=== PATIENT | female | born 1990 | race Caucasian/White ===

== ENCOUNTER 2020-08-14 11:55 | Emergency (ER) | payer MEDICAID, SELFPAY ==
[2020-08-14 12:13] VITALS: BP 131/83; PULSE 80; RESP 16; TEMP 36.6; O2SAT 99; BMI 20.7
--- NOTE | 2020-08-14 12:33 | ED.DENTAL ---
HPI - Dental/Oral General Chief complaint: Dental/Oral Stated complaint: DENTAL PAIN Time Seen by Provider: 08/14/20 12:33 Source: patient Mode of arrival: ambulatory Limitations: no limitations History of Present Illness HPI Narrative: dental pain known wisdom tooth impaction, worsening MD Complaint: tooth pain Teeth map: 1. 2. Onset (ago): day(s) (few) Duration: constant Severity: moderate Relieving factors: nothing Exacerbating factors: chewing Context: history of dental caries and poor dental care Treatment prior to arrival: none Related Data Previous Rx's Medication Instructions Recorded amoxicillin 500 mg PO BID 7 Days #14 cap 08/14/20 Allergies Allergy/AdvReac Type Severity Reaction Status Date / Time Sulfa (Sulfonamide Allergy Unknown swelling, Verified 08/14/20 12:09 Antibiotics) ITCHY [SULFA (SULFONAMIDE ANTIBIOTICS)] Review of Systems Review of Systems: Constitutional : No Fever, No Chills ENT/Mouth : No swallowing difficulty, no change in voice, positive dental pain Eyes: No Eye Pain, No Swelling Cardiovascular : No Chest Pain, No SOB Respiratory : No Cough, No Sputum Gastrointestinal : No Nausea, No Vomiting, No Diarrhea Genitourinary : No Dysuria Musculoskeletal : No Myalgias Skin : No rash Neuro : No Weakness, No Numbness, No Headache PMFSH Past Medical History Attestation statement: The following information was validated with the patient. Medical History (Updated 08/14/20 @ 12:45 by Laxmi Carrillo DO) No active medical problems Social History Social History (Updated 08/14/20 @ 12:45 by Laxmi Carrillo DO) Use of substances other than those prescribed or required for medical reasons: No Advance Directives: No Advance Directives Information Provided: No Physical Exam Vital Signs: Vital Signs: Last Vital Signs Temp 97.8 F 08/14/20 12:13 Pulse 80 08/14/20 12:13 Resp 16 08/14/20 12:13 BP 131/83 08/14/20 12:13 Pulse Ox 99 08/14/20 12:13 Body Mass Index 20.7 Appearance: Alert. Oriented X3. No acute distress. Eyes: Pupils equal, round and reactive to light. ENT: impacted R lower wisdom tooth and caries no abscess or fluctuance, L upper 2nd molar - area is a socket but ?small root noted, no fluctuance or abscess, no evidence of deeper space infection Neck: Normal inspection. Neck supple. CVS: Normal heart rate and rhythm. Pulses normal. Respiratory: No respiratory distress. Breath sounds normal. Abdomen: Soft and nontender. Skin: Skin warm and dry. Normal skin color. Normal skin turgor. Extremities: No lower extremity edema. No calf ttp Neuro: Oriented X 3. No motor deficit. No sensory deficit. MDM - Dental/Oral MDM Narrative Medical decision making narrative: impacted wisdom teeth no abscess, needs to follow up with dentist for extraction, will start on antibiotics to prevent infection, given dental list Discharge Plan Discharge Clinical Impression: Tooth impaction, Pain, dental Patient Disposition: Home, Self-Care Instructions: Toothache (ED) Additional Instructions: return to ED for any worsening symptoms or concerns you need to see an oral surgeon or dentist to have your tooth extracted (removed) you were given a sheet with dental clinics Prescriptions: New amoxicillin 500 mg capsule 500 mg PO BID 7 Days Qty: 14 RF: 0
[2020-08-14] MEDS: Amoxicillin 500 MG CAPSULE PO (12:42)
== END 2020-08-14 12:55 | disposition home or self-care (01) ==
LOC: HO.ED 12:50
PROVIDERS: Emergency Provider Emergency Medicine
DX: K01.1 Impacted teeth (principal); K08.89 Other specified disorders of teeth and supporting structures
CPT/HCPCS: 99283

== ENCOUNTER 2020-10-14 23:08 | Emergency (ER) | payer MEDICARE, MEDICAID, SELFPAY ==
--- NOTE | ~2020-10-14 | US_ITS ---
EXAMINATION: ULTRASOUND, RIGHT ANTERIOR FOREARM CLINICAL INFORMATION: Intravenous drug abuser. Evaluate for abscess COMPARISON: None TECHNIQUE: Dynamic, real-time grayscale and color Doppler sonographic evaluation of the right antecubital region was performed. US/US extremity nonvascular FINDINGS/IMPRESSION: There is thrombophlebitis of an antecubital vein is best shown on the cine images. Extensive surrounding subcutaneous edema is present. The vein above the level of the antecubital fossa is patent. No evidence of abscess formation or phlegmon at this time.
--- NOTE | 2020-10-15 00:27 | ED.GENADULT ---
HPI - General Adult General Chief complaint: Wound/Laceration <EDUARDO Rizo Last Filed: 10/15/20 02:13> Stated complaint: ABSCESS <EDUARDO Rizo Last Filed: 10/15/20 02:13> Time Seen by Provider: 10/15/20 00:09 <EDUARDO Rizo Last Filed: 10/15/20 02:13> Source: patient <EDUARDO Rizo Last Filed: 10/15/20 02:13> Mode of arrival: ambulatory <EDUARDO Rizo Last Filed: 10/15/20 02:13> Limitations: no limitations <EDUARDO Rizo Last Filed: 10/15/20 02:13> History of Present Illness HPI narrative: 30-year-old female with a past medical history of IV drug abuse here with swelling and erythema and pain to the right forearm status post injection 3 days ago. Patient tells me that she injected cocaine into the site but missed and immediately felt pain at the site. Over the last 3 days increasing and swelling and erythema. She has had chills but no fever at home. Patient uses IV heroin and IV cocaine daily. Unable to quantify. Not interested in detox. <EDUARDO Rizo Last Filed: 10/15/20 02:13> Related Data Home medications: Previous Rx's Medication Instructions Recorded amoxicillin 500 mg PO BID 7 Days #14 cap 08/14/20 doxycycline monohydrate 100 mg PO BID #14 tab 10/15/20 <EDUARDO Rizo Last Filed: 10/15/20 02:13> Allergies/adverse reactions: Allergies Allergy/AdvReac Type Severity Reaction Status Date / Time Sulfa (Sulfonamide Allergy Unknown swelling, Verified 10/15/20 00:57 Antibiotics) ITCHY [SULFA (SULFONAMIDE ANTIBIOTICS)] <EDUARDO Rizo Last Filed: 10/15/20 02:13> Review of Systems Review of Systems: Yes all other systems are reviewed and are negative <EDUARDO Rizo Last Filed: 10/15/20 02:13> Constitutional: Constitutional: Reports no additional constitutional complaints, Denies body ache(s), Reports chills, Denies fever(s), Denies headache(s) and Denies weakness <Suellen Jarrett NP - Last Filed: 10/15/20 02:13> Eyes: Eyes: Reports no additional eye complaints and Denies change in vision <Suellen Jarrett [employer] - Last Filed: 10/15/20 02:13> ENT: Reports system reviewed and no additional complaints, except as documented, Denies dizziness, Denies headache(s), Denies nasal congestion, Denies nasal discharge and Denies neck pain <Suellen Jarrett [employer] - Last Filed: 10/15/20 02:13> Cardiovascular: Cardiovascular: Reports no additional cardiovascular complaints, Denies chest pain, Denies leg edema and Denies dyspnea <Suellen Jarrett [employer] - Last Filed: 10/15/20 02:13> Respiratory: Respiratory: Reports no additional respiratory complaints, Denies cough and Denies dyspnea <Suellen Jarrett NP - Last Filed: 10/15/20 02:13> Gastrointestinal: Gastrointestinal: Reports no additional gastrointestinal complaints, Denies abdominal pain, Denies diarrhea, Denies nausea and Denies vomiting <Suellen Jarrett NP - Last Filed: 10/15/20 02:13> Genitourinary: Genitourinary: Reports no additional female genitourinary complaints and Denies urinary incontinence <Suellen Jarrett [employer] - Last Filed: 10/15/20 02:13> Musculoskeletal: Musculoskeletal: Reports no additional musculoskeletal complaints, Denies back pain, Denies arthralgias, Denies joint swelling, Denies neck pain, Denies numbness and Denies tingling <Suellen Jarrett [employer] - Last Filed: 10/15/20 02:13> Integumentary/Breasts: Skin/Breast: Reports system reviewed and no additional complaints, except as docu, Reports swelling, Reports erythema and Denies rash <Suellen Jarrett NP - Last Filed: 10/15/20 02:13> Neurologic: Reports system reviewed and no additional complaints, except as documented, Denies Abnormal speech present, Denies dizziness, Denies headache(s), Denies numbness, Denies tingling and Denies weakness <Suellen Jarrett NP - Last Filed: 10/15/20 02:13> PMFSH Past Medical History Attestation statement: The following information was validated with the patient. <Suellen Jarrett NP - Last Filed: 10/15/20 02:13> Source: old records reviewed and nursing notes reviewed <Suellen Jarrett NP - Last Filed: 10/15/20 02:13> Medical History: Medical History No active medical problems <Suellen Jarrett NP - Last Filed: 10/15/20 02:13> Social History Social History: Social History Advance Directives: No <Suellen Jarrett NP - Last Filed: 10/15/20 02:13> Physical Exam Vital Signs: Vital Signs: Last Vital Signs Temp 98.6 F 10/15/20 02:00 Pulse 83 10/15/20 02:00 Resp 16 10/15/20 02:00 BP 118/72 10/15/20 02:00 Pulse Ox 99 10/15/20 02:00 Body Mass Index 20.2 <Suellen Jarrett NP - Last Filed: 10/15/20 02:13> Vital Signs: Last Vital Signs Temp 98.6 F 10/15/20 02:00 Pulse 83 10/15/20 02:00 Resp 16 10/15/20 02:00 BP 118/72 10/15/20 02:00 Pulse Ox 99 10/15/20 02:00 Body Mass Index 20.2 <Ria Pappas MD - Last Filed: 10/15/20 02:29> Const: General: cooperative, healthy appearing, comfortable and no acute distress <Suellen Jarrett NP - Last Filed: 10/15/20 02:13> Orientation/consciousness: patient oriented x3 <Suellen Jarrett NP - Last Filed: 10/15/20 02:13> Limitations: no limitations <Suellen Jarrett NP - Last Filed: 10/15/20 02:13> HENMT: Head: Yes normal to inspection <Suellen Jarrett NP - Last Filed: 10/15/20 02:13> Ears: hearing grossly normal bilaterally <Suellen Jarrett NP - Last Filed: 10/15/20 02:13> General nose exam: Normal external nose present <Suellen Jarrett NP - Last Filed: 10/15/20 02:13> Face and sinus: Yes normal facial exam <Suellen Jarrett NP - Last Filed: 10/15/20 02:13> Mouth: Normal oral and palatal mucosa present <Suellen Jarrett NP - Last Filed: 10/15/20 02:13> Throat: Yes posterior oropharynx normal <Suellen Jarrett NP - Last Filed: 10/15/20 02:13> Eyes: General: appearance normal, both eyes and all related structures <Suellen Jarrett NP - Last Filed: 10/15/20 02:13> Pupils: Equal, round and reactive pupils present <Suellen Jarrett NP - Last Filed: 10/15/20 02:13> Neck: Neck: Yes normal visual inspection <Suellen Jarrett NP - Last Filed: 10/15/20 02:13> Chest: Chest palpation & inspection: normal inspection of the chest <Suellen Jarrett NP - Last Filed: 10/15/20 02:13> Resp: Effort & Inspection: normal respiratory effort <Suellen Jarrett NP - Last Filed: 10/15/20 02:13> Auscultation: clear to auscultation bilaterally <Suellen Jarrett NP - Last Filed: 10/15/20 02:13> Cardio: Rate: regular rate <Suellen Jarrett NP - Last Filed: 10/15/20 02:13> Rhythm: regular rhythm <Suellen Jarrett NP - Last Filed: 10/15/20 02:13> Peripheral pulses: Peripheral pulses 2+ throughout <Suellen Jarrett NP - Last Filed: 10/15/20 02:13> GI: Inspection: Yes normal to inspection <Suellen Jarrett NP - Last Filed: 10/15/20 02:13> Palpation (GI): Soft to palpation and nontender <Suellen Jarrett NP - Last Filed: 10/15/20 02:13> Auscultation: normal bowel sounds <Suellen Jarrett NP - Last Filed: 10/15/20 02:13> Back/Spine/Pelvis: Thoracic/Lumbar Spine: thoracic and lumbar spine normal to inspection <Suellen Jarrett NP - Last Filed: 10/15/20 02:13> Skin: General skin exam: no rashes or lesions noted <Suellen Jarrett NP - Last Filed: 10/15/20 02:13> Neuro: General: patient oriented x3, no focal motor deficits and normal sensation to monofilament <Suellen Jarrett NP - Last Filed: 10/15/20 02:13> Cranial nerves: Yes Equal, round and reactive pupils present <Suellen Jarrett NP - Last Filed: 10/15/20 02:13> Cognition (Neuro): normal cognition <Suellen Jarrett NP - Last Filed: 10/15/20 02:13> Speech: No Abnormal speech present <Suellen Jarrett NP - Last Filed: 10/15/20 02:13> Gait exam (Neuro): Normal gait present <Suellen Jarrett NP - Last Filed: 10/15/20 02:13> Motor exam (neuro): 5/5 motor strength present throughout <Suellen Jarrett NP - Last Filed: 10/15/20 02:13> Extrem: Other: Just distal to the flexor surface of the elbow there is a firm indurated area approximately 2 in x 2 in. There is no fluctuance. There is warmth of the arm the erythema is not quite circumferential. Patient is able to extend the arm fully although it is painful. No difficulty with flexion of the arm. Normal cap refill. Palpable pulses distally. No paresthesias reported <Suellen Jarrett NP - Last Filed: 10/15/20 02:13> General: Yes normal to inspection <EDUARDO Rizo Last Filed: 10/15/20 02:13> Course Course Course Narrative: 30-year-old female here with erythema, warmth, swelling to the right forearm status post injection. Will check ultrasound to eval for abscess, labs. P.o. antibiotics given. 0200-Sign out to Dr Pappas pending US. <Suellen Jarrett NP - Last Filed: 10/15/20 02:13> Patient re-evaluated and ultrasound findings were reviewed. Patient was informed of the thrombophlebitis and that there was no evidence of an abscess. She was strongly recommended to continue with the antibiotics at this time and to also supplement with NSAIDs for additional symptom relief. Patient was discharged in stable condition. <Ria Pappas MD - Last Filed: 10/15/20 02:29> Medical Decision Making MDM Narrative Medical decision making narrative: cellulitis, abscess <Suellen Jarrett NP - Last Filed: 10/15/20 02:13> Medical Records Medical records reviewed: Yes I reviewed the patient's medical records. <Suellen Jarrett NP - Last Filed: 10/15/20 02:13> Lab Data Lab results reviewed: Yes I reviewed the patient's lab results. <Suellen Jarrett NP - Last Filed: 10/15/20 02:13> Result diagrams: : 10/15/20 01:10 10/15/20 01:10 <Suellen Jarrett NP - Last Filed: 10/15/20 02:13> Labs: Lab Results 10/15/20 10/15/20 10/15/20 Range/Units 01:10 01:10 01:10 WBC 8.7 (4.8-10.8) X10*3/uL RBC 4.67 (4.20-5.50) X10*6/uL Hgb 13.3 (12.0-16.0) g/dl Hct 39.7 (37-47) % MCV 85.0 (80-98) fL MCH 28.5 (27.0-33.0) pg MCHC 33.5 (31.0-35.0) g/dl RDW 12.6 (11.0-16.0) % Plt Count 166 (160-400) X10*3/uL MPV 10.8 (9.4-12.3) fL Immature Gran % (Auto) 0.2 (0.0-0.4) % Neut % (Auto) 48.8 (45-73) % Lymph % (Auto) 41.9 H (20-40) % Stanton % (Auto) 7.9 (2-11) % Eos % (Auto) 0.9 (0-4) % Baso % (Auto) 0.3 (0-2) % Lymph # (Auto) 3.7 (1.2-4.9) X10*3/uL Stanton # (Auto) 0.7 (0.1-1.2) X10*3/uL Eos # (Auto) 0.1 (0.0-0.4) X10*3/uL Baso # (Auto) 0.0 (0.0-0.2) X10*3/uL Abs Immat Gran (auto) 0.02 (0.00-0.03) X10*3/uL Absolute Neuts (auto) 4.3 (2.0-8.3) X10*3/uL Absolute Nucleated RBC 0.000 (0.0-0.012) X10*3/uL Nucleated RBC % (auto) 0.0 (0.0-0.2) /100WBC Sodium 140 (135-145) mmol/L Potassium 4.1 (3.3-5.1) mmol/L Chloride 101 (96-108) mmol/L Carbon Dioxide 31 H (22-29) mmol/L Anion Gap 12 (12-20) BUN 12 (9-16) mg/dL Creatinine 0.69 (0.5-1.4) mg/dL Estim Creat Clear Calc 89.1 Estimated GFR > 60 Random Glucose 70 (60-115) mg/dL Lactic Acid 0.6 (0.5-2.0) mmol/L Calcium 9.6 (8.4-10.2) mg/dL <Suellen Jarrett, [employer] - Last Filed: 10/15/20 02:13> Lab Results 10/15/20 10/15/20 10/15/20 Range/Units 01:10 01:10 01:10 WBC 8.7 (4.8-10.8) X10*3/uL RBC 4.67 (4.20-5.50) X10*6/uL Hgb 13.3 (12.0-16.0) g/dl Hct 39.7 (37-47) % MCV 85.0 (80-98) fL MCH 28.5 (27.0-33.0) pg MCHC 33.5 (31.0-35.0) g/dl RDW 12.6 (11.0-16.0) % Plt Count 166 (160-400) X10*3/uL MPV 10.8 (9.4-12.3) fL Immature Gran % (Auto) 0.2 (0.0-0.4) % Neut % (Auto) 48.8 (45-73) % Lymph % (Auto) 41.9 H (20-40) % Stanton % (Auto) 7.9 (2-11) % Eos % (Auto) 0.9 (0-4) % Baso % (Auto) 0.3 (0-2) % Lymph # (Auto) 3.7 (1.2-4.9) X10*3/uL Stanton # (Auto) 0.7 (0.1-1.2) X10*3/uL Eos # (Auto) 0.1 (0.0-0.4) X10*3/uL Baso # (Auto) 0.0 (0.0-0.2) X10*3/uL Abs Immat Gran (auto) 0.02 (0.00-0.03) X10*3/uL Absolute Neuts (auto) 4.3 (2.0-8.3) X10*3/uL Absolute Nucleated RBC 0.000 (0.0-0.012) X10*3/uL Nucleated RBC % (auto) 0.0 (0.0-0.2) /100WBC Sodium 140 (135-145) mmol/L Potassium 4.1 (3.3-5.1) mmol/L Chloride 101 (96-108) mmol/L Carbon Dioxide 31 H (22-29) mmol/L Anion Gap 12 (12-20) BUN 12 (9-16) mg/dL Creatinine 0.69 (0.5-1.4) mg/dL Estim Creat Clear Calc 89.1 Estimated GFR > 60 Random Glucose 70 (60-115) mg/dL Lactic Acid 0.6 (0.5-2.0) mmol/L Calcium 9.6 (8.4-10.2) mg/dL <Ria Pappas MD - Last Filed: 10/15/20 02:29> Discharge Plan Discharge Clinical Impression: Cellulitis Qualifiers: Site of cellulitis: extremity Site of cellulitis of extremity: upper extremity Laterality: right Qualified Code(s): L03.113 - Cellulitis of right upper limb <Suellen Jarrett NP - Last Filed: 10/15/20 02:13> Patient Disposition: Home, Self-Care <Suellen Jarrett NP - Last Filed: 10/15/20 02:13> Instructions: Cellulitis (ED) <Suellen Jarrett NP - Last Filed: 10/15/20 02:13> Additional Instructions: Warm compresses Start your antibiotics tomorrow Return for fever greater than 100.4, redness which is spreading up the arm, increasing swelling or pain at the site See the information for the [facility] <Sueleln Jarrett NP - Last Filed: 10/15/20 02:13> Prescriptions: New doxycycline monohydrate 100 mg tablet 100 mg PO BID Qty: 14 RF: 0 No Action amoxicillin 500 mg capsule 500 mg PO BID 7 Days Qty: 14 RF: 0 <Suellen Jarrett NP - Last Filed: 10/15/20 02:13> Referrals: Physician,Unknown [Primary Care Provider] - 2 days <Suellen Jarrett NP - Last Filed: 10/15/20 02:13>
[2020-10-15 00:52] VITALS: BP 106/68; PULSE 77; RESP 18; TEMP 36.8; O2SAT 100; BMI 20.2
[2020-10-15 01:16] LABS: MANUAL DIFF FLAG NO
[2020-10-15 01:18] LABS: Basophils Percent Auto 0.3 % (0-2); Eosinophils Absolute Auto 0.1 X10*3/uL (0.0-0.4); Eosinophils Percent Auto 0.9 % (0-4); Hematocrit 39.7 % (37-47); Hemoglobin 13.3 g/dl (12.0-16.0); Imm Gran Abs Auto 0.02 X10*3/uL (0.00-0.03); Imm Gran Pct Auto 0.2 % (0.0-0.4); Lymphocytes Absolute Auto 3.7 X10*3/uL (1.2-4.9); Lymphocytes Percent Auto 41.9 % (20-40); Mean Corpuscular HGB Conc 33.5 g/dl (31.0-35.0); Mean Corpuscular Hemoglobin 28.5 pg (27.0-33.0); Mean Platelet Volume 10.8 fL (9.4-12.3); Monocytes Absolute Auto 0.7 X10*3/uL (0.1-1.2); Monocytes Percent Auto 7.9 % (2-11); Neutrophils Absolute Auto 4.3 X10*3/uL (2.0-8.3); Neutrophils Percent Auto 48.8 % (45-73); Platelet Count 166 X10*3/uL (160-400); Red Blood Count 4.67 X10*6/uL (4.20-5.50); Red Cell Distribution Width 12.6 % (11.0-16.0); White Blood Count 8.7 X10*3/uL (4.8-10.8)
[2020-10-15 01:39] LABS: Lactic Acid 0.6 mmol/L (0.5-2.0)
[2020-10-15 01:42] LABS: Anion Gap 12 (12-20); Blood Urea Nitrogen 12 mg/dL (9-16); Calcium 9.6 mg/dL (8.4-10.2); Carbon Dioxide 31 mmol/L (22-29); Chloride 101 mmol/L (96-108); Creatinine Clr Calc Pharmacy 89.1; Estimated Glomerular Filt Rate > 60; Glucose Random 70 mg/dL (60-115); Potassium 4.1 mmol/L (3.3-5.1); Sodium 140 mmol/L (135-145)
[2020-10-15 02:00] VITALS: BP 118/72; PULSE 83; RESP 16; TEMP 37; O2SAT 99
== END 2020-10-15 02:55 | disposition home or self-care (01) ==
PROVIDERS: Nurse Practitioner Family; Emergency Provider Student in an Organized Health Care Education/Training Program
DX: L03.113 Cellulitis of right upper limb (principal); F11.10 Opioid abuse, uncomplicated; F14.10 Cocaine abuse, uncomplicated; Z71.51 Drug abuse counseling and surveillance of drug abuser; Z79.899 Other long term (current) drug therapy
CPT/HCPCS: 36415; 76882; 80048; 83605; 85025; 87040; 99284

== ENCOUNTER 2021-03-20 10:33 | Emergency (ER) | payer MEDICARE, MEDICAID, SELFPAY ==
[2021-03-20 11:04] VITALS: BP 108/70; PULSE 91; RESP 16; TEMP 36.7; O2SAT 97
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
== END 2021-03-20 11:39 | disposition home or self-care (01) ==
LOC: HO.ED 11:25
PROVIDERS: Emergency Provider Emergency Medicine
DX: K08.89 Other specified disorders of teeth and supporting structures (principal); F11.10 Opioid abuse, uncomplicated; F14.10 Cocaine abuse, uncomplicated; Z79.899 Other long term (current) drug therapy
CPT/HCPCS: 99283

== ENCOUNTER 2024-03-10 18:18 | Emergency (ER) | payer MEDICARE, SELFPAY ==
[2024-03-10 18:21] VITALS: BP 132/91; PULSE 69; RESP 18; TEMP 36.8; O2SAT 100; BMI 16.3
--- NOTE | 2024-03-10 18:21 | ED_ITS ---
HPI - Abdominal Pain General Chief Complaint: Abdominal Pain Stated Complaint: abd pain Related Data Previous Rx's ?Medication ?Instructions ?Recorded amoxicillin 500 mg capsule 500 mg PO BID 7 days #14 caps 08/14/20 doxycycline monohydrate 100 mg 100 mg PO BID #14 tabs 10/15/20 tablet ibuprofen 600 mg tablet 600 mg PO Q6-8H PRN pain #20 tabs 03/20/21 penicillin V potassium 500 mg 500 mg PO TID 7 days #21 tabs 03/20/21 tablet Allergies Allergy/AdvReac Type Severity Reaction Status Date / Time Sulfa (Sulfonamide Allergy Unknown swelling, Verified 03/10/24 18:22 Antibiotics) ITCHY [SULFA (SULFONAMIDE ANTIBIOTICS)] [facility] Past Medical History Medical History (Updated 03/11/24 @ 12:31 by DANIEL Hanson) No active medical problems Surgical History (Updated 03/20/21 @ 11:06 by Lizzie Torres) History of back surgery Social History Social History Alcohol intake: current Substance Use Type: Crack/Cocaine, Heroin and IV Drugs Advance Directives: No Advance Directives Information Provided: No Do you have a plan to hurt others: No Plan Physical Exam ED Vital Signs: Vital Signs - 24 hr 03/10/24 18:21 Temperature 98.2 F Pulse Rate 69 Respiratory Rate 18 Blood Pressure 132/91 H Pulse Oximetry 100 Oxygen Delivery Method Room Air BMI result Body Mass Index 16.3 Course Course Course Narrative: This is a Rapid Medical Examination (RME) performed by Stephie Sun PA-C in triage. Full HPI, ROS, assessment and treatment plan per primary provider in the Main ED. 33 yo female hx of IVDU here for eval of 10/10 diffuse abdominal pain and vomiting s/p eating ice cream today. Last BM today was normal. Denies fever, chills, dysuria, hematuria. admits to injecting cocaine 2 hours ago. daily marijuana use. on methadone. Plan: labs, UA, UDS, u preg ordered +/- imaging per primary provider Reevaluation(s) Reevaluation #1: Patient left the emergency department before myself or any of the other clinicians could review or explain physical exam findings, test results, need or lack there of for additional testing, treatment options, or a treatment plan. Discharge Plan Discharge Clinical Impression: Abdominal pain Patient Disposition: Left W/O Completing Treatment Prescriptions: No Action doxycycline monohydrate 100 mg tablet 100 mg PO BID Qty: 14 0RF amoxicillin 500 mg capsule 500 mg PO BID 7 Days Qty: 14 0RF penicillin V potassium 500 mg tablet 500 mg PO TID 7 Days Qty: 21 0RF ibuprofen 600 mg tablet 600 mg PO Q6-8H PRN (Reason: pain) Qty: 20 0RF Discharge Date/Time: 03/10/24 18:49
--- NOTE | 2024-03-10 18:44 | PC.NURSE ---
pt was brought to bathroom for a urine, then the triage tech was going to draw labs, upon going to get labs drawn, pt told the tech she did not want to be seen that she has changed her mind. triage tech came to see this nurse and this nurse told him if she wanted to leave she could but she is advised to be seen.
== END 2024-03-10 18:49 | disposition left against medical advice (07) ==
PROVIDERS: Emergency Provider Emergency Medicine
DX: R10.9 Unspecified abdominal pain (principal)
CPT/HCPCS: 99281

== ENCOUNTER 2024-10-20 15:02 | Inpatient (IN) | payer MEDICARE, SELFPAY ==
[2024-10-20] VITALS (34 sets, daily range): BP systolic 84–133; BP diastolic 46–81; PULSE 98–144; RESP 12–46; TEMP 37.2–39.7; O2SAT 95–100; BMI 17.8; BMI 14.4
--- NOTE | ~2024-10-20 | CT_ITS ---
EXAMINATION: CT HEAD WITHOUT CONTRAST CLINICAL INFORMATION: AMS. COMPARISON: None available. TECHNIQUE: Contiguous axial imaging was performed from the skull base to vertex without intravenous administration of contrast. This CT examination was performed using dose optimization techniques as appropriate, variously including the following: *Automated exposure control *Adjustment of mA and/or kV according to patient size (this includes techniques or standardized protocols for targeted exams where dose is matched to indication/reason for exam; i.e. extremities or head) *Use of iterative reconstruction technique DLP: 743 mGy/cm. FINDINGS: Limited exam secondary to patient motion. There is no acute intra-axial, extra-axial bleed, masses or midline shift. There is no acute infarction in evolution. There is no edema. The lateral ventricles are symmetrical in size and configuration without enlargement. There is no abnormality seen in the posterior fossa. Bone windows reveal no calvarial abnormality. No scalp soft tissue abnormality. Bilateral paranasal sinuses and mastoid air cells are well-aerated. CT/CT head/brain wo IV con IMPRESSION: No acute intracranial process seen Electronically signed by: Van Sultana MD 10/20/2024 04:38 PM EDT
--- NOTE | ~2024-10-20 | CT_ITS ---
CLINICAL HISTORY: AMS, hx of IVDA, r o septic emboli CT angiography chest with contrast. 3D Postprocessing. Comparison: None Findings: The heart is borderline prominent. RV/LV ratio is normal. The thoracic aorta is normal caliber. No acute pulmonary embolus. Motion artifact limits interpretation. Mild pectus excavatum. Mild airway thickening. Patchy left lower lobe density. No effusion. No pneumothorax. The spleen is enlarged. No acute osseous finding. Impression: Somewhat limited study by motion artifact. There is no evidence of large central or proximal segmental pulmonary embolism and there is no evidence of heart strain by CT. Borderline cardiomegaly. Airway thickening and patchy left lower lobe density suggestive of pneumonia. This document has been electronically signed by: Cristi Foster MD on 10/20/2024 20:37:28
--- NOTE | ~2024-10-20 | CT_ITS ---
EXAMINATION: CT THORACIC SPINE WITH CONTRAST CLINICAL INFORMATION: Concern for osteomyelitis of the spine. COMPARISON: None. Correlation made with CT angiogram of the chest dated 10/20/2024. TECHNIQUE: Spiral CT imaging of the thoracic spine performed in axial plane after the administration of 85 mL Omnipaque 350 IV contrast. Multiplanar reformatted images were constructed from the axial data set. This CT examination was performed using dose optimization techniques as appropriate, variously including the following: *Automated exposure control *Adjustment of mA and/or kV according to patient size (this includes techniques or standardized protocols for targeted exams where dose is matched to indication/reason for exam; i.e. extremities or head) *Use of iterative reconstruction technique FINDINGS: There is normal thoracic kyphosis. There is no scoliosis. There is no fracture, compression deformity, subluxation, or suspicious focal bony abnormality. No regions of focal osteopenia or permeative bony change to suggest radiographic changes of osteomyelitis. Normal facet alignment. Normal facets erosions. Disc spaces are preserved throughout. There is focal calcification within the T7-8 disc. No definite dural enhancement or intra or extradural spinal collection along for modality limitations. The paravertebral soft tissues and paraspinous soft tissues appear normal. No definite fluid collection or enhancement. The imaged lungs are somewhat limited due to respiratory motion artifact. There is mild pulmonary edema pattern. There is cardiomegaly noted. There are trace bilateral pleural effusions. There is parenchymal consolidation within the left lower lobe with subpleural passive atelectasis, groundglass opacity, consistent with pneumonia. There is a rounded soft tissue nodular abnormality measuring 1.6 cm in diameter, partially obscured by motion, likely part of the pneumonic process. Given rapid interval development from the prior CT, septic embolic disease is a consideration. CT/CT thoracic spine w IV con IMPRESSION: 1. No CT evidence of spinal osteomyelitis. No abnormality in the paravertebral and paraspinous soft tissues. 2. No abnormal dural enhancement or intra or extradural spinal fluid collection, allowing for modality limitations. 3. Pneumonic consolidation left lower lobe with 1.6 rounded soft tissue focus, largely obscured by motion artifact, however given rapid interval development over 2 days, septic embolic disease is a consideration. 4. Tiny pleural effusions bilaterally. 5. The heart is mildly enlarged and there is mild interstitial pulmonary edema. Electronically signed by: Con Farmer MD 10/22/2024 03:44 PM EDT RP
--- NOTE | ~2024-10-20 | CT_ITS ---
EXAMINATION: CT CERVICAL SPINE WITH CONTRAST CLINICAL INFORMATION: Suspected osteomyelitis. COMPARISON: None available. TECHNIQUE: Spiral CT imaging of the cervical spine performed in axial plane after the administration of 85 mL Omnipaque 350 IV contrast. Multiplanar reformatted images were constructed from the axial data set. This CT examination was performed using dose optimization techniques as appropriate, variously including the following: *Automated exposure control *Adjustment of mA and/or kV according to patient size (this includes techniques or standardized protocols for targeted exams where dose is matched to indication/reason for exam; i.e. extremities or head) *Use of iterative reconstruction technique FINDINGS: CORONAL ALIGNMENT: -Normal SAGITTAL ALIGNMENT: -Normal. No subluxations. C1-C2 AND CRANIOCERVICAL JUNCTION: -Intact and normally aligned. VERTEBRAL BODIES AND FACETS: -No fracture, compression deformity, traumatic subluxation, or suspicious bone lesion. No focal region of osteopenia or permeative bony change to suggest CT evidence of osteomyelitis. DISCS: -Preserved. CENTRAL CANAL: -No evidence of high-grade central canal narrowing or large disc herniation allowing for modality limitations. -No evidence of significant dural enhancement or abnormal fluid collection. PREVERTEBRAL AND PARAVERTEBRAL SOFT TISSUES: -Normal prevertebral and paravertebral soft tissue appearance. -There is a right internal jugular central venous catheter in place, tip below the edge of the examination. -Normal thyroid. -No abnormal soft tissue enhancement, mass, or abnormal lymph nodes. -Imaged intracranial structures appear normal. LUNG APICES: -Clear bilaterally. CT/CT cervical spine w IV con IMPRESSION: 1. Essentially normal contrast-enhanced cervical spine CT. No CT evidence of osteomyelitis or abnormal fluid collection. Electronically signed by: Con Farmer MD 10/22/2024 03:33 PM EDT
--- NOTE | ~2024-10-20 | CT_ITS ---
CLINICAL HISTORY: AMS CT abdomen and pelvis with contrast Comparison: None Findings: Faint patchy left lower lobe density. The liver is mildly enlarged. The spleen is enlarged up to 15 cm and demonstrates peripheral wedge-shaped and linear/irregular low-density along the superior posterior spleen, axial images 18 -25. Faint linear regions of low-density within the kidneys peripherally, for example left lower pole on coronal 35. No hydronephrosis. The bladder is decompressed by Ibarra catheter. No bowel obstruction, free air or evidence of abscess. Uterus and adnexa are unremarkable. No definite acute osseous abnormality. Impression: Linear regions of low-density within the posterior superior spleen may reflect small regions of infarct especially given the splenomegaly. Traumatic laceration is considered less likely as there is no perisplenic hematoma. Linear low-density regions within each kidney, with heterogeneous perfusion. Prior renal infarcts versus pyelonephritis. Clinical/laboratory correlation. Faint patchy left lower lobe density. Pneumonia possible. This document has been electronically signed by: Cristi Foster MD on 10/20/2024 20:36:41
--- NOTE | ~2024-10-20 | XR_ITS ---
EXAMINATION: XR CHEST CLINICAL INFORMATION: TLC central line placement COMPARISON: 10/20/2024. TECHNIQUE: Frontal view of the chest was obtained. FINDINGS: Right IJ central venous catheter in place, tip terminating in the superior SVC. There is mild to moderate cardiomegaly. There is prominence of the main pulmonary arteries. There is normal aortic contour. The hilar silhouettes are normal. Haziness of the pulmonary interstitium noted with subtle Amelia B lines in the lung bases, findings suggesting mild interstitial pulmonary edema. Minimal blunting of the costophrenic angles bilaterally, possible tiny effusions. Linear atelectasis in the left base. No perceptible pneumothorax. No soft tissue or bony abnormalities. XR/XR chest 1V IMPRESSION: 1. Right IJ central venous catheter in good position. No perceptible pneumothorax. 2. Mild to moderate interstitial pulmonary edema with cardiomegaly. 3. Suspect tiny pleural effusions bilaterally. Electronically signed by: Con Farmer MD 10/22/2024 01:22 PM EDT
--- NOTE | ~2024-10-20 | XR_ITS ---
EXAMINATION: XR CHEST CLINICAL INFORMATION: AMS COMPARISON: Chest x-ray 10/10/2017. TECHNIQUE: Frontal view of the chest was obtained. FINDINGS: Lungs are well-expanded with patchy density seen in the right middle lobe suspicious for focal atelectasis. Cannot exclude infiltrate. No pleural effusion or pneumothorax. The heart size is normal. No gross bony abnormality seen. XR/XR chest 1V IMPRESSION: Right middle lobe patchy opacity question atelectasis and/or infiltrate. Electronically signed by: Van Sultana MD 10/20/2024 04:39 PM EDT
--- NOTE | ~2024-10-20 | CT_ITS ---
EXAMINATION: CT LUMBAR SPINE CLINICAL INFORMATION: Concerning osteomyelitis. COMPARISON: None available. TECHNIQUE: Contiguous axial images through the lumbar spine 2 mm collimation with bone and soft tissue algorithm following the IV contrast administration. Total of 85 cc Omnipaque 350 strength without reported immediate complications. Sagittal and coronal reformatted images acquired. This CT examination was performed using dose optimization techniques as appropriate, variously including the following: *Automated exposure control *Adjustment of mA and/or kV according to patient size (this includes techniques or standardized protocols for targeted exams where dose is matched to indication/reason for exam; i.e. extremities or head) *Use of iterative reconstruction technique DLP: 379.7 mGy centimeter. FINDINGS: Last rib-bearing vertebra labeled T12. No osteolysis. No acute cortical disruption. No gross malalignment. No abnormal enhancement in the prevertebral compartment. There is preservation of the intervertebral disc spaces. There is ascites no fully evaluated. There is edema pattern in the soft tissues likely related to anasarca. CT/CT lumbar spine w IV con IMPRESSION: No discitis/ osteomyelitis. Ascites and anasarca. Electronically signed by: Jeremy Mane MD 10/22/2024 03:41 PM EDT
--- NOTE | 2024-10-20 15:13 | ECG_ITS ---
Test Reason : TACY Blood Pressure : */* mmHG Vent. Rate : 132 BPM Atrial Rate : 132 BPM P-R Int : 124 ms QRS Dur : 88 ms QT Int : 298 ms P-R-T Axes : 61 118 31 degrees QTcB Int : 441 ms Sinus tachycardia Possible Left atrial enlargement Minimal voltage criteria for LVH, may be normal variant ( Vidal product ) Anterolateral infarct (cited on or before 26-Apr-2018) Abnormal ECG When compared with ECG of 26-Apr-2018 19:42, Non-specific change in ST segment in Anterior leads T wave amplitude has decreased in Lateral leads Referred By: Generic ED Physician Electronically Signed By: MICA ALEJO MD
--- NOTE | 2024-10-20 15:32 | ED.AMS ---
HPI - Altered Mental Status General Chief Complaint: Altered Mental Status Stated Complaint: ? Sepsis, confusion Time Seen by Provider: 10/20/24 15:14 Source: patient, family, EMS and old records reviewed Mode of arrival: ambulatory Limitations: altered mental status History of Present Illness ED Provider: Mary Valentino PA-C HPI narrative: This is a 34 year old female, with a past medical history of polysubstance abuse on methadone, who presents emergency department via EMS with concerns for altered mental status. Family reports that patient has been sick with the flu for the last 2-3 days. Family reports that she has had nausea and vomiting for the last several days. Family also has been sick with similar symptoms. Family reports that last night at around 8:00 p.m. was her last known well. Patient awoke this morning and family reports that she was altered - unable to form setences and having incomprehensible words, and they called EMS. Denies hx of similar symptoms in the past per family. Pt with opened eyes, unable to form short sentences or follow commands. Speech is garbled. Unable to form short sentences, incomprehensible. MD complaint: altered mental status Timing confirmed by: family member Severity: severe Consistency of symptoms: unknown Context: drug abuse Related Data Home Medications ?Medication ?Instructions ?Recorded ?Confirmed methadone 10 mg/mL oral mg 10/21/24 concentrate (Methadone Intensol) Allergies Allergy/AdvReac Type Severity Reaction Status Date / Time Sulfa (Sulfonamide Allergy Unknown swelling, Verified 10/20/24 15:27 Antibiotics) ITCHY [SULFA (SULFONAMIDE ANTIBIOTICS)] Review of Systems Review of Systems: Yes Unobtainable due to mental status Constitutional: Constitutional: Reports as per HPI [facility] Past Medical History Attestation statement: The following information was validated with the patient. Medical History No active medical problems Surgical History History of back surgery Social History Social History Household Members: Unknown / Unable to assess Alcohol intake: current Patient Tobacco Use Status: Tobacco use Unknown Substance Use Type: Crack/Cocaine, Heroin and IV Drugs Physical Exam ED Vital Signs: Vital Signs - 24 hr 10/20/24 15:21 04/14/25 16:32 10/20/24 16:49 Temperature 103.4 F H 102.7 F H 99.1 F Pulse Rate 143 H 106 H Respiratory Rate 14 28 H Blood Pressure 112/78 84/52 L Pulse Oximetry 98 100 Oxygen Delivery Method Room Air Room Air 10/20/24 16:54 10/20/24 17:06 10/20/24 17:51 Temperature 100.0 F Pulse Rate 122 H 112 H Respiratory Rate 25 H 26 H Blood Pressure 94/61 92/62 85/47 L Pulse Oximetry 99 98 Oxygen Delivery Method Room Air Room Air 10/20/24 18:03 10/20/24 18:14 10/20/24 18:19 Temperature 99.9 F 99.9 F 99.7 F Pulse Rate 109 H 104 H 104 H Respiratory Rate 26 H 25 H 23 H Blood Pressure 84/50 L 86/46 L 84/49 L Pulse Oximetry 100 100 100 Oxygen Delivery Method Room Air Room Air Room Air 10/20/24 18:24 10/20/24 18:29 10/20/24 18:34 Temperature 99.7 F 99.5 F Pulse Rate 103 H 111 H 106 H Respiratory Rate 26 H 24 H Blood Pressure 85/47 L 90/58 L 84/52 L Pulse Oximetry 100 100 Oxygen Delivery Method Room Air Room Air 10/20/24 18:39 10/20/24 18:44 10/20/24 18:49 Temperature 99.3 F Pulse Rate 114 H 108 H 105 H Respiratory Rate 21 H Blood Pressure 93/55 L 84/54 L 84/52 L Pulse Oximetry 100 Oxygen Delivery Method Room Air 10/20/24 18:54 10/20/24 18:59 10/20/24 19:04 Temperature 99.1 F 99.0 F 99.0 F Pulse Rate 108 H 107 H 108 H Respiratory Rate 21 H 19 26 H Blood Pressure 85/55 L 91/56 L 91/56 L Pulse Oximetry 100 100 100 Oxygen Delivery Method Room Air Room Air Room Air 10/20/24 19:30 10/20/24 19:34 Temperature Pulse Rate 107 H Respiratory Rate Blood Pressure 85/53 L 91/57 L Pulse Oximetry 100 Oxygen Delivery Method Room Air BMI result Body Mass Index 17.8 Const General: ill appearing, patient obtunded and poor hygiene Nutritional Appearance: cachectic Orientation/consciousness: patient obtunded Limitations: altered mental status HENPA Head: Yes normal to inspection, Yes normocephalic and Yes atraumatic Ears: external ears normal and TM's normal bilaterally General nose exam: Normal external nose present Face and sinus: Yes normal facial exam Mouth: Normal oral and palatal mucosa present, oropharynx normal and other (dry mucosa ) Teeth and gingiva: poor dentition Throat: Yes posterior oropharynx normal Eyes General: appearance normal, both eyes and all related structures Eyelids: Yes eyelids normal Conjunctivae: conjunctivae normal Sclerae: sclerae normal Pupils: Equal, round and reactive pupils present EOM: EOMs intact bilaterally Neck Neck: Yes normal visual inspection, Yes full ROM, Yes no lymphadenopathy, Yes no meningeal signs and Yes supple Lymphatic: no lymphadenopathy noted Chest Chest palpation & inspection: normal inspection of the chest Resp Effort & Inspection: normal respiratory effort and able to speak in complete sentences Auscultation: clear to auscultation bilaterally, no crackles, no rales, no rhonchi and no wheezes Cardio Rate: regular rate Rhythm: regular rhythm Heart sounds: S1 normal heart sound present and S2 normal heart sound present GI Inspection: Yes normal to inspection Skin Other: numerous IV track harley noted throughout entire body, no abscess, cellulitis noted. Neuro General: moves all extremities, no meningeal signs, patient obtunded and Unable to assess gait Cranial nerves: Yes Equal, round and reactive pupils present Cognition (Neuro): abnormal cognition Speech: Global aphasia present Gait exam (Neuro): Unable to assess gait Extrem General: Yes normal to inspection Right upper extremity: normal to inspection Left upper extremity: normal to inspection Right lower extremity: normal to inspection Left lower extremity: normal to inspection Course Reevaluation(s) Reevaluation #1: Critical sodium returns, 120. Added urine osmolaity, serum osmolality, and sodium urine. Xray concerning for possible BL LL pneumonia. CT head and xray report still pending. Patient does have an elevated white blood cell count at 25, with left shift, sodium critically low at 120, stopped IV fluids, lactic acidosis at 3.1, total bili 1.2, elevated troponin at 753.7, likely due to demand ischemia. CRP is 31. Pending viral swabs as well as CT head and x-ray and UA. Discussed with attending physician, Dr. Perez. Given AMS, considering LP. Time: 16:39 Reevaluation #2: Chest x-ray questionable pneumonia. Urine returns, Lumbar puncture was performed given altered mental status, and question of meningitis, appears to be clear CSF appreciated. Patient tolerated procedure well. We did premedicate with Versed 4 mg IV push. Patient is temperature as well as tachycardia has improved. Awaiting urinalysis. Remains to be encephalopathic. Patient hypotensive. We started on LRs and minimal response with BP; blood pressure 85/47. We will start on Levophed drip. Added on CTA chest to rule out septic emboli, and CT abdomen and pelvis to rule out any other pathology. Discussed with ICU job specification writer, transfer of care initiated. Spinal tap performed, revealing significant number of white blood cells in her CSF with normal glucose and protein levels. Meningitis panel was negative. Thought to have viral encephalitis versus encephalopathy secondary to possible bacterial like infection. Discussed with job specification writer, who recommends starting on antivirals, recommending acyclovir 1 g IV once. Time: 18:23 Reevaluation #3: Spoke to ICU job specification writer, Onel Pyle, who accepts transfer of care. Did add on albumin per job specification writer requests as well as added CSF cytology, CSF amylase, CSF lipase, and CSF LDH. Serum amylase, and serum LDH also added on. Transfer of care initiated. Dr. Yordan Perez attending physician's note: 34 year old female, with a past medical history of polysubstance abuse on methadone, who presents To theemergency department via EMS with concerns for altered mental status. Initial vital signs revealed elevated heart rate of 140 through and an elevated temperature of a 103.4 degrees. Physical examination revealed a cachectic female with BMI of 17.5, somnolent but arousable, to painful stimuli, she does open her eyes to voice and does respond with mumbling answers that are incoherent. Exam did reveal diminished breath sounds bilaterally and multiple track harley on her extremities. Her neck was supple. patient's findings were consistent with encephalopathy most likely is secondary to an infectious source. Given her altered mental status andher fever, meningitis was considered. A spinal tap was performed and the patient did have significant number of WBCs in her CSF with normal glucose and protein levels. Meningeal panel was negative. patient may have a viral encephalitis verses encephalopathy secondary to bacterial infection. Chest x-ray and CT pulmonary angiogram PE protocol was consistent with left lower lobe infiltrate. Urinalysis was concerning for possible urinary tract infection. Patient's hyponatremia did complicate the patient's course however hyponatremia is not secondary to SIADH based Based on serum osmolality, urine osmolality and urine sodium. Patient was treated with Zosyn and vancomycin IV. Patient was hypotensive and was started on Levophed for pressure support. Patient was accepted into the intensive care unit for further management. I, Dr. Yordan Perez, evaluated the patient while she was in the emergency department. I was also available for consultation by the treating physician assistant boys track coach, Mary Valentino PA-C while the patient was in the emergency department. I reviewed the physician assistant boys track coach's findings and I agree with the treatment and plan as documented. Medications Administered Discontinued Medications Generic Name Dose Route Start Last Admin Trade Name Freq PRN Reason Stop Dose Admin Diltiazem HCl 10 mg 10/22/24 05:12 10/22/24 05:15 Diltiazem Hcl 50 Mg/10 Ml Vial IVPUSH 10/22/24 05:13 10 mg STAT STA Administration Diltiazem HCl 10 mg 10/22/24 05:24 10/22/24 05:29 Diltiazem Hcl 50 Mg/10 Ml Vial IVPUSH 10/22/24 05:25 10 mg STAT STA Administration Fentanyl 25 mcg 10/21/24 12:17 10/22/24 12:24 Fentanyl Citrate/Pf 100 Mcg/2 Ml Vial IVPUSH 25 mcg Q2H PRN Administration tachycardia Protocol Fentanyl 100 mcg 10/22/24 13:38 10/22/24 13:40 Fentanyl Citrate/Pf 100 Mcg/2 Ml Vial IVPUSH 10/22/24 13:39 100 mcg ONCE ONE Administration Protocol Sodium Chloride 1,496.85 mls @ 1,496.85 mls/hr 10/20/24 15:30 10/20/24 16:37 Ns 30 ml/kg infuse over 1 hr (1496.85 ml) 10/20/24 16:29 Infused IV Infusion .Q1H STA Vancomycin HCl 1,250 mg/ 250 mls @ 166.667 mls/hr 10/20/24 15:30 10/20/24 18:49 Sodium Chloride IV 10/20/24 16:59 Infused ONCE ONE Infusion Piperacillin Sod/Tazobactam 50 mls @ 100 mls/hr 10/20/24 15:30 10/20/24 16:07 Sod 3.375 gm/ Sodium Chloride IV 10/20/24 15:59 Infused ONCE ONE Infusion Acetaminophen 1,000 mg in 100 mls @ 400 mls/hr 10/20/24 15:31 10/20/24 16:14 Ofirmev IV 10/20/24 15:45 Infused ONCE ONE Infusion Lactated Ringer's 1,000 mls @ 500 mls/hr 10/20/24 17:51 10/20/24 19:20 Lr IV 10/20/24 19:50 Infused .Q2H ONE Infusion Potassium Chloride 10 meq in 100 mls @ 100 mls/hr 10/20/24 18:00 10/21/24 00:45 Potassium Chloride/H20 IV 10/20/24 21:59 Infused Q1H VIVIANE Infusion Norepinephrine Bitartrate 8 mg in 250 mls @ 0 mls/hr 10/20/24 18:30 10/21/24 13:10 Levophed IVCONT Infused .Q0M VIVIANE Titration Protocol Per Protocol Albumin Human 100 mls @ 133.333 mls/hr 10/20/24 19:30 10/20/24 21:47 Kedbumin 25 % IV 10/20/24 21:14 Infused Q1H VIVIANE Infusion Naloxone HCl 5 mg/ Dextrose 100 mls @ 20 mls/hr 10/20/24 20:00 10/21/24 12:39 IV Not Given .Q5H VIVIANE 1 MG/HR Acyclovir Sodium 500 mg/ 110 mls @ 110 mls/hr 10/20/24 20:36 10/20/24 21:48 Dextrose IV 10/20/24 21:35 Not Given ONCE ONE Lactated Ringer's 1,000 mls @ 30 mls/hr 10/20/24 21:15 10/21/24 22:43 Lr IVCONT Not Given .Q24H VIVIANE Piperacillin Sod/Tazobactam 50 mls @ 100 mls/hr 10/20/24 21:15 10/22/24 15:39 Sod 3.375 gm/ Sodium Chloride IV Infused Q6H VIVIANE Infusion Acyclovir Sodium 1,000 mg/ 120 mls @ 110 mls/hr 10/20/24 21:15 10/20/24 22:37 Dextrose IV 10/20/24 22:20 Infused ONCE ONE Infusion Acyclovir Sodium 500 mg/ 110 mls @ 110 mls/hr 10/21/24 05:00 10/21/24 06:41 Sodium Chloride IV Infused Q8H VIVIANE Infusion Vancomycin HCl 750 mg/ Sodium 265 mls @ 265 mls/hr 10/21/24 08:00 10/22/24 12:16 Chloride IV Infused Q12H VIVIANE Infusion Acetaminophen 1,000 mg in 100 mls @ 400 mls/hr 10/21/24 00:24 10/21/24 00:50 Ofirmev IV 10/21/24 00:38 Infused ONCE ONE Infusion Potassium Chloride 10 meq in 100 mls @ 100 mls/hr 10/21/24 00:30 10/21/24 05:15 Potassium Chloride/H20 IV 10/21/24 04:29 Infused Q1H VIVIANE Infusion Albumin Human 100 mls @ 133.333 mls/hr 10/21/24 00:30 10/21/24 02:26 Kedbumin 25 % IV 10/21/24 02:14 Infused Q1H VIVIANE Infusion Potassium Phosphate 15 mmol in 250 mls @ 62.5 mls/hr 10/21/24 05:45 10/21/24 16:42 Kphos IV 10/21/24 13:44 Infused Q4H VIVIANE Infusion Acetaminophen 1,000 mg in 100 mls @ 400 mls/hr 10/21/24 11:52 10/21/24 12:46 Ofirmev IV 10/21/24 12:06 Infused ONCE ONE Infusion Potassium Phosphate 15 mmol in 250 mls @ 62.5 mls/hr 10/21/24 21:48 10/22/24 02:39 Kphos IV 10/22/24 01:47 Infused ONCE ONE Infusion Lactated Ringer's 500 mls @ 999 mls/hr 10/22/24 05:00 10/22/24 10:12 Lr IV 10/22/24 05:30 Infused .Q31M VIVIANE Infusion Potassium Chloride 10 meq in 100 mls @ 100 mls/hr 10/22/24 05:15 10/22/24 15:32 Potassium Chloride/H20 IV 10/22/24 09:14 Infused Q1H VIVIANE Infusion Lactated Ringer's 1,000 mls @ 80 mls/hr 10/22/24 05:30 10/22/24 05:47 Lr IVCONT 80 mls/hr .[id number] VIVIANE Administration Potassium Chloride 10 meq in 100 mls @ 100 mls/hr 10/22/24 11:00 10/22/24 15:06 Potassium Chloride/H20 IV 10/22/24 14:59 100 mls/hr Q1H VIVIANE Administration Albumin Human 100 mls @ 133.333 mls/hr 10/22/24 06:00 10/22/24 06:40 Kedbumin 25 % IV 10/22/24 07:44 Infused Q1H VIVIANE Infusion Phenylephrine HCl 20 mg/ 252 mls @ 0 mls/hr 10/22/24 07:45 10/22/24 14:39 Sodium Chloride IVCONT 2.5 mcg/kg/min .Q0M VVIIANE 76.73 mls/hr Titration Protocol Per Protocol Lactated Ringer's 1,000 mls @ 999 mls/hr 10/22/24 09:00 10/22/24 10:12 Lr IV 10/22/24 10:00 Infused .Q1H1M VIVIANE Infusion Iohexol 100 ml 10/20/24 19:25 10/20/24 19:25 Iohexol 350 Mg/Ml 100 Ml Infus..Btl IV 10/20/24 19:26 85 ml ONCE ONE Administration Iohexol 100 ml 10/22/24 15:03 10/22/24 15:03 Iohexol 350 Mg/Ml 100 Ml Infus..Btl IV 10/22/24 15:04 85 ml ONCE ONE Administration Ketorolac Tromethamine 15 mg 10/22/24 04:18 10/22/24 04:30 Ketorolac Tromethamine 15 Mg/Ml Vial IVPUSH 10/22/24 04:19 15 mg ONCE ONE Administration Methadone HCl 10 mg 10/21/24 13:45 10/22/24 08:03 Methadone Hcl 20 Mg/2 Ml Oral.Conc PO 10 mg DAILY@0800 VIVIANE Administration Metoprolol Tartrate 5 mg 10/22/24 04:57 10/22/24 05:00 Metoprolol Tartrate 5 Mg/5 Ml Vial IVPUSH 10/22/24 04:58 5 mg ONCE ONE Administration Protocol Metoprolol Tartrate 5 mg 10/22/24 05:11 10/22/24 05:31 Metoprolol Tartrate 5 Mg/5 Ml Vial IVPUSH 10/22/24 05:12 Not Given ONCE ONE Protocol Metoprolol Tartrate 5 mg 10/22/24 05:11 10/22/24 05:30 Metoprolol Tartrate 5 Mg/5 Ml Vial IVPUSH 10/22/24 05:12 5 mg ONCE ONE Administration Protocol Midazolam HCl 4 mg 10/20/24 16:01 10/20/24 17:07 Midazolam Hcl 2 Mg/2 Ml Vial IVPUSH 10/20/24 16:02 4 mg ONCE ONE Administration Midazolam HCl 4 mg 10/22/24 13:41 10/22/24 14:36 Midazolam Hcl 2 Mg/2 Ml Vial IVPUSH 10/22/24 13:42 2 mg ONCE ONE Administration Ondansetron HCl 4 mg 10/20/24 16:04 10/20/24 18:04 Ondansetron Hcl 4 Mg/2 Ml Vial IVPUSH 10/20/24 16:05 Not Given ONCE ONE Pantoprazole Sodium 40 mg 10/21/24 06:30 10/22/24 06:40 Pantoprazole Sodium 40 Mg/10 Ml Vial IVPUSH 40 mg DAILY@0630 VIVIANE Administration Sodium Chloride 3 ml 10/21/24 08:00 10/22/24 15:08 0.9 % Sodium Chloride Flush 3 Ml Syringe IVFLUSH 3 ml QSHIFT VIVIANE Administration Medical Decision Making Medical Decision Making MDM Narrative: This is a 34-year-old female, with a past medical history of substance use, who presents emergency department for evaluation of altered mental status. Last known well was at 8:00 p.m. last night. Patient with open eyes however nonverbal. Is responsive with verbal and physical stimuli however garbled speech noted. Dry mucus membranes, numerous track harley noted throughout entirity of body. Appears to be encephalopathic. Global weakness appreciated. On arrival via EMS, patient tachycardic at 143bpm, temperature 103.4 rectally. Given SIRS criteria, sepsis alert was initiated. IV fluids, Zosyn and vanco also ordered. Labs, EKG, chest x-ray, UA, viral swabs, lactic ordered. Discussed case with Dr. Perez, attending physician who saw patient at bedside. Differential Diagnosis Differential Diagnoses: The differential diagnosis associated with the presentation includes UTI, metabolic encephalopathy, electrolyte derangement, pneumonia, endocarditis Admission/Observation Consideration of admission/observation: Escalation of care including admission/observation considered Given hypotension, hyponatremia, patient requiring ICU level of care Consult Healthcare Provider Management of the patient was discussed with: [employer] Regional Director Lab Data MDM Lab Attestation statement: I reviewed the patient's lab results. See course comment 10/22/24 04:38 10/22/24 04:38 Labs: Lab Results 10/20/24 10/20/24 10/20/24 Range/Units 15:38 15:45 15:56 WBC 25.1 H (4.8-10.8) X10*3/uL RBC 6.01 H (4.20-5.50) X10*6/uL Hgb 16.4 H (12.0-16.0) g/dl Hct 44.7 (37.0-47.0) % MCV 74.4 L (80.0-98.0) fL MCH 27.3 (27.0-33.0) pg MCHC 36.7 H (31.0-35.0) g/dl RDW 13.8 (11.0-16.0) % Plt Count 45 L (160-400) X10*3/uL MPV Not Reportable Immature Gran % (Auto) Cancelled Neut % (Auto) Cancelled Lymph % (Auto) Cancelled [place] % (Auto) Cancelled Eos % (Auto) Cancelled Baso % (Auto) Cancelled Lymph # (Auto) Cancelled [place] # (Auto) Cancelled Eos # (Auto) Cancelled Baso # (Auto) Cancelled Abs Immat Gran (auto) Cancelled Absolute Neuts (auto) Cancelled Absolute Nucleated RBC 0.000 (0.0-0.012) X10*3/uL Nucleated RBC % (auto) 0.0 (0.0-0.2) /100WBC Neutrophils % (Manual) 93 H (45-73) % Band Neutrophils % 0 L (3-5) % Lymphocytes % (Manual) 3 L (20-40) % Atypical Lymphs % (Man) 2 (0-6) % Monocytes % (Manual) 2 (2-11) % Abs Neuts (Manual) 23.3 H (2.0-8.3) X10*3/uL Lymphocytes # (Manual) 0.8 L (1.2-4.9) X10*3/uL Atyp Lymphs # (Manual) 0.5 x10*3/uL Monocytes # (Manual) 0.5 (0.1-1.2) X10*3/uL Toxic Vacuolation PRESENT Platelet Estimate DECREASED (NORMAL) Plt Morphology Comment NORMAL RBC Morphology NOTED Acanthocytes (Spur) 3+ (>5) /OIF ESR 8 (0-20) MM/HR Hold Purple Top Hold Blue Top SEE NOTE VBG pH (7.32-7.43) VBG pCO2 mmHg VBG pO2 mmHg VBG HCO3 (22-26) mmol/L VBG O2 Saturation % VBG Base Excess mmol/L Sodium 120 L* (135-145) mmol/L Potassium 3.5 (3.3-5.1) mmol/L Chloride 82 L (96-108) mmol/L Carbon Dioxide 23 (22-29) mmol/L Anion Gap 19 (12-20) BUN 22 H (9-16) mg/dL Creatinine 0.91 (0.5-1.4) mg/dL Estim Creat Clear Calc 67.9 Estimated GFR > 60 POC Glucose 121 H (60-115) mg/dL Random Glucose 111 (60-115) mg/dL Osmolality (281-305) mosm/kg Lactic Acid 3.1 H* (0.5-2.0) mmol/L Lactic Acid F/U @ 2Hr (0.5-2.0) mmol/L Calcium 9.2 (8.4-10.2) mg/dL Magnesium 2.4 (1.6-2.6) mg/dL Total Bilirubin 1.2 H (0.0-1.0) mg/dL Direct Bilirubin 0.7 H (0.0-0.5) mg/dL AST 72 H (5-31) U/L ALT 18 (0-31) U/L Alkaline Phosphatase 185 H (39-117) U/L Ammonia 35 (13-55) umol/L Lactate Dehydrogenase (122-220) U/L Troponin I High Sens 753.7 H* (<3.5-17.0) ng/L C-Reactive Protein 31.93 H (< or = 0.50) mg/dL Total Protein 8.0 (6.5-8.0) g/dL Albumin 3.5 (3.5-5.0) g/dL Amylase (28-100) U/L Lipase 7 L (8-78) U/L Beta HCG, Quant < 2 mIU/mL Hold Yellow Top Urine Color Urine Appearance Urine pH (5.0-9.0) Ur Specific Lester (1.005-1.025) Urine Protein (Neg-Trace) mg/dL Urine Glucose (UA) (Negative) mg/dL Urine Ketones (Negative) mg/dL Urine Blood (Negative) Urine Nitrite (Negative) Ur Leukocyte Esterase (Negative) Urine RBC (0-2) /HPF Urine WBC (0-5) /HPF Ur Squamous Epith Cells (0-2) /HPF Urine Bacteria (None Seen) Hyaline Casts (0-2) /LPF Urine Osmolality (373-1093) mosm/kg Ur Random Sodium mmol/L CSF Tube Number CSF Volume CSF Appearance CSF Color CSF WBC CSF RBC CSF Neutrophils CSF Lymphocytes CSF Monocytes % CSF Other Cells % CSF Appearance (b) CSF Glucose mg/dL CSF Total Protein (15-45) mg/dL CSF C.neoform/gat PCR (Not Detect.) CSF CMV DNA (PCR) (Not Detect.) CSF Enterovirus (PCR) (Not Detect.) CSF E. coli K1 (PCR) (Not Detect.) CSF H. influenzae (PCR) (Not Detect.) CSF HSV I (PCR) (Not Detect.) CSF HSV II (PCR) (Not Detect.) CSF HHV 6 (PCR) (Not Detect.) CSF L.monocytogenes PCR (Not Detect.) CSF N. meningitidis PCR (Not Detect.) CSF Parechovirus (PCR) (Not Detect.) CSF S. agalactiae (PCR) (Not Detect.) CSF S. pneumoniae (PCR) (Not Detect.) CSF VZV (PCR) (Not Detect.) Salicylates < 5.0 L (15-30) mg/dL Urine Opiates Screen (Not Detect) Ur Buprenorphine Scrn (Not Detect) ng/mL Ur Oxycodone Screen (Not Detect) ng/mL Urine Methadone Screen (Not Detect) ng/mL Urine Fentanyl Screen (Not Detect) Ur Barbiturates Screen (Not Detect) Ur Phencyclidine Scrn (Not Detect) Ur Amphetamines Screen (Not Detect) U Benzodiazepines Scrn (Not Detect) Urine Cocaine Screen (Not Detect) U Marijuana (THC) Screen (Not Detect) Ethyl Alcohol < 10 mg/dL Influenza Type A (PCR) (Negative) Influenza Type B (PCR) (Negative) RSV RNA Qual (PCR) (Negative) SARS-CoV-2 RNA (RT-PCR) (Negative) Ref Lab Test Result 10/20/24 10/20/24 10/20/24 Range/Units 16:01 16:03 16:58 WBC (4.8-10.8) X10*3/uL RBC (4.20-5.50) X10*6/uL Hgb (12.0-16.0) g/dl Hct (37.0-47.0) % MCV (80.0-98.0) fL MCH (27.0-33.0) pg MCHC (31.0-35.0) g/dl RDW (11.0-16.0) % Plt Count (160-400) X10*3/uL MPV Immature Gran % (Auto) Neut % (Auto) Lymph % (Auto) [place] % (Auto) Eos % (Auto) Baso % (Auto) Lymph # (Auto) [place] # (Auto) Eos # (Auto) Baso # (Auto) Abs Immat Gran (auto) Absolute Neuts (auto) Absolute Nucleated RBC (0.0-0.012) X10*3/uL Nucleated RBC % (auto) (0.0-0.2) /100WBC Neutrophils % (Manual) (45-73) % Band Neutrophils % (3-5) % Lymphocytes % (Manual) (20-40) % Atypical Lymphs % (Man) (0-6) % Monocytes % (Manual) (2-11) % Abs Neuts (Manual) (2.0-8.3) X10*3/uL Lymphocytes # (Manual) (1.2-4.9) X10*3/uL Atyp Lymphs # (Manual) x10*3/uL Monocytes # (Manual) (0.1-1.2) X10*3/uL Toxic Vacuolation Platelet Estimate (NORMAL) Plt Morphology Comment RBC Morphology Acanthocytes (Spur) /OIF ESR (0-20) MM/HR Hold Purple Top Hold Blue Top VBG pH 7.45 H (7.32-7.43) VBG pCO2 39 mmHg VBG pO2 31 mmHg VBG HCO3 27 H (22-26) mmol/L VBG O2 Saturation 47.0 % VBG Base Excess 3.7 mmol/L Sodium 120 L* (135-145) mmol/L Potassium 2.7 L* D (3.3-5.1) mmol/L Chloride 91 L (96-108) mmol/L Carbon Dioxide 19 L (22-29) mmol/L Anion Gap 13 (12-20) BUN 21 H (9-16) mg/dL Creatinine 0.75 (0.5-1.4) mg/dL Estim Creat Clear Calc 82.5 Estimated GFR > 60 POC Glucose (60-115) mg/dL Random Glucose 107 (60-115) mg/dL Osmolality 258 L (281-305) mosm/kg Lactic Acid (0.5-2.0) mmol/L Lactic Acid F/U @ 2Hr (0.5-2.0) mmol/L Calcium 7.2 L D (8.4-10.2) mg/dL Magnesium (1.6-2.6) mg/dL Total Bilirubin (0.0-1.0) mg/dL Direct Bilirubin (0.0-0.5) mg/dL AST (5-31) U/L ALT (0-31) U/L Alkaline Phosphatase (39-117) U/L Ammonia (13-55) umol/L Lactate Dehydrogenase (122-220) U/L Troponin I High Sens (<3.5-17.0) ng/L C-Reactive Protein (< or = 0.50) mg/dL Total Protein (6.5-8.0) g/dL Albumin (3.5-5.0) g/dL Amylase (28-100) U/L Lipase (8-78) U/L Beta HCG, Quant mIU/mL Hold Yellow Top Urine Color Urine Appearance Urine pH (5.0-9.0) Ur Specific [place] (1.005-1.025) Urine Protein (Neg-Trace) mg/dL Urine Glucose (UA) (Negative) mg/dL Urine Ketones (Negative) mg/dL Urine Blood (Negative) Urine Nitrite (Negative) Ur Leukocyte Esterase (Negative) Urine RBC (0-2) /HPF Urine WBC (0-5) /HPF Ur Squamous Epith Cells (0-2) /HPF Urine Bacteria (None Seen) Hyaline Casts (0-2) /LPF Urine Osmolality (373-1093) mosm/kg Ur Random Sodium mmol/L CSF Tube Number CSF Volume CSF Appearance CSF Color CSF WBC CSF RBC CSF Neutrophils CSF Lymphocytes CSF Monocytes % CSF Other Cells % CSF Appearance (b) CSF Glucose mg/dL CSF Total Protein (15-45) mg/dL CSF C.neoform/gat PCR (Not Detect.) CSF CMV DNA (PCR) (Not Detect.) CSF Enterovirus (PCR) (Not Detect.) CSF E. coli K1 (PCR) (Not Detect.) CSF H. influenzae (PCR) (Not Detect.) CSF HSV I (PCR) (Not Detect.) CSF HSV II (PCR) (Not Detect.) CSF HHV 6 (PCR) (Not Detect.) CSF L.monocytogenes PCR (Not Detect.) CSF N. meningitidis PCR (Not Detect.) CSF Parechovirus (PCR) (Not Detect.) CSF S. agalactiae (PCR) (Not Detect.) CSF S. pneumoniae (PCR) (Not Detect.) CSF VZV (PCR) (Not Detect.) Salicylates (15-30) mg/dL Urine Opiates Screen (Not Detect) Ur Buprenorphine Scrn (Not Detect) ng/mL Ur Oxycodone Screen (Not Detect) ng/mL Urine Methadone Screen (Not Detect) ng/mL Urine Fentanyl Screen (Not Detect) Ur Barbiturates Screen (Not Detect) Ur Phencyclidine Scrn (Not Detect) Ur Amphetamines Screen (Not Detect) U Benzodiazepines Scrn (Not Detect) Urine Cocaine Screen (Not Detect) U Marijuana (THC) Screen (Not Detect) Ethyl Alcohol mg/dL Influenza Type A (PCR) NEGATIVE (Negative) Influenza Type B (PCR) NEGATIVE (Negative) RSV RNA Qual (PCR) NEGATIVE (Negative) SARS-CoV-2 RNA (RT-PCR) NEGATIVE (Negative) Ref Lab Test Result 10/20/24 10/20/24 10/20/24 Range/Units 17:42 17:42 17:42 WBC (4.8-10.8) X10*3/uL RBC (4.20-5.50) X10*6/uL Hgb (12.0-16.0) g/dl Hct (37.0-47.0) % MCV (80.0-98.0) fL MCH (27.0-33.0) pg MCHC (31.0-35.0) g/dl RDW (11.0-16.0) % Plt Count (160-400) X10*3/uL MPV Immature Gran % (Auto) Neut % (Auto) Lymph % (Auto) [place] % (Auto) Eos % (Auto) Baso % (Auto) Lymph # (Auto) [place] # (Auto) Eos # (Auto) Baso # (Auto) Abs Immat Gran (auto) Absolute Neuts (auto) Absolute Nucleated RBC (0.0-0.012) X10*3/uL Nucleated RBC % (auto) (0.0-0.2) /100WBC Neutrophils % (Manual) (45-73) % Band Neutrophils % (3-5) % Lymphocytes % (Manual) (20-40) % Atypical Lymphs % (Man) (0-6) % Monocytes % (Manual) (2-11) % Abs Neuts (Manual) (2.0-8.3) X10*3/uL Lymphocytes # (Manual) (1.2-4.9) X10*3/uL Atyp Lymphs # (Manual) x10*3/uL Monocytes # (Manual) (0.1-1.2) X10*3/uL Toxic Vacuolation Platelet Estimate (NORMAL) Plt Morphology Comment RBC Morphology Acanthocytes (Spur) /OIF ESR (0-20) MM/HR Hold Purple Top Hold Blue Top VBG pH (7.32-7.43) VBG pCO2 mmHg VBG pO2 mmHg VBG HCO3 (22-26) mmol/L VBG O2 Saturation % VBG Base Excess mmol/L Sodium (135-145) mmol/L Potassium (3.3-5.1) mmol/L Chloride (96-108) mmol/L Carbon Dioxide (22-29) mmol/L Anion Gap (12-20) BUN (9-16) mg/dL Creatinine (0.5-1.4) mg/dL Estim Creat Clear Calc Estimated GFR POC Glucose (60-115) mg/dL Random Glucose (60-115) mg/dL Osmolality (281-305) mosm/kg Lactic Acid (0.5-2.0) mmol/L Lactic Acid F/U @ 2Hr (0.5-2.0) mmol/L Calcium (8.4-10.2) mg/dL Magnesium (1.6-2.6) mg/dL Total Bilirubin (0.0-1.0) mg/dL Direct Bilirubin (0.0-0.5) mg/dL AST (5-31) U/L ALT (0-31) U/L Alkaline Phosphatase (39-117) U/L Ammonia (13-55) umol/L Lactate Dehydrogenase (122-220) U/L Troponin I High Sens (<3.5-17.0) ng/L C-Reactive Protein (< or = 0.50) mg/dL Total Protein (6.5-8.0) g/dL Albumin (3.5-5.0) g/dL Amylase (28-100) U/L Lipase (8-78) U/L Beta HCG, Quant mIU/mL Hold Yellow Top Urine Color Urine Appearance Urine pH (5.0-9.0) Ur Specific [place] (1.005-1.025) Urine Protein (Neg-Trace) mg/dL Urine Glucose (UA) (Negative) mg/dL Urine Ketones (Negative) mg/dL Urine Blood (Negative) Urine Nitrite (Negative) Ur Leukocyte Esterase (Negative) Urine RBC (0-2) /HPF Urine WBC (0-5) /HPF Ur Squamous Epith Cells (0-2) /HPF Urine Bacteria (None Seen) Hyaline Casts (0-2) /LPF Urine Osmolality (373-1093) mosm/kg Ur Random Sodium mmol/L CSF Tube Number 2 Cancelled 1 CSF Volume CSF Appearance CSF Color CSF WBC CSF RBC CSF Neutrophils CSF Lymphocytes CSF Monocytes % CSF Other Cells % CSF Appearance (b) CSF Glucose mg/dL CSF Total Protein (15-45) mg/dL CSF C.neoform/gat PCR (Not Detect.) CSF CMV DNA (PCR) (Not Detect.) CSF Enterovirus (PCR) (Not Detect.) CSF E. coli K1 (PCR) (Not Detect.) CSF H. influenzae (PCR) (Not Detect.) CSF HSV I (PCR) (Not Detect.) CSF HSV II (PCR) (Not Detect.) CSF HHV 6 (PCR) (Not Detect.) CSF L.monocytogenes PCR (Not Detect.) CSF N. meningitidis PCR (Not Detect.) CSF Parechovirus (PCR) (Not Detect.) CSF S. agalactiae (PCR) (Not Detect.) CSF S. pneumoniae (PCR) (Not Detect.) CSF VZV (PCR) (Not Detect.) Salicylates (15-30) mg/dL Urine Opiates Screen (Not Detect) Ur Buprenorphine Scrn (Not Detect) ng/mL Ur Oxycodone Screen (Not Detect) ng/mL Urine Methadone Screen (Not Detect) ng/mL Urine Fentanyl Screen (Not Detect) Ur Barbiturates Screen (Not Detect) Ur Phencyclidine Scrn (Not Detect) Ur Amphetamines Screen (Not Detect) U Benzodiazepines Scrn (Not Detect) Urine Cocaine Screen (Not Detect) U Marijuana (THC) Screen (Not Detect) Ethyl Alcohol mg/dL Influenza Type A (PCR) (Negative) Influenza Type B (PCR) (Negative) RSV RNA Qual (PCR) (Negative) SARS-CoV-2 RNA (RT-PCR) (Negative) Ref Lab Test Result 10/20/24 10/20/24 10/20/24 Range/Units 17:42 17:42 17:42 WBC (4.8-10.8) X10*3/uL RBC (4.20-5.50) X10*6/uL Hgb (12.0-16.0) g/dl Hct (37.0-47.0) % MCV (80.0-98.0) fL MCH (27.0-33.0) pg MCHC (31.0-35.0) g/dl RDW (11.0-16.0) % Plt Count (160-400) X10*3/uL MPV Immature Gran % (Auto) Neut % (Auto) Lymph % (Auto) [place] % (Auto) Eos % (Auto) Baso % (Auto) Lymph # (Auto) [place] # (Auto) Eos # (Auto) Baso # (Auto) Abs Immat Gran (auto) Absolute Neuts (auto) Absolute Nucleated RBC (0.0-0.012) X10*3/uL Nucleated RBC % (auto) (0.0-0.2) /100WBC Neutrophils % (Manual) (45-73) % Band Neutrophils % (3-5) % Lymphocytes % (Manual) (20-40) % Atypical Lymphs % (Man) (0-6) % Monocytes % (Manual) (2-11) % Abs Neuts (Manual) (2.0-8.3) X10*3/uL Lymphocytes # (Manual) (1.2-4.9) X10*3/uL Atyp Lymphs # (Manual) x10*3/uL Monocytes # (Manual) (0.1-1.2) X10*3/uL Toxic Vacuolation Platelet Estimate (NORMAL) Plt Morphology Comment RBC Morphology Acanthocytes (Spur) /OIF ESR (0-20) MM/HR Hold Purple Top Hold Blue Top VBG pH (7.32-7.43) VBG pCO2 mmHg VBG pO2 mmHg VBG HCO3 (22-26) mmol/L VBG O2 Saturation % VBG Base Excess mmol/L Sodium (135-145) mmol/L Potassium (3.3-5.1) mmol/L Chloride (96-108) mmol/L Carbon Dioxide (22-29) mmol/L Anion Gap (12-20) BUN (9-16) mg/dL Creatinine (0.5-1.4) mg/dL Estim Creat Clear Calc Estimated GFR POC Glucose (60-115) mg/dL Random Glucose (60-115) mg/dL Osmolality (281-305) mosm/kg Lactic Acid (0.5-2.0) mmol/L Lactic Acid F/U @ 2Hr (0.5-2.0) mmol/L Calcium (8.4-10.2) mg/dL Magnesium (1.6-2.6) mg/dL Total Bilirubin (0.0-1.0) mg/dL Direct Bilirubin (0.0-0.5) mg/dL AST (5-31) U/L ALT (0-31) U/L Alkaline Phosphatase (39-117) U/L Ammonia (13-55) umol/L Lactate Dehydrogenase (122-220) U/L Troponin I High Sens (<3.5-17.0) ng/L C-Reactive Protein (< or = 0.50) mg/dL Total Protein (6.5-8.0) g/dL Albumin (3.5-5.0) g/dL Amylase (28-100) U/L Lipase (8-78) U/L Beta HCG, Quant mIU/mL Hold Yellow Top Urine Color Urine Appearance Urine pH (5.0-9.0) Ur Specific [place] (1.005-1.025) Urine Protein (Neg-Trace) mg/dL Urine Glucose (UA) (Negative) mg/dL Urine Ketones (Negative) mg/dL Urine Blood (Negative) Urine Nitrite (Negative) Ur Leukocyte Esterase (Negative) Urine RBC (0-2) /HPF Urine WBC (0-5) /HPF Ur Squamous Epith Cells (0-2) /HPF Urine Bacteria (None Seen) Hyaline Casts (0-2) /LPF Urine Osmolality (373-1093) mosm/kg Ur Random Sodium mmol/L CSF Tube Number 4 CSF Volume Cancelled 1.5 2.0 CSF Appearance Cancelled CSF Color CSF WBC CSF RBC CSF Neutrophils CSF Lymphocytes CSF Monocytes % CSF Other Cells % CSF Appearance (b) CSF Glucose mg/dL CSF Total Protein (15-45) mg/dL CSF C.neoform/gat PCR (Not Detect.) CSF CMV DNA (PCR) (Not Detect.) CSF Enterovirus (PCR) (Not Detect.) CSF E. coli K1 (PCR) (Not Detect.) CSF H. influenzae (PCR) (Not Detect.) CSF HSV I (PCR) (Not Detect.) CSF HSV II (PCR) (Not Detect.) CSF HHV 6 (PCR) (Not Detect.) CSF L.monocytogenes PCR (Not Detect.) CSF N. meningitidis PCR (Not Detect.) CSF Parechovirus (PCR) (Not Detect.) CSF S. agalactiae (PCR) (Not Detect.) CSF S. pneumoniae (PCR) (Not Detect.) CSF VZV (PCR) (Not Detect.) Salicylates (15-30) mg/dL Urine Opiates Screen (Not Detect) Ur Buprenorphine Scrn (Not Detect) ng/mL Ur Oxycodone Screen (Not Detect) ng/mL Urine Methadone Screen (Not Detect) ng/mL Urine Fentanyl Screen (Not Detect) Ur Barbiturates Screen (Not Detect) Ur Phencyclidine Scrn (Not Detect) Ur Amphetamines Screen (Not Detect) U Benzodiazepines Scrn (Not Detect) Urine Cocaine Screen (Not Detect) U Marijuana (THC) Screen (Not Detect) Ethyl Alcohol mg/dL Influenza Type A (PCR) (Negative) Influenza Type B (PCR) (Negative) RSV RNA Qual (PCR) (Negative) SARS-CoV-2 RNA (RT-PCR) (Negative) Ref Lab Test Result 10/20/24 10/20/24 10/20/24 Range/Units 17:42 17:42 17:42 WBC (4.8-10.8) X10*3/uL RBC (4.20-5.50) X10*6/uL Hgb (12.0-16.0) g/dl Hct (37.0-47.0) % MCV (80.0-98.0) fL MCH (27.0-33.0) pg MCHC (31.0-35.0) g/dl RDW (11.0-16.0) % Plt Count (160-400) X10*3/uL MPV Immature Gran % (Auto) Neut % (Auto) Lymph % (Auto) [place] % (Auto) Eos % (Auto) Baso % (Auto) Lymph # (Auto) [place] # (Auto) Eos # (Auto) Baso # (Auto) Abs Immat Gran (auto) Absolute Neuts (auto) Absolute Nucleated RBC (0.0-0.012) X10*3/uL Nucleated RBC % (auto) (0.0-0.2) /100WBC Neutrophils % (Manual) (45-73) % Band Neutrophils % (3-5) % Lymphocytes % (Manual) (20-40) % Atypical Lymphs % (Man) (0-6) % Monocytes % (Manual) (2-11) % Abs Neuts (Manual) (2.0-8.3) X10*3/uL Lymphocytes # (Manual) (1.2-4.9) X10*3/uL Atyp Lymphs # (Manual) x10*3/uL Monocytes # (Manual) (0.1-1.2) X10*3/uL Toxic Vacuolation Platelet Estimate (NORMAL) Plt Morphology Comment RBC Morphology Acanthocytes (Spur) /OIF ESR (0-20) MM/HR Hold Purple Top Hold Blue Top VBG pH (7.32-7.43) VBG pCO2 mmHg VBG pO2 mmHg VBG HCO3 (22-26) mmol/L VBG O2 Saturation % VBG Base Excess mmol/L Sodium (135-145) mmol/L Potassium (3.3-5.1) mmol/L Chloride (96-108) mmol/L Carbon Dioxide (22-29) mmol/L Anion Gap (12-20) BUN (9-16) mg/dL Creatinine (0.5-1.4) mg/dL Estim Creat Clear Calc Estimated GFR POC Glucose (60-115) mg/dL Random Glucose (60-115) mg/dL Osmolality (281-305) mosm/kg Lactic Acid (0.5-2.0) mmol/L Lactic Acid F/U @ 2Hr (0.5-2.0) mmol/L Calcium (8.4-10.2) mg/dL Magnesium (1.6-2.6) mg/dL Total Bilirubin (0.0-1.0) mg/dL Direct Bilirubin (0.0-0.5) mg/dL AST (5-31) U/L ALT (0-31) U/L Alkaline Phosphatase (39-117) U/L Ammonia (13-55) umol/L Lactate Dehydrogenase (122-220) U/L Troponin I High Sens (<3.5-17.0) ng/L C-Reactive Protein (< or = 0.50) mg/dL Total Protein (6.5-8.0) g/dL Albumin (3.5-5.0) g/dL Amylase (28-100) U/L Lipase (8-78) U/L Beta HCG, Quant mIU/mL Hold Yellow Top Urine Color Urine Appearance Urine pH (5.0-9.0) Ur Specific [place] (1.005-1.025) Urine Protein (Neg-Trace) mg/dL Urine Glucose (UA) (Negative) mg/dL Urine Ketones (Negative) mg/dL Urine Blood (Negative) Urine Nitrite (Negative) Ur Leukocyte Esterase (Negative) Urine RBC (0-2) /HPF Urine WBC (0-5) /HPF Ur Squamous Epith Cells (0-2) /HPF Urine Bacteria (None Seen) Hyaline Casts (0-2) /LPF Urine Osmolality (373-1093) mosm/kg Ur Random Sodium mmol/L CSF Tube Number CSF Volume CSF Appearance HAZY CLEAR CSF Color Cancelled PINK CSF WBC CSF RBC CSF Neutrophils CSF Lymphocytes CSF Monocytes % CSF Other Cells % CSF Appearance (b) CSF Glucose mg/dL CSF Total Protein (15-45) mg/dL CSF C.neoform/gat PCR (Not Detect.) CSF CMV DNA (PCR) (Not Detect.) CSF Enterovirus (PCR) (Not Detect.) CSF E. coli K1 (PCR) (Not Detect.) CSF H. influenzae (PCR) (Not Detect.) CSF HSV I (PCR) (Not Detect.) CSF HSV II (PCR) (Not Detect.) CSF HHV 6 (PCR) (Not Detect.) CSF L.monocytogenes PCR (Not Detect.) CSF N. meningitidis PCR (Not Detect.) CSF Parechovirus (PCR) (Not Detect.) CSF S. agalactiae (PCR) (Not Detect.) CSF S. pneumoniae (PCR) (Not Detect.) CSF VZV (PCR) (Not Detect.) Salicylates (15-30) mg/dL Urine Opiates Screen (Not Detect) Ur Buprenorphine Scrn (Not Detect) ng/mL Ur Oxycodone Screen (Not Detect) ng/mL Urine Methadone Screen (Not Detect) ng/mL Urine Fentanyl Screen (Not Detect) Ur Barbiturates Screen (Not Detect) Ur Phencyclidine Scrn (Not Detect) Ur Amphetamines Screen (Not Detect) U Benzodiazepines Scrn (Not Detect) Urine Cocaine Screen (Not Detect) U Marijuana (THC) Screen (Not Detect) Ethyl Alcohol mg/dL Influenza Type A (PCR) (Negative) Influenza Type B (PCR) (Negative) RSV RNA Qual (PCR) (Negative) SARS-CoV-2 RNA (RT-PCR) (Negative) Ref Lab Test Result 10/20/24 10/20/24 10/20/24 Range/Units 17:42 17:42 17:42 WBC (4.8-10.8) X10*3/uL RBC (4.20-5.50) X10*6/uL Hgb (12.0-16.0) g/dl Hct (37.0-47.0) % MCV (80.0-98.0) fL MCH (27.0-33.0) pg MCHC (31.0-35.0) g/dl RDW (11.0-16.0) % Plt Count (160-400) X10*3/uL MPV Immature Gran % (Auto) Neut % (Auto) Lymph % (Auto) [place] % (Auto) Eos % (Auto) Baso % (Auto) Lymph # (Auto) [place] # (Auto) Eos # (Auto) Baso # (Auto) Abs Immat Gran (auto) Absolute Neuts (auto) Absolute Nucleated RBC (0.0-0.012) X10*3/uL Nucleated RBC % (auto) (0.0-0.2) /100WBC Neutrophils % (Manual) (45-73) % Band Neutrophils % (3-5) % Lymphocytes % (Manual) (20-40) % Atypical Lymphs % (Man) (0-6) % Monocytes % (Manual) (2-11) % Abs Neuts (Manual) (2.0-8.3) X10*3/uL Lymphocytes # (Manual) (1.2-4.9) X10*3/uL Atyp Lymphs # (Manual) x10*3/uL Monocytes # (Manual) (0.1-1.2) X10*3/uL Toxic Vacuolation Platelet Estimate (NORMAL) Plt Morphology Comment RBC Morphology Acanthocytes (Spur) /OIF ESR (0-20) MM/HR Hold Purple Top Hold Blue Top VBG pH (7.32-7.43) VBG pCO2 mmHg VBG pO2 mmHg VBG HCO3 (22-26) mmol/L VBG O2 Saturation % VBG Base Excess mmol/L Sodium (135-145) mmol/L Potassium (3.3-5.1) mmol/L Chloride (96-108) mmol/L Carbon Dioxide (22-29) mmol/L Anion Gap (12-20) BUN (9-16) mg/dL Creatinine (0.5-1.4) mg/dL Estim Creat Clear Calc Estimated GFR POC Glucose (60-115) mg/dL Random Glucose (60-115) mg/dL Osmolality (281-305) mosm/kg Lactic Acid (0.5-2.0) mmol/L Lactic Acid F/U @ 2Hr (0.5-2.0) mmol/L Calcium (8.4-10.2) mg/dL Magnesium (1.6-2.6) mg/dL Total Bilirubin (0.0-1.0) mg/dL Direct Bilirubin (0.0-0.5) mg/dL AST (5-31) U/L ALT (0-31) U/L Alkaline Phosphatase (39-117) U/L Ammonia (13-55) umol/L Lactate Dehydrogenase (122-220) U/L Troponin I High Sens (<3.5-17.0) ng/L C-Reactive Protein (< or = 0.50) mg/dL Total Protein (6.5-8.0) g/dL Albumin (3.5-5.0) g/dL Amylase (28-100) U/L Lipase (8-78) U/L Beta HCG, Quant mIU/mL Hold Yellow Top Urine Color Urine Appearance Urine pH (5.0-9.0) Ur Specific [place] (1.005-1.025) Urine Protein (Neg-Trace) mg/dL Urine Glucose (UA) (Negative) mg/dL Urine Ketones (Negative) mg/dL Urine Blood (Negative) Urine Nitrite (Negative) Ur Leukocyte Esterase (Negative) Urine RBC (0-2) /HPF Urine WBC (0-5) /HPF Ur Squamous Epith Cells (0-2) /HPF Urine Bacteria (None Seen) Hyaline Casts (0-2) /LPF Urine Osmolality (373-1093) mosm/kg Ur Random Sodium mmol/L CSF Tube Number CSF Volume CSF Appearance CSF Color COLORLESS CSF WBC Cancelled 13 H* 64 H* CSF RBC Cancelled CSF Neutrophils CSF Lymphocytes CSF Monocytes % CSF Other Cells % CSF Appearance (b) CSF Glucose mg/dL CSF Total Protein (15-45) mg/dL CSF C.neoform/gat PCR (Not Detect.) CSF CMV DNA (PCR) (Not Detect.) CSF Enterovirus (PCR) (Not Detect.) CSF E. coli K1 (PCR) (Not Detect.) CSF H. influenzae (PCR) (Not Detect.) CSF HSV I (PCR) (Not Detect.) CSF HSV II (PCR) (Not Detect.) CSF HHV 6 (PCR) (Not Detect.) CSF L.monocytogenes PCR (Not Detect.) CSF N. meningitidis PCR (Not Detect.) CSF Parechovirus (PCR) (Not Detect.) CSF S. agalactiae (PCR) (Not Detect.) CSF S. pneumoniae (PCR) (Not Detect.) CSF VZV (PCR) (Not Detect.) Salicylates (15-30) mg/dL Urine Opiates Screen (Not Detect) Ur Buprenorphine Scrn (Not Detect) ng/mL Ur Oxycodone Screen (Not Detect) ng/mL Urine Methadone Screen (Not Detect) ng/mL Urine Fentanyl Screen (Not Detect) Ur Barbiturates Screen (Not Detect) Ur Phencyclidine Scrn (Not Detect) Ur Amphetamines Screen (Not Detect) U Benzodiazepines Scrn (Not Detect) Urine Cocaine Screen (Not Detect) U Marijuana (THC) Screen (Not Detect) Ethyl Alcohol mg/dL Influenza Type A (PCR) (Negative) Influenza Type B (PCR) (Negative) RSV RNA Qual (PCR) (Negative) SARS-CoV-2 RNA (RT-PCR) (Negative) Ref Lab Test Result 10/20/24 10/20/24 10/20/24 Range/Units 17:42 17:42 17:42 WBC (4.8-10.8) X10*3/uL RBC (4.20-5.50) X10*6/uL Hgb (12.0-16.0) g/dl Hct (37.0-47.0) % MCV (80.0-98.0) fL MCH (27.0-33.0) pg MCHC (31.0-35.0) g/dl RDW (11.0-16.0) % Plt Count (160-400) X10*3/uL MPV Immature Gran % (Auto) Neut % (Auto) Lymph % (Auto) [place] % (Auto) Eos % (Auto) Baso % (Auto) Lymph # (Auto) [place] # (Auto) Eos # (Auto) Baso # (Auto) Abs Immat Gran (auto) Absolute Neuts (auto) Absolute Nucleated RBC (0.0-0.012) X10*3/uL Nucleated RBC % (auto) (0.0-0.2) /100WBC Neutrophils % (Manual) (45-73) % Band Neutrophils % (3-5) % Lymphocytes % (Manual) (20-40) % Atypical Lymphs % (Man) (0-6) % Monocytes % (Manual) (2-11) % Abs Neuts (Manual) (2.0-8.3) X10*3/uL Lymphocytes # (Manual) (1.2-4.9) X10*3/uL Atyp Lymphs # (Manual) x10*3/uL Monocytes # (Manual) (0.1-1.2) X10*3/uL Toxic Vacuolation Platelet Estimate (NORMAL) Plt Morphology Comment RBC Morphology Acanthocytes (Spur) /OIF ESR (0-20) MM/HR Hold Purple Top Hold Blue Top VBG pH (7.32-7.43) VBG pCO2 mmHg VBG pO2 mmHg VBG HCO3 (22-26) mmol/L VBG O2 Saturation % VBG Base Excess mmol/L Sodium (135-145) mmol/L Potassium (3.3-5.1) mmol/L Chloride (96-108) mmol/L Carbon Dioxide (22-29) mmol/L Anion Gap (12-20) BUN (9-16) mg/dL Creatinine (0.5-1.4) mg/dL Estim Creat Clear Calc Estimated GFR POC Glucose (60-115) mg/dL Random Glucose (60-115) mg/dL Osmolality (281-305) mosm/kg Lactic Acid (0.5-2.0) mmol/L Lactic Acid F/U @ 2Hr (0.5-2.0) mmol/L Calcium (8.4-10.2) mg/dL Magnesium (1.6-2.6) mg/dL Total Bilirubin (0.0-1.0) mg/dL Direct Bilirubin (0.0-0.5) mg/dL AST (5-31) U/L ALT (0-31) U/L Alkaline Phosphatase (39-117) U/L Ammonia (13-55) umol/L Lactate Dehydrogenase (122-220) U/L Troponin I High Sens (<3.5-17.0) ng/L C-Reactive Protein (< or = 0.50) mg/dL Total Protein (6.5-8.0) g/dL Albumin (3.5-5.0) g/dL Amylase (28-100) U/L Lipase (8-78) U/L Beta HCG, Quant mIU/mL Hold Yellow Top Urine Color Urine Appearance Urine pH (5.0-9.0) Ur Specific [place] (1.005-1.025) Urine Protein (Neg-Trace) mg/dL Urine Glucose (UA) (Negative) mg/dL Urine Ketones (Negative) mg/dL Urine Blood (Negative) Urine Nitrite (Negative) Ur Leukocyte Esterase (Negative) Urine RBC (0-2) /HPF Urine WBC (0-5) /HPF Ur Squamous Epith Cells (0-2) /HPF Urine Bacteria (None Seen) Hyaline Casts (0-2) /LPF Urine Osmolality (373-1093) mosm/kg Ur Random Sodium mmol/L CSF Tube Number CSF Volume CSF Appearance CSF Color CSF WBC CSF RBC [id number] 121 CSF Neutrophils Cancelled 88 CSF Lymphocytes CSF Monocytes % CSF Other Cells % CSF Appearance (b) CSF Glucose mg/dL CSF Total Protein (15-45) mg/dL CSF C.neoform/gat PCR (Not Detect.) CSF CMV DNA (PCR) (Not Detect.) CSF Enterovirus (PCR) (Not Detect.) CSF E. coli K1 (PCR) (Not Detect.) CSF H. influenzae (PCR) (Not Detect.) CSF HSV I (PCR) (Not Detect.) CSF HSV II (PCR) (Not Detect.) CSF HHV 6 (PCR) (Not Detect.) CSF L.monocytogenes PCR (Not Detect.) CSF N. meningitidis PCR (Not Detect.) CSF Parechovirus (PCR) (Not Detect.) CSF S. agalactiae (PCR) (Not Detect.) CSF S. pneumoniae (PCR) (Not Detect.) CSF VZV (PCR) (Not Detect.) Salicylates (15-30) mg/dL Urine Opiates Screen (Not Detect) Ur Buprenorphine Scrn (Not Detect) ng/mL Ur Oxycodone Screen (Not Detect) ng/mL Urine Methadone Screen (Not Detect) ng/mL Urine Fentanyl Screen (Not Detect) Ur Barbiturates Screen (Not Detect) Ur Phencyclidine Scrn (Not Detect) Ur Amphetamines Screen (Not Detect) U Benzodiazepines Scrn (Not Detect) Urine Cocaine Screen (Not Detect) U Marijuana (THC) Screen (Not Detect) Ethyl Alcohol mg/dL Influenza Type A (PCR) (Negative) Influenza Type B (PCR) (Negative) RSV RNA Qual (PCR) (Negative) SARS-CoV-2 RNA (RT-PCR) (Negative) Ref Lab Test Result 10/20/24 10/20/24 10/20/24 Range/Units 17:42 17:42 17:42 WBC (4.8-10.8) X10*3/uL RBC (4.20-5.50) X10*6/uL Hgb (12.0-16.0) g/dl Hct (37.0-47.0) % MCV (80.0-98.0) fL MCH (27.0-33.0) pg MCHC (31.0-35.0) g/dl RDW (11.0-16.0) % Plt Count (160-400) X10*3/uL MPV Immature Gran % (Auto) Neut % (Auto) Lymph % (Auto) [place] % (Auto) Eos % (Auto) Baso % (Auto) Lymph # (Auto) [place] # (Auto) Eos # (Auto) Baso # (Auto) Abs Immat Gran (auto) Absolute Neuts (auto) Absolute Nucleated RBC (0.0-0.012) X10*3/uL Nucleated RBC % (auto) (0.0-0.2) /100WBC Neutrophils % (Manual) (45-73) % Band Neutrophils % (3-5) % Lymphocytes % (Manual) (20-40) % Atypical Lymphs % (Man) (0-6) % Monocytes % (Manual) (2-11) % Abs Neuts (Manual) (2.0-8.3) X10*3/uL Lymphocytes # (Manual) (1.2-4.9) X10*3/uL Atyp Lymphs # (Manual) x10*3/uL Monocytes # (Manual) (0.1-1.2) X10*3/uL Toxic Vacuolation Platelet Estimate (NORMAL) Plt Morphology Comment RBC Morphology Acanthocytes (Spur) /OIF ESR (0-20) MM/HR Hold Purple Top Hold Blue Top VBG pH (7.32-7.43) VBG pCO2 mmHg VBG pO2 mmHg VBG HCO3 (22-26) mmol/L VBG O2 Saturation % VBG Base Excess mmol/L Sodium (135-145) mmol/L Potassium (3.3-5.1) mmol/L Chloride (96-108) mmol/L Carbon Dioxide (22-29) mmol/L Anion Gap (12-20) BUN (9-16) mg/dL Creatinine (0.5-1.4) mg/dL Estim Creat Clear Calc Estimated GFR POC Glucose (60-115) mg/dL Random Glucose (60-115) mg/dL Osmolality (281-305) mosm/kg Lactic Acid (0.5-2.0) mmol/L Lactic Acid F/U @ 2Hr (0.5-2.0) mmol/L Calcium (8.4-10.2) mg/dL Magnesium (1.6-2.6) mg/dL Total Bilirubin (0.0-1.0) mg/dL Direct Bilirubin (0.0-0.5) mg/dL AST (5-31) U/L ALT (0-31) U/L Alkaline Phosphatase (39-117) U/L Ammonia (13-55) umol/L Lactate Dehydrogenase (122-220) U/L Troponin I High Sens (<3.5-17.0) ng/L C-Reactive Protein (< or = 0.50) mg/dL Total Protein (6.5-8.0) g/dL Albumin (3.5-5.0) g/dL Amylase (28-100) U/L Lipase (8-78) U/L Beta HCG, Quant mIU/mL Hold Yellow Top Urine Color Urine Appearance Urine pH (5.0-9.0) Ur Specific [place] (1.005-1.025) Urine Protein (Neg-Trace) mg/dL Urine Glucose (UA) (Negative) mg/dL Urine Ketones (Negative) mg/dL Urine Blood (Negative) Urine Nitrite (Negative) Ur Leukocyte Esterase (Negative) Urine RBC (0-2) /HPF Urine WBC (0-5) /HPF Ur Squamous Epith Cells (0-2) /HPF Urine Bacteria (None Seen) Hyaline Casts (0-2) /LPF Urine Osmolality (373-1093) mosm/kg Ur Random Sodium mmol/L CSF Tube Number CSF Volume CSF Appearance CSF Color CSF WBC CSF RBC CSF Neutrophils 84 CSF Lymphocytes Cancelled 4 6 CSF Monocytes % Cancelled CSF Other Cells % CSF Appearance (b) CSF Glucose mg/dL CSF Total Protein (15-45) mg/dL CSF C.neoform/gat PCR (Not Detect.) CSF CMV DNA (PCR) (Not Detect.) CSF Enterovirus (PCR) (Not Detect.) CSF E. coli K1 (PCR) (Not Detect.) CSF H. influenzae (PCR) (Not Detect.) CSF HSV I (PCR) (Not Detect.) CSF HSV II (PCR) (Not Detect.) CSF HHV 6 (PCR) (Not Detect.) CSF L.monocytogenes PCR (Not Detect.) CSF N. meningitidis PCR (Not Detect.) CSF Parechovirus (PCR) (Not Detect.) CSF S. agalactiae (PCR) (Not Detect.) CSF S. pneumoniae (PCR) (Not Detect.) CSF VZV (PCR) (Not Detect.) Salicylates (15-30) mg/dL Urine Opiates Screen (Not Detect) Ur Buprenorphine Scrn (Not Detect) ng/mL Ur Oxycodone Screen (Not Detect) ng/mL Urine Methadone Screen (Not Detect) ng/mL Urine Fentanyl Screen (Not Detect) Ur Barbiturates Screen (Not Detect) Ur Phencyclidine Scrn (Not Detect) Ur Amphetamines Screen (Not Detect) U Benzodiazepines Scrn (Not Detect) Urine Cocaine Screen (Not Detect) U Marijuana (THC) Screen (Not Detect) Ethyl Alcohol mg/dL Influenza Type A (PCR) (Negative) Influenza Type B (PCR) (Negative) RSV RNA Qual (PCR) (Negative) SARS-CoV-2 RNA (RT-PCR) (Negative) Ref Lab Test Result 10/20/24 10/20/24 10/20/24 Range/Units 17:42 17:42 17:52 WBC (4.8-10.8) X10*3/uL RBC (4.20-5.50) X10*6/uL Hgb (12.0-16.0) g/dl Hct (37.0-47.0) % MCV (80.0-98.0) fL MCH (27.0-33.0) pg MCHC (31.0-35.0) g/dl RDW (11.0-16.0) % Plt Count (160-400) X10*3/uL MPV Immature Gran % (Auto) Neut % (Auto) Lymph % (Auto) [place] % (Auto) Eos % (Auto) Baso % (Auto) Lymph # (Auto) [place] # (Auto) Eos # (Auto) Baso # (Auto) Abs Immat Gran (auto) Absolute Neuts (auto) Absolute Nucleated RBC (0.0-0.012) X10*3/uL Nucleated RBC % (auto) (0.0-0.2) /100WBC Neutrophils % (Manual) (45-73) % Band Neutrophils % (3-5) % Lymphocytes % (Manual) (20-40) % Atypical Lymphs % (Man) (0-6) % Monocytes % (Manual) (2-11) % Abs Neuts (Manual) (2.0-8.3) X10*3/uL Lymphocytes # (Manual) (1.2-4.9) X10*3/uL Atyp Lymphs # (Manual) x10*3/uL Monocytes # (Manual) (0.1-1.2) X10*3/uL Toxic Vacuolation Platelet Estimate (NORMAL) Plt Morphology Comment RBC Morphology Acanthocytes (Spur) /OIF ESR (0-20) MM/HR Hold Purple Top Hold Blue Top VBG pH (7.32-7.43) VBG pCO2 mmHg VBG pO2 mmHg VBG HCO3 (22-26) mmol/L VBG O2 Saturation % VBG Base Excess mmol/L Sodium (135-145) mmol/L Potassium (3.3-5.1) mmol/L Chloride (96-108) mmol/L Carbon Dioxide (22-29) mmol/L Anion Gap (12-20) BUN (9-16) mg/dL Creatinine (0.5-1.4) mg/dL Estim Creat Clear Calc Estimated GFR POC Glucose (60-115) mg/dL Random Glucose (60-115) mg/dL Osmolality (281-305) mosm/kg Lactic Acid (0.5-2.0) mmol/L Lactic Acid F/U @ 2Hr (0.5-2.0) mmol/L Calcium (8.4-10.2) mg/dL Magnesium (1.6-2.6) mg/dL Total Bilirubin (0.0-1.0) mg/dL Direct Bilirubin (0.0-0.5) mg/dL AST (5-31) U/L ALT (0-31) U/L Alkaline Phosphatase (39-117) U/L Ammonia (13-55) umol/L Lactate Dehydrogenase (122-220) U/L Troponin I High Sens (<3.5-17.0) ng/L C-Reactive Protein (< or = 0.50) mg/dL Total Protein (6.5-8.0) g/dL Albumin (3.5-5.0) g/dL Amylase (28-100) U/L Lipase (8-78) U/L Beta HCG, Quant mIU/mL Hold Yellow Top Urine Color Yellow Urine Appearance Cloudy Urine pH 6.0 (5.0-9.0) Ur Specific [place] 1.015 (1.005-1.025) Urine Protein 100 (2+) H (Neg-Trace) mg/dL Urine Glucose (UA) Negative (Negative) mg/dL Urine Ketones 15 (Negative) mg/dL Urine Blood Large (3+) H (Negative) Urine Nitrite Positive H (Negative) Ur Leukocyte Esterase Small (1+) H (Negative) Urine RBC 11-20 H (0-2) /HPF Urine WBC 11-20 H (0-5) /HPF Ur Squamous Epith Cells 3-5 (0-2) /HPF Urine Bacteria 4+ (None Seen) Hyaline Casts 3-5 (0-2) /LPF Urine Osmolality 411 (373-1093) mosm/kg Ur Random Sodium < 20.0 mmol/L CSF Tube Number CSF Volume CSF Appearance CSF Color CSF WBC CSF RBC CSF Neutrophils CSF Lymphocytes CSF Monocytes % 8 10 CSF Other Cells % Cancelled CSF Appearance (b) Clear, Colorless CSF Glucose 39 mg/dL CSF Total Protein 43.5 (15-45) mg/dL CSF C.neoform/gat PCR Not Detected (Not Detect.) CSF CMV DNA (PCR) Not Detected (Not Detect.) CSF Enterovirus (PCR) Not Detected (Not Detect.) CSF E. coli K1 (PCR) Not Detected (Not Detect.) CSF H. influenzae (PCR) Not Detected (Not Detect.) CSF HSV I (PCR) Not Detected (Not Detect.) CSF HSV II (PCR) Not Detected (Not Detect.) CSF HHV 6 (PCR) Not Detected (Not Detect.) CSF L.monocytogenes PCR Not Detected (Not Detect.) CSF N. meningitidis PCR Not Detected (Not Detect.) CSF Parechovirus (PCR) Not Detected (Not Detect.) CSF S. agalactiae (PCR) Not Detected (Not Detect.) CSF S. pneumoniae (PCR) Not Detected (Not Detect.) CSF VZV (PCR) Not Detected (Not Detect.) Salicylates (15-30) mg/dL Urine Opiates Screen POSITIVE H (Not Detect) Ur Buprenorphine Scrn Not Detected (Not Detect) ng/mL Ur Oxycodone Screen Not Detected (Not Detect) ng/mL Urine Methadone Screen Positive H (Not Detect) ng/mL Urine Fentanyl Screen POSITIVE H (Not Detect) Ur Barbiturates Screen Not Detected (Not Detect) Ur Phencyclidine Scrn Not Detected (Not Detect) Ur Amphetamines Screen Not Detected (Not Detect) U Benzodiazepines Scrn Not Detected (Not Detect) Urine Cocaine Screen POSITIVE H (Not Detect) U Marijuana (THC) Screen POSITIVE H (Not Detect) Ethyl Alcohol mg/dL Influenza Type A (PCR) (Negative) Influenza Type B (PCR) (Negative) RSV RNA Qual (PCR) (Negative) SARS-CoV-2 RNA (RT-PCR) (Negative) Ref Lab Test Result SEE NOTE 10/20/24 10/20/24 10/20/24 Range/Units 18:39 19:08 19:16 WBC (4.8-10.8) X10*3/uL RBC (4.20-5.50) X10*6/uL Hgb (12.0-16.0) g/dl Hct (37.0-47.0) % MCV (80.0-98.0) fL MCH (27.0-33.0) pg MCHC (31.0-35.0) g/dl RDW (11.0-16.0) % Plt Count (160-400) X10*3/uL MPV Immature Gran % (Auto) Neut % (Auto) Lymph % (Auto) [place] % (Auto) Eos % (Auto) Baso % (Auto) Lymph # (Auto) [place] # (Auto) Eos # (Auto) Baso # (Auto) Abs Immat Gran (auto) Absolute Neuts (auto) Absolute Nucleated RBC (0.0-0.012) X10*3/uL Nucleated RBC % (auto) (0.0-0.2) /100WBC Neutrophils % (Manual) (45-73) % Band Neutrophils % (3-5) % Lymphocytes % (Manual) (20-40) % Atypical Lymphs % (Man) (0-6) % Monocytes % (Manual) (2-11) % Abs Neuts (Manual) (2.0-8.3) X10*3/uL Lymphocytes # (Manual) (1.2-4.9) X10*3/uL Atyp Lymphs # (Manual) x10*3/uL Monocytes # (Manual) (0.1-1.2) X10*3/uL Toxic Vacuolation Platelet Estimate (NORMAL) Plt Morphology Comment RBC Morphology Acanthocytes (Spur) /OIF ESR (0-20) MM/HR Hold Purple Top SEE NOTE Hold Blue Top VBG pH 7.48 H (7.32-7.43) VBG pCO2 27 mmHg VBG pO2 52 mmHg VBG HCO3 20 L (22-26) mmol/L VBG O2 Saturation 89.0 % VBG Base Excess -1.2 mmol/L Sodium 121 L (135-145) mmol/L Potassium 3.1 L (3.3-5.1) mmol/L Chloride 95 L (96-108) mmol/L Carbon Dioxide 17 L (22-29) mmol/L Anion Gap 12 (12-20) BUN 21 H (9-16) mg/dL Creatinine 0.74 (0.5-1.4) mg/dL Estim Creat Clear Calc 83.6 Estimated GFR > 60 POC Glucose (60-115) mg/dL Random Glucose 97 (60-115) mg/dL Osmolality (281-305) mosm/kg Lactic Acid (0.5-2.0) mmol/L Lactic Acid F/U @ 2Hr 2.2 H* (0.5-2.0) mmol/L Calcium 7.1 L (8.4-10.2) mg/dL Magnesium (1.6-2.6) mg/dL Total Bilirubin (0.0-1.0) mg/dL Direct Bilirubin (0.0-0.5) mg/dL AST (5-31) U/L ALT (0-31) U/L Alkaline Phosphatase (39-117) U/L Ammonia (13-55) umol/L Lactate Dehydrogenase 368 H (122-220) U/L Troponin I High Sens 593.1 H* (<3.5-17.0) ng/L C-Reactive Protein (< or = 0.50) mg/dL Total Protein (6.5-8.0) g/dL Albumin (3.5-5.0) g/dL Amylase 27 L (28-100) U/L Lipase (8-78) U/L Beta HCG, Quant mIU/mL Hold Yellow Top See Note Urine Color Urine Appearance Urine pH (5.0-9.0) Ur Specific [place] (1.005-1.025) Urine Protein (Neg-Trace) mg/dL Urine Glucose (UA) (Negative) mg/dL Urine Ketones (Negative) mg/dL Urine Blood (Negative) Urine Nitrite (Negative) Ur Leukocyte Esterase (Negative) Urine RBC (0-2) /HPF Urine WBC (0-5) /HPF Ur Squamous Epith Cells (0-2) /HPF Urine Bacteria (None Seen) Hyaline Casts (0-2) /LPF Urine Osmolality (373-1093) mosm/kg Ur Random Sodium mmol/L CSF Tube Number CSF Volume CSF Appearance CSF Color CSF WBC CSF RBC CSF Neutrophils CSF Lymphocytes CSF Monocytes % CSF Other Cells % CSF Appearance (b) CSF Glucose mg/dL CSF Total Protein (15-45) mg/dL CSF C.neoform/gat PCR (Not Detect.) CSF CMV DNA (PCR) (Not Detect.) CSF Enterovirus (PCR) (Not Detect.) CSF E. coli K1 (PCR) (Not Detect.) CSF H. influenzae (PCR) (Not Detect.) CSF HSV I (PCR) (Not Detect.) CSF HSV II (PCR) (Not Detect.) CSF HHV 6 (PCR) (Not Detect.) CSF L.monocytogenes PCR (Not Detect.) CSF N. meningitidis PCR (Not Detect.) CSF Parechovirus (PCR) (Not Detect.) CSF S. agalactiae (PCR) (Not Detect.) CSF S. pneumoniae (PCR) (Not Detect.) CSF VZV (PCR) (Not Detect.) Salicylates (15-30) mg/dL Urine Opiates Screen (Not Detect) Ur Buprenorphine Scrn (Not Detect) ng/mL Ur Oxycodone Screen (Not Detect) ng/mL Urine Methadone Screen (Not Detect) ng/mL Urine Fentanyl Screen (Not Detect) Ur Barbiturates Screen (Not Detect) Ur Phencyclidine Scrn (Not Detect) Ur Amphetamines Screen (Not Detect) U Benzodiazepines Scrn (Not Detect) Urine Cocaine Screen (Not Detect) U Marijuana (THC) Screen (Not Detect) Ethyl Alcohol mg/dL Influenza Type A (PCR) (Negative) Influenza Type B (PCR) (Negative) RSV RNA Qual (PCR) (Negative) SARS-CoV-2 RNA (RT-PCR) (Negative) Ref Lab Test Result Independent Interpretation I performed an independent interpretation of an: EKG Interpretation: EKG sinus tachycardia at a ventricular rate of 132, QT QTC 298/441, no STEMI Radiology Impression Discussion of test interpretation with radiology: I have reviewed the radiologist's reading. Radiologist Impression: [address] [address] [address] Scan Report Signed Patient: Mila Humphrey MR#: [id number] : 1990 Acct:[id number] Age/Sex: 34 / F ADM Date: 10/20/24 Loc: HO.ED Attending Dr: Ordering Physician: Mary Gomez Date of Service: 10/20/24 Procedure(s): CT head/brain wo IV con Accession Number(s): [id number] cc: Mary Gomez~ Report Number: [id number]: Total DLP = 743.00 mGy-cm EXAMINATION: CT HEAD WITHOUT CONTRAST CLINICAL INFORMATION: AMS. COMPARISON: None available. TECHNIQUE: Contiguous axial imaging was performed from the skull base to vertex without intravenous administration of contrast. This CT examination was performed using dose optimization techniques as appropriate, variously including the following: *Automated exposure control *Adjustment of mA and/or kV according to patient size (this includes techniques or standardized protocols for targeted exams where dose is matched to indication/reason for exam; i.e. extremities or head) *Use of iterative reconstruction technique DLP: 743 mGy/cm. FINDINGS: Limited exam secondary to patient motion. There is no acute intra-axial, extra-axial bleed, masses or midline shift. There is no acute infarction in evolution. There is no edema. The lateral ventricles are symmetrical in size and configuration without enlargement. There is no abnormality seen in the posterior fossa. Bone windows reveal no calvarial abnormality. No scalp soft tissue abnormality. Bilateral paranasal sinuses and mastoid air cells are well-aerated. CT/CT head/brain wo IV con IMPRESSION: No acute intracranial process seen Electronically signed by: Van Sultana MD 10/20/2024 04:38 PM EDT Dictated By: Van Sultana MD EXAMINATION: XR CHEST CLINICAL INFORMATION: AMS COMPARISON: Chest x-ray 10/10/2017. TECHNIQUE: Frontal view of the chest was obtained. FINDINGS: Lungs are well-expanded with patchy density seen in the right middle lobe suspicious for focal atelectasis. Cannot exclude infiltrate. No pleural effusion or pneumothorax. The heart size is normal. No gross bony abnormality seen. XR/XR chest 1V IMPRESSION: Right middle lobe patchy opacity question atelectasis and/or infiltrate. Electronically signed by: Van Sultana MD 10/20/2024 04:39 PM EDT RP Independent Historian Clinical information obtained from an independent historian. History obtained from or confirmed by: EMS and Other (Family, EMS) Procedures Lumbar Puncture Time Out Performed: Yes Patient Position: left lateral decubitus Skin Prep: Povidone-Iodine 1% Local Anesthetic: lidocaine 1% Amount of anesthesia used (mL): 3 Spinal Needle Gauge: 20G Interspace Used: L4-L5 Fluid Initially Obtained: clear and bloody Complications: none Additional Comments: Lumbar puncture performed with Dr. Perez present at all times. Initial puncture slight lead bloody however this resolved. Patient tolerated procedure well without complications or concerns. Critical Care Time Critical Care Time Critical Care Time: Yes Total Critical Care Time: 80 Attestation: I have personally provided critical care time exclusive of time spent on separately billable procedures. Time includes review of lab data, radiology results, discussion with consultants, and monitoring for potential decompensation. Intervention performed as documented. Discharge Plan Discharge Clinical Impression: Altered mental status, Acute hyponatremia, Encephalopathy acute Patient Disposition: Admitted As Inpatient Interventions: Admission Worksheet (ED) Last Done: 10/20/24 20:59 Discharge Date/Time: 10/20/24 22:09 Sepsis Bolus Exclusion Sepsis Bolus Exclusion CHF/Renal Failure This patient met severe sepsis criteria due to the following condition(s):: Hypotension In my clinical judgement the administration of 30 ml/kg of crystalloid would be detrimental to this patient due to the patient's following conditions:: Other ( severe hyponatremia) Replace the 30 mls/kg with (Zero amount not acceptable and all fluids for severe sepsis must be given at GREATER than 125 mls/hr) Crystalloids amount given in mls: (rate must be at least 150cc/hr): 150 Colloids amount given in mls:: 134
[2024-10-20 15:58] LABS: Hematocrit 44.7 % (37.0-47.0); Hemoglobin 16.4 g/dl (12.0-16.0); Mean Corpuscular HGB Conc 36.7 g/dl (31.0-35.0); Mean Corpuscular Hemoglobin 27.3 pg (27.0-33.0); Mean Corpuscular Volume 74.4 fL (80.0-98.0); Red Blood Count 6.01 X10*6/uL (4.20-5.50); Red Cell Distribution Width 13.8 % (11.0-16.0)
[2024-10-20] MEDS: 0.9 % Sodium Chloride 1,496.85 ML 1496.85 ML IV (15:58)
[2024-10-20] MEDS: Piperacillin Sodium/Tazobactam 3.375 GM in 0.9 % Sodium Chloride 50 ML IV ×2 (15:58→21:44)
[2024-10-20] MEDS: Acetaminophen 1,000 MG/100 ML PIGGYBACK 400 MG IV (15:59)
[2024-10-20 16:02] LABS: Platelet Count 45 X10*3/uL (160-400); WBC ABN SCTR FOR CBC 1
[2024-10-20 16:05] LABS: Venous Blood Gas Refer to POC result
[2024-10-20 16:05] LABS: VBG Base Excess 3.7 mmol/L; VBG HCO3 27 mmol/L (22-26); VBG pCO2 39 mmHg; VBG pH 7.45 (7.32-7.43); VBG pO2 31 mmHg
[2024-10-20 16:06] LABS: Glucose, Whole Blood 121 mg/dL (60-115)
[2024-10-20] MEDS: vancomycin HCL 1,250 MG in 0.9 % Sodium Chloride 250 ML 166.67 MG IV (16:07)
--- NOTE | 2024-10-20 16:10 | PC.NURSE ---
Pt ALEXEI from home, per family/ems patient alerted from baseline, unable to speak this AM per family. Patient unable to respond to questions during triage, turns head towards name, able to follow basic commands. Rectal temp during triage elevated, provider Mary at bedside, sepsis protocol initiated. Patient chronic IV drug user, difficult stick, US guided [employer] WORK[employer] Gregorio called to bedside, bilat 20 US IVs initiated, sepsis fluids/abx/tylenol hung. All fluids/labs delayed d/t difficult access. Patient currently in CT for scan, plan for LP d/t patient's mental status & fever in place.
[2024-10-20 16:14] LABS: Ammonia 35 umol/L (13-55)
[2024-10-20 16:20] LABS: Atypical Lymphs Percent Manual 2 % (0-6); Lymphocytes Percent Manual 3 % (20-40); Monocytes Percent Manual 2 % (2-11); Neutrophils Percent Manual 93 % (45-73)
[2024-10-20 16:21] LABS: C Reactive Protein 31.93 mg/dL (< or = 0.50); Ethanol < 10 mg/dL
[2024-10-20 16:23] LABS: Acanthocytes 3+ (>5) /OIF; Alanine Aminotransferase 18 U/L (0-31); Albumin Level 3.5 g/dL (3.5-5.0); Alkaline Phosphatase 185 U/L (39-117); Anion Gap 19 (12-20); Aspartate Amino Transferase 72 U/L (5-31); Bilirubin Direct 0.7 mg/dL (0.0-0.5); Bilirubin Total 1.2 mg/dL (0.0-1.0); Blood Urea Nitrogen 22 mg/dL (9-16); Calcium 9.2 mg/dL (8.4-10.2); Carbon Dioxide 23 mmol/L (22-29); Chloride 82 mmol/L (96-108); Creatinine Clr Calc Pharmacy 67.9; Estimated Glomerular Filt Rate > 60; Glucose Random 111 mg/dL (60-115); Lipase 7 U/L (8-78); Magnesium 2.4 mg/dL (1.6-2.6); Potassium 3.5 mmol/L (3.3-5.1); RBC Morphology NOTED; Salicylate < 5.0 mg/dL (15-30); Sodium 120 mmol/L (135-145); Toxic Vacuolation PRESENT
[2024-10-20 16:24] LABS: Band Neutrophils Percent 0 % (3-5); Lactic Acid 3.1 mmol/L (0.5-2.0); Platelet Estimate DECREASED (NORMAL); Platelet Morphology Comment NORMAL
[2024-10-20 16:25] LABS: Atypical Lymph Absolute Manual 0.5 x10*3/uL; Lymphocytes Absolute Manual 0.8 X10*3/uL (1.2-4.9); Monocytes Absolute Manual 0.5 X10*3/uL (0.1-1.2); Neutrophils Absolute Manual 23.3 X10*3/uL (2.0-8.3); White Blood Count 25.1 X10*3/uL (4.8-10.8)
[2024-10-20 16:34] LABS: Troponin-I High Sensitivity 753.7 ng/L (<3.5-17.0)
[2024-10-20 16:37] LABS: HCG Quantitative < 2 mIU/mL
--- NOTE | 2024-10-20 16:37 | PC.NURSE ---
Pt's NA 120, Provider cristal verbal order to stop NS bolus, patient had recieved approximately 900 ccs of bolus
[2024-10-20 16:38] LABS: Erythrocyte Sedimentation Rate 8 MM/HR (0-20)
--- NOTE | 2024-10-20 16:44 | PC.NURSE ---
pt brought in via EMS for AMS. pt arrives only turning her head to her name- unable to answer t/w questions. Pt was changed into hospital attire, pt found with with rolled up towel between her legs on arrival- no incontinence appreciated. Rectal temp was obtained, pt febrile at 103 rectal probe placed- surveillance system monitor applied sinus tach at 143 on bedside monitor- Bilateral US IV access was established, and labs were obtained. Sepsis protocol initiated at 1542.
[2024-10-20 16:46] LABS: Influenza A PCR NEGATIVE (Negative); Influenza B PCR NEGATIVE (Negative); Resp Syncy Virus RNA Qual PCR NEGATIVE (Negative); SARS COV2 PCR INHOUSE NEGATIVE (Negative)
[2024-10-20] MEDS: Midazolam HCl 2 MG/2 ML VIAL 4 MG IVPUSH (17:07)
[2024-10-20 17:21] LABS: Osmolality, Serum 258 mosm/kg (281-305)
[2024-10-20 17:52] LABS: Reflex Lactate? Lactic Acid Added
[2024-10-20 17:55] LABS: Anion Gap 13 (12-20); Blood Urea Nitrogen 21 mg/dL (9-16); Calcium 7.2 mg/dL (8.4-10.2); Carbon Dioxide 19 mmol/L (22-29); Chloride 91 mmol/L (96-108); Creatinine Clr Calc Pharmacy 82.5; Estimated Glomerular Filt Rate > 60; Glucose Random 107 mg/dL (60-115); Potassium 2.7 mmol/L (3.3-5.1); Sodium 120 mmol/L (135-145)
[2024-10-20 18:01] LABS: CSF Appearance Clear, Colorless; CSF Tube # 2
[2024-10-20 18:02] LABS: Appearance Urine Cloudy; Color Urine Yellow; Glucose Urine UA Negative (Negative); Leukocyte Esterase Urine Small (1+) (Negative); Nitrite Urine Positive (Negative); Specific Gravity - Urine 1.015 (1.005-1.025); UMIC TRIGGER UACC YES; Urine Blood Large (3+) (Negative); Urine Ketones 15 mg/dL (Negative); Urine Protein 100 (2+) mg/dL (Neg-Trace)
[2024-10-20] MEDS: Lactated Ringers 1,000 ML 500 ML IV (18:05)
[2024-10-20 18:10] LABS: Sodium Urine Random < 20.0 mmol/L
[2024-10-20 18:11] LABS: Amphetamine Screen Urine Not Detected (Not Detect); Barbiturates, Urine Not Detected (Not Detect); Benzodiazepines Screen Urine Not Detected (Not Detect); Buprenorphine Scr Not Detected (Not Detect); Cannabinoid Screen Urine POSITIVE (Not Detect); Cocaine Screen Urine POSITIVE (Not Detect); Fentanyl, urine POSITIVE (Not Detect); Methadone Screen, Urine Positive (Not Detect); Opiate Screen Urine POSITIVE (Not Detect); Osmolality Urine 411 mosm/kg (373-1093); Oxycodone Screen Urine Not Detected (Not Detect); Phencyclidine Screen Urine Not Detected (Not Detect)
[2024-10-20] MEDS: Potassium Chloride/H20 10 MEQ/100 ML PIGGYBACK 100 MEQ IV ×4 (18:11→23:45)
[2024-10-20 18:26] LABS: Glucose CSF 39 mg/dL; Total Protein CSF 43.5 mg/dL (15-45)
[2024-10-20 18:30] LABS: Bacteria Urine 4+ (None Seen); UACC Culture Trigger YES
--- NOTE | 2024-10-20 18:39 | ECG_ITS ---
Test Reason : TACHYCARDIA Blood Pressure : */* mmHG Vent. Rate : 113 BPM Atrial Rate : 113 BPM P-R Int : 136 ms QRS Dur : 94 ms QT Int : 342 ms P-R-T Axes : 69 110 27 degrees QTcB Int : 469 ms Sinus tachycardia Left atrial enlargement Anterolateral infarct (cited on or before 26-Apr-2018) Abnormal ECG When compared with ECG of 20-Oct-2024 15:25, No significant change was found Referred By: Mary Valentino Electronically Signed By: MICA ALEJO MD
--- OUTSIDE RECORDS SUMMARY | 2024-10-20 18:39 | XMS_ITS | Clinical Summary ---
Author Organization [facility] ity Address [address] [place] [address] Care Team Providers Care Seasonal Clerk Name Role Phone Unavailable Primary Care Provider Unavailabl e Social History Tobacco Use Types Packs/Day Years Used Date Smoking Tobacco: Never Assessed Comments Unknown Sex and Gender Information Value Date Recorded Sex Assigned at Not on file Legal Sex Female 7:15 PM EST Gender Identity Not on file Sexual Orientation Not on file Plan of Treatment Health Maintenance Due Date Last Done Comments DTaP,Tdap,and Td Vaccines (1 - Tdap) 2008 Hepatitis B Vaccines (1 of 3 - 19+ 3-dose series) 2008 Cervical Cancer Screening: P ap Smear 2010 COVID-19 Vaccine (2023-2 5 season) 2024 Influenza Vaccine (Season Ended) 2025 HIB Vaccines Aged Out No longer eligi ble based on patient's age to complete this topic HPV Vaccines Aged Out No longer eligi ble based on patient's age to complete this topic Hepatitis A Vaccines Aged Out No long er eligible based on patient's age to complete this topic IPV Vaccines Aged Out No longer eligi ble based on patient's age to complete this topic MMR Vaccines Aged Out No longer eligi ble based on patient's age to complete this topic Meningococcal ACWY Vaccine Aged Out N o longer eligible based on patient's age to complete this topic Meningococcal B Vaccine Aged Out No l onger eligible based on patient's age to complete this topic Pneumococcal Vaccine: Pediat rics (0 to 5 Years) and At-Risk Patients (6 to 64 Years) Aged Out No longer eligible b ased on patient's age to complete this topic RSV Immunization Patients Un kirby 20 months Aged Out No longer eligible b ased on patient's age to complete this topic Varicella Vaccines Aged Out No longer eligible based on patient's age to complete this topic
[2024-10-20 19:10] LABS: ~Lactic Acid-LAB USE ONLY 2.2 mmol/L (0.5-2.0)
[2024-10-20 19:15] LABS: Troponin-I High Sensitivity 593.1 ng/L (<3.5-17.0)
[2024-10-20 19:15] LABS: Appearance CSF HAZY; CSF Tube # 1; CSF Volume 1.5 ML; Color CSF PINK
[2024-10-20 19:16] LABS: Appearance CSF CLEAR; CSF Tube # 4; Color CSF COLORLESS
[2024-10-20 19:19] LABS: VBG Base Excess -1.2 mmol/L; VBG HCO3 20 mmol/L (22-26); VBG pCO2 27 mmHg; VBG pH 7.48 (7.32-7.43); VBG pO2 52 mmHg
[2024-10-20 19:19] LABS: Venous Blood Gas Refer to POC result
[2024-10-20] MEDS: iohexoL 350 MG/ML 100 ML INFUS..BTL IV (19:25)
[2024-10-20 19:28] LABS: Cryptococcus neoformans/gattii Not Detected (Not Detect.); Enterovirus Not Detected (Not Detect.); Escherichia coli K1 Not Detected (Not Detect.); Haemophilus influenzae Not Detected (Not Detect.); Herpes simplex virus 1 Not Detected (Not Detect.); Herpes simplex virus 2 Not Detected (Not Detect.); Human herpesvirus 6 Not Detected (Not Detect.); Human parechovirus Not Detected (Not Detect.); Listeria monocytogenes Not Detected (Not Detect.); Neisseria meningitidis Not Detected (Not Detect.); Streptococcus agalactiae Not Detected (Not Detect.); Streptococcus pneumoniae Not Detected (Not Detect.); Varicella zoster virus Not Detected (Not Detect.)
[2024-10-20] MEDS: Norepinephrine Bitartrate/D5W 8 MG/250 ML PLAST..BAG 4.68 MG IVCONT (19:30)
--- NOTE | 2024-10-20 19:40 | PC.NURSE ---
Onel, ICU provider at bedside, Narcan 0.4 mg administered by Onel at 19:39. Patient noted to be awake, but somnolent. BP improved 106/171, P 99, O2 Sat 100. Per MD to continue Levophed at 0.05 mg/kg/min at this time.
[2024-10-20 19:42] LABS: Amylase 27 U/L (28-100); Anion Gap 12 (12-20); Blood Urea Nitrogen 21 mg/dL (9-16); Calcium 7.1 mg/dL (8.4-10.2); Carbon Dioxide 17 mmol/L (22-29); Chloride 95 mmol/L (96-108); Creatinine Clr Calc Pharmacy 83.6; Estimated Glomerular Filt Rate > 60; Glucose Random 97 mg/dL (60-115); Lactate Dehydrogenase 368 U/L (122-220); Potassium 3.1 mmol/L (3.3-5.1); Sodium 121 mmol/L (135-145)
[2024-10-20 19:48] LABS: CSF Monos 8 %; Lymphocytes CSF 4 %; Neutrophils CSF 88 %; Red Blood Cell CSF 5399 MM*3
[2024-10-20] MEDS: Albumin Human 25 % 100 ML 133.33 ML IV ×2 (19:48→20:57)
[2024-10-20 20:04] LABS: White Blood Cell CSF 13 MM*3
[2024-10-20] MEDS: Naloxone HCl 5 MG in Dextrose 5 % 95 ML 40 MG IV ×3 (20:12→23:50)
[2024-10-20 20:18] LABS: Neutrophils CSF 84 %; Red Blood Cell CSF 121 MM*3
[2024-10-20 20:19] LABS: CSF Monos 10 %; Lymphocytes CSF 6 %
[2024-10-20 20:20] LABS: White Blood Cell CSF 64 MM*3
[2024-10-20 20:42] LABS: Reflex Lactate? 2 Y
--- NOTE | 2024-10-20 20:44 | PC.NURSE ---
Patient's sister Cristal updated on pt status and plan of are.
--- NOTE | 2024-10-20 20:48 | PM.CCHP ---
History of Present Illness Date of Service: 10/20/24 <DANIEL Ray - Last Filed: 10/21/24 19:32> Attending physician on admission: Robert Ramirez <DANIEL Ray - Last Filed: 10/21/24 19:32> Chief Complaint: Sepsis, Opioid OD <DANIEL Ray - Last Filed: 10/21/24 19:32> 34-year-old female with long history of IV drug abuse and polysubstance abuse, right arm thrombophlebitis in 2020; currently on methadone who had presented to the emergency room via EMS and as reported by family, the patient has been having altered mental status for the past 2-3 days.? It is noted the patient had the flu and had nausea and vomiting for the last couple of days.? Some family members had similar symptoms.? Family reported the patient had woken up altered unable to form sentences and having incomprehensible words.? EMS what was called.? Upon arrival to the emergency room, the patient was noted to be hypotensive with poor hygiene ill-appearing, obtunded.? Cat scan of the head revealed no acute pathology.? Laboratory workup was significant for white count of 25 0.1, H and H of 16 and 44 respectively, platelets 45.? Hi neutrophilic count and toxic vacuolation present. ?Sodium 121, potassium 3.1, chloride 95, carbon dioxide 17.? LDH 368 and amylase 27.? Urinalysis positive for UTI and U tox screen showed presence of opiates, methadone, fentanyl, cocaine, marijuana.? The patient's test is negative.? Respiratory panel negative. ?The patient did undergo an LP and results are currently pending. ?But it was reported to be clear in color.? Blood gas overall normal.? Patient was given vancomycin and Zosyn, and about 1.5 L of IV fluids.? Given the low-sodium and concern for rapid correction the patient was started on Levophed as her blood pressure continued to be low.? She had a CT angiogram which was limited study but no evidence of PE or right heart strain.? Airway thickening and patchy left lower lobe density suggestive of pneumonia The patient was admitted to the ICU. <DANIEL Ray - Last Filed: 10/21/24 19:32> Review of Systems Review of Systems: Yes Unobtainable due to mental status <DANIEL Ray - Last Filed: 10/21/24 19:32> [facility] Past Medical History Medical History: Medical History No active medical problems <DANIEL Ray - Last Filed: 10/21/24 19:32> Surgical History Surgical History: Surgical History History of back surgery <DANIEL Ray - Last Filed: 10/21/24 19:32> Social History Social History: Social History Household Members: Unknown / Unable to assess Alcohol intake: current Patient Tobacco Use Status: Tobacco use Unknown Use of substances other than those prescribed or required for medical reasons: Unknown Substance Use Type: Crack/Cocaine, Heroin and IV Drugs Currently Displaying Signs/Symptoms of Drug Intoxication Withdrawal: Yes Advance Directives: No Advance Directives Information Provided: No Do you have a plan to hurt others: No Plan Patient : No <DANIEL Ray - Last Filed: 10/21/24 19:32> Meds Allergies/Adverse reactions: Allergies Allergy/AdvReac Type Severity Reaction Status Date / Time Sulfa (Sulfonamide Allergy Unknown swelling, Verified 10/20/24 15:27 Antibiotics) ITCHY [SULFA (SULFONAMIDE ANTIBIOTICS)] <DANIEL Ray - Last Filed: 10/21/24 19:32> Active Medications: Current Medications Potassium Chloride (Potassium Chloride/H20) 10 meq in 100 mls @ 100 mls/hr IV Q1H VIVIANE Stop: 10/20/24 21:59 Last Admin: 10/20/24 20:07 Dose: 100 mls/hr Norepinephrine Bitartrate (Levophed) 8 mg in 250 mls @ 0 mls/hr IVCONT .Q0M VIVIANE; Protocol Last Admin: 10/20/24 19:30 Dose: 0.05 mcg/kg/min, 4.68 mls/hr Albumin Human (Kedbumin 25 %) 100 mls @ 133.333 mls/hr IV Q1H VIVIANE Stop: 10/20/24 21:14 Last Infusion: 10/20/24 20:35 Dose: Infused Naloxone HCl 5 mg/ Dextrose 100 mls @ 40 mls/hr IV .Q2H30M VIVIANE Last Admin: 10/20/24 20:12 Dose: 2 mg/hr, 40 mls/hr Acyclovir Sodium 500 mg/ (Dextrose) 110 mls @ 110 mls/hr IV ONCE ONE Stop: 10/20/24 21:35 <DANIEL Ray - Last Filed: 10/21/24 19:32> Home medications: Home Medications ?Medication ?Instructions ?Recorded ?Confirmed ?Last Taken ?Type methadone 10 mg/mL oral mg 10/21/24 Unknown History concentrate (Methadone Intensol) <DANIEL Ray - Last Filed: 10/21/24 19:32> Physical Exam Vital Signs: Vital Signs: Last Vital Signs Temp 99.0 F 10/20/24 19:04 Pulse 111 H 10/20/24 20:31 Resp 14 10/20/24 20:31 BP 99/65 10/20/24 20:31 Pulse Ox 96 10/20/24 20:31 O2 Del Method Room Air 10/20/24 20:31 BMI result Body Mass Index 17.8 <DANIEL Ray - Last Filed: 10/21/24 19:32> General:? Completely obtunded. ?No accessory muscle usage.? Cachectic Skin:? Dry, diffuse scarring and needle harley throughout the upper extremities and lower extremities. HEENT:? Head is normocephalic, atraumatic, pinpoint pupils 1 mm bilaterally without reaction.? Buccal mucosa dry.? Neck supple. Cardiac:? Tachycardic 126 beats per minute.? Subtle 2/6 left upper sternal border murmur. Pulmonary:? Diminished lung sounds bilaterally fine expiratory wheezing bilaterally .? No crackles, rales or rhonchi. Abdomen:? Protuberant, positive bowel sounds in all 4 quadrants.? Soft, nontender, no rebound or guarding.? Musculoskeletal:? Moving all 4 extremities on her own.? There is no lower extremity edema, no asymmetry.? Gait not examined.? Unable to determine strength as the patient is now able to follow commands. Neurologic:? As above.?There is neck stiffness but could not elicit kernig's and brudzinski's sings.Unable to perform a more detailed exam. Vascular:? 2+ pulses upper and lower extremities distally.? Less than 2nd capillary refill of fingers and toes bilaterally upper and lower extremities <DANIEL Ray - Last Filed: 10/21/24 19:32> Results Labs CBC and Chem 7: 10/21/24 04:53 10/21/24 04:53 <DANIEL Ray - Last Filed: 10/21/24 19:32> Labs: Laboratory Results - last 24 hr 10/20/24 10/20/24 10/20/24 15:38 15:45 15:56 MCV 74.4 L MCH 27.3 MCHC 36.7 H RDW 13.8 Plt Count 45 L MPV Not Reportable Immature Gran % (Auto) Cancelled Neut % (Auto) Cancelled Lymph % (Auto) Cancelled [place] % (Auto) Cancelled Eos % (Auto) Cancelled Baso % (Auto) Cancelled Lymph # (Auto) Cancelled [place] # (Auto) Cancelled Eos # (Auto) Cancelled Baso # (Auto) Cancelled Abs Immat Gran (auto) Cancelled Absolute Neuts (auto) Cancelled Absolute Nucleated RBC 0.000 Nucleated RBC % (auto) 0.0 Neutrophils % (Manual) 93 H Band Neutrophils % 0 L Lymphocytes % (Manual) 3 L Atypical Lymphs % (Man) 2 Monocytes % (Manual) 2 Abs Neuts (Manual) 23.3 H Lymphocytes # (Manual) 0.8 L Atyp Lymphs # (Manual) 0.5 Monocytes # (Manual) 0.5 Toxic Vacuolation PRESENT Platelet Estimate DECREASED Plt Morphology Comment NORMAL RBC Morphology NOTED Acanthocytes (Spur) 3+ (>5) ESR 8 Hold Purple Top Hold Blue Top SEE NOTE VBG pH VBG pCO2 VBG pO2 VBG HCO3 VBG O2 Saturation VBG Base Excess Anion Gap 19 Estim Creat Clear Calc 67.9 Estimated GFR > 60 POC Glucose 121 H Random Glucose 111 Osmolality Lactic Acid 3.1 H* Lactic Acid F/U @ 2Hr Calcium 9.2 Magnesium 2.4 Total Bilirubin 1.2 H Direct Bilirubin 0.7 H AST 72 H ALT 18 Alkaline Phosphatase 185 H Ammonia 35 Lactate Dehydrogenase C-Reactive Protein 31.93 H Total Protein 8.0 Albumin 3.5 Amylase Lipase 7 L Beta HCG, Quant < 2 Hold Yellow Top Urine Color Urine Appearance Urine pH Ur Specific [place] Urine Protein Urine Glucose (UA) Urine Ketones Urine Blood Urine Nitrite Ur Leukocyte Esterase Urine RBC Urine WBC Ur Squamous Epith Cells Urine Bacteria Hyaline Casts Urine Osmolality Ur Random Sodium CSF Tube Number CSF Volume CSF Appearance CSF Color CSF WBC CSF RBC CSF Neutrophils CSF Lymphocytes CSF Monocytes % CSF Other Cells % CSF Appearance (b) CSF Glucose CSF Total Protein CSF C.neoform/gat PCR CSF CMV DNA (PCR) CSF Enterovirus (PCR) CSF E. coli K1 (PCR) CSF H. influenzae (PCR) CSF HSV I (PCR) CSF HSV II (PCR) CSF HHV 6 (PCR) CSF L.monocytogenes PCR CSF N. meningitidis PCR CSF Parechovirus (PCR) CSF S. agalactiae (PCR) CSF S. pneumoniae (PCR) CSF VZV (PCR) Salicylates < 5.0 L Urine Opiates Screen Ur Buprenorphine Scrn Ur Oxycodone Screen Urine Methadone Screen Urine Fentanyl Screen Ur Barbiturates Screen Ur Phencyclidine Scrn Ur Amphetamines Screen U Benzodiazepines Scrn Urine Cocaine Screen U Marijuana (THC) Screen Ethyl Alcohol < 10 Influenza Type A (PCR) Influenza Type B (PCR) RSV RNA Qual (PCR) SARS-CoV-2 RNA (RT-PCR) 10/20/24 10/20/24 10/20/24 16:01 16:03 16:58 MCV MCH MCHC RDW Plt Count MPV Immature Gran % (Auto) Neut % (Auto) Lymph % (Auto) [place] % (Auto) Eos % (Auto) Baso % (Auto) Lymph # (Auto) [place] # (Auto) Eos # (Auto) Baso # (Auto) Abs Immat Gran (auto) Absolute Neuts (auto) Absolute Nucleated RBC Nucleated RBC % (auto) Neutrophils % (Manual) Band Neutrophils % Lymphocytes % (Manual) Atypical Lymphs % (Man) Monocytes % (Manual) Abs Neuts (Manual) Lymphocytes # (Manual) Atyp Lymphs # (Manual) Monocytes # (Manual) Toxic Vacuolation Platelet Estimate Plt Morphology Comment RBC Morphology Acanthocytes (Spur) ESR Hold Purple Top Hold Blue Top VBG pH 7.45 H VBG pCO2 39 VBG pO2 31 VBG HCO3 27 H VBG O2 Saturation 47.0 VBG Base Excess 3.7 Anion Gap 13 Estim Creat Clear Calc 82.5 Estimated GFR > 60 POC Glucose Random Glucose 107 Osmolality 258 L Lactic Acid Lactic Acid F/U @ 2Hr Calcium 7.2 L D Magnesium Total Bilirubin Direct Bilirubin AST ALT Alkaline Phosphatase Ammonia Lactate Dehydrogenase C-Reactive Protein Total Protein Albumin Amylase Lipase Beta HCG, Quant Hold Yellow Top Urine Color Urine Appearance Urine pH Ur Specific [place] Urine Protein Urine Glucose (UA) Urine Ketones Urine Blood Urine Nitrite Ur Leukocyte Esterase Urine RBC Urine WBC Ur Squamous Epith Cells Urine Bacteria Hyaline Casts Urine Osmolality Ur Random Sodium CSF Tube Number CSF Volume CSF Appearance CSF Color CSF WBC CSF RBC CSF Neutrophils CSF Lymphocytes CSF Monocytes % CSF Other Cells % CSF Appearance (b) CSF Glucose CSF Total Protein CSF C.neoform/gat PCR CSF CMV DNA (PCR) CSF Enterovirus (PCR) CSF E. coli K1 (PCR) CSF H. influenzae (PCR) CSF HSV I (PCR) CSF HSV II (PCR) CSF HHV 6 (PCR) CSF L.monocytogenes PCR CSF N. meningitidis PCR CSF Parechovirus (PCR) CSF S. agalactiae (PCR) CSF S. pneumoniae (PCR) CSF VZV (PCR) Salicylates Urine Opiates Screen Ur Buprenorphine Scrn Ur Oxycodone Screen Urine Methadone Screen Urine Fentanyl Screen Ur Barbiturates Screen Ur Phencyclidine Scrn Ur Amphetamines Screen U Benzodiazepines Scrn Urine Cocaine Screen U Marijuana (THC) Screen Ethyl Alcohol Influenza Type A (PCR) NEGATIVE Influenza Type B (PCR) NEGATIVE RSV RNA Qual (PCR) NEGATIVE SARS-CoV-2 RNA (RT-PCR) NEGATIVE 10/20/24 10/20/24 10/20/24 17:42 17:42 17:42 MCV MCH MCHC RDW Plt Count MPV Immature Gran % (Auto) Neut % (Auto) Lymph % (Auto) [place] % (Auto) Eos % (Auto) Baso % (Auto) Lymph # (Auto) [place] # (Auto) Eos # (Auto) Baso # (Auto) Abs Immat Gran (auto) Absolute Neuts (auto) Absolute Nucleated RBC Nucleated RBC % (auto) Neutrophils % (Manual) Band Neutrophils % Lymphocytes % (Manual) Atypical Lymphs % (Man) Monocytes % (Manual) Abs Neuts (Manual) Lymphocytes # (Manual) Atyp Lymphs # (Manual) Monocytes # (Manual) Toxic Vacuolation Platelet Estimate Plt Morphology Comment RBC Morphology Acanthocytes (Spur) ESR Hold Purple Top Hold Blue Top VBG pH VBG pCO2 VBG pO2 VBG HCO3 VBG O2 Saturation VBG Base Excess Anion Gap Estim Creat Clear Calc Estimated GFR POC Glucose Random Glucose Osmolality Lactic Acid Lactic Acid F/U @ 2Hr Calcium Magnesium Total Bilirubin Direct Bilirubin AST ALT Alkaline Phosphatase Ammonia Lactate Dehydrogenase C-Reactive Protein Total Protein Albumin Amylase Lipase Beta HCG, Quant Hold Yellow Top Urine Color Urine Appearance Urine pH Ur Specific [place] Urine Protein Urine Glucose (UA) Urine Ketones Urine Blood Urine Nitrite Ur Leukocyte Esterase Urine RBC Urine WBC Ur Squamous Epith Cells Urine Bacteria Hyaline Casts Urine Osmolality Ur Random Sodium CSF Tube Number 2 Cancelled 1 CSF Volume CSF Appearance CSF Color CSF WBC CSF RBC CSF Neutrophils CSF Lymphocytes CSF Monocytes % CSF Other Cells % CSF Appearance (b) CSF Glucose CSF Total Protein CSF C.neoform/gat PCR CSF CMV DNA (PCR) CSF Enterovirus (PCR) CSF E. coli K1 (PCR) CSF H. influenzae (PCR) CSF HSV I (PCR) CSF HSV II (PCR) CSF HHV 6 (PCR) CSF L.monocytogenes PCR CSF N. meningitidis PCR CSF Parechovirus (PCR) CSF S. agalactiae (PCR) CSF S. pneumoniae (PCR) CSF VZV (PCR) Salicylates Urine Opiates Screen Ur Buprenorphine Scrn Ur Oxycodone Screen Urine Methadone Screen Urine Fentanyl Screen Ur Barbiturates Screen Ur Phencyclidine Scrn Ur Amphetamines Screen U Benzodiazepines Scrn Urine Cocaine Screen U Marijuana (THC) Screen Ethyl Alcohol Influenza Type A (PCR) Influenza Type B (PCR) RSV RNA Qual (PCR) SARS-CoV-2 RNA (RT-PCR) 10/20/24 10/20/24 10/20/24 17:42 17:42 17:42 MCV MCH MCHC RDW Plt Count MPV Immature Gran % (Auto) Neut % (Auto) Lymph % (Auto) [place] % (Auto) Eos % (Auto) Baso % (Auto) Lymph # (Auto) [place] # (Auto) Eos # (Auto) Baso # (Auto) Abs Immat Gran (auto) Absolute Neuts (auto) Absolute Nucleated RBC Nucleated RBC % (auto) Neutrophils % (Manual) Band Neutrophils % Lymphocytes % (Manual) Atypical Lymphs % (Man) Monocytes % (Manual) Abs Neuts (Manual) Lymphocytes # (Manual) Atyp Lymphs # (Manual) Monocytes # (Manual) Toxic Vacuolation Platelet Estimate Plt Morphology Comment RBC Morphology Acanthocytes (Spur) ESR Hold Purple Top Hold Blue Top VBG pH VBG pCO2 VBG pO2 VBG HCO3 VBG O2 Saturation VBG Base Excess Anion Gap Estim Creat Clear Calc Estimated GFR POC Glucose Random Glucose Osmolality Lactic Acid Lactic Acid F/U @ 2Hr Calcium Magnesium Total Bilirubin Direct Bilirubin AST ALT Alkaline Phosphatase Ammonia Lactate Dehydrogenase C-Reactive Protein Total Protein Albumin Amylase Lipase Beta HCG, Quant Hold Yellow Top Urine Color Urine Appearance Urine pH Ur Specific [place] Urine Protein Urine Glucose (UA) Urine Ketones Urine Blood Urine Nitrite Ur Leukocyte Esterase Urine RBC Urine WBC Ur Squamous Epith Cells Urine Bacteria Hyaline Casts Urine Osmolality Ur Random Sodium CSF Tube Number 4 CSF Volume Cancelled 1.5 2.0 CSF Appearance Cancelled CSF Color CSF WBC CSF RBC CSF Neutrophils CSF Lymphocytes CSF Monocytes % CSF Other Cells % CSF Appearance (b) CSF Glucose CSF Total Protein CSF C.neoform/gat PCR CSF CMV DNA (PCR) CSF Enterovirus (PCR) CSF E. coli K1 (PCR) CSF H. influenzae (PCR) CSF HSV I (PCR) CSF HSV II (PCR) CSF HHV 6 (PCR) CSF L.monocytogenes PCR CSF N. meningitidis PCR CSF Parechovirus (PCR) CSF S. agalactiae (PCR) CSF S. pneumoniae (PCR) CSF VZV (PCR) Salicylates Urine Opiates Screen Ur Buprenorphine Scrn Ur Oxycodone Screen Urine Methadone Screen Urine Fentanyl Screen Ur Barbiturates Screen Ur Phencyclidine Scrn Ur Amphetamines Screen U Benzodiazepines Scrn Urine Cocaine Screen U Marijuana (THC) Screen Ethyl Alcohol Influenza Type A (PCR) Influenza Type B (PCR) RSV RNA Qual (PCR) SARS-CoV-2 RNA (RT-PCR) 10/20/24 10/20/24 10/20/24 17:42 17:42 17:42 MCV MCH MCHC RDW Plt Count MPV Immature Gran % (Auto) Neut % (Auto) Lymph % (Auto) [place] % (Auto) Eos % (Auto) Baso % (Auto) Lymph # (Auto) [place] # (Auto) Eos # (Auto) Baso # (Auto) Abs Immat Gran (auto) Absolute Neuts (auto) Absolute Nucleated RBC Nucleated RBC % (auto) Neutrophils % (Manual) Band Neutrophils % Lymphocytes % (Manual) Atypical Lymphs % (Man) Monocytes % (Manual) Abs Neuts (Manual) Lymphocytes # (Manual) Atyp Lymphs # (Manual) Monocytes # (Manual) Toxic Vacuolation Platelet Estimate Plt Morphology Comment RBC Morphology Acanthocytes (Spur) ESR Hold Purple Top Hold Blue Top VBG pH VBG pCO2 VBG pO2 VBG HCO3 VBG O2 Saturation VBG Base Excess Anion Gap Estim Creat Clear Calc Estimated GFR POC Glucose Random Glucose Osmolality Lactic Acid Lactic Acid F/U @ 2Hr Calcium Magnesium Total Bilirubin Direct Bilirubin AST ALT Alkaline Phosphatase Ammonia Lactate Dehydrogenase C-Reactive Protein Total Protein Albumin Amylase Lipase Beta HCG, Quant Hold Yellow Top Urine Color Urine Appearance Urine pH Ur Specific [place] Urine Protein Urine Glucose (UA) Urine Ketones Urine Blood Urine Nitrite Ur Leukocyte Esterase Urine RBC Urine WBC Ur Squamous Epith Cells Urine Bacteria Hyaline Casts Urine Osmolality Ur Random Sodium CSF Tube Number CSF Volume CSF Appearance HAZY CLEAR CSF Color Cancelled PINK CSF WBC CSF RBC CSF Neutrophils CSF Lymphocytes CSF Monocytes % CSF Other Cells % CSF Appearance (b) CSF Glucose CSF Total Protein CSF C.neoform/gat PCR CSF CMV DNA (PCR) CSF Enterovirus (PCR) CSF E. coli K1 (PCR) CSF H. influenzae (PCR) CSF HSV I (PCR) CSF HSV II (PCR) CSF HHV 6 (PCR) CSF L.monocytogenes PCR CSF N. meningitidis PCR CSF Parechovirus (PCR) CSF S. agalactiae (PCR) CSF S. pneumoniae (PCR) CSF VZV (PCR) Salicylates Urine Opiates Screen Ur Buprenorphine Scrn Ur Oxycodone Screen Urine Methadone Screen Urine Fentanyl Screen Ur Barbiturates Screen Ur Phencyclidine Scrn Ur Amphetamines Screen U Benzodiazepines Scrn Urine Cocaine Screen U Marijuana (THC) Screen Ethyl Alcohol Influenza Type A (PCR) Influenza Type B (PCR) RSV RNA Qual (PCR) SARS-CoV-2 RNA (RT-PCR) 10/20/24 10/20/24 10/20/24 17:42 17:42 17:42 MCV MCH MCHC RDW Plt Count MPV Immature Gran % (Auto) Neut % (Auto) Lymph % (Auto) [place] % (Auto) Eos % (Auto) Baso % (Auto) Lymph # (Auto) [place] # (Auto) Eos # (Auto) Baso # (Auto) Abs Immat Gran (auto) Absolute Neuts (auto) Absolute Nucleated RBC Nucleated RBC % (auto) Neutrophils % (Manual) Band Neutrophils % Lymphocytes % (Manual) Atypical Lymphs % (Man) Monocytes % (Manual) Abs Neuts (Manual) Lymphocytes # (Manual) Atyp Lymphs # (Manual) Monocytes # (Manual) Toxic Vacuolation Platelet Estimate Plt Morphology Comment RBC Morphology Acanthocytes (Spur) ESR Hold Purple Top Hold Blue Top VBG pH VBG pCO2 VBG pO2 VBG HCO3 VBG O2 Saturation VBG Base Excess Anion Gap Estim Creat Clear Calc Estimated GFR POC Glucose Random Glucose Osmolality Lactic Acid Lactic Acid F/U @ 2Hr Calcium Magnesium Total Bilirubin Direct Bilirubin AST ALT Alkaline Phosphatase Ammonia Lactate Dehydrogenase C-Reactive Protein Total Protein Albumin Amylase Lipase Beta HCG, Quant Hold Yellow Top Urine Color Urine Appearance Urine pH Ur Specific [place] Urine Protein Urine Glucose (UA) Urine Ketones Urine Blood Urine Nitrite Ur Leukocyte Esterase Urine RBC Urine WBC Ur Squamous Epith Cells Urine Bacteria Hyaline Casts Urine Osmolality Ur Random Sodium CSF Tube Number CSF Volume CSF Appearance CSF Color COLORLESS CSF WBC Cancelled 13 H* 64 H* CSF RBC Cancelled CSF Neutrophils CSF Lymphocytes CSF Monocytes % CSF Other Cells % CSF Appearance (b) CSF Glucose CSF Total Protein CSF C.neoform/gat PCR CSF CMV DNA (PCR) CSF Enterovirus (PCR) CSF E. coli K1 (PCR) CSF H. influenzae (PCR) CSF HSV I (PCR) CSF HSV II (PCR) CSF HHV 6 (PCR) CSF L.monocytogenes PCR CSF N. meningitidis PCR CSF Parechovirus (PCR) CSF S. agalactiae (PCR) CSF S. pneumoniae (PCR) CSF VZV (PCR) Salicylates Urine Opiates Screen Ur Buprenorphine Scrn Ur Oxycodone Screen Urine Methadone Screen Urine Fentanyl Screen Ur Barbiturates Screen Ur Phencyclidine Scrn Ur Amphetamines Screen U Benzodiazepines Scrn Urine Cocaine Screen U Marijuana (THC) Screen Ethyl Alcohol Influenza Type A (PCR) Influenza Type B (PCR) RSV RNA Qual (PCR) SARS-CoV-2 RNA (RT-PCR) 10/20/24 10/20/24 10/20/24 17:42 17:42 17:42 MCV MCH MCHC RDW Plt Count MPV Immature Gran % (Auto) Neut % (Auto) Lymph % (Auto) [place] % (Auto) Eos % (Auto) Baso % (Auto) Lymph # (Auto) [place] # (Auto) Eos # (Auto) Baso # (Auto) Abs Immat Gran (auto) Absolute Neuts (auto) Absolute Nucleated RBC Nucleated RBC % (auto) Neutrophils % (Manual) Band Neutrophils % Lymphocytes % (Manual) Atypical Lymphs % (Man) Monocytes % (Manual) Abs Neuts (Manual) Lymphocytes # (Manual) Atyp Lymphs # (Manual) Monocytes # (Manual) Toxic Vacuolation Platelet Estimate Plt Morphology Comment RBC Morphology Acanthocytes (Spur) ESR Hold Purple Top Hold Blue Top VBG pH VBG pCO2 VBG pO2 VBG HCO3 VBG O2 Saturation VBG Base Excess Anion Gap Estim Creat Clear Calc Estimated GFR POC Glucose Random Glucose Osmolality Lactic Acid Lactic Acid F/U @ 2Hr Calcium Magnesium Total Bilirubin Direct Bilirubin AST ALT Alkaline Phosphatase Ammonia Lactate Dehydrogenase C-Reactive Protein Total Protein Albumin Amylase Lipase Beta HCG, Quant Hold Yellow Top Urine Color Urine Appearance Urine pH Ur Specific [place] Urine Protein Urine Glucose (UA) Urine Ketones Urine Blood Urine Nitrite Ur Leukocyte Esterase Urine RBC Urine WBC Ur Squamous Epith Cells Urine Bacteria Hyaline Casts Urine Osmolality Ur Random Sodium CSF Tube Number CSF Volume CSF Appearance CSF Color CSF WBC CSF RBC 5399 121 CSF Neutrophils Cancelled 88 CSF Lymphocytes CSF Monocytes % CSF Other Cells % CSF Appearance (b) CSF Glucose CSF Total Protein CSF C.neoform/gat PCR CSF CMV DNA (PCR) CSF Enterovirus (PCR) CSF E. coli K1 (PCR) CSF H. influenzae (PCR) CSF HSV I (PCR) CSF HSV II (PCR) CSF HHV 6 (PCR) CSF L.monocytogenes PCR CSF N. meningitidis PCR CSF Parechovirus (PCR) CSF S. agalactiae (PCR) CSF S. pneumoniae (PCR) CSF VZV (PCR) Salicylates Urine Opiates Screen Ur Buprenorphine Scrn Ur Oxycodone Screen Urine Methadone Screen Urine Fentanyl Screen Ur Barbiturates Screen Ur Phencyclidine Scrn Ur Amphetamines Screen U Benzodiazepines Scrn Urine Cocaine Screen U Marijuana (THC) Screen Ethyl Alcohol Influenza Type A (PCR) Influenza Type B (PCR) RSV RNA Qual (PCR) SARS-CoV-2 RNA (RT-PCR) 10/20/24 10/20/24 10/20/24 17:42 17:42 17:42 MCV MCH MCHC RDW Plt Count MPV Immature Gran % (Auto) Neut % (Auto) Lymph % (Auto) [place] % (Auto) Eos % (Auto) Baso % (Auto) Lymph # (Auto) [place] # (Auto) Eos # (Auto) Baso # (Auto) Abs Immat Gran (auto) Absolute Neuts (auto) Absolute Nucleated RBC Nucleated RBC % (auto) Neutrophils % (Manual) Band Neutrophils % Lymphocytes % (Manual) Atypical Lymphs % (Man) Monocytes % (Manual) Abs Neuts (Manual) Lymphocytes # (Manual) Atyp Lymphs # (Manual) Monocytes # (Manual) Toxic Vacuolation Platelet Estimate Plt Morphology Comment RBC Morphology Acanthocytes (Spur) ESR Hold Purple Top Hold Blue Top VBG pH VBG pCO2 VBG pO2 VBG HCO3 VBG O2 Saturation VBG Base Excess Anion Gap Estim Creat Clear Calc Estimated GFR POC Glucose Random Glucose Osmolality Lactic Acid Lactic Acid F/U @ 2Hr Calcium Magnesium Total Bilirubin Direct Bilirubin AST ALT Alkaline Phosphatase Ammonia Lactate Dehydrogenase C-Reactive Protein Total Protein Albumin Amylase Lipase Beta HCG, Quant Hold Yellow Top Urine Color Urine Appearance Urine pH Ur Specific [place] Urine Protein Urine Glucose (UA) Urine Ketones Urine Blood Urine Nitrite Ur Leukocyte Esterase Urine RBC Urine WBC Ur Squamous Epith Cells Urine Bacteria Hyaline Casts Urine Osmolality Ur Random Sodium CSF Tube Number CSF Volume CSF Appearance CSF Color CSF WBC CSF RBC CSF Neutrophils 84 CSF Lymphocytes Cancelled 4 6 CSF Monocytes % Cancelled CSF Other Cells % CSF Appearance (b) CSF Glucose CSF Total Protein CSF C.neoform/gat PCR CSF CMV DNA (PCR) CSF Enterovirus (PCR) CSF E. coli K1 (PCR) CSF H. influenzae (PCR) CSF HSV I (PCR) CSF HSV II (PCR) CSF HHV 6 (PCR) CSF L.monocytogenes PCR CSF N. meningitidis PCR CSF Parechovirus (PCR) CSF S. agalactiae (PCR) CSF S. pneumoniae (PCR) CSF VZV (PCR) Salicylates Urine Opiates Screen Ur Buprenorphine Scrn Ur Oxycodone Screen Urine Methadone Screen Urine Fentanyl Screen Ur Barbiturates Screen Ur Phencyclidine Scrn Ur Amphetamines Screen U Benzodiazepines Scrn Urine Cocaine Screen U Marijuana (THC) Screen Ethyl Alcohol Influenza Type A (PCR) Influenza Type B (PCR) RSV RNA Qual (PCR) SARS-CoV-2 RNA (RT-PCR) 10/20/24 10/20/24 10/20/24 17:42 17:42 17:52 MCV MCH MCHC RDW Plt Count MPV Immature Gran % (Auto) Neut % (Auto) Lymph % (Auto) [place] % (Auto) Eos % (Auto) Baso % (Auto) Lymph # (Auto) [place] # (Auto) Eos # (Auto) Baso # (Auto) Abs Immat Gran (auto) Absolute Neuts (auto) Absolute Nucleated RBC Nucleated RBC % (auto) Neutrophils % (Manual) Band Neutrophils % Lymphocytes % (Manual) Atypical Lymphs % (Man) Monocytes % (Manual) Abs Neuts (Manual) Lymphocytes # (Manual) Atyp Lymphs # (Manual) Monocytes # (Manual) Toxic Vacuolation Platelet Estimate Plt Morphology Comment RBC Morphology Acanthocytes (Spur) ESR Hold Purple Top Hold Blue Top VBG pH VBG pCO2 VBG pO2 VBG HCO3 VBG O2 Saturation VBG Base Excess Anion Gap Estim Creat Clear Calc Estimated GFR POC Glucose Random Glucose Osmolality Lactic Acid Lactic Acid F/U @ 2Hr Calcium Magnesium Total Bilirubin Direct Bilirubin AST ALT Alkaline Phosphatase Ammonia Lactate Dehydrogenase C-Reactive Protein Total Protein Albumin Amylase Lipase Beta HCG, Quant Hold Yellow Top Urine Color Yellow Urine Appearance Cloudy Urine pH 6.0 Ur Specific [place] 1.015 Urine Protein 100 (2+) H Urine Glucose (UA) Negative Urine Ketones 15 Urine Blood Large (3+) H Urine Nitrite Positive H Ur Leukocyte Esterase Small (1+) H Urine RBC 11-20 H Urine WBC 11-20 H Ur Squamous Epith Cells 3-5 Urine Bacteria 4+ Hyaline Casts 3-5 Urine Osmolality 411 Ur Random Sodium < 20.0 CSF Tube Number CSF Volume CSF Appearance CSF Color CSF WBC CSF RBC CSF Neutrophils CSF Lymphocytes CSF Monocytes % 8 10 CSF Other Cells % Cancelled CSF Appearance (b) Clear, Colorless CSF Glucose 39 CSF Total Protein 43.5 CSF C.neoform/gat PCR Not Detected CSF CMV DNA (PCR) Not Detected CSF Enterovirus (PCR) Not Detected CSF E. coli K1 (PCR) Not Detected CSF H. influenzae (PCR) Not Detected CSF HSV I (PCR) Not Detected CSF HSV II (PCR) Not Detected CSF HHV 6 (PCR) Not Detected CSF L.monocytogenes PCR Not Detected CSF N. meningitidis PCR Not Detected CSF Parechovirus (PCR) Not Detected CSF S. agalactiae (PCR) Not Detected CSF S. pneumoniae (PCR) Not Detected CSF VZV (PCR) Not Detected Salicylates Urine Opiates Screen POSITIVE H Ur Buprenorphine Scrn Not Detected Ur Oxycodone Screen Not Detected Urine Methadone Screen Positive H Urine Fentanyl Screen POSITIVE H Ur Barbiturates Screen Not Detected Ur Phencyclidine Scrn Not Detected Ur Amphetamines Screen Not Detected U Benzodiazepines Scrn Not Detected Urine Cocaine Screen POSITIVE H U Marijuana (THC) Screen POSITIVE H Ethyl Alcohol Influenza Type A (PCR) Influenza Type B (PCR) RSV RNA Qual (PCR) SARS-CoV-2 RNA (RT-PCR) 10/20/24 10/20/24 10/20/24 18:39 19:08 19:16 MCV MCH MCHC RDW Plt Count MPV Immature Gran % (Auto) Neut % (Auto) Lymph % (Auto) [place] % (Auto) Eos % (Auto) Baso % (Auto) Lymph # (Auto) [place] # (Auto) Eos # (Auto) Baso # (Auto) Abs Immat Gran (auto) Absolute Neuts (auto) Absolute Nucleated RBC Nucleated RBC % (auto) Neutrophils % (Manual) Band Neutrophils % Lymphocytes % (Manual) Atypical Lymphs % (Man) Monocytes % (Manual) Abs Neuts (Manual) Lymphocytes # (Manual) Atyp Lymphs # (Manual) Monocytes # (Manual) Toxic Vacuolation Platelet Estimate Plt Morphology Comment RBC Morphology Acanthocytes (Spur) ESR Hold Purple Top SEE NOTE Hold Blue Top VBG pH 7.48 H VBG pCO2 27 VBG pO2 52 VBG HCO3 20 L VBG O2 Saturation 89.0 VBG Base Excess -1.2 Anion Gap 12 Estim Creat Clear Calc 83.6 Estimated GFR > 60 POC Glucose Random Glucose 97 Osmolality Lactic Acid Lactic Acid F/U @ 2Hr 2.2 H* Calcium 7.1 L Magnesium Total Bilirubin Direct Bilirubin AST ALT Alkaline Phosphatase Ammonia Lactate Dehydrogenase 368 H C-Reactive Protein Total Protein Albumin Amylase 27 L Lipase Beta HCG, Quant Hold Yellow Top See Note Urine Color Urine Appearance Urine pH Ur Specific [place] Urine Protein Urine Glucose (UA) Urine Ketones Urine Blood Urine Nitrite Ur Leukocyte Esterase Urine RBC Urine WBC Ur Squamous Epith Cells Urine Bacteria Hyaline Casts Urine Osmolality Ur Random Sodium CSF Tube Number CSF Volume CSF Appearance CSF Color CSF WBC CSF RBC CSF Neutrophils CSF Lymphocytes CSF Monocytes % CSF Other Cells % CSF Appearance (b) CSF Glucose CSF Total Protein CSF C.neoform/gat PCR CSF CMV DNA (PCR) CSF Enterovirus (PCR) CSF E. coli K1 (PCR) CSF H. influenzae (PCR) CSF HSV I (PCR) CSF HSV II (PCR) CSF HHV 6 (PCR) CSF L.monocytogenes PCR CSF N. meningitidis PCR CSF Parechovirus (PCR) CSF S. agalactiae (PCR) CSF S. pneumoniae (PCR) CSF VZV (PCR) Salicylates Urine Opiates Screen Ur Buprenorphine Scrn Ur Oxycodone Screen Urine Methadone Screen Urine Fentanyl Screen Ur Barbiturates Screen Ur Phencyclidine Scrn Ur Amphetamines Screen U Benzodiazepines Scrn Urine Cocaine Screen U Marijuana (THC) Screen Ethyl Alcohol Influenza Type A (PCR) Influenza Type B (PCR) RSV RNA Qual (PCR) SARS-CoV-2 RNA (RT-PCR) <DANIEL Ray - Last Filed: 10/21/24 19:32> Imaging Radiologist's Impressions: Impressions Chest X-Ray 10/20/24 15:37 IMPRESSION: Right middle lobe patchy opacity question atelectasis and/or infiltrate. Electronically signed by: Van Sultana MD 10/20/2024 04:39 PM EDT RP Head CT 10/20/24 15:56 IMPRESSION: No acute intracranial process seen Electronically signed by: Van Sultana MD 10/20/2024 04:38 PM EDT RP <DANIEL aRy - Last Filed: 10/21/24 19:32> Assessment and Plan (1) Sepsis: Status: Acute <DANIEL Ray - Last Filed: 10/21/24 19:32> ASSESSMENT : 1. Acute sepsis without shock rule out endocarditis 2. Community-acquired left lower lobe pneumonia 3. Acute drug overdose on Chronic IV drug abuse 4. Acute Hypoosmolar hypovolemic hyponatremia 5. Acute hypokalemia 6. Clinical dehydration and hemoconcentration 7. Severe malnutrition status with BMI less than 15 8. Metabolic and lactic acidosis due to the above 9. Metabolic encephalopathy rule out encephalitis/meningitis (viral versus bacterial) 10. Troponin elevation likely due to demand, rule out ACS although unlikely 12. Illness and bone marrow suppression thrombocytopenia 13. Acute hypoalbuminemia 14. Methadone dependence or abuse 15. UTI and questionable pyelonephritis. 16. Splenomegaly and a small splenic infarcts. PLAN OF CARE: The patient will be admitted to the ICU, monitor vital signs, I's and O's.? Two given her hyponatremia, IV fluids were discontinued and the patient was started on vasopressors as her blood pressure was low.? The patient did receive albumin, Narcan administration IV push was positive for adequate reaction in alertness, but the patient is still confused.? We will place her on Narcan drip.? Continue with broad-spectrum antibiotics including Zosyn, vancomycin and I have asked the emergency room to start her on antivirals as the CSF reveals high WBCs.? Echocardiogram in the morning, slow learner infusion.? Electrolyte replacement.? Recycle troponin levels. ?In the morning, we should try to find out if the patient is on methadone and place a addiction medicine consult for the initiation or continuation of this medication as the patient is likely to withdrawal. GI PROPHYLAXIS:? IV ppi DVT PROPHYLAXIS:? Pneumatic stockings only due to low platelets Follow-up focused sepsis exam done on 10/21/2024 at 01:30 General:? Completely obtunded. ?No accessory muscle usage.? Cachectic Cardiac:? Tachycardic 126 beats per minute.? Subtle 2/6 left upper sternal border murmur. Pulmonary:? Diminished lung sounds bilaterally fine expiratory wheezing bilaterally .? No crackles, rales or rhonchi. Neurologic:? As above.? No focal deficits noted. ?Still confused but alert not obtunded as she was initially. Vascular:? 2+ pulses upper and lower extremities distally.? Less than 2nd capillary refill of fingers and toes bilaterally upper and lower extremities Continue with the above-mentioned plan, broad-spectrum antibiotics antivirals pending final results of cultures and CSF. ?It was reported the patient has A positive blood culture with Gram-positive cocci in clusters. ?PCR negative for MRSA but positive for staph aureus.? 10/10 positive bottles.? Continue with vancomycin. Critical care time used for critical evaluation of this patient, diagnosis, treatment and coordination of care, review her records and documentation TOTAL CRITICAL CARE TIME?120 MIN . discussion and coordination with consultants, completely separate from any procedures performed. Patient's care was discussed in detail with Dr. Ramirez who is aware of all the above as well as the plan of care for this patient. <DANIEL Ray - Last Filed: 10/21/24 19:32> ASSESSMENT : 1. Acute sepsis without shock rule out endocarditis 2. Community-acquired left lower lobe pneumonia 3. Acute drug overdose on Chronic IV drug abuse 4. Acute Hypoosmolar hypovolemic hyponatremia 5. Acute hypokalemia 6. Clinical dehydration and hemoconcentration 7. Severe malnutrition status with BMI less than 15 8. Metabolic and lactic acidosis due to the above 9. Metabolic encephalopathy rule out encephalitis/meningitis (viral versus bacterial) 10. Troponin elevation likely due to demand, rule out ACS although unlikely 12. Illness and bone marrow suppression thrombocytopenia 13. Acute hypoalbuminemia 14. Methadone dependence or abuse 15. UTI and questionable pyelonephritis. 16. Splenomegaly and a small splenic infarcts. PLAN OF CARE: The patient will be admitted to the ICU, monitor vital signs, I's and O's. Admitted to the ICU for the management of septic shock possibly due to endocarditis, starting the patient on Levophed, titrate to keep the map above 65 mm Hg patient has significant encephalopathy possibly secondary to metabolic encephalopathy versus meningitis as lumbar puncture shows significant WBC, low sugars with slightly elevated protein patient has multiple drug testing positive in the UDS, currently on Narcan drip due to very poor neurological status. She has hyponatremia, we will closely monitor her sodium and slowly increase her sodium levels? started on empiricContinue with broad-spectrum antibiotics including Zosyn, vancomycin we will deescalate the antibiotics as the cultures come back positive Echocardiogram in the morning, slow learner infusion.? Electrolyte replacement.? Recycle troponin levels. ?In the morning, we should try to find out if the patient is on methadone and place a addiction medicine consult for the initiation or continuation of this medication as the patient is likely to withdrawal. GI PROPHYLAXIS:? IV ppi DVT PROPHYLAXIS:? Pneumatic stockings only due to low platelets Follow-up focused sepsis exam done on 10/21/2024 at 01:30 General:? Completely obtunded. ?No accessory muscle usage.? Cachectic Cardiac:? Tachycardic 126 beats per minute.? Subtle 2/6 left upper sternal border murmur. Pulmonary:? Diminished lung sounds bilaterally fine expiratory wheezing bilaterally .? No crackles, rales or rhonchi. Neurologic:? As above.? No focal deficits noted. ?Still confused but alert not obtunded as she was initially. Vascular:? 2+ pulses upper and lower extremities distally.? Less than 2nd capillary refill of fingers and toes bilaterally upper and lower extremities Continue with the above-mentioned plan, broad-spectrum antibiotics antivirals pending final results of cultures and CSF. ?It was reported the patient has A positive blood culture with Gram-positive cocci in clusters. ?PCR negative for MRSA but positive for staph aureus.? /4 positive bottles.? Continue with vancomycin. Critical care time used for critical evaluation of this patient, diagnosis, treatment and coordination of care, review her records and documentation TOTAL CRITICAL CARE TIME?120 MIN . discussion and coordination with consultants, completely separate from any procedures performed. Patient's care was discussed in detail with Dr. Ramirez who is aware of all the above as well as the plan of care for this patient. <Robert Ramirez MD - Last Filed: 10/21/24 16:24>
--- NOTE | 2024-10-20 20:49 | PC.NURSE ---
BP 108/72, MAP 80, P115. Levophed on hold.
[2024-10-20 21:17] LABS: ~Lactic Acid-LAB USE ONLY 2.7 mmol/L (0.5-2.0)
[2024-10-20] MEDS: DEXTROSE 5% IV (21:26)
[2024-10-20] MEDS: ACYCLOVIR SODIUM IV (21:26)
[2024-10-20] MEDS: Lactated Ringers 1,000 ML 50 ML IVCONT (21:28)
--- NOTE | 2024-10-20 22:09 | PHA.MEDREC ---
Addendum entered by Siobhan Hooper [facility] 10/21/24 09:54: Spoke to primary contact Sagar Stubbs ([phone]) who said patient receives methadone from Clinic [facility] in [place]. Beside that, he doesn't know if she takes anything else. Original Note: Pharmacy Consult ? Medication Reconciliation Pharmacy has completed the medication reconciliation.Med rec is unobtainable at this times due to patient being altered mental. There are no claims and left a message on contact phone. Will have morning med rec team follow up in the morning.
[2024-10-20 23:58] LABS: Hematocrit 31.2 % (37.0-47.0); Hemoglobin 11.6 g/dl (12.0-16.0); Mean Corpuscular HGB Conc 37.2 g/dl (31.0-35.0); Mean Corpuscular Hemoglobin 27.6 pg (27.0-33.0); Mean Corpuscular Volume 74.1 fL (80.0-98.0); PLT CLUMP 1; Red Blood Count 4.21 X10*6/uL (4.20-5.50); Red Cell Distribution Width 13.7 % (11.0-16.0)
[2024-10-20 23:59] LABS: White Blood Count 17.8 X10*3/uL (4.8-10.8)
[2024-10-21] VITALS (31 sets, daily range): BP systolic 100–125; BP diastolic 53–88; PULSE 27–146; RESP 26–56; TEMP 36.7–39.7; O2SAT 96–100; BMI 14.4; BMI 17.5
[2024-10-21 00:16] LABS: Alanine Aminotransferase 8 U/L (0-31); Albumin Level 3.2 g/dL (3.5-5.0); Alkaline Phosphatase 91 U/L (39-117); Anion Gap 14 (12-20); Aspartate Amino Transferase 50 U/L (5-31); Bilirubin Total 1.3 mg/dL (0.0-1.0); Blood Urea Nitrogen 20 mg/dL (9-16); Calcium 7.9 mg/dL (8.4-10.2); Carbon Dioxide 17 mmol/L (22-29); Chloride 96 mmol/L (96-108); Creatinine Clr Calc Pharmacy 62.9; Estimated Glomerular Filt Rate > 60; Glucose Random 131 mg/dL (60-115); Potassium 2.8 mmol/L (3.3-5.1); Sodium 124 mmol/L (135-145); Total Protein 5.9 g/dL (6.5-8.0)
[2024-10-21 00:25] LABS: Troponin-I High Sensitivity 586.4 ng/L (<3.5-17.0)
[2024-10-21] MEDS: Acetaminophen 1,000 MG/100 ML PIGGYBACK 400 MG IV ×2 (00:35→12:05)
[2024-10-21 00:39] LABS: Platelet Count 37 X10*3/uL (160-400)
[2024-10-21 00:41] LABS: Band Neutrophils Percent 12 % (3-5); Lymphocytes Absolute Manual 0.4 X10*3/uL (1.2-4.9); Lymphocytes Percent Manual 2 % (20-40); Monocytes Absolute Manual 1.2 X10*3/uL (0.1-1.2); Monocytes Percent Manual 7 % (2-11); Neutrophils Absolute Manual 16.2 X10*3/uL (2.0-8.3); Neutrophils Percent Manual 79 % (45-73)
[2024-10-21 00:42] LABS: Burr Cells 2+ (3-5) /OIF; Large Platelet PRESENT; Microcytosis 1+ (5-14) /OIF; Platelet Estimate DECREASED (NORMAL); Platelet Morphology Comment NOTED; RBC Morphology NOTED; Schistocytes 1+ (0-2) /OIF; Spherocytes 1+ (0-2) /OIF; Toxic Granulation PRESENT; Toxic Vacuolation PRESENT
[2024-10-21] MEDS: Potassium Chloride/H20 10 MEQ/100 ML PIGGYBACK 100 MEQ IV ×4 (00:45→04:02)
[2024-10-21] MEDS: Albumin Human 25 % 100 ML 133.33 ML IV ×2 (00:50→01:39)
[2024-10-21] MEDS: Piperacillin Sodium/Tazobactam 3.375 GM in 0.9 % Sodium Chloride 50 ML IV ×4 (03:14→21:56)
[2024-10-21] MEDS: Naloxone HCl 5 MG in Dextrose 5 % 95 ML 20 MG IV ×2 (04:02→09:05)
[2024-10-21 04:58] LABS: VBG Base Excess -0.2 mmol/L; VBG HCO3 18 mmol/L (22-26); VBG pCO2 17 mmHg; VBG pH 7.63 (7.32-7.43); VBG pO2 57 mmHg
[2024-10-21 05:11] LABS: Venous Blood Gas Refer to POC result
[2024-10-21 05:16] LABS: Hematocrit 27.7 % (37.0-47.0); Hemoglobin 10.2 g/dl (12.0-16.0); Mean Corpuscular HGB Conc 36.8 g/dl (31.0-35.0); Mean Corpuscular Hemoglobin 27.3 pg (27.0-33.0); Mean Corpuscular Volume 74.1 fL (80.0-98.0); Mean Platelet Volume 12.9 fL (9.4-12.3); Red Blood Count 3.74 X10*6/uL (4.20-5.50); Red Cell Distribution Width 13.6 % (11.0-16.0); White Blood Count 17.1 X10*3/uL (4.8-10.8)
[2024-10-21 05:18] LABS: Platelet Count 44 X10*3/uL (160-400)
[2024-10-21 05:24] LABS: Lactic Acid 1.5 mmol/L (0.5-2.0)
[2024-10-21] MEDS: Pantoprazole Sodium 40 MG/10 ML VIAL IVPUSH (05:31)
[2024-10-21 05:32] LABS: Alanine Aminotransferase 8 U/L (0-31); Albumin Level 3.6 g/dL (3.5-5.0); Alkaline Phosphatase 72 U/L (39-117); Anion Gap 15 (12-20); Aspartate Amino Transferase 45 U/L (5-31); Bilirubin Total 1.3 mg/dL (0.0-1.0); Blood Urea Nitrogen 20 mg/dL (9-16); Calcium 8.1 mg/dL (8.4-10.2); Carbon Dioxide 16 mmol/L (22-29); Chloride 98 mmol/L (96-108); Creatinine Clr Calc Pharmacy 62.9; Estimated Glomerular Filt Rate > 60; Glucose Random 117 mg/dL (60-115); Magnesium 2.3 mg/dL (1.6-2.6); Phosphorus 1.2 mg/dL (2.7-4.5); Potassium 2.6 mmol/L (3.3-5.1); Sodium 126 mmol/L (135-145)
[2024-10-21 05:34] LABS: Band Neutrophils Percent 13 % (3-5); Lymphocytes Absolute Manual 0.2 X10*3/uL (1.2-4.9); Lymphocytes Percent Manual 1 % (20-40); Microcytosis 1+ (5-14) /OIF; Monocytes Absolute Manual 0.7 X10*3/uL (0.1-1.2); Monocytes Percent Manual 4 % (2-11); Neutrophils Absolute Manual 16.2 X10*3/uL (2.0-8.3); Neutrophils Percent Manual 82 % (45-73)
[2024-10-21 05:40] LABS: Large Platelet PRESENT; Platelet Estimate DECREASED (NORMAL); Platelet Morphology Comment NOTED; RBC Morphology NOTED
[2024-10-21 05:41] LABS: Burr Cells 2+ (3-5) /OIF; Schistocytes 1+ (0-2) /OIF; Spherocytes 1+ (0-2) /OIF; Toxic Granulation PRESENT; Toxic Vacuolation PRESENT
[2024-10-21] MEDS: Potassium Phosphate/NS 15 MMOL/250 ML PLAST..BAG 62.5 MMOL IV ×2 (06:36→22:24)
--- NOTE | 2024-10-21 07:00 | CA_ITS ---
Transthoracic Echocardiogram Patient (Last, First, Middle): Mila Humphrey, Gender: Female Date of : 1990 Age: 34 Procedure Date: 10/21/2024 Procedure Type: Transthoracic Echocardiogram Location: ICU Height: 167.64 cm Weight: 40.37 kg BSA: 1.42 m2 Heart Rate: 136 bpm BP: 104 / 57 mmHg Manager Sound: Referring MD: Onel SANCHEZ Vehicle Window Tinter: Yariel Batista MD Symptoms: IVDA sepsis r/o Endocarditis Study Quality: Adequate ECG Rhythm: Tachycardia Conclusions: - 1. 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 Normal LV ejection fraction of 60-65% 3. Dilated right-sided chambers 4. Mildly to moderately elevated right ventricular systolic pressure with mildly elevated right atrial pressures 5. No gross pericardial effusion Findings Left Ventricle Normal left ventricular size, thickness, and systolic function. The visually estimated ejection fraction is between 60-65%. Diastolic function is indeterminate on the basis of available data. Right Ventricle Moderately increased right ventricular cavity size. There is normal right ventricular systolic function. Atria The left atrium is normal in size. There is no evidence of interatrial shunt. The right atrium is mildly dilated. Aortic Valve Normal aortic valve structure and function. There is no aortic valve stenosis. There is no aortic valve regurgitation. Mitral Valve There is moderate anterior mitral leaflet thickening. There is severe mitral valve regurgitation. There is no mitral valve stenosis. There is a large mass on the anterior mitral valve leaflet. The mass is consistent with vegetation. Pulmonic Valve The pulmonic valve is likely normal. There is trace to mild pulmonic valve regurgitation. Tricuspid Valve Normal tricuspid valve structure. There is mild tricuspid valve regurgitation. Mildly elevated right atrial pressure. Mild to moderate pulmonary hypertension is present. Great Vessels All visible segments of the aorta are normal in size. The pulmonary artery was not well visualized. Venous The inferior vena cava is mildly dilated and collapses less than 50% with inspiration. Pericardium/Pleural There is no evidence of pericardial effusion. Prior Study Comparison No prior study available for comparison. findings discussed with ICU Measurements 2D Linear Measurements IVSd: 0.88 0.6-0.9/0.6-1.0 cm LVIDd: 3.29 3.9-5.3/4.2-5.9 cm LVIDd Index: 2.32 2.4-3.2/2.2-3.1 cm/m2 LVIDs: 1.90 2.0-3.6 cm LVPWd: 0.93 0.7-1.1 cm LA Diam: 2.70 2.7-3.8/3.0-4.0 cm LAIDs Index: 1.90 1.5-2.3 cm/m2 LV Mass: 100.84 67-162/88-224 g LV Mass Index: 71.01 43-95/49-115 g/m2 LVOT Diam: 2.00 3.0+(-)1.3 cm Mitral Valve MV Pk E: 0.61 MV PK A: 0.96 MV Decel Time: 80.00 E/A: 0.60 E'Lateral: 6.20 E'Medial: 10.70 E/E' Med: 5.70 E/E' Lat: 9.80 PHT: 23.00 MVA PHT: 9.57 Decel [place]: 7.57 Aortic Valve AoV Pk Andre: 1.38 AoV Mn Andre: 0.96 AoV VTI: 0.18 AoV Pk Grad: 8.00 Aov Mn Grad: 4.00 LELE Cont.VTI: 2.91 LVOT LVOT Pk Andre: 1.10 LVOT Mn Andre: 0.77 LVOT VTI: 0.16 LVOT Pk Grad: 5.00 LVOT Mn Grad: 3.00 LVOT Diam: 2.00 LVOT Area: 3.14 Diastolic Function MV Pk E: 0.61 MV Pk A: 0.96 E/A: 0.60 E'Medial: 10.70 E/E' Med: 5.70 E' Laterial: 6.20 E/E' Lat: 9.80 Tricuspid Valve TR Pk Andre: 3.13 TR Pk Grad: 39.00 RA Press: 8.00 RVSP: 47.00 Great Vessels Aorta Sinus of Valsalva: 2.50 2.0-3.5 cm Pulmonary Valve PV Pk Andre: 1.31 Peak PV Grad: 7.00 Updated in Other Vendor System with Status of Final Yariel Batista MD electronically signed on 10/21/2024 3:25:54 PM with status of Final
--- NOTE | 2024-10-21 07:03 | HO.SKINPHOTO ---
Location: Coccyx Category: Blanchable redness Foam applied
--- NOTE | 2024-10-21 07:05 | PC.NURSE ---
Patient arrived to ICU from ED via stretcher at approximately 2230. Upon initial assessment- patient spontaneously opens eyes, does not track, does not follow commands, speech is unclear/mumbled, BAEZA spontaneously. Pupils 5mm equal/ sluggish. On Narcan gtt per SEP. Attempt to capture capnography via NC with assistance of RT, unable to at this time, DANIEL Pyle aware. Sinus tach on tele, HR 120-130s, MAP >70. Levophed gtt paused prior to arrival to ICU. Pt febrile, IV Tylenol given with good effect. Lungs clear throughout, RR 40-50s, on RA, SpO2 >95, productive cough with thick cream sputum. LR infusing per SEP. Ibarra in place, draining yellow urine. Blanchable redness to coccyx- foam applied. Scattered ?venipuncture lisa scars to bilateral upper extremities. PA aware of assessment findings. Repeat labs at approximately 0000, see EMR- IV Potassium Chloride and IV Albumin given per SEP. Repeat labs at approximately 0500, see EMR- LR paused per DANIEL Pyle. IV KPhos infusing per SEP. Report given to oncoming RN.
--- NOTE | 2024-10-21 07:08 | PHA.PROG ---
Admission Date/Time: October 20, 2024 19:49 Indication: Bacteremia Weight in k.6 kg Adjusted body weight in Kg: [place] body weight in Kg: Obesity Dosing Indication % IBW BMI: 14.4 Serum Creatinine - Last 168 Hours 10/20/24 10/20/24 10/20/24 15:45 16:58 19:08 Creatinine 0.91 0.75 0.74 10/20/24 10/21/24 23:41 04:53 Creatinine 0.80 0.80 Estimated CrCl and GFR - Last 168 Hours 10/20/24 10/20/24 10/20/24 15:45 16:58 19:08 Estim Creat Clear Calc 67.9 82.5 83.6 Estimated GFR > 60 > 60 > 60 10/20/24 10/21/24 23:41 04:53 Estim Creat Clear Calc 62.9 62.9 Estimated GFR > 60 > 60 Vancomycin Loading Dose: 1250mg X1 Current Vancomycin Dosing Regimen: 750mg Q12H Vancomycin Monitoring using AUC goal of 400 - 600 range with trough as surrogate marker: 550 Date and Time for next Vancomycin Level to be drawn: 10/22/24 @0600 Pharmacist Comments on Vancomycin Plan: Pt's renal function appears stable, starting off with 750mg Q12H as pt's weight is very low but targeting 16.8 trough as timing was pushed back a bit from overnight. Ordered trough before 4th dose but might be a little low since pt was not dosed in time from load. Vancomycin dosing will take advantage of [employer] as a clinical decision support tool that uses Bayesian modeling to calculate individual patient's pharmacokinetic parameters and forecast the patient's drug concentration time course with the target goal AUC 24 range of 400 - 600 mg/L/hr.
[2024-10-21] MEDS: vancomycin HCL 750 MG in 0.9 % Sodium Chloride 250 ML 265 MG IV ×2 (08:56→20:11)
[2024-10-21] MEDS: 0.9 % Sodium Chloride Flush 3 ML SYRINGE IVFLUSH ×2 (09:05→16:40)
--- NOTE | 2024-10-21 09:51 | PHA.MEDREC ---
Pharmacy Consult ? Medication Reconciliation Pharmacy has completed the medication reconciliation. Spoke to primary contact Sagar Stubbs ([phone]) who said patient takes methadone at clinic on [facility] in [place]. Beside that, he doesn't know if she takes anything else.
--- NOTE | 2024-10-21 10:10 | MHC.RECOVRN ---
Spoke with FINA Oleary, at [facility]. Pt receives split dose methadone, 35 mg in the morning and 48 mg in the evening. Pt was last in the [facility] on 10/18 at 7:20AM and received 35 mg methadone. Pt received take home bottles for 10/18 evening and 10/19 morning and evening. Pt was due to present back at the [facility] on 10/20. Methadone verification form faxed to pharmacy. Pts RN notified via [place]. Jacquelin Yip APRN, aware.
--- NOTE | 2024-10-21 11:38 | MHC.CLN ---
PT QUALIFIES FOR NON-SEVERE MALNUTRITION IN THE CONTEXT OF SOCIAL/BEHAVIOR AND ENVIRONMENTAL PT WITH MILDLY DEPLETED SUBCUTANEOUS FAT AND MUSCLE MASS WITH BMI 17.5 AND CHRONIC POOR PO INTAKE SECONDARY TO POLY SUBSTANCE ABUSE HT USED FOR ASSESSMENT 5'. PT IS CACHETIC BUT ALSO SMALL FRAME AND PETITE STATURE PT WITHOUT SIGNIFICANT WT CHANGES X6 MONTHS PT IS CURRENTLY NPO-PT OBTUNDED DISCUSSED AT ROUNDS WITH MD WHEN DIET TO ADVANCE; RECOMMEND ADDING MAGIC CUP TID TO INCREASE KCALS SUPP WILL PROVIDE 870KCALS, 27G PROTEIN PT IS AT RISK FOR [id number] MONITOR MG, PHOS AND K+ FOLLOWING FOR DIET ADVANCEMENT SEE ALSO FULL CLINICAL NUTRITION ASSESSMENT
[2024-10-21] MEDS: Potassium Phosphate/NS 15 MMOL/250 ML PLAST..BAG 60 MMOL IV (12:09)
--- NOTE | 2024-10-21 12:12 | HO.ADDICT_ITS ---
History of Present Illness Date of Service: 10/21/2024 Chief Complaint: OD, hyponatremia Reason for Consult: ? OUD +UDS Sources of Information: chart reviewed HPI Narrative: Patient is a 34 year old female who presented to [facility] ED with AMS. Per family, patient had been sick (vomiting) for a couple of days and on day of presenation, patient not making sense at home, brought to the hospital. In ED patient found to be hyponatremic, with elevated WBC, and CSXR showing pneumonia. Admitted to ICU Consult requested as UDS +methadone, fentanyl and cocaine--unclear if patient currently prescribed methadone as she was unable to provide any information due to encephalopathy. Chart reviewed, and information obtained from [facility], which confirmed that patient is engaged in treatment with them for OUD. Last seen in their clinic on 10/18 at 7:20am, where she was dosed with methadone 35mg and given take home bottles, for evening dose of 48mg and doses for 10/19. She was supposed to return to clinic on 10/20 (day she presented to [facility]). Patient seen in ICU room 259. She appears to be awake, eyes open. Not responding to any questions. She is tachycardia and appears diaphoretic. Chart review shows that she was started on a narcan drip overnight, into this morning. Review of Systems Review of Systems Yes Unobtainable due to mental status Diagnostics Vital Signs (24Hr): Vital Signs - 24 hr 10/20/24 15:21 10/20/24 16:32 10/20/24 16:49 Temperature 103.4 F H 102.7 F H 99.1 F Pulse Rate 143 H 106 H Respiratory Rate 14 28 H Blood Pressure 112/78 84/52 L Pulse Oximetry 98 100 Oxygen Delivery Method Room Air Room Air 10/20/24 16:54 10/20/24 17:06 10/20/24 17:51 Temperature 100.0 F Pulse Rate 122 H 112 H Respiratory Rate 25 H 26 H Blood Pressure 94/61 92/62 85/47 L Pulse Oximetry 99 98 Oxygen Delivery Method Room Air Room Air 10/20/24 18:03 10/20/24 18:14 10/20/24 18:19 Temperature 99.9 F 99.9 F 99.7 F Pulse Rate 109 H 104 H 104 H Respiratory Rate 26 H 25 H 23 H Blood Pressure 84/50 L 86/46 L 84/49 L Pulse Oximetry 100 100 100 Oxygen Delivery Method Room Air Room Air Room Air 10/20/24 18:24 10/20/24 18:29 10/20/24 18:34 Temperature 99.7 F 99.5 F Pulse Rate 103 H 111 H 106 H Respiratory Rate 26 H 24 H Blood Pressure 85/47 L 90/58 L 84/52 L Pulse Oximetry 100 100 Oxygen Delivery Method Room Air Room Air 10/20/24 18:39 10/20/24 18:44 10/20/24 18:49 Temperature 99.3 F Pulse Rate 114 H 108 H 105 H Respiratory Rate 21 H Blood Pressure 93/55 L 84/54 L 84/52 L Pulse Oximetry 100 Oxygen Delivery Method Room Air 10/20/24 18:54 10/20/24 18:59 10/20/24 19:04 Temperature 99.1 F 99.0 F 99.0 F Pulse Rate 108 H 107 H 108 H Respiratory Rate 21 H 19 26 H Blood Pressure 85/55 L 91/56 L 91/56 L Pulse Oximetry 100 100 100 Oxygen Delivery Method Room Air Room Air Room Air 10/20/24 19:30 10/20/24 19:34 10/20/24 19:50 Temperature Pulse Rate 107 H 98 Respiratory Rate 16 Blood Pressure 85/53 L 91/57 L 101/65 Pulse Oximetry 100 99 Oxygen Delivery Method Room Air Room Air 10/20/24 20:10 10/20/24 20:13 10/20/24 20:16 Temperature Pulse Rate 114 H 115 H 118 H Respiratory Rate 12 16 14 Blood Pressure 107/68 104/74 114/73 Pulse Oximetry 97 98 97 Oxygen Delivery Method Room Air Room Air Room Air 10/20/24 20:19 10/20/24 20:25 10/20/24 20:31 Temperature Pulse Rate 116 H 112 H 111 H Respiratory Rate 12 14 14 Blood Pressure 102/70 99/68 99/65 Pulse Oximetry 96 95 96 Oxygen Delivery Method Room Air Room Air Room Air 10/20/24 20:48 10/20/24 21:02 10/20/24 21:09 Temperature 99.0 F Pulse Rate 115 H 119 H 119 H Respiratory Rate 12 12 Blood Pressure 108/72 105/70 112/81 Pulse Oximetry 100 Oxygen Delivery Method Room Air 10/20/24 21:34 10/20/24 22:33 10/20/24 23:00 Temperature 99.3 F 100.4 F Pulse Rate 119 H 127 H 128 H Respiratory Rate 20 46 H 39 H Blood Pressure 114/65 97/66 109/74 Pulse Oximetry 100 100 100 Oxygen Delivery Method Room Air Room Air Room Air 10/21/24 00:00 10/21/24 00:36 10/21/24 01:00 Temperature 99.2 F 101.3 F H 101.1 F H Pulse Rate 128 H 126 H Respiratory Rate 53 H 50 H Blood Pressure 119/71 114/58 L Pulse Oximetry 100 97 Oxygen Delivery Method Room Air Room Air 10/21/24 02:00 10/21/24 03:00 10/21/24 04:00 Temperature 100.4 F 99.7 F 98.1 F Pulse Rate 126 H 119 H 112 H Respiratory Rate 56 H 49 H 46 H Blood Pressure 106/55 L 100/53 L 107/63 Pulse Oximetry 96 98 98 Oxygen Delivery Method Room Air Room Air Room Air 10/21/24 05:00 10/21/24 06:00 10/21/24 07:00 Temperature 98.6 F 99.5 F Pulse Rate 112 H 112 H 99 Respiratory Rate 47 H 48 H 48 H Blood Pressure 112/72 115/70 112/74 Pulse Oximetry 98 97 99 Oxygen Delivery Method Room Air Room Air Room Air 10/21/24 08:00 10/21/24 09:00 10/21/24 10:00 Temperature 100.0 F 100.6 F H 100.9 F H Pulse Rate 115 H 124 H 123 H Respiratory Rate 47 H 47 H 45 H Blood Pressure 112/74 120/71 114/70 Pulse Oximetry 98 99 98 Oxygen Delivery Method Room Air Room Air Room Air 10/21/24 11:00 10/21/24 12:00 Temperature 101.5 F H 103.5 F H Pulse Rate 140 H 146 H Respiratory Rate 35 H 49 H Blood Pressure 123/78 114/81 Pulse Oximetry 98 98 Oxygen Delivery Method Room Air Room Air BMI result Body Mass Index 17.5 Labs 10/21/24 04:53 10/21/24 04:53 Labs: Laboratory Results - last 48 hr 10/20/24 10/20/24 10/20/24 15:38 15:45 15:56 WBC 25.1 H RBC 6.01 H Hgb 16.4 H Hct 44.7 MCV 74.4 L MCH 27.3 MCHC 36.7 H RDW 13.8 Plt Count 45 L MPV Not Reportable Immature Gran % (Auto) Cancelled Neut % (Auto) Cancelled Lymph % (Auto) Cancelled Hubbard % (Auto) Cancelled Eos % (Auto) Cancelled Baso % (Auto) Cancelled Lymph # (Auto) Cancelled Hubbard # (Auto) Cancelled Eos # (Auto) Cancelled Baso # (Auto) Cancelled Abs Immat Gran (auto) Cancelled Absolute Neuts (auto) Cancelled Absolute Nucleated RBC 0.000 Nucleated RBC % (auto) 0.0 Neutrophils % (Manual) 93 H Band Neutrophils % 0 L Lymphocytes % (Manual) 3 L Atypical Lymphs % (Man) 2 Monocytes % (Manual) 2 Abs Neuts (Manual) 23.3 H Lymphocytes # (Manual) 0.8 L Atyp Lymphs # (Manual) 0.5 Monocytes # (Manual) 0.5 Toxic Granulation Toxic Vacuolation PRESENT Platelet Estimate DECREASED Large Platelets Plt Morphology Comment NORMAL RBC Morphology NOTED Microcytosis Spherocytes Marlena Cells Acanthocytes (Spur) 3+ (>5) Schistocytes ESR 8 Hold Purple Top Hold Blue Top SEE NOTE VBG pH VBG pCO2 VBG pO2 VBG HCO3 VBG O2 Saturation VBG Base Excess Sodium 120 L* Potassium 3.5 Chloride 82 L Carbon Dioxide 23 Anion Gap 19 BUN 22 H Creatinine 0.91 Estim Creat Clear Calc 67.9 Estimated GFR > 60 POC Glucose 121 H Random Glucose 111 Osmolality Lactic Acid 3.1 H* Lactic Acid F/U @ 2Hr Lactic Acid F/U @ 4Hr Calcium 9.2 Phosphorus Magnesium 2.4 Total Bilirubin 1.2 H Direct Bilirubin 0.7 H AST 72 H ALT 18 Alkaline Phosphatase 185 H Ammonia 35 Lactate Dehydrogenase Troponin I High Sens 753.7 H* C-Reactive Protein 31.93 H Total Protein 8.0 Albumin 3.5 Amylase Lipase 7 L Beta HCG, Quant < 2 Hold Yellow Top Urine Color Urine Appearance Urine pH Ur Specific [place] Urine Protein Urine Glucose (UA) Urine Ketones Urine Blood Urine Nitrite Ur Leukocyte Esterase Urine RBC Urine WBC Ur Squamous Epith Cells Urine Bacteria Hyaline Casts Urine Osmolality Ur Random Sodium CSF Tube Number CSF Volume CSF Appearance CSF Color CSF WBC CSF RBC CSF Neutrophils CSF Lymphocytes CSF Monocytes % CSF Other Cells % CSF Appearance (b) CSF Glucose CSF Total Protein CSF C.neoform/gat PCR CSF CMV DNA (PCR) CSF Enterovirus (PCR) CSF E. coli K1 (PCR) CSF H. influenzae (PCR) CSF HSV I (PCR) CSF HSV II (PCR) CSF HHV 6 (PCR) CSF L.monocytogenes PCR CSF N. meningitidis PCR CSF Parechovirus (PCR) CSF S. agalactiae (PCR) CSF S. pneumoniae (PCR) CSF VZV (PCR) Salicylates < 5.0 L Urine Opiates Screen Ur Buprenorphine Scrn Ur Oxycodone Screen Urine Methadone Screen Urine Fentanyl Screen Ur Barbiturates Screen Ur Phencyclidine Scrn Ur Amphetamines Screen U Benzodiazepines Scrn Urine Cocaine Screen U Marijuana (THC) Screen Ethyl Alcohol < 10 Influenza Type A (PCR) Influenza Type B (PCR) RSV RNA Qual (PCR) SARS-CoV-2 RNA (RT-PCR) 10/20/24 10/20/24 10/20/24 16:01 16:03 16:58 WBC RBC Hgb Hct MCV MCH MCHC RDW Plt Count MPV Immature Gran % (Auto) Neut % (Auto) Lymph % (Auto) Hubbard % (Auto) Eos % (Auto) Baso % (Auto) Lymph # (Auto) Hubbard # (Auto) Eos # (Auto) Baso # (Auto) Abs Immat Gran (auto) Absolute Neuts (auto) Absolute Nucleated RBC Nucleated RBC % (auto) Neutrophils % (Manual) Band Neutrophils % Lymphocytes % (Manual) Atypical Lymphs % (Man) Monocytes % (Manual) Abs Neuts (Manual) Lymphocytes # (Manual) Atyp Lymphs # (Manual) Monocytes # (Manual) Toxic Granulation Toxic Vacuolation Platelet Estimate Large Platelets Plt Morphology Comment RBC Morphology Microcytosis Spherocytes Marlena Cells Acanthocytes (Spur) Schistocytes ESR Hold Purple Top Hold Blue Top VBG pH 7.45 H VBG pCO2 39 VBG pO2 31 VBG HCO3 27 H VBG O2 Saturation 47.0 VBG Base Excess 3.7 Sodium 120 L* Potassium 2.7 L* D Chloride 91 L Carbon Dioxide 19 L Anion Gap 13 BUN 21 H Creatinine 0.75 Estim Creat Clear Calc 82.5 Estimated GFR > 60 POC Glucose Random Glucose 107 Osmolality 258 L Lactic Acid Lactic Acid F/U @ 2Hr Lactic Acid F/U @ 4Hr Calcium 7.2 L D Phosphorus Magnesium Total Bilirubin Direct Bilirubin AST ALT Alkaline Phosphatase Ammonia Lactate Dehydrogenase Troponin I High Sens C-Reactive Protein Total Protein Albumin Amylase Lipase Beta HCG, Quant Hold Yellow Top Urine Color Urine Appearance Urine pH Ur Specific [place] Urine Protein Urine Glucose (UA) Urine Ketones Urine Blood Urine Nitrite Ur Leukocyte Esterase Urine RBC Urine WBC Ur Squamous Epith Cells Urine Bacteria Hyaline Casts Urine Osmolality Ur Random Sodium CSF Tube Number CSF Volume CSF Appearance CSF Color CSF WBC CSF RBC CSF Neutrophils CSF Lymphocytes CSF Monocytes % CSF Other Cells % CSF Appearance (b) CSF Glucose CSF Total Protein CSF C.neoform/gat PCR CSF CMV DNA (PCR) CSF Enterovirus (PCR) CSF E. coli K1 (PCR) CSF H. influenzae (PCR) CSF HSV I (PCR) CSF HSV II (PCR) CSF HHV 6 (PCR) CSF L.monocytogenes PCR CSF N. meningitidis PCR CSF Parechovirus (PCR) CSF S. agalactiae (PCR) CSF S. pneumoniae (PCR) CSF VZV (PCR) Salicylates Urine Opiates Screen Ur Buprenorphine Scrn Ur Oxycodone Screen Urine Methadone Screen Urine Fentanyl Screen Ur Barbiturates Screen Ur Phencyclidine Scrn Ur Amphetamines Screen U Benzodiazepines Scrn Urine Cocaine Screen U Marijuana (THC) Screen Ethyl Alcohol Influenza Type A (PCR) NEGATIVE Influenza Type B (PCR) NEGATIVE RSV RNA Qual (PCR) NEGATIVE SARS-CoV-2 RNA (RT-PCR) NEGATIVE 10/20/24 10/20/24 10/20/24 17:42 17:42 17:42 WBC RBC Hgb Hct MCV MCH MCHC RDW Plt Count MPV Immature Gran % (Auto) Neut % (Auto) Lymph % (Auto) Hubbard % (Auto) Eos % (Auto) Baso % (Auto) Lymph # (Auto) Hubbard # (Auto) Eos # (Auto) Baso # (Auto) Abs Immat Gran (auto) Absolute Neuts (auto) Absolute Nucleated RBC Nucleated RBC % (auto) Neutrophils % (Manual) Band Neutrophils % Lymphocytes % (Manual) Atypical Lymphs % (Man) Monocytes % (Manual) Abs Neuts (Manual) Lymphocytes # (Manual) Atyp Lymphs # (Manual) Monocytes # (Manual) Toxic Granulation Toxic Vacuolation Platelet Estimate Large Platelets Plt Morphology Comment RBC Morphology Microcytosis Spherocytes Marlena Cells Acanthocytes (Spur) Schistocytes ESR Hold Purple Top Hold Blue Top VBG pH VBG pCO2 VBG pO2 VBG HCO3 VBG O2 Saturation VBG Base Excess Sodium Potassium Chloride Carbon Dioxide Anion Gap BUN Creatinine Estim Creat Clear Calc Estimated GFR POC Glucose Random Glucose Osmolality Lactic Acid Lactic Acid F/U @ 2Hr Lactic Acid F/U @ 4Hr Calcium Phosphorus Magnesium Total Bilirubin Direct Bilirubin AST ALT Alkaline Phosphatase Ammonia Lactate Dehydrogenase Troponin I High Sens C-Reactive Protein Total Protein Albumin Amylase Lipase Beta HCG, Quant Hold Yellow Top Urine Color Urine Appearance Urine pH Ur Specific [place] Urine Protein Urine Glucose (UA) Urine Ketones Urine Blood Urine Nitrite Ur Leukocyte Esterase Urine RBC Urine WBC Ur Squamous Epith Cells Urine Bacteria Hyaline Casts Urine Osmolality Ur Random Sodium CSF Tube Number 2 Cancelled 1 CSF Volume CSF Appearance CSF Color CSF WBC CSF RBC CSF Neutrophils CSF Lymphocytes CSF Monocytes % CSF Other Cells % CSF Appearance (b) CSF Glucose CSF Total Protein CSF C.neoform/gat PCR CSF CMV DNA (PCR) CSF Enterovirus (PCR) CSF E. coli K1 (PCR) CSF H. influenzae (PCR) CSF HSV I (PCR) CSF HSV II (PCR) CSF HHV 6 (PCR) CSF L.monocytogenes PCR CSF N. meningitidis PCR CSF Parechovirus (PCR) CSF S. agalactiae (PCR) CSF S. pneumoniae (PCR) CSF VZV (PCR) Salicylates Urine Opiates Screen Ur Buprenorphine Scrn Ur Oxycodone Screen Urine Methadone Screen Urine Fentanyl Screen Ur Barbiturates Screen Ur Phencyclidine Scrn Ur Amphetamines Screen U Benzodiazepines Scrn Urine Cocaine Screen U Marijuana (THC) Screen Ethyl Alcohol Influenza Type A (PCR) Influenza Type B (PCR) RSV RNA Qual (PCR) SARS-CoV-2 RNA (RT-PCR) 10/20/24 10/20/24 10/20/24 17:42 17:42 17:42 WBC RBC Hgb Hct MCV MCH MCHC RDW Plt Count MPV Immature Gran % (Auto) Neut % (Auto) Lymph % (Auto) Hubbard % (Auto) Eos % (Auto) Baso % (Auto) Lymph # (Auto) Hubbard # (Auto) Eos # (Auto) Baso # (Auto) Abs Immat Gran (auto) Absolute Neuts (auto) Absolute Nucleated RBC Nucleated RBC % (auto) Neutrophils % (Manual) Band Neutrophils % Lymphocytes % (Manual) Atypical Lymphs % (Man) Monocytes % (Manual) Abs Neuts (Manual) Lymphocytes # (Manual) Atyp Lymphs # (Manual) Monocytes # (Manual) Toxic Granulation Toxic Vacuolation Platelet Estimate Large Platelets Plt Morphology Comment RBC Morphology Microcytosis Spherocytes Marlena Cells Acanthocytes (Spur) Schistocytes ESR Hold Purple Top Hold Blue Top VBG pH VBG pCO2 VBG pO2 VBG HCO3 VBG O2 Saturation VBG Base Excess Sodium Potassium Chloride Carbon Dioxide Anion Gap BUN Creatinine Estim Creat Clear Calc Estimated GFR POC Glucose Random Glucose Osmolality Lactic Acid Lactic Acid F/U @ 2Hr Lactic Acid F/U @ 4Hr Calcium Phosphorus Magnesium Total Bilirubin Direct Bilirubin AST ALT Alkaline Phosphatase Ammonia Lactate Dehydrogenase Troponin I High Sens C-Reactive Protein Total Protein Albumin Amylase Lipase Beta HCG, Quant Hold Yellow Top Urine Color Urine Appearance Urine pH Ur Specific [place] Urine Protein Urine Glucose (UA) Urine Ketones Urine Blood Urine Nitrite Ur Leukocyte Esterase Urine RBC Urine WBC Ur Squamous Epith Cells Urine Bacteria Hyaline Casts Urine Osmolality Ur Random Sodium CSF Tube Number 4 CSF Volume Cancelled 1.5 2.0 CSF Appearance Cancelled CSF Color CSF WBC CSF RBC CSF Neutrophils CSF Lymphocytes CSF Monocytes % CSF Other Cells % CSF Appearance (b) CSF Glucose CSF Total Protein CSF C.neoform/gat PCR CSF CMV DNA (PCR) CSF Enterovirus (PCR) CSF E. coli K1 (PCR) CSF H. influenzae (PCR) CSF HSV I (PCR) CSF HSV II (PCR) CSF HHV 6 (PCR) CSF L.monocytogenes PCR CSF N. meningitidis PCR CSF Parechovirus (PCR) CSF S. agalactiae (PCR) CSF S. pneumoniae (PCR) CSF VZV (PCR) Salicylates Urine Opiates Screen Ur Buprenorphine Scrn Ur Oxycodone Screen Urine Methadone Screen Urine Fentanyl Screen Ur Barbiturates Screen Ur Phencyclidine Scrn Ur Amphetamines Screen U Benzodiazepines Scrn Urine Cocaine Screen U Marijuana (THC) Screen Ethyl Alcohol Influenza Type A (PCR) Influenza Type B (PCR) RSV RNA Qual (PCR) SARS-CoV-2 RNA (RT-PCR) 10/20/24 10/20/24 10/20/24 17:42 17:42 17:42 WBC RBC Hgb Hct MCV MCH MCHC RDW Plt Count MPV Immature Gran % (Auto) Neut % (Auto) Lymph % (Auto) Hubbard % (Auto) Eos % (Auto) Baso % (Auto) Lymph # (Auto) Hubbard # (Auto) Eos # (Auto) Baso # (Auto) Abs Immat Gran (auto) Absolute Neuts (auto) Absolute Nucleated RBC Nucleated RBC % (auto) Neutrophils % (Manual) Band Neutrophils % Lymphocytes % (Manual) Atypical Lymphs % (Man) Monocytes % (Manual) Abs Neuts (Manual) Lymphocytes # (Manual) Atyp Lymphs # (Manual) Monocytes # (Manual) Toxic Granulation Toxic Vacuolation Platelet Estimate Large Platelets Plt Morphology Comment RBC Morphology Microcytosis Spherocytes [place] Cells Acanthocytes (Spur) Schistocytes ESR Hold Purple Top Hold Blue Top VBG pH VBG pCO2 VBG pO2 VBG HCO3 VBG O2 Saturation VBG Base Excess Sodium Potassium Chloride Carbon Dioxide Anion Gap BUN Creatinine Estim Creat Clear Calc Estimated GFR POC Glucose Random Glucose Osmolality Lactic Acid Lactic Acid F/U @ 2Hr Lactic Acid F/U @ 4Hr Calcium Phosphorus Magnesium Total Bilirubin Direct Bilirubin AST ALT Alkaline Phosphatase Ammonia Lactate Dehydrogenase Troponin I High Sens C-Reactive Protein Total Protein Albumin Amylase Lipase Beta HCG, Quant Hold Yellow Top Urine Color Urine Appearance Urine pH Ur Specific [place] Urine Protein Urine Glucose (UA) Urine Ketones Urine Blood Urine Nitrite Ur Leukocyte Esterase Urine RBC Urine WBC Ur Squamous Epith Cells Urine Bacteria Hyaline Casts Urine Osmolality Ur Random Sodium CSF Tube Number CSF Volume CSF Appearance HAZY CLEAR CSF Color Cancelled PINK CSF WBC CSF RBC CSF Neutrophils CSF Lymphocytes CSF Monocytes % CSF Other Cells % CSF Appearance (b) CSF Glucose CSF Total Protein CSF C.neoform/gat PCR CSF CMV DNA (PCR) CSF Enterovirus (PCR) CSF E. coli K1 (PCR) CSF H. influenzae (PCR) CSF HSV I (PCR) CSF HSV II (PCR) CSF HHV 6 (PCR) CSF L.monocytogenes PCR CSF N. meningitidis PCR CSF Parechovirus (PCR) CSF S. agalactiae (PCR) CSF S. pneumoniae (PCR) CSF VZV (PCR) Salicylates Urine Opiates Screen Ur Buprenorphine Scrn Ur Oxycodone Screen Urine Methadone Screen Urine Fentanyl Screen Ur Barbiturates Screen Ur Phencyclidine Scrn Ur Amphetamines Screen U Benzodiazepines Scrn Urine Cocaine Screen U Marijuana (THC) Screen Ethyl Alcohol Influenza Type A (PCR) Influenza Type B (PCR) RSV RNA Qual (PCR) SARS-CoV-2 RNA (RT-PCR) 10/20/24 10/20/24 10/20/24 17:42 17:42 17:42 WBC RBC Hgb Hct MCV MCH MCHC RDW Plt Count MPV Immature Gran % (Auto) Neut % (Auto) Lymph % (Auto) Hubbard % (Auto) Eos % (Auto) Baso % (Auto) Lymph # (Auto) Hubbard # (Auto) Eos # (Auto) Baso # (Auto) Abs Immat Gran (auto) Absolute Neuts (auto) Absolute Nucleated RBC Nucleated RBC % (auto) Neutrophils % (Manual) Band Neutrophils % Lymphocytes % (Manual) Atypical Lymphs % (Man) Monocytes % (Manual) Abs Neuts (Manual) Lymphocytes # (Manual) Atyp Lymphs # (Manual) Monocytes # (Manual) Toxic Granulation Toxic Vacuolation Platelet Estimate Large Platelets Plt Morphology Comment RBC Morphology Microcytosis Spherocytes Marlena Cells Acanthocytes (Spur) Schistocytes ESR Hold Purple Top Hold Blue Top VBG pH VBG pCO2 VBG pO2 VBG HCO3 VBG O2 Saturation VBG Base Excess Sodium Potassium Chloride Carbon Dioxide Anion Gap BUN Creatinine Estim Creat Clear Calc Estimated GFR POC Glucose Random Glucose Osmolality Lactic Acid Lactic Acid F/U @ 2Hr Lactic Acid F/U @ 4Hr Calcium Phosphorus Magnesium Total Bilirubin Direct Bilirubin AST ALT Alkaline Phosphatase Ammonia Lactate Dehydrogenase Troponin I High Sens C-Reactive Protein Total Protein Albumin Amylase Lipase Beta HCG, Quant Hold Yellow Top Urine Color Urine Appearance Urine pH Ur Specific [place] Urine Protein Urine Glucose (UA) Urine Ketones Urine Blood Urine Nitrite Ur Leukocyte Esterase Urine RBC Urine WBC Ur Squamous Epith Cells Urine Bacteria Hyaline Casts Urine Osmolality Ur Random Sodium CSF Tube Number CSF Volume CSF Appearance CSF Color COLORLESS CSF WBC Cancelled 13 H* 64 H* CSF RBC Cancelled CSF Neutrophils CSF Lymphocytes CSF Monocytes % CSF Other Cells % CSF Appearance (b) CSF Glucose CSF Total Protein CSF C.neoform/gat PCR CSF CMV DNA (PCR) CSF Enterovirus (PCR) CSF E. coli K1 (PCR) CSF H. influenzae (PCR) CSF HSV I (PCR) CSF HSV II (PCR) CSF HHV 6 (PCR) CSF L.monocytogenes PCR CSF N. meningitidis PCR CSF Parechovirus (PCR) CSF S. agalactiae (PCR) CSF S. pneumoniae (PCR) CSF VZV (PCR) Salicylates Urine Opiates Screen Ur Buprenorphine Scrn Ur Oxycodone Screen Urine Methadone Screen Urine Fentanyl Screen Ur Barbiturates Screen Ur Phencyclidine Scrn Ur Amphetamines Screen U Benzodiazepines Scrn Urine Cocaine Screen U Marijuana (THC) Screen Ethyl Alcohol Influenza Type A (PCR) Influenza Type B (PCR) RSV RNA Qual (PCR) SARS-CoV-2 RNA (RT-PCR) 10/20/24 10/20/24 10/20/24 17:42 17:42 17:42 WBC RBC Hgb Hct MCV MCH MCHC RDW Plt Count MPV Immature Gran % (Auto) Neut % (Auto) Lymph % (Auto) Hubbard % (Auto) Eos % (Auto) Baso % (Auto) Lymph # (Auto) Hubbard # (Auto) Eos # (Auto) Baso # (Auto) Abs Immat Gran (auto) Absolute Neuts (auto) Absolute Nucleated RBC Nucleated RBC % (auto) Neutrophils % (Manual) Band Neutrophils % Lymphocytes % (Manual) Atypical Lymphs % (Man) Monocytes % (Manual) Abs Neuts (Manual) Lymphocytes # (Manual) Atyp Lymphs # (Manual) Monocytes # (Manual) Toxic Granulation Toxic Vacuolation Platelet Estimate Large Platelets Plt Morphology Comment RBC Morphology Microcytosis Spherocytes [place] Cells Acanthocytes (Spur) Schistocytes ESR Hold Purple Top Hold Blue Top VBG pH VBG pCO2 VBG pO2 VBG HCO3 VBG O2 Saturation VBG Base Excess Sodium Potassium Chloride Carbon Dioxide Anion Gap BUN Creatinine Estim Creat Clear Calc Estimated GFR POC Glucose Random Glucose Osmolality Lactic Acid Lactic Acid F/U @ 2Hr Lactic Acid F/U @ 4Hr Calcium Phosphorus Magnesium Total Bilirubin Direct Bilirubin AST ALT Alkaline Phosphatase Ammonia Lactate Dehydrogenase Troponin I High Sens C-Reactive Protein Total Protein Albumin Amylase Lipase Beta HCG, Quant Hold Yellow Top Urine Color Urine Appearance Urine pH Ur Specific [place] Urine Protein Urine Glucose (UA) Urine Ketones Urine Blood Urine Nitrite Ur Leukocyte Esterase Urine RBC Urine WBC Ur Squamous Epith Cells Urine Bacteria Hyaline Casts Urine Osmolality Ur Random Sodium CSF Tube Number CSF Volume CSF Appearance CSF Color CSF WBC CSF RBC [id number] 121 CSF Neutrophils Cancelled 88 CSF Lymphocytes CSF Monocytes % CSF Other Cells % CSF Appearance (b) CSF Glucose CSF Total Protein CSF C.neoform/gat PCR CSF CMV DNA (PCR) CSF Enterovirus (PCR) CSF E. coli K1 (PCR) CSF H. influenzae (PCR) CSF HSV I (PCR) CSF HSV II (PCR) CSF HHV 6 (PCR) CSF L.monocytogenes PCR CSF N. meningitidis PCR CSF Parechovirus (PCR) CSF S. agalactiae (PCR) CSF S. pneumoniae (PCR) CSF VZV (PCR) Salicylates Urine Opiates Screen Ur Buprenorphine Scrn Ur Oxycodone Screen Urine Methadone Screen Urine Fentanyl Screen Ur Barbiturates Screen Ur Phencyclidine Scrn Ur Amphetamines Screen U Benzodiazepines Scrn Urine Cocaine Screen U Marijuana (THC) Screen Ethyl Alcohol Influenza Type A (PCR) Influenza Type B (PCR) RSV RNA Qual (PCR) SARS-CoV-2 RNA (RT-PCR) 10/20/24 10/20/24 10/20/24 17:42 17:42 17:42 WBC RBC Hgb Hct MCV MCH MCHC RDW Plt Count MPV Immature Gran % (Auto) Neut % (Auto) Lymph % (Auto) Hubbard % (Auto) Eos % (Auto) Baso % (Auto) Lymph # (Auto) Hubbard # (Auto) Eos # (Auto) Baso # (Auto) Abs Immat Gran (auto) Absolute Neuts (auto) Absolute Nucleated RBC Nucleated RBC % (auto) Neutrophils % (Manual) Band Neutrophils % Lymphocytes % (Manual) Atypical Lymphs % (Man) Monocytes % (Manual) Abs Neuts (Manual) Lymphocytes # (Manual) Atyp Lymphs # (Manual) Monocytes # (Manual) Toxic Granulation Toxic Vacuolation Platelet Estimate Large Platelets Plt Morphology Comment RBC Morphology Microcytosis Spherocytes Marlena Cells Acanthocytes (Spur) Schistocytes ESR Hold Purple Top Hold Blue Top VBG pH VBG pCO2 VBG pO2 VBG HCO3 VBG O2 Saturation VBG Base Excess Sodium Potassium Chloride Carbon Dioxide Anion Gap BUN Creatinine Estim Creat Clear Calc Estimated GFR POC Glucose Random Glucose Osmolality Lactic Acid Lactic Acid F/U @ 2Hr Lactic Acid F/U @ 4Hr Calcium Phosphorus Magnesium Total Bilirubin Direct Bilirubin AST ALT Alkaline Phosphatase Ammonia Lactate Dehydrogenase Troponin I High Sens C-Reactive Protein Total Protein Albumin Amylase Lipase Beta HCG, Quant Hold Yellow Top Urine Color Urine Appearance Urine pH Ur Specific [place] Urine Protein Urine Glucose (UA) Urine Ketones Urine Blood Urine Nitrite Ur Leukocyte Esterase Urine RBC Urine WBC Ur Squamous Epith Cells Urine Bacteria Hyaline Casts Urine Osmolality Ur Random Sodium CSF Tube Number CSF Volume CSF Appearance CSF Color CSF WBC CSF RBC CSF Neutrophils 84 CSF Lymphocytes Cancelled 4 6 CSF Monocytes % Cancelled CSF Other Cells % CSF Appearance (b) CSF Glucose CSF Total Protein CSF C.neoform/gat PCR CSF CMV DNA (PCR) CSF Enterovirus (PCR) CSF E. coli K1 (PCR) CSF H. influenzae (PCR) CSF HSV I (PCR) CSF HSV II (PCR) CSF HHV 6 (PCR) CSF L.monocytogenes PCR CSF N. meningitidis PCR CSF Parechovirus (PCR) CSF S. agalactiae (PCR) CSF S. pneumoniae (PCR) CSF VZV (PCR) Salicylates Urine Opiates Screen Ur Buprenorphine Scrn Ur Oxycodone Screen Urine Methadone Screen Urine Fentanyl Screen Ur Barbiturates Screen Ur Phencyclidine Scrn Ur Amphetamines Screen U Benzodiazepines Scrn Urine Cocaine Screen U Marijuana (THC) Screen Ethyl Alcohol Influenza Type A (PCR) Influenza Type B (PCR) RSV RNA Qual (PCR) SARS-CoV-2 RNA (RT-PCR) 10/20/24 10/20/24 10/20/24 17:42 17:42 17:52 WBC RBC Hgb Hct MCV MCH MCHC RDW Plt Count MPV Immature Gran % (Auto) Neut % (Auto) Lymph % (Auto) Hubbard % (Auto) Eos % (Auto) Baso % (Auto) Lymph # (Auto) Hubbard # (Auto) Eos # (Auto) Baso # (Auto) Abs Immat Gran (auto) Absolute Neuts (auto) Absolute Nucleated RBC Nucleated RBC % (auto) Neutrophils % (Manual) Band Neutrophils % Lymphocytes % (Manual) Atypical Lymphs % (Man) Monocytes % (Manual) Abs Neuts (Manual) Lymphocytes # (Manual) Atyp Lymphs # (Manual) Monocytes # (Manual) Toxic Granulation Toxic Vacuolation Platelet Estimate Large Platelets Plt Morphology Comment RBC Morphology Microcytosis Spherocytes Marlena Cells Acanthocytes (Spur) Schistocytes ESR Hold Purple Top Hold Blue Top VBG pH VBG pCO2 VBG pO2 VBG HCO3 VBG O2 Saturation VBG Base Excess Sodium Potassium Chloride Carbon Dioxide Anion Gap BUN Creatinine Estim Creat Clear Calc Estimated GFR POC Glucose Random Glucose Osmolality Lactic Acid Lactic Acid F/U @ 2Hr Lactic Acid F/U @ 4Hr Calcium Phosphorus Magnesium Total Bilirubin Direct Bilirubin AST ALT Alkaline Phosphatase Ammonia Lactate Dehydrogenase Troponin I High Sens C-Reactive Protein Total Protein Albumin Amylase Lipase Beta HCG, Quant Hold Yellow Top Urine Color Yellow Urine Appearance Cloudy Urine pH 6.0 Ur Specific [place] 1.015 Urine Protein 100 (2+) H Urine Glucose (UA) Negative Urine Ketones 15 Urine Blood Large (3+) H Urine Nitrite Positive H Ur Leukocyte Esterase Small (1+) H Urine RBC 11-20 H Urine WBC 11-20 H Ur Squamous Epith Cells 3-5 Urine Bacteria 4+ Hyaline Casts 3-5 Urine Osmolality 411 Ur Random Sodium < 20.0 CSF Tube Number CSF Volume CSF Appearance CSF Color CSF WBC CSF RBC CSF Neutrophils CSF Lymphocytes CSF Monocytes % 8 10 CSF Other Cells % Cancelled CSF Appearance (b) Clear, Colorless CSF Glucose 39 CSF Total Protein 43.5 CSF C.neoform/gat PCR Not Detected CSF CMV DNA (PCR) Not Detected CSF Enterovirus (PCR) Not Detected CSF E. coli K1 (PCR) Not Detected CSF H. influenzae (PCR) Not Detected CSF HSV I (PCR) Not Detected CSF HSV II (PCR) Not Detected CSF HHV 6 (PCR) Not Detected CSF L.monocytogenes PCR Not Detected CSF N. meningitidis PCR Not Detected CSF Parechovirus (PCR) Not Detected CSF S. agalactiae (PCR) Not Detected CSF S. pneumoniae (PCR) Not Detected CSF VZV (PCR) Not Detected Salicylates Urine Opiates Screen POSITIVE H Ur Buprenorphine Scrn Not Detected Ur Oxycodone Screen Not Detected Urine Methadone Screen Positive H Urine Fentanyl Screen POSITIVE H Ur Barbiturates Screen Not Detected Ur Phencyclidine Scrn Not Detected Ur Amphetamines Screen Not Detected U Benzodiazepines Scrn Not Detected Urine Cocaine Screen POSITIVE H U Marijuana (THC) Screen POSITIVE H Ethyl Alcohol Influenza Type A (PCR) Influenza Type B (PCR) RSV RNA Qual (PCR) SARS-CoV-2 RNA (RT-PCR) 10/20/24 10/20/24 10/20/24 18:39 19:08 19:16 WBC RBC Hgb Hct MCV MCH MCHC RDW Plt Count MPV Immature Gran % (Auto) Neut % (Auto) Lymph % (Auto) Hubbard % (Auto) Eos % (Auto) Baso % (Auto) Lymph # (Auto) Hubbard # (Auto) Eos # (Auto) Baso # (Auto) Abs Immat Gran (auto) Absolute Neuts (auto) Absolute Nucleated RBC Nucleated RBC % (auto) Neutrophils % (Manual) Band Neutrophils % Lymphocytes % (Manual) Atypical Lymphs % (Man) Monocytes % (Manual) Abs Neuts (Manual) Lymphocytes # (Manual) Atyp Lymphs # (Manual) Monocytes # (Manual) Toxic Granulation Toxic Vacuolation Platelet Estimate Large Platelets Plt Morphology Comment RBC Morphology Microcytosis Spherocytes [place] Cells Acanthocytes (Spur) Schistocytes ESR Hold Purple Top SEE NOTE Hold Blue Top VBG pH 7.48 H VBG pCO2 27 VBG pO2 52 VBG HCO3 20 L VBG O2 Saturation 89.0 VBG Base Excess -1.2 Sodium 121 L Potassium 3.1 L Chloride 95 L Carbon Dioxide 17 L Anion Gap 12 BUN 21 H Creatinine 0.74 Estim Creat Clear Calc 83.6 Estimated GFR > 60 POC Glucose Random Glucose 97 Osmolality Lactic Acid Lactic Acid F/U @ 2Hr 2.2 H* Lactic Acid F/U @ 4Hr Calcium 7.1 L Phosphorus Magnesium Total Bilirubin Direct Bilirubin AST ALT Alkaline Phosphatase Ammonia Lactate Dehydrogenase 368 H Troponin I High Sens 593.1 H* C-Reactive Protein Total Protein Albumin Amylase 27 L Lipase Beta HCG, Quant Hold Yellow Top See Note Urine Color Urine Appearance Urine pH Ur Specific [place] Urine Protein Urine Glucose (UA) Urine Ketones Urine Blood Urine Nitrite Ur Leukocyte Esterase Urine RBC Urine WBC Ur Squamous Epith Cells Urine Bacteria Hyaline Casts Urine Osmolality Ur Random Sodium CSF Tube Number CSF Volume CSF Appearance CSF Color CSF WBC CSF RBC CSF Neutrophils CSF Lymphocytes CSF Monocytes % CSF Other Cells % CSF Appearance (b) CSF Glucose CSF Total Protein CSF C.neoform/gat PCR CSF CMV DNA (PCR) CSF Enterovirus (PCR) CSF E. coli K1 (PCR) CSF H. influenzae (PCR) CSF HSV I (PCR) CSF HSV II (PCR) CSF HHV 6 (PCR) CSF L.monocytogenes PCR CSF N. meningitidis PCR CSF Parechovirus (PCR) CSF S. agalactiae (PCR) CSF S. pneumoniae (PCR) CSF VZV (PCR) Salicylates Urine Opiates Screen Ur Buprenorphine Scrn Ur Oxycodone Screen Urine Methadone Screen Urine Fentanyl Screen Ur Barbiturates Screen Ur Phencyclidine Scrn Ur Amphetamines Screen U Benzodiazepines Scrn Urine Cocaine Screen U Marijuana (THC) Screen Ethyl Alcohol Influenza Type A (PCR) Influenza Type B (PCR) RSV RNA Qual (PCR) SARS-CoV-2 RNA (RT-PCR) 10/20/24 10/20/24 10/20/24 20:53 23:41 23:46 WBC 17.8 H RBC 4.21 D Hgb 11.6 L D Hct 31.2 L D MCV 74.1 L MCH 27.6 MCHC 37.2 H RDW 13.7 Plt Count 37 L MPV Not Reportable Immature Gran % (Auto) Cancelled Neut % (Auto) Cancelled Lymph % (Auto) Cancelled Hubbard % (Auto) Cancelled Eos % (Auto) Cancelled Baso % (Auto) Cancelled Lymph # (Auto) Cancelled Hubbard # (Auto) Cancelled Eos # (Auto) Cancelled Baso # (Auto) Cancelled Abs Immat Gran (auto) Cancelled Absolute Neuts (auto) Cancelled Absolute Nucleated RBC 0.000 Nucleated RBC % (auto) 0.0 Neutrophils % (Manual) 79 H Band Neutrophils % 12 H Lymphocytes % (Manual) 2 L Atypical Lymphs % (Man) Monocytes % (Manual) 7 Abs Neuts (Manual) 16.2 H Lymphocytes # (Manual) 0.4 L Atyp Lymphs # (Manual) Monocytes # (Manual) 1.2 Toxic Granulation PRESENT Toxic Vacuolation PRESENT Platelet Estimate DECREASED Large Platelets PRESENT Plt Morphology Comment NOTED RBC Morphology NOTED Microcytosis 1+ (5-14) Spherocytes 1+ (0-2) Marlena Cells 2+ (3-5) Acanthocytes (Spur) Schistocytes 1+ (0-2) ESR Hold Purple Top Hold Blue Top VBG pH VBG pCO2 VBG pO2 VBG HCO3 VBG O2 Saturation VBG Base Excess Sodium 124 L Potassium 2.8 L* Chloride 96 Carbon Dioxide 17 L Anion Gap 14 BUN 20 H Creatinine 0.80 Estim Creat Clear Calc 62.9 Estimated GFR > 60 POC Glucose Random Glucose 131 H Osmolality Lactic Acid Lactic Acid F/U @ 2Hr Lactic Acid F/U @ 4Hr 2.7 H* Calcium 7.9 L D Phosphorus Magnesium Total Bilirubin 1.3 H Direct Bilirubin AST 50 H ALT 8 Alkaline Phosphatase 91 Ammonia Lactate Dehydrogenase Troponin I High Sens 586.4 H* C-Reactive Protein Total Protein 5.9 L Albumin 3.2 L Amylase Lipase Beta HCG, Quant Hold Yellow Top Urine Color Urine Appearance Urine pH Ur Specific [place] Urine Protein Urine Glucose (UA) Urine Ketones Urine Blood Urine Nitrite Ur Leukocyte Esterase Urine RBC Urine WBC Ur Squamous Epith Cells Urine Bacteria Hyaline Casts Urine Osmolality Ur Random Sodium CSF Tube Number CSF Volume CSF Appearance CSF Color CSF WBC CSF RBC CSF Neutrophils CSF Lymphocytes CSF Monocytes % CSF Other Cells % CSF Appearance (b) CSF Glucose CSF Total Protein CSF C.neoform/gat PCR CSF CMV DNA (PCR) CSF Enterovirus (PCR) CSF E. coli K1 (PCR) CSF H. influenzae (PCR) CSF HSV I (PCR) CSF HSV II (PCR) CSF HHV 6 (PCR) CSF L.monocytogenes PCR CSF N. meningitidis PCR CSF Parechovirus (PCR) CSF S. agalactiae (PCR) CSF S. pneumoniae (PCR) CSF VZV (PCR) Salicylates Urine Opiates Screen Ur Buprenorphine Scrn Ur Oxycodone Screen Urine Methadone Screen Urine Fentanyl Screen Ur Barbiturates Screen Ur Phencyclidine Scrn Ur Amphetamines Screen U Benzodiazepines Scrn Urine Cocaine Screen U Marijuana (THC) Screen Ethyl Alcohol Influenza Type A (PCR) Influenza Type B (PCR) RSV RNA Qual (PCR) SARS-CoV-2 RNA (RT-PCR) 10/21/24 04:53 WBC 17.1 H RBC 3.74 L Hgb 10.2 L Hct 27.7 L MCV 74.1 L MCH 27.3 MCHC 36.8 H RDW 13.6 Plt Count 44 L MPV 12.9 H Immature Gran % (Auto) Cancelled Neut % (Auto) Cancelled Lymph % (Auto) Cancelled Hubbard % (Auto) Cancelled Eos % (Auto) Cancelled Baso % (Auto) Cancelled Lymph # (Auto) Cancelled Hubbard # (Auto) Cancelled Eos # (Auto) Cancelled Baso # (Auto) Cancelled Abs Immat Gran (auto) Cancelled Absolute Neuts (auto) Cancelled Absolute Nucleated RBC 0.000 Nucleated RBC % (auto) 0.0 Neutrophils % (Manual) 82 H Band Neutrophils % 13 H Lymphocytes % (Manual) 1 L Atypical Lymphs % (Man) Monocytes % (Manual) 4 Abs Neuts (Manual) 16.2 H Lymphocytes # (Manual) 0.2 L Atyp Lymphs # (Manual) Monocytes # (Manual) 0.7 Toxic Granulation PRESENT Toxic Vacuolation PRESENT Platelet Estimate DECREASED Large Platelets PRESENT Plt Morphology Comment NOTED RBC Morphology NOTED Microcytosis 1+ (5-14) Spherocytes 1+ (0-2) Marlena Cells 2+ (3-5) Acanthocytes (Spur) Schistocytes 1+ (0-2) ESR Hold Purple Top Hold Blue Top VBG pH 7.63 H* VBG pCO2 17 VBG pO2 57 VBG HCO3 18 L VBG O2 Saturation 94.0 VBG Base Excess -0.2 Sodium 126 L Potassium 2.6 L* Chloride 98 Carbon Dioxide 16 L Anion Gap 15 BUN 20 H Creatinine 0.80 Estim Creat Clear Calc 62.9 Estimated GFR > 60 POC Glucose Random Glucose 117 H Osmolality Lactic Acid 1.5 Lactic Acid F/U @ 2Hr Lactic Acid F/U @ 4Hr Calcium 8.1 L Phosphorus 1.2 L Magnesium 2.3 Total Bilirubin 1.3 H Direct Bilirubin AST 45 H ALT 8 Alkaline Phosphatase 72 Ammonia Lactate Dehydrogenase Troponin I High Sens C-Reactive Protein Total Protein 6.0 L Albumin 3.6 Amylase Lipase Beta HCG, Quant Hold Yellow Top Urine Color Urine Appearance Urine pH Ur Specific [place] Urine Protein Urine Glucose (UA) Urine Ketones Urine Blood Urine Nitrite Ur Leukocyte Esterase Urine RBC Urine WBC Ur Squamous Epith Cells Urine Bacteria Hyaline Casts Urine Osmolality Ur Random Sodium CSF Tube Number CSF Volume CSF Appearance CSF Color CSF WBC CSF RBC CSF Neutrophils CSF Lymphocytes CSF Monocytes % CSF Other Cells % CSF Appearance (b) CSF Glucose CSF Total Protein CSF C.neoform/gat PCR CSF CMV DNA (PCR) CSF Enterovirus (PCR) CSF E. coli K1 (PCR) CSF H. influenzae (PCR) CSF HSV I (PCR) CSF HSV II (PCR) CSF HHV 6 (PCR) CSF L.monocytogenes PCR CSF N. meningitidis PCR CSF Parechovirus (PCR) CSF S. agalactiae (PCR) CSF S. pneumoniae (PCR) CSF VZV (PCR) Salicylates Urine Opiates Screen Ur Buprenorphine Scrn Ur Oxycodone Screen Urine Methadone Screen Urine Fentanyl Screen Ur Barbiturates Screen Ur Phencyclidine Scrn Ur Amphetamines Screen U Benzodiazepines Scrn Urine Cocaine Screen U Marijuana (THC) Screen Ethyl Alcohol Influenza Type A (PCR) Influenza Type B (PCR) RSV RNA Qual (PCR) SARS-CoV-2 RNA (RT-PCR) Imaging Radiology Impressions: ITS Impressions Chest X-Ray 10/20/24 15:37 IMPRESSION: Right middle lobe patchy opacity question atelectasis and/or infiltrate. Electronically signed by: Van Sultana MD 10/20/2024 04:39 PM EDT RP Head CT 10/20/24 15:56 IMPRESSION: No acute intracranial process seen Electronically signed by: Van Sultana MD 10/20/2024 04:38 PM EDT RP Mental Status Exam Mental Status Exam Narrative: encephalopathic-no verbal or non verbal communiation Medications Medications Current Medications Norepinephrine Bitartrate (Levophed) 8 mg in 250 mls @ 0 mls/hr IVCONT .Q0M VIVIANE; Protocol Last Titration: 10/20/24 21:02 Dose: 0 mcg/kg/min, 0 mls/hr Naloxone HCl 5 mg/ Dextrose 100 mls @ 20 mls/hr IV .Q5H VIVIANE Last Infusion: 10/21/24 12:12 Dose: Infused Lactated Ringer's (Lr) 1,000 mls @ 30 mls/hr IVCONT .Q24H COUNTS INCLUDE 234 BEDS AT THE [facility] Last Infusion: 10/21/24 05:41 Dose: 0 mls/hr Piperacillin Sod/Tazobactam (Sod 3.375 gm/ Sodium Chloride) 50 mls @ 100 mls/hr IV Q6H COUNTS INCLUDE 234 BEDS AT THE [facility] Last Infusion: 10/21/24 10:09 Dose: Infused Vancomycin HCl 750 mg/ Sodium (Chloride) 265 mls @ 265 mls/hr IV Q12H COUNTS INCLUDE 234 BEDS AT THE [facility] Last Infusion: 10/21/24 10:09 Dose: Infused Potassium Phosphate (Kphos) 15 mmol in 250 mls @ 62.5 mls/hr IV Q4H COUNTS INCLUDE 234 BEDS AT THE [facility] Stop: 10/21/24 13:44 Last Admin: 10/21/24 12:09 Dose: 60 mls/hr Pantoprazole Sodium (Pantoprazole Sodium 40 Mg/10 Ml Vial) 40 mg IVPUSH DAILY@0630 COUNTS INCLUDE 234 BEDS AT THE [facility] Last Admin: 10/21/24 05:31 Dose: 40 mg Pharmacy Consult (Consult Rx Vancomycin Dosing) 1 each MISCELLANE DAILY PRN PRN Reason: Consult order Sodium Chloride (0.9 % Sodium Chloride Flush 3 Ml Syringe) 3 ml IVFLUSH QSHIFT COUNTS INCLUDE 234 BEDS AT THE [facility] Last Admin: 10/21/24 09:05 Dose: 3 ml Allergies Allergies Allergy/AdvReac Type Severity Reaction Status Date / Time Sulfa (Sulfonamide Allergy Unknown swelling, Verified 10/20/24 15:27 Antibiotics) ITCHY [SULFA (SULFONAMIDE ANTIBIOTICS)] Assessment & Plan Assessment & Plan (1) Opioid use disorder: Status: Acute Code(s): F11.90 - Opioid use, unspecified, uncomplicated Assessment and Plan: * requested naloxone gtt be discontinued as patient is awake and maintaining airway--also now likely in severe opiate withdrawal * home dose of methadone verified 35mg in AM and 48mg in evening. Due to AMS, PO methadone not ideal, so other full opioid agonist should be administered to address opioid dependance Total time managing care of this patient today _50___ minutes. PMFSH Past Medical History Medical History No active medical problems Surgical History Surgical History History of back surgery Social History Social History Household Members: Unknown / Unable to assess Alcohol intake: current Patient Tobacco Use Status: Tobacco use Unknown Use of substances other than those prescribed or required for medical reasons: Unknown Substance Use Type: Crack/Cocaine, Heroin and IV Drugs Advance Directives: No Advance Directives Information Provided: No Do you have a plan to hurt others: No Plan Patient : No
[2024-10-21] MEDS: fentaNYL citrate/PF 100 MCG/2 ML VIAL 25 MCG IVPUSH ×4 (12:59→22:56)
--- NOTE | 2024-10-21 13:27 | PC.NURSE ---
assumed care 0700 in 10/21/24. patient somnolent, incompressible speech, uncontrollably spitting secretions, tachycardic on tele, low grade fever, with rapid respiratory rate, weakly tracking, and opening eyes to touch. FMS placed for continuous watery diarrhea. at approx 11:30 noticed increase in patients HR increased up to 140s, febrile up to 103.5 in short time, respiratory rate quickened and shallow up to 40s, observable tears on face, tremor, flushed appearance, runny nose and diffuse piloerection on all extremities, and watery diarrhea... MD made aware of signs of opioid withdrawal. MD ordered tylenol IV and fentanyl PRN see SEP. Patient COWS score peaked at 26 at approx noon. signs of withdrawal still notable, but improved after medication. temperature improved, heart rate remains tachy in 140s approx. 13:30.
--- NOTE | 2024-10-21 15:51 | MHC.CM.PN ---
Pt unable to participate in CM assessment d/t altered mentation r/t medical conditions: Call placed to pt's emergency contact, Sagar who identified as pt's partner. He states pt resides with him and her sister, has no services or DME and receives methadone at the [facility]. He wasn't aware of her PCP or any HCP completed in the past. Pt currently receiving treatment for multiple medical issues - CM to await improvement in mental status to finalize d/c planning. Sagar is able to transport pt to home. IMM left at bedside for Sagar to review CM to follow
--- NOTE | 2024-10-21 16:24 | PM.CCPN ---
Subjective Subjective Date of Service: 10/21/24 Interval History: remains significantly confused febrile, tachycardic on Levophed for vasopressor support Critical Care Time (minutes): 35 Physical Exam Vital Signs: Vital Signs: Last Vital Signs Temp 99.5 F 10/21/24 16:00 Pulse 124 H 10/21/24 16:00 Resp 39 H 10/21/24 16:00 BP 105/60 10/21/24 16:00 Pulse Ox 97 10/21/24 16:00 O2 Del Method Room Air 10/21/24 16:00 BMI result Body Mass Index 17.5 General: very poorly built, emaciated and lady with multiple track harley from the drug abuse, poorly responsive lying in the bed Nutritional Appearance: poorly nourished and underweight Eyes: appearance normal, both eyes and all related structures; Alignment and Position: alignment normal and position normal Neck: No lymphadenopathy, no thyromegaly Resp: bilateral air entry equal, o occasional crackles present bilateral Cardio: Regular rate, regular rhythm; Heart sounds: S1 normal heart sound present and S2 normal heart sound present GI: soft, nontender, no guarding, no hepatosplenomegaly : bladder normal to inspection, bladder normal to palpation, no renal angle tenderness Skin: no rashes or lesions noted and elasticity normal Neuro: brisk reflexes in all 4 extremities, plantar flexor, increased tone, not oriented to time place person Objective Data Labs 10/21/24 04:53 10/21/24 04:53 Labs: Laboratory Results - last 24 hr 10/20/24 10/20/24 10/20/24 15:45 15:56 16:03 WBC 25.1 H RBC Hgb Hct MCV MCH MCHC RDW Plt Count MPV Immature Gran % (Auto) Neut % (Auto) Lymph % (Auto) [place] % (Auto) Eos % (Auto) Baso % (Auto) Lymph # (Auto) [place] # (Auto) Eos # (Auto) Baso # (Auto) Abs Immat Gran (auto) Absolute Neuts (auto) Absolute Nucleated RBC Nucleated RBC % (auto) Neutrophils % (Manual) 93 H Band Neutrophils % 0 L Lymphocytes % (Manual) 3 L Atypical Lymphs % (Man) 2 Monocytes % (Manual) 2 Abs Neuts (Manual) 23.3 H Lymphocytes # (Manual) 0.8 L Atyp Lymphs # (Manual) 0.5 Monocytes # (Manual) 0.5 Toxic Granulation Toxic Vacuolation PRESENT Platelet Estimate DECREASED Large Platelets Plt Morphology Comment NORMAL RBC Morphology NOTED Microcytosis Spherocytes [place] Cells Acanthocytes (Spur) 3+ (>5) Schistocytes ESR 8 Hold Purple Top VBG pH VBG pCO2 VBG pO2 VBG HCO3 VBG O2 Saturation VBG Base Excess Sodium Potassium Chloride Carbon Dioxide Anion Gap BUN Creatinine Estim Creat Clear Calc Estimated GFR Random Glucose Osmolality Lactic Acid 3.1 H* Lactic Acid F/U @ 2Hr Lactic Acid F/U @ 4Hr Calcium Phosphorus Magnesium Total Bilirubin AST ALT Alkaline Phosphatase Lactate Dehydrogenase Troponin I High Sens 753.7 H* Total Protein Albumin Amylase Beta HCG, Quant < 2 Hold Yellow Top Urine Color Urine Appearance Urine pH Ur Specific [place] Urine Protein Urine Glucose (UA) Urine Ketones Urine Blood Urine Nitrite Ur Leukocyte Esterase Urine RBC Urine WBC Ur Squamous Epith Cells Urine Bacteria Hyaline Casts Urine Osmolality Ur Random Sodium CSF Tube Number CSF Volume CSF Appearance CSF Color CSF WBC CSF RBC CSF Neutrophils CSF Lymphocytes CSF Monocytes % CSF Other Cells % CSF Appearance (b) CSF Glucose CSF Total Protein CSF C.neoform/gat PCR CSF CMV DNA (PCR) CSF Enterovirus (PCR) CSF E. coli K1 (PCR) CSF H. influenzae (PCR) CSF HSV I (PCR) CSF HSV II (PCR) CSF HHV 6 (PCR) CSF L.monocytogenes PCR CSF N. meningitidis PCR CSF Parechovirus (PCR) CSF S. agalactiae (PCR) CSF S. pneumoniae (PCR) CSF VZV (PCR) Urine Opiates Screen Ur Buprenorphine Scrn Ur Oxycodone Screen Urine Methadone Screen Urine Fentanyl Screen Ur Barbiturates Screen Ur Phencyclidine Scrn Ur Amphetamines Screen U Benzodiazepines Scrn Urine Cocaine Screen U Marijuana (THC) Screen Influenza Type A (PCR) NEGATIVE Influenza Type B (PCR) NEGATIVE RSV RNA Qual (PCR) NEGATIVE SARS-CoV-2 RNA (RT-PCR) NEGATIVE Ref Lab Test Result 10/20/24 10/20/24 10/20/24 16:58 17:42 17:42 WBC RBC Hgb Hct MCV MCH MCHC RDW Plt Count MPV Immature Gran % (Auto) Neut % (Auto) Lymph % (Auto) [place] % (Auto) Eos % (Auto) Baso % (Auto) Lymph # (Auto) [place] # (Auto) Eos # (Auto) Baso # (Auto) Abs Immat Gran (auto) Absolute Neuts (auto) Absolute Nucleated RBC Nucleated RBC % (auto) Neutrophils % (Manual) Band Neutrophils % Lymphocytes % (Manual) Atypical Lymphs % (Man) Monocytes % (Manual) Abs Neuts (Manual) Lymphocytes # (Manual) Atyp Lymphs # (Manual) Monocytes # (Manual) Toxic Granulation Toxic Vacuolation Platelet Estimate Large Platelets Plt Morphology Comment RBC Morphology Microcytosis Spherocytes [place] Cells Acanthocytes (Spur) Schistocytes ESR Hold Purple Top VBG pH VBG pCO2 VBG pO2 VBG HCO3 VBG O2 Saturation VBG Base Excess Sodium 120 L* Potassium 2.7 L* D Chloride 91 L Carbon Dioxide 19 L Anion Gap 13 BUN 21 H Creatinine 0.75 Estim Creat Clear Calc 82.5 Estimated GFR > 60 Random Glucose 107 Osmolality 258 L Lactic Acid Lactic Acid F/U @ 2Hr Lactic Acid F/U @ 4Hr Calcium 7.2 L D Phosphorus Magnesium Total Bilirubin AST ALT Alkaline Phosphatase Lactate Dehydrogenase Troponin I High Sens Total Protein Albumin Amylase Beta HCG, Quant Hold Yellow Top Urine Color Urine Appearance Urine pH Ur Specific [place] Urine Protein Urine Glucose (UA) Urine Ketones Urine Blood Urine Nitrite Ur Leukocyte Esterase Urine RBC Urine WBC Ur Squamous Epith Cells Urine Bacteria Hyaline Casts Urine Osmolality Ur Random Sodium CSF Tube Number 2 Cancelled CSF Volume CSF Appearance CSF Color CSF WBC CSF RBC CSF Neutrophils CSF Lymphocytes CSF Monocytes % CSF Other Cells % CSF Appearance (b) CSF Glucose CSF Total Protein CSF C.neoform/gat PCR CSF CMV DNA (PCR) CSF Enterovirus (PCR) CSF E. coli K1 (PCR) CSF H. influenzae (PCR) CSF HSV I (PCR) CSF HSV II (PCR) CSF HHV 6 (PCR) CSF L.monocytogenes PCR CSF N. meningitidis PCR CSF Parechovirus (PCR) CSF S. agalactiae (PCR) CSF S. pneumoniae (PCR) CSF VZV (PCR) Urine Opiates Screen Ur Buprenorphine Scrn Ur Oxycodone Screen Urine Methadone Screen Urine Fentanyl Screen Ur Barbiturates Screen Ur Phencyclidine Scrn Ur Amphetamines Screen U Benzodiazepines Scrn Urine Cocaine Screen U Marijuana (THC) Screen Influenza Type A (PCR) Influenza Type B (PCR) RSV RNA Qual (PCR) SARS-CoV-2 RNA (RT-PCR) Ref Lab Test Result 10/20/24 10/20/24 10/20/24 17:42 17:42 17:42 WBC RBC Hgb Hct MCV MCH MCHC RDW Plt Count MPV Immature Gran % (Auto) Neut % (Auto) Lymph % (Auto) [place] % (Auto) Eos % (Auto) Baso % (Auto) Lymph # (Auto) [place] # (Auto) Eos # (Auto) Baso # (Auto) Abs Immat Gran (auto) Absolute Neuts (auto) Absolute Nucleated RBC Nucleated RBC % (auto) Neutrophils % (Manual) Band Neutrophils % Lymphocytes % (Manual) Atypical Lymphs % (Man) Monocytes % (Manual) Abs Neuts (Manual) Lymphocytes # (Manual) Atyp Lymphs # (Manual) Monocytes # (Manual) Toxic Granulation Toxic Vacuolation Platelet Estimate Large Platelets Plt Morphology Comment RBC Morphology Microcytosis Spherocytes [place] Cells Acanthocytes (Spur) Schistocytes ESR Hold Purple Top VBG pH VBG pCO2 VBG pO2 VBG HCO3 VBG O2 Saturation VBG Base Excess Sodium Potassium Chloride Carbon Dioxide Anion Gap BUN Creatinine Estim Creat Clear Calc Estimated GFR Random Glucose Osmolality Lactic Acid Lactic Acid F/U @ 2Hr Lactic Acid F/U @ 4Hr Calcium Phosphorus Magnesium Total Bilirubin AST ALT Alkaline Phosphatase Lactate Dehydrogenase Troponin I High Sens Total Protein Albumin Amylase Beta HCG, Quant Hold Yellow Top Urine Color Urine Appearance Urine pH Ur Specific [place] Urine Protein Urine Glucose (UA) Urine Ketones Urine Blood Urine Nitrite Ur Leukocyte Esterase Urine RBC Urine WBC Ur Squamous Epith Cells Urine Bacteria Hyaline Casts Urine Osmolality Ur Random Sodium CSF Tube Number 1 4 CSF Volume Cancelled 1.5 CSF Appearance CSF Color CSF WBC CSF RBC CSF Neutrophils CSF Lymphocytes CSF Monocytes % CSF Other Cells % CSF Appearance (b) CSF Glucose CSF Total Protein CSF C.neoform/gat PCR CSF CMV DNA (PCR) CSF Enterovirus (PCR) CSF E. coli K1 (PCR) CSF H. influenzae (PCR) CSF HSV I (PCR) CSF HSV II (PCR) CSF HHV 6 (PCR) CSF L.monocytogenes PCR CSF N. meningitidis PCR CSF Parechovirus (PCR) CSF S. agalactiae (PCR) CSF S. pneumoniae (PCR) CSF VZV (PCR) Urine Opiates Screen Ur Buprenorphine Scrn Ur Oxycodone Screen Urine Methadone Screen Urine Fentanyl Screen Ur Barbiturates Screen Ur Phencyclidine Scrn Ur Amphetamines Screen U Benzodiazepines Scrn Urine Cocaine Screen U Marijuana (THC) Screen Influenza Type A (PCR) Influenza Type B (PCR) RSV RNA Qual (PCR) SARS-CoV-2 RNA (RT-PCR) Ref Lab Test Result 10/20/24 10/20/24 10/20/24 17:42 17:42 17:42 WBC RBC Hgb Hct MCV MCH MCHC RDW Plt Count MPV Immature Gran % (Auto) Neut % (Auto) Lymph % (Auto) [place] % (Auto) Eos % (Auto) Baso % (Auto) Lymph # (Auto) [place] # (Auto) Eos # (Auto) Baso # (Auto) Abs Immat Gran (auto) Absolute Neuts (auto) Absolute Nucleated RBC Nucleated RBC % (auto) Neutrophils % (Manual) Band Neutrophils % Lymphocytes % (Manual) Atypical Lymphs % (Man) Monocytes % (Manual) Abs Neuts (Manual) Lymphocytes # (Manual) Atyp Lymphs # (Manual) Monocytes # (Manual) Toxic Granulation Toxic Vacuolation Platelet Estimate Large Platelets Plt Morphology Comment RBC Morphology Microcytosis Spherocytes [place] Cells Acanthocytes (Spur) Schistocytes ESR Hold Purple Top VBG pH VBG pCO2 VBG pO2 VBG HCO3 VBG O2 Saturation VBG Base Excess Sodium Potassium Chloride Carbon Dioxide Anion Gap BUN Creatinine Estim Creat Clear Calc Estimated GFR Random Glucose Osmolality Lactic Acid Lactic Acid F/U @ 2Hr Lactic Acid F/U @ 4Hr Calcium Phosphorus Magnesium Total Bilirubin AST ALT Alkaline Phosphatase Lactate Dehydrogenase Troponin I High Sens Total Protein Albumin Amylase Beta HCG, Quant Hold Yellow Top Urine Color Urine Appearance Urine pH Ur Specific [place] Urine Protein Urine Glucose (UA) Urine Ketones Urine Blood Urine Nitrite Ur Leukocyte Esterase Urine RBC Urine WBC Ur Squamous Epith Cells Urine Bacteria Hyaline Casts Urine Osmolality Ur Random Sodium CSF Tube Number CSF Volume 2.0 CSF Appearance Cancelled HAZY CLEAR CSF Color Cancelled CSF WBC CSF RBC CSF Neutrophils CSF Lymphocytes CSF Monocytes % CSF Other Cells % CSF Appearance (b) CSF Glucose CSF Total Protein CSF C.neoform/gat PCR CSF CMV DNA (PCR) CSF Enterovirus (PCR) CSF E. coli K1 (PCR) CSF H. influenzae (PCR) CSF HSV I (PCR) CSF HSV II (PCR) CSF HHV 6 (PCR) CSF L.monocytogenes PCR CSF N. meningitidis PCR CSF Parechovirus (PCR) CSF S. agalactiae (PCR) CSF S. pneumoniae (PCR) CSF VZV (PCR) Urine Opiates Screen Ur Buprenorphine Scrn Ur Oxycodone Screen Urine Methadone Screen Urine Fentanyl Screen Ur Barbiturates Screen Ur Phencyclidine Scrn Ur Amphetamines Screen U Benzodiazepines Scrn Urine Cocaine Screen U Marijuana (THC) Screen Influenza Type A (PCR) Influenza Type B (PCR) RSV RNA Qual (PCR) SARS-CoV-2 RNA (RT-PCR) Ref Lab Test Result 10/20/24 10/20/24 10/20/24 17:42 17:42 17:42 WBC RBC Hgb Hct MCV MCH MCHC RDW Plt Count MPV Immature Gran % (Auto) Neut % (Auto) Lymph % (Auto) [place] % (Auto) Eos % (Auto) Baso % (Auto) Lymph # (Auto) [place] # (Auto) Eos # (Auto) Baso # (Auto) Abs Immat Gran (auto) Absolute Neuts (auto) Absolute Nucleated RBC Nucleated RBC % (auto) Neutrophils % (Manual) Band Neutrophils % Lymphocytes % (Manual) Atypical Lymphs % (Man) Monocytes % (Manual) Abs Neuts (Manual) Lymphocytes # (Manual) Atyp Lymphs # (Manual) Monocytes # (Manual) Toxic Granulation Toxic Vacuolation Platelet Estimate Large Platelets Plt Morphology Comment RBC Morphology Microcytosis Spherocytes [place] Cells Acanthocytes (Spur) Schistocytes ESR Hold Purple Top VBG pH VBG pCO2 VBG pO2 VBG HCO3 VBG O2 Saturation VBG Base Excess Sodium Potassium Chloride Carbon Dioxide Anion Gap BUN Creatinine Estim Creat Clear Calc Estimated GFR Random Glucose Osmolality Lactic Acid Lactic Acid F/U @ 2Hr Lactic Acid F/U @ 4Hr Calcium Phosphorus Magnesium Total Bilirubin AST ALT Alkaline Phosphatase Lactate Dehydrogenase Troponin I High Sens Total Protein Albumin Amylase Beta HCG, Quant Hold Yellow Top Urine Color Urine Appearance Urine pH Ur Specific [place] Urine Protein Urine Glucose (UA) Urine Ketones Urine Blood Urine Nitrite Ur Leukocyte Esterase Urine RBC Urine WBC Ur Squamous Epith Cells Urine Bacteria Hyaline Casts Urine Osmolality Ur Random Sodium CSF Tube Number CSF Volume CSF Appearance CSF Color PINK COLORLESS CSF WBC Cancelled 13 H* CSF RBC CSF Neutrophils CSF Lymphocytes CSF Monocytes % CSF Other Cells % CSF Appearance (b) CSF Glucose CSF Total Protein CSF C.neoform/gat PCR CSF CMV DNA (PCR) CSF Enterovirus (PCR) CSF E. coli K1 (PCR) CSF H. influenzae (PCR) CSF HSV I (PCR) CSF HSV II (PCR) CSF HHV 6 (PCR) CSF L.monocytogenes PCR CSF N. meningitidis PCR CSF Parechovirus (PCR) CSF S. agalactiae (PCR) CSF S. pneumoniae (PCR) CSF VZV (PCR) Urine Opiates Screen Ur Buprenorphine Scrn Ur Oxycodone Screen Urine Methadone Screen Urine Fentanyl Screen Ur Barbiturates Screen Ur Phencyclidine Scrn Ur Amphetamines Screen U Benzodiazepines Scrn Urine Cocaine Screen U Marijuana (THC) Screen Influenza Type A (PCR) Influenza Type B (PCR) RSV RNA Qual (PCR) SARS-CoV-2 RNA (RT-PCR) Ref Lab Test Result 10/20/24 10/20/24 10/20/24 17:42 17:42 17:42 WBC RBC Hgb Hct MCV MCH MCHC RDW Plt Count MPV Immature Gran % (Auto) Neut % (Auto) Lymph % (Auto) [place] % (Auto) Eos % (Auto) Baso % (Auto) Lymph # (Auto) [place] # (Auto) Eos # (Auto) Baso # (Auto) Abs Immat Gran (auto) Absolute Neuts (auto) Absolute Nucleated RBC Nucleated RBC % (auto) Neutrophils % (Manual) Band Neutrophils % Lymphocytes % (Manual) Atypical Lymphs % (Man) Monocytes % (Manual) Abs Neuts (Manual) Lymphocytes # (Manual) Atyp Lymphs # (Manual) Monocytes # (Manual) Toxic Granulation Toxic Vacuolation Platelet Estimate Large Platelets Plt Morphology Comment RBC Morphology Microcytosis Spherocytes [place]a Cells Acanthocytes (Spur) Schistocytes ESR Hold Purple Top VBG pH VBG pCO2 VBG pO2 VBG HCO3 VBG O2 Saturation VBG Base Excess Sodium Potassium Chloride Carbon Dioxide Anion Gap BUN Creatinine Estim Creat Clear Calc Estimated GFR Random Glucose Osmolality Lactic Acid Lactic Acid F/U @ 2Hr Lactic Acid F/U @ 4Hr Calcium Phosphorus Magnesium Total Bilirubin AST ALT Alkaline Phosphatase Lactate Dehydrogenase Troponin I High Sens Total Protein Albumin Amylase Beta HCG, Quant Hold Yellow Top Urine Color Urine Appearance Urine pH Ur Specific [place] Urine Protein Urine Glucose (UA) Urine Ketones Urine Blood Urine Nitrite Ur Leukocyte Esterase Urine RBC Urine WBC Ur Squamous Epith Cells Urine Bacteria Hyaline Casts Urine Osmolality Ur Random Sodium CSF Tube Number CSF Volume CSF Appearance CSF Color CSF WBC 64 H* CSF RBC Cancelled 5399 121 CSF Neutrophils Cancelled CSF Lymphocytes CSF Monocytes % CSF Other Cells % CSF Appearance (b) CSF Glucose CSF Total Protein CSF C.neoform/gat PCR CSF CMV DNA (PCR) CSF Enterovirus (PCR) CSF E. coli K1 (PCR) CSF H. influenzae (PCR) CSF HSV I (PCR) CSF HSV II (PCR) CSF HHV 6 (PCR) CSF L.monocytogenes PCR CSF N. meningitidis PCR CSF Parechovirus (PCR) CSF S. agalactiae (PCR) CSF S. pneumoniae (PCR) CSF VZV (PCR) Urine Opiates Screen Ur Buprenorphine Scrn Ur Oxycodone Screen Urine Methadone Screen Urine Fentanyl Screen Ur Barbiturates Screen Ur Phencyclidine Scrn Ur Amphetamines Screen U Benzodiazepines Scrn Urine Cocaine Screen U Marijuana (THC) Screen Influenza Type A (PCR) Influenza Type B (PCR) RSV RNA Qual (PCR) SARS-CoV-2 RNA (RT-PCR) Ref Lab Test Result 10/20/24 10/20/24 10/20/24 17:42 17:42 17:42 WBC RBC Hgb Hct MCV MCH MCHC RDW Plt Count MPV Immature Gran % (Auto) Neut % (Auto) Lymph % (Auto) [place] % (Auto) Eos % (Auto) Baso % (Auto) Lymph # (Auto) [place] # (Auto) Eos # (Auto) Baso # (Auto) Abs Immat Gran (auto) Absolute Neuts (auto) Absolute Nucleated RBC Nucleated RBC % (auto) Neutrophils % (Manual) Band Neutrophils % Lymphocytes % (Manual) Atypical Lymphs % (Man) Monocytes % (Manual) Abs Neuts (Manual) Lymphocytes # (Manual) Atyp Lymphs # (Manual) Monocytes # (Manual) Toxic Granulation Toxic Vacuolation Platelet Estimate Large Platelets Plt Morphology Comment RBC Morphology Microcytosis Spherocytes [place] Cells Acanthocytes (Spur) Schistocytes ESR Hold Purple Top VBG pH VBG pCO2 VBG pO2 VBG HCO3 VBG O2 Saturation VBG Base Excess Sodium Potassium Chloride Carbon Dioxide Anion Gap BUN Creatinine Estim Creat Clear Calc Estimated GFR Random Glucose Osmolality Lactic Acid Lactic Acid F/U @ 2Hr Lactic Acid F/U @ 4Hr Calcium Phosphorus Magnesium Total Bilirubin AST ALT Alkaline Phosphatase Lactate Dehydrogenase Troponin I High Sens Total Protein Albumin Amylase Beta HCG, Quant Hold Yellow Top Urine Color Urine Appearance Urine pH Ur Specific [place] Urine Protein Urine Glucose (UA) Urine Ketones Urine Blood Urine Nitrite Ur Leukocyte Esterase Urine RBC Urine WBC Ur Squamous Epith Cells Urine Bacteria Hyaline Casts Urine Osmolality Ur Random Sodium CSF Tube Number CSF Volume CSF Appearance CSF Color CSF WBC CSF RBC CSF Neutrophils 88 84 CSF Lymphocytes Cancelled 4 CSF Monocytes % CSF Other Cells % CSF Appearance (b) CSF Glucose CSF Total Protein CSF C.neoform/gat PCR CSF CMV DNA (PCR) CSF Enterovirus (PCR) CSF E. coli K1 (PCR) CSF H. influenzae (PCR) CSF HSV I (PCR) CSF HSV II (PCR) CSF HHV 6 (PCR) CSF L.monocytogenes PCR CSF N. meningitidis PCR CSF Parechovirus (PCR) CSF S. agalactiae (PCR) CSF S. pneumoniae (PCR) CSF VZV (PCR) Urine Opiates Screen Ur Buprenorphine Scrn Ur Oxycodone Screen Urine Methadone Screen Urine Fentanyl Screen Ur Barbiturates Screen Ur Phencyclidine Scrn Ur Amphetamines Screen U Benzodiazepines Scrn Urine Cocaine Screen U Marijuana (THC) Screen Influenza Type A (PCR) Influenza Type B (PCR) RSV RNA Qual (PCR) SARS-CoV-2 RNA (RT-PCR) Ref Lab Test Result 10/20/24 10/20/24 10/20/24 17:42 17:42 17:42 WBC RBC Hgb Hct MCV MCH MCHC RDW Plt Count MPV Immature Gran % (Auto) Neut % (Auto) Lymph % (Auto) [place] % (Auto) Eos % (Auto) Baso % (Auto) Lymph # (Auto) [place] # (Auto) Eos # (Auto) Baso # (Auto) Abs Immat Gran (auto) Absolute Neuts (auto) Absolute Nucleated RBC Nucleated RBC % (auto) Neutrophils % (Manual) Band Neutrophils % Lymphocytes % (Manual) Atypical Lymphs % (Man) Monocytes % (Manual) Abs Neuts (Manual) Lymphocytes # (Manual) Atyp Lymphs # (Manual) Monocytes # (Manual) Toxic Granulation Toxic Vacuolation Platelet Estimate Large Platelets Plt Morphology Comment RBC Morphology Microcytosis Spherocytes [place] Cells Acanthocytes (Spur) Schistocytes ESR Hold Purple Top VBG pH VBG pCO2 VBG pO2 VBG HCO3 VBG O2 Saturation VBG Base Excess Sodium Potassium Chloride Carbon Dioxide Anion Gap BUN Creatinine Estim Creat Clear Calc Estimated GFR Random Glucose Osmolality Lactic Acid Lactic Acid F/U @ 2Hr Lactic Acid F/U @ 4Hr Calcium Phosphorus Magnesium Total Bilirubin AST ALT Alkaline Phosphatase Lactate Dehydrogenase Troponin I High Sens Total Protein Albumin Amylase Beta HCG, Quant Hold Yellow Top Urine Color Urine Appearance Urine pH Ur Specific [place] Urine Protein Urine Glucose (UA) Urine Ketones Urine Blood Urine Nitrite Ur Leukocyte Esterase Urine RBC Urine WBC Ur Squamous Epith Cells Urine Bacteria Hyaline Casts Urine Osmolality Ur Random Sodium CSF Tube Number CSF Volume CSF Appearance CSF Color CSF WBC CSF RBC CSF Neutrophils CSF Lymphocytes 6 CSF Monocytes % Cancelled 8 10 CSF Other Cells % Cancelled CSF Appearance (b) Clear, Colorless CSF Glucose 39 CSF Total Protein 43.5 CSF C.neoform/gat PCR Not Detected CSF CMV DNA (PCR) Not Detected CSF Enterovirus (PCR) Not Detected CSF E. coli K1 (PCR) Not Detected CSF H. influenzae (PCR) Not Detected CSF HSV I (PCR) Not Detected CSF HSV II (PCR) Not Detected CSF HHV 6 (PCR) Not Detected CSF L.monocytogenes PCR Not Detected CSF N. meningitidis PCR Not Detected CSF Parechovirus (PCR) Not Detected CSF S. agalactiae (PCR) Not Detected CSF S. pneumoniae (PCR) Not Detected CSF VZV (PCR) Not Detected Urine Opiates Screen Ur Buprenorphine Scrn Ur Oxycodone Screen Urine Methadone Screen Urine Fentanyl Screen Ur Barbiturates Screen Ur Phencyclidine Scrn Ur Amphetamines Screen U Benzodiazepines Scrn Urine Cocaine Screen U Marijuana (THC) Screen Influenza Type A (PCR) Influenza Type B (PCR) RSV RNA Qual (PCR) SARS-CoV-2 RNA (RT-PCR) Ref Lab Test Result SEE NOTE 10/20/24 10/20/24 10/20/24 17:52 18:39 19:08 WBC RBC Hgb Hct MCV MCH MCHC RDW Plt Count MPV Immature Gran % (Auto) Neut % (Auto) Lymph % (Auto) [place] % (Auto) Eos % (Auto) Baso % (Auto) Lymph # (Auto) [place] # (Auto) Eos # (Auto) Baso # (Auto) Abs Immat Gran (auto) Absolute Neuts (auto) Absolute Nucleated RBC Nucleated RBC % (auto) Neutrophils % (Manual) Band Neutrophils % Lymphocytes % (Manual) Atypical Lymphs % (Man) Monocytes % (Manual) Abs Neuts (Manual) Lymphocytes # (Manual) Atyp Lymphs # (Manual) Monocytes # (Manual) Toxic Granulation Toxic Vacuolation Platelet Estimate Large Platelets Plt Morphology Comment RBC Morphology Microcytosis Spherocytes [place]a Cells Acanthocytes (Spur) Schistocytes ESR Hold Purple Top SEE NOTE VBG pH VBG pCO2 VBG pO2 VBG HCO3 VBG O2 Saturation VBG Base Excess Sodium 121 L Potassium 3.1 L Chloride 95 L Carbon Dioxide 17 L Anion Gap 12 BUN 21 H Creatinine 0.74 Estim Creat Clear Calc 83.6 Estimated GFR > 60 Random Glucose 97 Osmolality Lactic Acid Lactic Acid F/U @ 2Hr 2.2 H* Lactic Acid F/U @ 4Hr Calcium 7.1 L Phosphorus Magnesium Total Bilirubin AST ALT Alkaline Phosphatase Lactate Dehydrogenase 368 H Troponin I High Sens 593.1 H* Total Protein Albumin Amylase 27 L Beta HCG, Quant Hold Yellow Top See Note Urine Color Yellow Urine Appearance Cloudy Urine pH 6.0 Ur Specific [place] 1.015 Urine Protein 100 (2+) H Urine Glucose (UA) Negative Urine Ketones 15 Urine Blood Large (3+) H Urine Nitrite Positive H Ur Leukocyte Esterase Small (1+) H Urine RBC 11-20 H Urine WBC 11-20 H Ur Squamous Epith Cells 3-5 Urine Bacteria 4+ Hyaline Casts 3-5 Urine Osmolality 411 Ur Random Sodium < 20.0 CSF Tube Number CSF Volume CSF Appearance CSF Color CSF WBC CSF RBC CSF Neutrophils CSF Lymphocytes CSF Monocytes % CSF Other Cells % CSF Appearance (b) CSF Glucose CSF Total Protein CSF C.neoform/gat PCR CSF CMV DNA (PCR) CSF Enterovirus (PCR) CSF E. coli K1 (PCR) CSF H. influenzae (PCR) CSF HSV I (PCR) CSF HSV II (PCR) CSF HHV 6 (PCR) CSF L.monocytogenes PCR CSF N. meningitidis PCR CSF Parechovirus (PCR) CSF S. agalactiae (PCR) CSF S. pneumoniae (PCR) CSF VZV (PCR) Urine Opiates Screen POSITIVE H Ur Buprenorphine Scrn Not Detected Ur Oxycodone Screen Not Detected Urine Methadone Screen Positive H Urine Fentanyl Screen POSITIVE H Ur Barbiturates Screen Not Detected Ur Phencyclidine Scrn Not Detected Ur Amphetamines Screen Not Detected U Benzodiazepines Scrn Not Detected Urine Cocaine Screen POSITIVE H U Marijuana (THC) Screen POSITIVE H Influenza Type A (PCR) Influenza Type B (PCR) RSV RNA Qual (PCR) SARS-CoV-2 RNA (RT-PCR) Ref Lab Test Result 10/20/24 10/20/24 10/20/24 19:16 20:53 23:41 WBC RBC Hgb Hct MCV MCH MCHC RDW Plt Count MPV Immature Gran % (Auto) Neut % (Auto) Lymph % (Auto) [place] % (Auto) Eos % (Auto) Baso % (Auto) Lymph # (Auto) [place] # (Auto) Eos # (Auto) Baso # (Auto) Abs Immat Gran (auto) Absolute Neuts (auto) Absolute Nucleated RBC Nucleated RBC % (auto) Neutrophils % (Manual) Band Neutrophils % Lymphocytes % (Manual) Atypical Lymphs % (Man) Monocytes % (Manual) Abs Neuts (Manual) Lymphocytes # (Manual) Atyp Lymphs # (Manual) Monocytes # (Manual) Toxic Granulation Toxic Vacuolation Platelet Estimate Large Platelets Plt Morphology Comment RBC Morphology Microcytosis Spherocytes [place]a Cells Acanthocytes (Spur) Schistocytes ESR Hold Purple Top VBG pH 7.48 H VBG pCO2 27 VBG pO2 52 VBG HCO3 20 L VBG O2 Saturation 89.0 VBG Base Excess -1.2 Sodium 124 L Potassium 2.8 L* Chloride 96 Carbon Dioxide 17 L Anion Gap 14 BUN 20 H Creatinine 0.80 Estim Creat Clear Calc 62.9 Estimated GFR > 60 Random Glucose 131 H Osmolality Lactic Acid Lactic Acid F/U @ 2Hr Lactic Acid F/U @ 4Hr 2.7 H* Calcium 7.9 L D Phosphorus Magnesium Total Bilirubin 1.3 H AST 50 H ALT 8 Alkaline Phosphatase 91 Lactate Dehydrogenase Troponin I High Sens 586.4 H* Total Protein 5.9 L Albumin 3.2 L Amylase Beta HCG, Quant Hold Yellow Top Urine Color Urine Appearance Urine pH Ur Specific [place] Urine Protein Urine Glucose (UA) Urine Ketones Urine Blood Urine Nitrite Ur Leukocyte Esterase Urine RBC Urine WBC Ur Squamous Epith Cells Urine Bacteria Hyaline Casts Urine Osmolality Ur Random Sodium CSF Tube Number CSF Volume CSF Appearance CSF Color CSF WBC CSF RBC CSF Neutrophils CSF Lymphocytes CSF Monocytes % CSF Other Cells % CSF Appearance (b) CSF Glucose CSF Total Protein CSF C.neoform/gat PCR CSF CMV DNA (PCR) CSF Enterovirus (PCR) CSF E. coli K1 (PCR) CSF H. influenzae (PCR) CSF HSV I (PCR) CSF HSV II (PCR) CSF HHV 6 (PCR) CSF L.monocytogenes PCR CSF N. meningitidis PCR CSF Parechovirus (PCR) CSF S. agalactiae (PCR) CSF S. pneumoniae (PCR) CSF VZV (PCR) Urine Opiates Screen Ur Buprenorphine Scrn Ur Oxycodone Screen Urine Methadone Screen Urine Fentanyl Screen Ur Barbiturates Screen Ur Phencyclidine Scrn Ur Amphetamines Screen U Benzodiazepines Scrn Urine Cocaine Screen U Marijuana (THC) Screen Influenza Type A (PCR) Influenza Type B (PCR) RSV RNA Qual (PCR) SARS-CoV-2 RNA (RT-PCR) Ref Lab Test Result 10/20/24 10/21/24 23:46 04:53 WBC 17.8 H 17.1 H RBC 4.21 D 3.74 L Hgb 11.6 L D 10.2 L Hct 31.2 L D 27.7 L MCV 74.1 L 74.1 L MCH 27.6 27.3 MCHC 37.2 H 36.8 H RDW 13.7 13.6 Plt Count 37 L 44 L MPV Not Reportable 12.9 H Immature Gran % (Auto) Cancelled Cancelled Neut % (Auto) Cancelled Cancelled Lymph % (Auto) Cancelled Cancelled [place] % (Auto) Cancelled Cancelled Eos % (Auto) Cancelled Cancelled Baso % (Auto) Cancelled Cancelled Lymph # (Auto) Cancelled Cancelled [place] # (Auto) Cancelled Cancelled Eos # (Auto) Cancelled Cancelled Baso # (Auto) Cancelled Cancelled Abs Immat Gran (auto) Cancelled Cancelled Absolute Neuts (auto) Cancelled Cancelled Absolute Nucleated RBC 0.000 0.000 Nucleated RBC % (auto) 0.0 0.0 Neutrophils % (Manual) 79 H 82 H Band Neutrophils % 12 H 13 H Lymphocytes % (Manual) 2 L 1 L Atypical Lymphs % (Man) Monocytes % (Manual) 7 4 Abs Neuts (Manual) 16.2 H 16.2 H Lymphocytes # (Manual) 0.4 L 0.2 L Atyp Lymphs # (Manual) Monocytes # (Manual) 1.2 0.7 Toxic Granulation PRESENT PRESENT Toxic Vacuolation PRESENT PRESENT Platelet Estimate DECREASED DECREASED Large Platelets PRESENT PRESENT Plt Morphology Comment NOTED NOTED RBC Morphology NOTED NOTED Microcytosis 1+ (5-14) 1+ (5-14) Spherocytes 1+ (0-2) 1+ (0-2) [place] Cells 2+ (3-5) 2+ (3-5) Acanthocytes (Spur) Schistocytes 1+ (0-2) 1+ (0-2) ESR Hold Purple Top VBG pH 7.63 H* VBG pCO2 17 VBG pO2 57 VBG HCO3 18 L VBG O2 Saturation 94.0 VBG Base Excess -0.2 Sodium 126 L Potassium 2.6 L* Chloride 98 Carbon Dioxide 16 L Anion Gap 15 BUN 20 H Creatinine 0.80 Estim Creat Clear Calc 62.9 Estimated GFR > 60 Random Glucose 117 H Osmolality Lactic Acid 1.5 Lactic Acid F/U @ 2Hr Lactic Acid F/U @ 4Hr Calcium 8.1 L Phosphorus 1.2 L Magnesium 2.3 Total Bilirubin 1.3 H AST 45 H ALT 8 Alkaline Phosphatase 72 Lactate Dehydrogenase Troponin I High Sens Total Protein 6.0 L Albumin 3.6 Amylase Beta HCG, Quant Hold Yellow Top Urine Color Urine Appearance Urine pH Ur Specific [place] Urine Protein Urine Glucose (UA) Urine Ketones Urine Blood Urine Nitrite Ur Leukocyte Esterase Urine RBC Urine WBC Ur Squamous Epith Cells Urine Bacteria Hyaline Casts Urine Osmolality Ur Random Sodium CSF Tube Number CSF Volume CSF Appearance CSF Color CSF WBC CSF RBC CSF Neutrophils CSF Lymphocytes CSF Monocytes % CSF Other Cells % CSF Appearance (b) CSF Glucose CSF Total Protein CSF C.neoform/gat PCR CSF CMV DNA (PCR) CSF Enterovirus (PCR) CSF E. coli K1 (PCR) CSF H. influenzae (PCR) CSF HSV I (PCR) CSF HSV II (PCR) CSF HHV 6 (PCR) CSF L.monocytogenes PCR CSF N. meningitidis PCR CSF Parechovirus (PCR) CSF S. agalactiae (PCR) CSF S. pneumoniae (PCR) CSF VZV (PCR) Urine Opiates Screen Ur Buprenorphine Scrn Ur Oxycodone Screen Urine Methadone Screen Urine Fentanyl Screen Ur Barbiturates Screen Ur Phencyclidine Scrn Ur Amphetamines Screen U Benzodiazepines Scrn Urine Cocaine Screen U Marijuana (THC) Screen Influenza Type A (PCR) Influenza Type B (PCR) RSV RNA Qual (PCR) SARS-CoV-2 RNA (RT-PCR) Ref Lab Test Result Microbiology Microbiology Results: Microbiology 10/20/24 18:30 Urine clean catch - Clean Catch Midstream Urine Culture - Preliminary Staphylococcus aureus 10/20/24 15:45 Blood - Venous Blood Culture - Preliminary Prelim: GPC Gram Stain only 10/20/24 15:45 Blood - Venous Blood Culture - Preliminary Prelim: GPC Gram Stain only 10/20/24 17:42 Cerebrospinal Fluid Gram Stain - Final 10/20/24 17:42 Cerebrospinal Fluid CSF Examination - Final 10/20/24 17:42 Cerebrospinal Fluid Fluid Description - Final 10/20/24 17:42 Cerebrospinal Fluid CSF Culture - Preliminary No growth after 1 day Progress Note: A&P Assessment and plan (1) Opioid use disorder: Status: Acute (2) Acute hyponatremia: Status: Acute (3) Sepsis: Status: Acute (4) Altered mental status: Status: Acute (5) Encephalopathy acute: Status: Acute (6) Infective endocarditis: Status: Acute Plan Neuro: Acute encephalopathy possibly due to metabolic encephalopathy versus meningitis lumbar puncture done showed elevated RBCs, low sugar, slightly elevated protein. Viral meningitis panel negative so acyclovir discontinued CT head did not show any acute intracranial pathology Close neurological status monitoring in the ICU every hour Cardiac: sinus tachycardia possibly related to opioid withdrawal and febrile illness blood pressures stable mitral valve infective endocarditis: bedside echo showing evidence of mitral valve endocarditis blood cultures positive for staph aureus evidence of splenic and renal infarcts Respiratory: breathing stable, dyspnea possibly due to opioid withdrawal has some pneumonia in the left lung base GI: NPO for now as she is high-risk for aspiration Renal: acute hypokalemia magnesium levels normal, we will replace as per protocol acute hypophosphatemia: possibly due to poor oral intake we will improved nutrition as tolerated when patient's overall condition improves Heme: Chronic anemia, closely monitor H&H, transfuse for hemoglobin less than 7 grams/deciliter thrombocytopenia: secondary to bacteremia. No evidence of bleeding Endocrine: Blood sugars under control Sliding scale insulin as needed Infectious disease: blood cultures growing GPC in clusters, urine cultures positive for staph aureus continue vanc and Zosyn until final speciation we will get CT of the spine when she is more stable and her mental status improves Musculoskeletal: Decubitus ulcer prevention protocol Lines: peripheral Prophylaxis: Lovenox with held due to thrombocytopenia, pantoprazole Quality Stroke Does the patient have a stroke diagnosis?: No VTE Prior VTE?: No VTE Risk Level:: Medical - moderate - high VTE Device Contraindication: N/A - Device Ordered VTE Drug Contraindication: N/A - Med Ordered
[2024-10-21 21:27] LABS: Alanine Aminotransferase 10 U/L (0-31); Albumin Level 3.2 g/dL (3.5-5.0); Alkaline Phosphatase 85 U/L (39-117); Anion Gap 15 (12-20); Aspartate Amino Transferase 49 U/L (5-31); Blood Urea Nitrogen 21 mg/dL (9-16); Carbon Dioxide 17 mmol/L (22-29); Chloride 107 mmol/L (96-108); Creatinine Clr Calc Pharmacy 67.1; Estimated Glomerular Filt Rate > 60; Glucose Random 106 mg/dL (60-115); Phosphorus 2.6 mg/dL (2.7-4.5); Potassium 3.3 mmol/L (3.3-5.1); Sodium 136 mmol/L (135-145); Total Protein 6.1 g/dL (6.5-8.0)
[2024-10-22] VITALS (30 sets, daily range): BP systolic 79–119; BP diastolic 39–83; PULSE 75–150; RESP 26–40; TEMP 37.1–38.7; O2SAT 95–100
[2024-10-22] MEDS: 0.9 % Sodium Chloride Flush 3 ML SYRINGE IVFLUSH ×3 (00:55→15:08)
[2024-10-22] MEDS: Piperacillin Sodium/Tazobactam 3.375 GM in 0.9 % Sodium Chloride 50 ML IV ×3 (03:20→15:07)
[2024-10-22] MEDS: fentaNYL citrate/PF 100 MCG/2 ML VIAL 25 MCG IVPUSH ×2 (04:13→12:24)
[2024-10-22] MEDS: Ketorolac Tromethamine 15 MG/ML VIAL IVPUSH (04:30)
[2024-10-22 04:56] LABS: Hematocrit 28.3 % (37.0-47.0); Hemoglobin 10.4 g/dl (12.0-16.0); Mean Corpuscular HGB Conc 36.7 g/dl (31.0-35.0); Mean Corpuscular Hemoglobin 27.3 pg (27.0-33.0); Mean Corpuscular Volume 74.3 fL (80.0-98.0); Mean Platelet Volume 11.8 fL (9.4-12.3); Red Blood Count 3.81 X10*6/uL (4.20-5.50); Red Cell Distribution Width 14.1 % (11.0-16.0)
[2024-10-22 04:57] LABS: Platelet Count 62 X10*3/uL (160-400)
[2024-10-22] MEDS: Metoprolol Tartrate 5 MG/5 ML VIAL IVPUSH ×2 (05:00→05:30)
--- NOTE | 2024-10-22 05:05 | ECG_ITS ---
Test Reason : Tachy Blood Pressure : */* mmHG Vent. Rate : 116 BPM Atrial Rate : * BPM P-R Int : * ms QRS Dur : 102 ms QT Int : 352 ms P-R-T Axes : * 104 38 degrees QTcB Int : 489 ms Atrial fibrillation with rapid ventricular response Incomplete right bundle branch block Anterolateral infarct (cited on or before 26-Apr-2018) Abnormal ECG When compared with ECG of 22-Oct-2024 05:06, No significant change was found Referred By: Onel Pyle Electronically Signed By: MICA ALEJO MD
[2024-10-22] MEDS: Lactated Ringers 500 ML 999 ML IV (05:10)
[2024-10-22 05:14] LABS: Band Neutrophils Percent 5 % (3-5); Lymphocytes Absolute Manual 0.4 X10*3/uL (1.2-4.9); Lymphocytes Percent Manual 2 % (20-40); Microcytosis 1+ (5-14) /OIF; Monocytes Absolute Manual 0.6 X10*3/uL (0.1-1.2); Monocytes Percent Manual 3 % (2-11); Neutrophils Percent Manual 90 % (45-73); Platelet Estimate DECREASED (NORMAL); RBC Morphology NOTED
[2024-10-22] MEDS: dilTIAZem HCL 50 MG/10 ML VIAL 10 MG IVPUSH ×2 (05:15→05:29)
[2024-10-22 05:16] LABS: Alanine Aminotransferase 10 U/L (0-31); Albumin Level 3.1 g/dL (3.5-5.0); Anion Gap 17 (12-20); Aspartate Amino Transferase 42 U/L (5-31); Bilirubin Total 0.9 mg/dL (0.0-1.0); Blood Urea Nitrogen 26 mg/dL (9-16); Burr Cells 3+ (>5) /OIF; Calcium 7.8 mg/dL (8.4-10.2); Carbon Dioxide 16 mmol/L (22-29); Chloride 106 mmol/L (96-108); Creatinine Clr Calc Pharmacy 64.5; Estimated Glomerular Filt Rate > 60; Glucose Random 108 mg/dL (60-115); Magnesium 2.8 mg/dL (1.6-2.6); Phosphorus 3.4 mg/dL (2.7-4.5); Platelet Morphology Comment NORMAL; Potassium 2.9 mmol/L (3.3-5.1); Schistocytes 1+ (0-2) /OIF; Sodium 136 mmol/L (135-145); Spherocytes 1+ (0-2) /OIF; Total Protein 6.3 g/dL (6.5-8.0); Toxic Granulation PRESENT; Toxic Vacuolation PRESENT
[2024-10-22 05:19] LABS: Alkaline Phosphatase 81 U/L (39-117)
--- NOTE | 2024-10-22 05:34 | PM.CCN ---
Critical Care Event Note Summary Date of Service: 10/22/24 Code activated: No Narrative: This case had a high probability of a clinically significant, sudden, or life threatening deterioration of this patient's condition which required my full and direct attention, intervention and personal management. Critical Care Time (minutes): 45 Comment: at 456 am patient who has been tachycardic throughout the hospital course, went into SVT with heart rate between 138-148. Patient complained of chest pain. Otherwise the patient was hemodynamically stable. 5 mg of Lopressor IV given x1 and repeated while getting an EKG at which time the patient's heart rate did slow down and broke into atrial fibrillation with rapid ventricular response of 118 beats per minute. There is questionable ST elevations in the lateral leads V4 to V6 which I do not see present on EKG from arrival to the emergency room. The patient's heart rate continued to be elevated, 2 doses of 10 mg each of Cardizem was given, successfully converting the patient's AFib into sinus rhythm with rate of 80 beats per minute for short period of time. 05:32 a.m., repeat EKGs did shows atrial fibrillation now with a controlled rate of 94 beats per minute. Again nonspecific T-waves in the lateral leads. So far rate remains less than 100 I will hold off on Cardizem drip at this point. Troponin ordered. The patient's blood pressure is borderline with a map of 66. She is on IV fluids as her urine output has been decreasing throughout the night. Potassium replacement has been ordered. 0622 am critical Trop reported > 1400 from prior baseline of 500's. Patients plts only 60 k, repeat trop and will discuss with Dr Ramirez for ? Anticoag and possible transfer to [facility] or another primary center where she can get treatment for her Mitral Valve Endocarditis, also ? MRI to r/o abscess collections around the C, T and L spine. Critical care time used for critical evaluation of this patient, diagnosis, treatment and coordination of care, review her records and documentation TOTAL CRITICAL CARE TIME 45 MIN , completely separate from any procedures performed. Patient's care was discussed in detail with Dr. Ramirez. He is aware of all the above as well as the plan of care for this patient..
[2024-10-22] MEDS: Potassium Chloride/H20 10 MEQ/100 ML PIGGYBACK 100 MEQ IV ×8 (05:46→15:06)
[2024-10-22] MEDS: Lactated Ringers 1,000 ML 80 ML IVCONT (05:47)
[2024-10-22] MEDS: Albumin Human 25 % 100 ML 133.33 ML IV (06:03)
[2024-10-22 06:12] LABS: Vancomycin Random 14.5 mcg/mL (15-20)
[2024-10-22 06:21] LABS: Troponin-I High Sensitivity 1954.3 ng/L (<3.5-17.0)
--- NOTE | 2024-10-22 06:27 | HE.PHANOTE ---
RE: VANCO DOSING Trough came back as 14.5 mg/L and renal function is stable. Dose is continued at 750 mg q12h, next trough is scheduled for 10/23/24 @0600.
[2024-10-22] MEDS: Albumin Human 25 % 100 ML 800 ML IV (06:29)
[2024-10-22] MEDS: Pantoprazole Sodium 40 MG/10 ML VIAL IVPUSH (06:40)
--- NOTE | 2024-10-22 07:17 | PC.NURSE ---
0458-pt experienced cardiac rhythm deterioration. sinus tachycardia 120s bpm degenerated into rapid svt( apical hr 150-160 bpm). a subsequent decline in sbp ensued. provider kade west summoned to bedside the following interventions were immediately implemented 1. metoprolol 5 mg iv x2 2. 500 ml LR iv bolus wo 3. stat 12 lead ekg 4. diltiazem 10 mg iv x2 5. labs 6. maintenance IV LR at 80 ml/hr. with interventions completed- hr has decreased to 90-110 bpm 2. ecg displays afib 3. ecg changes were noted on 12 lead 4. troponin pending 5. unfortunately with beta and calcium channel blockers sbp has decreased into the 80s mmhg- plan 1. 25% 100 ml albumin iv x2 2. kcl 10 meq(100 ml) iv over 1 hour x4- 0630 pt is awake/speech is slightly muffled and difficult to discern. she follows instruction by squeezing and releasing hands to command . she will wiggle toes and lift feet weakly off the bed bilat. she can be fidgety by bending arms frequently and causing iv flow issues. she is tachypneic rr 30-38 bpm. no obvious air hunger. no retractions. breath sounds diminished with upper airway congestion. she has a nonproductive cough. a systolic ejection murmur is noted. ecg displays afib ventricular response 90-100 bpm. sbp in the 80s mmhg. temp has decreased to 99.8. npo status maintained. u/o has decreased since rhythm change and hypotension. u/o 30ml/hr
[2024-10-22] MEDS: Phenylephrine HCL 20 MG in 0.9 % Sodium Chloride 250 ML 15.35 MG IVCONT (07:40)
[2024-10-22] MEDS: methADONE HCl 20 MG/2 ML ORAL.CONC 10 MG PO (08:03)
[2024-10-22 08:24] LABS: HIV AB/AG Nonreactive (Nonreactive); HIV Num 1 0.13 S/CO (0.00-0.99)
[2024-10-22 08:29] LABS: HBS Num1 689.37 mIU/mL (0-7.99); HBc Num1 0.12 S/CO (0.00-0.79); HBsAGNum1 0.48 S/CO (0.00-0.99); Hepatitis B Core Antibody Nonreactive (Nonreactive); Hepatitis B Surface Antigen Negative (Negative); ~HepC Num1 16.07 S/CO (0.00-0.79); ~Hepatitis B Surface Antibody REACTIVE (Nonreactive); ~Hepatitis C Antibody Reactive (Nonreactive)
[2024-10-22] MEDS: Lactated Ringers 1,000 ML 999 ML IV (09:08)
[2024-10-22 10:30] LABS: Lactic Acid 5.4 mmol/L (0.5-2.0)
[2024-10-22] MEDS: vancomycin HCL 750 MG in 0.9 % Sodium Chloride 250 ML 265 MG IV (10:35)
--- NOTE | 2024-10-22 10:35 | MHC.CM.PN ---
Addendum entered by Cristy Godwin 10/22/24 14:05: [facility] does not have a HCP on file for pt Original Note: Met with pt and her mother and stepfather: pt more alert but still vague at times: no a reliable historian: Pt states Sagar is her boyfriend of 5 years and that she feels safe residing with him. Her parents have legal custody of pt's 9 y.o. 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 Pt has significant cardiac illness and may need transfer to a specialized medical center: to discuss w/pt and family. CM to contact [facility] for a copy of HCP.
[2024-10-22] MEDS: Phenylephrine HCL 20 MG in 0.9 % Sodium Chloride 250 ML 92.08 MG IVCONT ×2 (10:51→13:36)
[2024-10-22 10:55] LABS: Troponin-I High Sensitivity 1575.7 ng/L (<3.5-17.0)
--- NOTE | 2024-10-22 11:08 | MHC.CLN ---
F/U PT QUALIFIES FOR NON-SEVERE MALNUTRITION IN THE CONTEXT OF SOCIAL/BEHAVIOR AND ENVIRONMENTAL SEE FULL CLINICAL NUTRITION ASSESSMENT DATED 10/21/24 PT REMAINS NPO-DAY 2 DISCUSSED AT ROUNDS WITH MD-POSSIBLE TRANSFER WHEN DIET TO ADVANCE; RECOMMEND ADDING MAGIC CUP TID TO INCREASE KCALS SUPP WILL PROVIDE 870KCALS, 27G PROTEIN PT IS AT RISK FOR [id number] MONITOR MG, PHOS AND K+ FOLLOWING FOR DIET ADVANCEMENT CONSULT RD IF ALTERNATIVE NUTRITION IS NEEDED
[2024-10-22 11:47] LABS: Reflex Lactate? Lactic Acid Added
--- NOTE | 2024-10-22 13:02 | PM.CCPN ---
Subjective Subjective Date of Service: 10/22/24 Interval History: Episodes of SVT, now followed by hypotension needing vasopressor support Mentation slightly improved Critical Care Time (minutes): 35 Physical Exam Vital Signs: Vital Signs: Last Vital Signs Temp 99.7 F 10/22/24 11:00 Pulse 107 H 10/22/24 11:00 Resp 40 H 10/22/24 11:00 BP 99/72 10/22/24 11:00 Pulse Ox 99 10/22/24 11:00 O2 Del Method Room Air 10/22/24 11:00 BMI result Body Mass Index 17.5 General: Young lady in acute distress, chronically sick and ill appearing Nutritional Appearance: Very poor nourished and underweight Eyes: appearance normal, both eyes and all related structures; Alignment and Position: alignment normal and position normal Neck: No lymphadenopathy, no thyromegaly Resp: bilateral air entry equal, occasional added sounds present in the left lung base Cardio: Regular rate, regular rhythm; Heart sounds: S1 normal heart sound present and S2 normal heart sound present GI: soft, nontender, no guarding, no hepatosplenomegaly : bladder normal to inspection, bladder normal to palpation, no renal angle tenderness Skin: no rashes or lesions noted and elasticity normal Neuro: oriented to person, oriented to place, oriented to time and moves all extremities Objective Data Labs 10/22/24 04:38 10/22/24 04:38 Labs: Laboratory Results - last 24 hr 10/20/24 10/21/24 10/21/24 17:42 11:44 20:55 WBC RBC Hgb Hct MCV MCH MCHC RDW Plt Count MPV Immature Gran % (Auto) Neut % (Auto) Lymph % (Auto) [place] % (Auto) Eos % (Auto) Baso % (Auto) Lymph # (Auto) [place] # (Auto) Eos # (Auto) Baso # (Auto) Abs Immat Gran (auto) Absolute Neuts (auto) Absolute Nucleated RBC Nucleated RBC % (auto) Neutrophils % (Manual) Band Neutrophils % Lymphocytes % (Manual) Monocytes % (Manual) Abs Neuts (Manual) Lymphocytes # (Manual) Monocytes # (Manual) Toxic Granulation Toxic Vacuolation Platelet Estimate Plt Morphology Comment RBC Morphology Microcytosis Spherocytes [place] Cells Schistocytes Sodium 136 Potassium 3.3 D Chloride 107 Carbon Dioxide 17 L Anion Gap 15 BUN 21 H Creatinine 0.75 Estim Creat Clear Calc 67.1 Estimated GFR > 60 Random Glucose 106 Lactic Acid Calcium 8.0 L Phosphorus 2.6 L Magnesium Total Bilirubin 1.0 AST 49 H ALT 10 Alkaline Phosphatase 85 Troponin I High Sens Total Protein 6.1 L Albumin 3.2 L Random Vancomycin Hep Bs Antigen Negative Hep Bs Antibody REACTIVE Hep B Core Total Ab Nonreactive Hepatitis C Ab (EIA) Reactive H HIV 1&2 Ab/P24 Ag 4thGn Nonreactive Ref Lab Test Result SEE NOTE 10/22/24 10/22/24 10/22/24 04:38 05:52 08:19 WBC 20.0 H RBC 3.81 L Hgb 10.4 L Hct 28.3 L MCV 74.3 L MCH 27.3 MCHC 36.7 H RDW 14.1 Plt Count 62 L D MPV 11.8 Immature Gran % (Auto) Cancelled Neut % (Auto) Cancelled Lymph % (Auto) Cancelled [place] % (Auto) Cancelled Eos % (Auto) Cancelled Baso % (Auto) Cancelled Lymph # (Auto) Cancelled [place] # (Auto) Cancelled Eos # (Auto) Cancelled Baso # (Auto) Cancelled Abs Immat Gran (auto) Cancelled Absolute Neuts (auto) Cancelled Absolute Nucleated RBC 0.000 Nucleated RBC % (auto) 0.0 Neutrophils % (Manual) 90 H Band Neutrophils % 5 Lymphocytes % (Manual) 2 L Monocytes % (Manual) 3 Abs Neuts (Manual) 19.0 H Lymphocytes # (Manual) 0.4 L Monocytes # (Manual) 0.6 Toxic Granulation PRESENT Toxic Vacuolation PRESENT Platelet Estimate DECREASED Plt Morphology Comment NORMAL RBC Morphology NOTED Microcytosis 1+ (5-14) Spherocytes 1+ (0-2) [place] Cells 3+ (>5) Schistocytes 1+ (0-2) Sodium 136 Potassium 2.9 L* Chloride 106 Carbon Dioxide 16 L Anion Gap 17 BUN 26 H Creatinine 0.78 Estim Creat Clear Calc 64.5 Estimated GFR > 60 Random Glucose 108 Lactic Acid Calcium 7.8 L Phosphorus 3.4 Magnesium 2.8 H Total Bilirubin 0.9 AST 42 H ALT 10 Alkaline Phosphatase 81 Troponin I High Sens 1954.3 H* D 1575.7 H* Total Protein 6.3 L Albumin 3.1 L Random Vancomycin 14.5 L Hep Bs Antigen Hep Bs Antibody Hep B Core Total Ab Hepatitis C Ab (EIA) HIV 1&2 Ab/P24 Ag 4thGn Ref Lab Test Result 10/22/24 09:40 WBC RBC Hgb Hct MCV MCH MCHC RDW Plt Count MPV Immature Gran % (Auto) Neut % (Auto) Lymph % (Auto) [place] % (Auto) Eos % (Auto) Baso % (Auto) Lymph # (Auto) [place] # (Auto) Eos # (Auto) Baso # (Auto) Abs Immat Gran (auto) Absolute Neuts (auto) Absolute Nucleated RBC Nucleated RBC % (auto) Neutrophils % (Manual) Band Neutrophils % Lymphocytes % (Manual) Monocytes % (Manual) Abs Neuts (Manual) Lymphocytes # (Manual) Monocytes # (Manual) Toxic Granulation Toxic Vacuolation Platelet Estimate Plt Morphology Comment RBC Morphology Microcytosis Spherocytes [place] Cells Schistocytes Sodium Potassium Chloride Carbon Dioxide Anion Gap BUN Creatinine Estim Creat Clear Calc Estimated GFR Random Glucose Lactic Acid 5.4 H* Calcium Phosphorus Magnesium Total Bilirubin AST ALT Alkaline Phosphatase Troponin I High Sens Total Protein Albumin Random Vancomycin Hep Bs Antigen Hep Bs Antibody Hep B Core Total Ab Hepatitis C Ab (EIA) HIV 1&2 Ab/P24 Ag 4thGn Ref Lab Test Result Microbiology Microbiology Results: Microbiology 10/20/24 15:45 Blood - Venous Blood Culture - Preliminary Staphylococcus aureus 10/20/24 15:45 Blood - Venous Blood Culture - Preliminary Staphylococcus aureus 10/20/24 17:42 Cerebrospinal Fluid Gram Stain - Final 10/20/24 17:42 Cerebrospinal Fluid CSF Examination - Final 10/20/24 17:42 Cerebrospinal Fluid Fluid Description - Final 10/20/24 17:42 Cerebrospinal Fluid CSF Culture - Preliminary No growth after 2 days 10/20/24 18:30 Urine clean catch - Clean Catch Midstream Urine Culture - Preliminary Staphylococcus aureus Progress Note: A&P Assessment and plan (1) Encephalopathy acute: Status: Acute (2) Septic shock: Status: Acute (3) Infective endocarditis: Status: Acute (4) Acute hyponatremia: Status: Acute Plan Neuro: Acute encephalopathy possibly due to metabolic encephalopathy versus meningitis Mentation has improved this morning, patient is alert and is able to converse in sentences lumbar puncture done showed elevated RBCs, low sugar, slightly elevated protein. Viral meningitis panel negative so acyclovir discontinued CT head did not show any acute intracranial pathology Close neurological status monitoring in the ICU every hour Cardiac: sinus tachycardia possibly related to opioid withdrawal and febrile illness blood pressures stable mitral valve infective endocarditis: TTE showing large vegetation on the mitral wall with regurgitation, with the elevated right-sided pressures. [facility] has been called for transfer possible evaluation for need for valve replacement given her splenic and renal embolic infarcts and severe MR blood cultures positive for staph aureus evidence of splenic and renal infarcts on CT abdomen and pelvis Troponins increasing to 1575, with some ST T changes; embolism and coronavirus can not be ruled out Respiratory: breathing stable, dyspnea possibly due to opioid withdrawal has some pneumonia in the left lung base GI: bedside swallow eval Renal: acute hypokalemia magnesium levels normal, we will replace as per protocol acute hypophosphatemia: possibly due to poor oral intake we will improved nutrition as tolerated when patient's overall condition improves Heme: Chronic anemia, closely monitor H&H, transfuse for hemoglobin less than 7 grams/deciliter thrombocytopenia: secondary to bacteremia and is improving. No evidence of bleeding Endocrine: Blood sugars under control Sliding scale insulin as needed Infectious disease: blood cultures growing GPC in clusters, urine cultures positive for staph aureus continue vanc and Zosyn until final speciation we will get CT of the spine with IV contrast today Musculoskeletal: Decubitus ulcer prevention protocol Lines: peripheral We will place in her right IJ TLC due to very poor peripheral veins and she is requiring significant vasopressor Prophylaxis: Lovenox with held due to thrombocytopenia, pantoprazole Quality Stroke Does the patient have a stroke diagnosis?: No VTE Prior VTE?: No VTE Risk Level:: Medical - moderate - high VTE Device Contraindication: N/A - Device Ordered VTE Drug Contraindication: N/A - Med Ordered
--- NOTE | 2024-10-22 13:17 | W.PM.CCHP ---
Procedures Date of Service Date of Service: 10/22/24 Central Line Placement Right IJ: Consent for Procedure: Elective - informed consent obtained Time out performed: Yes Sterile Technique Used: Yes Patient placed on monitor/pulse ox: Yes MD prep: mask, gown and gloves Central line prep: Chlorhexidine scrub Local anesthesia used: lidocaine 1% Amount of anesthesia used (ml): 10 Ultrasound used for placement: Yes Central line lumen inserted: triple Post procedure: good blood return and all ports aspirated, flushed, capped Post procedure x-ray: tip of catheter in good position and no pneumothorax seen Patient tolerated procedure: well Complications: none
[2024-10-22 13:20] LABS: ~Lactic Acid-LAB USE ONLY 6.9 mmol/L (0.5-2.0)
[2024-10-22] MEDS: fentaNYL citrate/PF 100 MCG/2 ML VIAL IVPUSH (13:40)
[2024-10-22] MEDS: Midazolam HCl 2 MG/2 ML VIAL 4 MG IVPUSH (14:36)
[2024-10-22 14:53] LABS: Reflex Lactate? 2 Y
[2024-10-22] MEDS: iohexoL 350 MG/ML 100 ML INFUS..BTL IV (15:03)
--- NOTE | 2024-10-22 15:49 | PM.DS ---
DS: Providers Provider Date of Service: 10/22/24 Date of admission: 10/20/24 19:49 Date of discharge: 10/22/24 Primary care physician: Unknown Physician Attending physician on admission: Robert Ramirez Consults: 10/21/24 07:00 Addiction Medicine Provider Routine Consulting Provider: Addiction Covering Reason for consultation: IVDA methadone user ? Has provider been notified: No DS: Transfer Hospital Acceptance Reason for Transfer: Cardiovascular surgery evaluation for valve replacement Name of Facility: [facility] Accepting Provider: Rudolph KUMAR DS: Diagnosis Discharge Diagnosis (1) Encephalopathy acute: Status: Acute (2) Septic shock: Status: Acute (3) Infective endocarditis: Status: Acute (4) Acute hyponatremia: Status: Acute DS: Summary Hospital Course Hospital Course: Patient is being transferred to [facility] [place] for cardio vascular surgery evaluation for possible need for mitral valve replacement. 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 Patient also had some weakness in the lower extremities for which we did a CT thoracolumbar spine to rule out an osteomyelitis- report still pending (CT images of all imaginig sent in the disc along with the patient). Patient is growing staph aureus in blood and urine, minus sensitivities are pending, PCR for MRSA is negative. Currently patient has been treated with vancomycin and Zosyn. She is on frequent as needed fentanyl pushes for the management of opioid withdrawal. Her mentation has significantly improved with antibiotics, and she is more alert and following commands today. Be placed in a right IJ triple-lumen catheter this morning as patient has very poor venous access and she is on phenylephrine for vasopressor support. Of note, Her UDS upon admission was positive for cocaine, opiates, fentanyl, methadone, marijuana. Status at Discharge Cognitive/behavioral status at discharge: Continues to be critically ill in septic shock on vasopressor support Overall status at discharge: patient is not back to baseline Time Attestation Discharge Coordination Time (in mins): 35 minutes Quality: Safe Use of Opioids Does Pt have an Active Cancer Diagnosis on the Problem List?: No Quality: Stroke Does the patient have a stroke diagnosis?: No Physical Exam Vital Signs: Vital Signs: Last Vital Signs Temp 100.9 F H 10/22/24 13:00 Pulse 92 10/22/24 15:00 Resp 33 H 10/22/24 15:00 BP 97/66 10/22/24 15:00 Pulse Ox 96 10/22/24 15:00 O2 Del Method Room Air 10/22/24 15:00 BMI result Body Mass Index 17.5 General: Young female, emaciated, confused lying in the bed Nutritional Appearance: Poorly nourished and under weight Eyes: appearance normal, both eyes and all related structures; Alignment and Position: alignment normal and position normal Neck: No lymphadenopathy, no thyromegaly Resp: bilateral air entry equal, occasional added sounds present Cardio: Regular rate, regular rhythm; Heart sounds: S1 normal heart sound present and S2 normal heart sound present GI: soft, nontender, no guarding, no hepatosplenomegaly : bladder normal to inspection, bladder normal to palpation, no renal angle tenderness Skin: no rashes or lesions noted and elasticity normal Neuro: Follows some commands, brisk reflexes lower extremity, hypertonicity in lower extremities DS: Data Data Completed and Pending Labs on day of discharge: Laboratory Results - last 24 hr 10/21/24 10/21/24 10/22/24 11:44 20:55 04:38 WBC 20.0 H RBC 3.81 L Hgb 10.4 L Hct 28.3 L MCV 74.3 L MCH 27.3 MCHC 36.7 H RDW 14.1 Plt Count 62 L D MPV 11.8 Immature Gran % (Auto) Cancelled Neut % (Auto) Cancelled Lymph % (Auto) Cancelled Ocean % (Auto) Cancelled Eos % (Auto) Cancelled Baso % (Auto) Cancelled Lymph # (Auto) Cancelled Ocean # (Auto) Cancelled Eos # (Auto) Cancelled Baso # (Auto) Cancelled Abs Immat Gran (auto) Cancelled Absolute Neuts (auto) Cancelled Absolute Nucleated RBC 0.000 Nucleated RBC % (auto) 0.0 Neutrophils % (Manual) 90 H Band Neutrophils % 5 Lymphocytes % (Manual) 2 L Monocytes % (Manual) 3 Abs Neuts (Manual) 19.0 H Lymphocytes # (Manual) 0.4 L Monocytes # (Manual) 0.6 Toxic Granulation PRESENT Toxic Vacuolation PRESENT Platelet Estimate DECREASED Plt Morphology Comment NORMAL RBC Morphology NOTED Microcytosis 1+ (5-14) Spherocytes 1+ (0-2) [place] Cells 3+ (>5) Schistocytes 1+ (0-2) Sodium 136 136 Potassium 3.3 D 2.9 L* Chloride 107 106 Carbon Dioxide 17 L 16 L Anion Gap 15 17 BUN 21 H 26 H Creatinine 0.75 0.78 Estim Creat Clear Calc 67.1 64.5 Estimated GFR > 60 > 60 Random Glucose 106 108 Lactic Acid Lactic Acid F/U @ 2Hr Calcium 8.0 L 7.8 L Phosphorus 2.6 L 3.4 Magnesium 2.8 H Total Bilirubin 1.0 0.9 AST 49 H 42 H ALT 10 10 Alkaline Phosphatase 85 81 Troponin I High Sens Total Protein 6.1 L 6.3 L Albumin 3.2 L 3.1 L Random Vancomycin Hep Bs Antigen Negative Hep Bs Antibody REACTIVE Hep B Core Total Ab Nonreactive Hepatitis C Ab (EIA) Reactive H HIV 1&2 Ab/P24 Ag 4thGn Nonreactive 10/22/24 10/22/24 10/22/24 05:52 08:19 09:40 WBC RBC Hgb Hct MCV MCH MCHC RDW Plt Count MPV Immature Gran % (Auto) Neut % (Auto) Lymph % (Auto) Ocean % (Auto) Eos % (Auto) Baso % (Auto) Lymph # (Auto) Ocean # (Auto) Eos # (Auto) Baso # (Auto) Abs Immat Gran (auto) Absolute Neuts (auto) Absolute Nucleated RBC Nucleated RBC % (auto) Neutrophils % (Manual) Band Neutrophils % Lymphocytes % (Manual) Monocytes % (Manual) Abs Neuts (Manual) Lymphocytes # (Manual) Monocytes # (Manual) Toxic Granulation Toxic Vacuolation Platelet Estimate Plt Morphology Comment RBC Morphology Microcytosis Spherocytes [place] Cells Schistocytes Sodium Potassium Chloride Carbon Dioxide Anion Gap BUN Creatinine Estim Creat Clear Calc Estimated GFR Random Glucose Lactic Acid 5.4 H* Lactic Acid F/U @ 2Hr Calcium Phosphorus Magnesium Total Bilirubin AST ALT Alkaline Phosphatase Troponin I High Sens 1954.3 H* D 1575.7 H* Total Protein Albumin Random Vancomycin 14.5 L Hep Bs Antigen Hep Bs Antibody Hep B Core Total Ab Hepatitis C Ab (EIA) HIV 1&2 Ab/P24 Ag 4thGn 10/22/24 12:47 WBC RBC Hgb Hct MCV MCH MCHC RDW Plt Count MPV Immature Gran % (Auto) Neut % (Auto) Lymph % (Auto) Ocean % (Auto) Eos % (Auto) Baso % (Auto) Lymph # (Auto) Ocean # (Auto) Eos # (Auto) Baso # (Auto) Abs Immat Gran (auto) Absolute Neuts (auto) Absolute Nucleated RBC Nucleated RBC % (auto) Neutrophils % (Manual) Band Neutrophils % Lymphocytes % (Manual) Monocytes % (Manual) Abs Neuts (Manual) Lymphocytes # (Manual) Monocytes # (Manual) Toxic Granulation Toxic Vacuolation Platelet Estimate Plt Morphology Comment RBC Morphology Microcytosis Spherocytes [place] Cells Schistocytes Sodium Potassium Chloride Carbon Dioxide Anion Gap BUN Creatinine Estim Creat Clear Calc Estimated GFR Random Glucose Lactic Acid Lactic Acid F/U @ 2Hr 6.9 H* Calcium Phosphorus Magnesium Total Bilirubin AST ALT Alkaline Phosphatase Troponin I High Sens Total Protein Albumin Random Vancomycin Hep Bs Antigen Hep Bs Antibody Hep B Core Total Ab Hepatitis C Ab (EIA) HIV 1&2 Ab/P24 Ag 4thGn Preliminary micro results at discharge 10/20/24 15:45 Blood Culture - Preliminary Blood - Venous Staphylococcus aureus 10/20/24 15:45 Blood Culture - Preliminary Blood - Venous Staphylococcus aureus 10/20/24 17:42 CSF Culture - Preliminary Cerebrospinal Fluid No growth after 2 days 10/20/24 18:30 Urine Culture - Preliminary Urine clean catch - Clean Catch Midstream Staphylococcus aureus Discharge Plan Discharge Anticipated Discharge Date/Time: 10/22/24 15:45 Patient Disposition: [facility] Discharge Diagnosis: Infective endocarditis Referrals: Physician,Unknown J [Primary Care Provider] - 1 Week Discharge Medications: Continued methadone [Methadone Intensol] 10 mg/mL Concentrate Discharge Orders: Discharge Order (Routine); Ordered 10/22/24 Ordered By: Robert Ramirez Activity on Discharge: Rest with bed elevated Stand Alone Forms: Patient Portal Discharge page Print Language: Unable To Collect Care Plan Goals: Patient is being transferred to [facility] [place] for cardio vascular surgery evaluation for possible need for mitral valve replacement. 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 Patient also had some weakness in the lower extremities for which we are trying to get a CT thoracolumbar spine to rule out an osteomyelitis. Patient is growing staph aureus in blood and urine, minus sensitivities are pending, PCR for MRSA is negative. Currently patient has been treated with vancomycin and Zosyn. She is on frequent as needed fentanyl pushes for the management of opioid withdrawal. Her mentation has significantly improved with antibiotics, and she is more alert and following commands today. Be placed in a right IJ triple-lumen catheter this morning as patient has very poor venous access and she is on phenylephrine for vasopressor support. Of note, Her UDS upon admission was positive for cocaine, opiates, fentanyl, methadone, marijuana. Health Concerns: Patient is IV drug abuse presented drip infectious endocarditis currently in septic shock on phenylephrine for vasopressor support Plan of Treatment: Patient has been transferred for [facility] For cardiovascular surgery evaluation for possible need for mitral valve replacement. Blood cultures positive for staph aureus, MRSA PCR negative continue IV antibiotics Continue phenylephrine for vasopressor support Continue as needed fentanyl pushes for opioid withdrawal Assessment: Patient is being transferred to [facility] [place] for cardio vascular surgery evaluation for possible need for mitral valve replacement. 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 Patient also had some weakness in the lower extremities for which we are trying to get a CT thoracolumbar spine to rule out an osteomyelitis. Patient is growing staph aureus in blood and urine, minus sensitivities are pending, PCR for MRSA is negative. Currently patient has been treated with vancomycin and Zosyn. She is on frequent as needed fentanyl pushes for the management of opioid withdrawal. Her mentation has significantly improved with antibiotics, and she is more alert and following commands today. Be placed in a right IJ triple-lumen catheter this morning as patient has very poor venous access and she is on phenylephrine for vasopressor support. Of note, Her UDS upon admission was positive for cocaine, opiates, fentanyl, methadone, marijuana.
[2024-10-22 15:59] LABS: ~Lactic Acid-LAB USE ONLY 7.8 mmol/L (0.5-2.0)
--- NOTE | 2024-10-22 16:49 | PC.NURSE ---
Assumed care of patient 0700. Pt requiring potassium replacement for K+ 2.9. Plan for total 80 mEq IV replacement ordered. MAPs less than goal 65. MD notified. New orders for Phenylephrine gtt. Titrated up per protocol to rate of 3 mcg/kg/min. MD also notified for low urine output approx 15 ml/hr. LR 1000 ml bolus administered. Repeat lactic acids trending up 5.4 - 6.9 - 7.8. Critical results reported to MD. Repeat blood cultures collected. Family updated at bedside (significant other Ray, Mother Kathryn) by MD and case management. Consent obtained by MD from mother for TLC central line. Consent for CT with IV contrast also obtained from mother. 12:56 TLC Right IJ inserted for vasopressor requirement (Garcia gtt) Time out performed, sterile procedure used with checklist. 13:33 attempted to bring pt to CT of the spine. Pt unable to lay still; pt is moaning and moving head side to side. 100 mcg fentanyl and 2 mg versed given per MD. 14:[address] with RN and transporter. Pt tolerated well. 14:26 Pt returned to room. contacted [facility] for potential transfer to higher level of care facility. Pt accepted by [facility] for Mitral Valve endocarditis . 16:48 Pt transfered via [facility] ambulance. Significant other Ray at bedside and aware of new unit and room number. [facility] providers given 2 new bags of Phenylephrine to last up to 6 hours for transport. RN to RN report given to [facility].
--- NOTE | 2024-10-22 19:11 | PC.NURSE ---
Per Dr Ramirez, This RN called [facility] to provide patient's mother contact information. Kathryn Humphrey (mom) [phone]. This RN communicated that mother is next of kin and no HCP form found for this patient.
== END 2024-10-22 16:48 | disposition short-term general hospital (02) | DRG 917 ==
LOC: HO.ED 19:48 → HO.EDOVER 20:04 → HO.ICU 20:14
PROVIDERS: Emergency Medicine; Internal Medicine Critical Care Medicine; Physician Assistant Medical; Admitting Provider Physician Assistant Medical; Emergency Provider Emergency Medicine Emergency Medical Services; Visit Provider Physician Assistant Medical
DX: T50.901A Poisoning by unspecified drugs, medicaments and biological substances, accidental (unintentional), initial encounter (principal); A41.9 Sepsis, unspecified organism; E43 Unspecified severe protein-calorie malnutrition; J18.9 Pneumonia, unspecified organism; R65.21 Severe sepsis with septic shock; I33.0 Acute and subacute infective endocarditis; G92.8 Other toxic encephalopathy; G03.9 Meningitis, unspecified; I74.8 Embolism and thrombosis of other arteries; N28.0 Ischemia and infarction of kidney; E87.1 Hypo-osmolality and hyponatremia; Z68.1 Body mass index [BMI] 19.9 or less, adult; I47.10 Supraventricular tachycardia, unspecified; F11.23 Opioid dependence with withdrawal; N39.0 Urinary tract infection, site not specified; E87.6 Hypokalemia; I34.0 Nonrheumatic mitral (valve) insufficiency; E83.39 Other disorders of phosphorus metabolism; D69.59 Other secondary thrombocytopenia; D64.9 Anemia, unspecified; F19.10 Other psychoactive substance abuse, uncomplicated; E86.1 Hypovolemia; B95.61 Methicillin susceptible Staphylococcus aureus infection as the cause of diseases classified elsewhere; Z20.822 Contact with and (suspected) exposure to COVID-19
CPT/HCPCS: 0241U; 36415; 70450; 71045; 71275; 72126; 72129; 72132; 74177; 80048; 80053; 80076; 80179; 80202; 80307; 81001; 82140; 82150; 82803; 82945; 82947; 83605; 83615; 83690; 83735; 83930; 83935; 84100; 84157; 84300; 84484; 84702; 85007; 85025; 85027; 85652; 86140; 86704; 86706; 86803; 87015; 87040; 87070; 87077; 87086; 87088; 87147; 87186; 87205; 87340; 87389; 87483; 88108; 89051; 93005; 93306; 99285; J0131; J0133; J1885; J2250; J2310; J2371; J2470; J2543; J3010; J3370; J3371; J3480; J7120; P9047; Q9967

== ENCOUNTER → 2024-10-20 15:13 | Outpatient (BNV) | payer MEDICARE, SELFPAY | PROVIDERS: Admitting Provider Physician Assistant Medical; Emergency Provider Emergency Medicine Emergency Medical Services; Visit Provider Internal Medicine Cardiovascular Disease | DX: I25.2 Old myocardial infarction (principal); R00.0 Tachycardia, unspecified; I51.7 Cardiomegaly | CPT/HCPCS: 93010 ==

== ENCOUNTER → 2024-10-20 15:37 | Outpatient (BNV) | payer MEDICARE, SELFPAY | PROVIDERS: Emergency Provider Emergency Medicine; Visit Provider Radiology Diagnostic Radiology | DX: R41.82 Altered mental status, unspecified (principal) | CPT/HCPCS: 70450; 71045; 71275; 74177 ==

== ENCOUNTER 2024-10-20 19:49 | Outpatient (BNV) | payer MEDICARE, SELFPAY | END 2024-10-22 12:56 | PROVIDERS: Admitting Provider Physician Assistant Medical; Emergency Provider Emergency Medicine Emergency Medical Services; Visit Provider Radiology Diagnostic Radiology | DX: R91.8 Other nonspecific abnormal finding of lung field (principal); R18.8 Other ascites; Z13.828 Encounter for screening for other musculoskeletal disorder; J81.1 Chronic pulmonary edema; I51.7 Cardiomegaly; Z45.2 Encounter for adjustment and management of vascular access device | CPT/HCPCS: 71045; 72126; 72129; 72132 ==

== ENCOUNTER 2024-10-20 19:49 | Outpatient (BNV) | payer MEDICARE, SELFPAY | END 2024-10-22 05:05 | PROVIDERS: Admitting Provider Physician Assistant Medical; Emergency Provider Emergency Medicine Emergency Medical Services; Visit Provider Internal Medicine Cardiovascular Disease | DX: I48.91 Unspecified atrial fibrillation (principal); I45.10 Unspecified right bundle-branch block; I25.2 Old myocardial infarction | CPT/HCPCS: 93010 ==

== ENCOUNTER 2024-10-20 19:49 | Outpatient (BNV) | payer MEDICARE, SELFPAY | END 2024-10-21 07:00 | PROVIDERS: Admitting Provider Physician Assistant Medical; Emergency Provider Emergency Medicine Emergency Medical Services; Visit Provider Internal Medicine Cardiovascular Disease | DX: I33.0 Acute and subacute infective endocarditis (principal); I34.0 Nonrheumatic mitral (valve) insufficiency; I34.89 Other nonrheumatic mitral valve disorders; I37.1 Nonrheumatic pulmonary valve insufficiency | CPT/HCPCS: 93306 ==

== ENCOUNTER → 2024-10-20 19:49 | Outpatient (BNV) | payer MEDICARE, SELFPAY | PROVIDERS: Admitting Provider Physician Assistant Medical; Emergency Provider Emergency Medicine Emergency Medical Services; Visit Provider Internal Medicine Critical Care Medicine | DX: A41.9 Sepsis, unspecified organism (principal); F11.90 Opioid use, unspecified, uncomplicated; E87.1 Hypo-osmolality and hyponatremia; R41.82 Altered mental status, unspecified; G93.40 Encephalopathy, unspecified; I33.0 Acute and subacute infective endocarditis | CPT/HCPCS: 99291; 99292 ==

== ENCOUNTER → 2024-10-20 19:49 | Outpatient (BNV) | payer MEDICARE, SELFPAY | PROVIDERS: Admitting Provider Physician Assistant Medical; Emergency Provider Emergency Medicine Emergency Medical Services; Visit Provider Nurse Practitioner Psychiatric/Mental Health | DX: F11.90 Opioid use, unspecified, uncomplicated (principal) | CPT/HCPCS: 99222 ==

== ENCOUNTER 2024-11-06 20:35 | Outpatient (BNV) | payer MEDICARE, SELFPAY | END 2024-11-09 12:05 | PROVIDERS: Admitting Provider Student in an Organized Health Care Education/Training Program; Visit Provider Radiology Diagnostic Radiology | DX: I82.B12 Acute embolism and thrombosis of left subclavian vein (principal); I82.A12 Acute embolism and thrombosis of left axillary vein; I82.622 Acute embolism and thrombosis of deep veins of left upper extremity | CPT/HCPCS: 93971 ==

== ENCOUNTER 2024-11-06 20:35 | Outpatient (BNV) | payer MEDICARE, SELFPAY | END 2024-11-07 17:00 | PROVIDERS: Admitting Provider Student in an Organized Health Care Education/Training Program; Visit Provider Radiology Diagnostic Radiology | DX: I50.33 Acute on chronic diastolic (congestive) heart failure (principal) | CPT/HCPCS: 71045 ==

== ENCOUNTER 2024-11-06 20:35 | Inpatient (IN) | payer MEDICARE, SELFPAY ==
--- NOTE | ~2024-11-06 | XR_ITS ---
CLINICAL HISTORY: confirm PICC tip placement. 1 view chest x-ray Comparison: CR/KS/SR - XR CHEST 1V - 10/22/24 13:03 EDT Findings: Median sternotomy. Right arm PICC is present, tip of which is in the right atrium. Moderate diffuse interstitial pulmonary opacity. Moderate patchy airspace opacity at the right lung base. Small left pleural effusion. Trace right pleural effusion. Normal size heart. No acute fracture. IMPRESSION: 1. Bilateral pneumonia versus edema. 2. Right basilar pneumonia. 3. [id number]-right pleural effusions. 4. Tip of PICC is in the right atrium. This document has been electronically signed by: Pamela Strong MD on 11/07/2024 17:25:25
--- NOTE | ~2024-11-06 | US_ITS ---
CLINICAL HISTORY: F U on reported DVT vs Phlebitis Venous duplex ultrasound left upper extremity Comparison: None Findings: There is acute nonocclusive thrombus within the left subclavian, axillary and brachial veins. The left internal jugular vein is patent with rouleaux flow. The left basilic, cephalic, radial and ulnar veins are patent. IMPRESSION: 1. Deep venous thrombosis of the left upper extremity with involvement of the subclavian, axillary and brachial veins. This document has been electronically signed by: Pastora Story MD on 11/09/2024 13:57:48
[2024-11-06 20:52] VITALS: BMI 20.5
[2024-11-06 21:10] VITALS: BP 117/77; PULSE 109; RESP 18; TEMP 37.5; O2SAT 100
--- NOTE | 2024-11-06 21:41 | ECG_ITS ---
Test Reason : arrythmia Blood Pressure : */* mmHG Vent. Rate : 108 BPM Atrial Rate : * BPM P-R Int : * ms QRS Dur : 76 ms QT Int : 330 ms P-R-T Axes : * 107 63 degrees QTcB Int : 442 ms Accelerated Junctional rhythm Rightward axis Abnormal ECG When compared with ECG of 22-Oct-2024 05:09, Junctional rhythm has replaced Atrial fibrillation Incomplete right bundle branch block is no longer Present Criteria for Anterolateral infarct are no longer Present Referred By: Cooper Boyer Electronically Signed By: Sulaiman Ruiz
--- NOTE | 2024-11-06 21:59 | P.HPHOSP_ITS ---
History of Present Illness Date of Service: 11/06/24 <[facility] - Last Filed: 11/06/24 23:16> Attending physician on admission: Cooper Boyer <[facility] - Last Filed: 11/06/24 23:16> Chief Complaint: transfer from after MVR and PFO repair, endocarditid <[facility] - Last Filed: 11/06/24 23:16> Pt is aq 34 yo female with past, medical history HIV, hepatitis-C, microcytic anemia, protein calorie malnutrition, polysubstance abuse disorder with IV drug history currently on methadone, right arm thrombophlebitis 2020 is currently a transfer from [facility] in [facility] where patient underwent a mitral valve replacement with a #31 mitris bioprosthetic valve and an ASD closure with bovine pericardial patch after being diagnosed with sepstic shock/endocarditis/vegetation secondary to IV drug abuse. Patient originally admitted to [facility] on 10/20/2024 and was admitted to the ICU secondary to altered mental status with increasing nausea and vomiting. Patient was hypotensive and obtunded. CT of the head was negative. Urine tox screen at the time was positive for opiates, methadone, fentanyl, cocaine and marijuana. test was negative. Patient also underwent a lumbar puncture and started on vanco and Zosyn with fluid resuscitation. Lumbar puncture was completed and viral panel was negative so acyclovir was discontinued. Patient had a low-sodium. Was started on Levophed and CTA was negative for PE and right heart strain. Possible evidence of pneumonia noted. Patient had continued hypotension requiring vasopressors and episodes of SVT. Mentation was slowly improving. Patient was eventually diagnosed with mitral valve infective endocarditis via echocardiogram with elevated right-sided pressures. Transfer accepted by [facility] in [place], part of [facility] system on 10/22/2024. Surgery was completed on 10/30/2024. Sternotomy incision is intact, no obvious drainage noted. Chest tube insertion sites are closed and healing with suture in place. Patient currently only has a peripheral IV in the left wrist. Patient did develop a DVT in the left upper extremity and was started on Eliquis 2.5 mg b.i.d. per Cardiothoracic surgeon. Patient was diagnosed with MSSA infection and currently requires nafcillin 2 g every 4 hours until 11/24/2024 and rifabutin 300 mg orally every day for 6 weeks, stop date is 12/15/2024. Patient also requires Dalbavacin IV 1500 mg once weekly x2 doses after the nafcillin is completed. If the dalbavacin is not available, patient will need a total of 6 weeks of nafcillin. Patient does not have ce ntral line at this time. ID consulted for follow-up. Patient currently in an accelerated junctional rhythm. This was noted during her hospital stay at [facility]. Patient is currently on metoprolol tartrate 75 mg b.i.d.. Consulting Cardiology. Patient is having chronic back issues and per discharge summary from [facility], Infectious Disease recommended a thoracic and lumbar MRI at the discretion of [facility]. Based on patient's physical exam this was ordered. Labs were attempted on arrival to include blood cultures x2 and myotomy x2 were unable to obtain labs. Patient refused any further attempts at and asked if they could try again in the morning. Pain has been managed postoperatively with Toradol, oxycodone noting that patient is already on methadone along with Tylenol. Lidocaine patch available to the lower back. Patient is also on Lyrica at bedtime. Patient requesting Ativan on arrival but this medication was not used during her stay at [facility]. Providing melatonin and Vistaril as needed to help with sleep and/or anxiety. Per discharge summary, labs overall have improved with the magnesium greater than 2 and potassium greater than 4. Creatinine is now at baseline, . 0.9 preoperative weight was 45 kg and current weight is 49 kg. Patient is on 40 mg of IV Lasix b.i.d.. . H&H also stable A1c was. 5.9 Patient having some minor issues with constipation and bowel regimen is ordered. Patient is currently on methadone 10 mg daily and follows with [facility]. Addictions consulted as patient was on oxycodone along with the methadone for recovery status post cardiac surgery. Per discharge summary from [facility], patient threatened to leave AMA multiple times. Patient currently not expressing any threats of leaving AMA at this time. Patient did request to speak to Psychiatry as she believes she is supposed to be on something for depression and feels this would help. <TEQUILA Peres - Last Filed: 11/06/24 23:16> Review of Systems Review of Systems: Patient currently having 6/10 lower back pain which she has had ongoing since before surgery. Patient denies any chest pain, shortness of breath at rest, abdominal pain, nausea, vomiting but patient is worried about being able to sleep tonight. Patient reports decent appetite. Patient denies any diarrhea or constipation. <OSCAR PeresALEXEI - Last Filed: 11/06/24 23:16> Yes all other systems are reviewed and are negative <Lesli OSCAR FranciscoALEXEI - Last Filed: 11/06/24 23:16> [facility] Medical History: Medical History (Updated 11/06/24 @ 22:09 by TEQUILA Peres) Hepatitis C Malnutrition No active medical problems <OSCAR PeresALEXEI - Last Filed: 11/06/24 23:16> Cognitive capacity: Alert and orientated x3 <TEQUILA Peres - Last Filed: 11/06/24 23:16> Functional capacity: independent ambulation <LISBETH PeresALEXEI - Last Filed: 11/06/24 23:16> Patient : No <TEQUILA Peres - Last Filed: 11/06/24 23:16> Surgical History: Surgical History History of back surgery <TEQUILA Peres - Last Filed: 11/06/24 23:16> Social History: Social History Household Members: Family Housing: Condominium Do you presently have visiting nurse or other home services: No Alcohol intake: current Patient Tobacco Use Status: Current everyday Tobacco user Tobacco use type: Cigarette Cigarettes Per Day: 4 Smoked in Last 30 Days: No Patient Interested in Nicotine Replacement: No Patient Given Instructions on How to Stop Smoking: No Second Hand Smoke Exposure: No Use of substances other than those prescribed or required for medical reasons: Yes Substance Use Type: Crack/Cocaine, Heroin, IV Drugs and Marijuana Last Used Substance: Unknown Currently Displaying Signs/Symptoms of Drug Intoxication Withdrawal: No Any prior treatment program specific to substance use: Yes ([facility]) Have you been hit, kicked, punched, or otherwise hurt by someone within the past year? If so, by whom?: No Do you feel safe in your current relationship?: No Current Relationship Is there a partner from a previous relationship who is making you feel unsafe now?: No Are you made to feel afraid or neglected: No Spiritual Healthcare Practices: no Advance Directives: No Advance Directives Information Provided: Yes Advance Directives on File: No Do you have a plan to hurt others: No Plan Recently lost weight without trying: Yes How much weight loss: 2-13 pounds Eating poorly because of decreased appetite: No Nutrition screen score: 3 Nutrition Risks: No Nutritional Risk Patient : No : No Poor oral hygiene: No <Lesli Francisco [facility] - Last Filed: 11/06/24 23:16> Ebola Risk: Travel/Contact With Anyone From Affected Area/s: No <Lesli Francisco [facility] - Last Filed: 11/06/24 23:16> Has Patient Experienced Ebola Symptoms: No <Lesli Farncisco [facility] - Last Filed: 11/06/24 23:16> Meds Allergies/Adverse reactions: Allergies Allergy/AdvReac Type Severity Reaction Status Date / Time Sulfa (Sulfonamide Allergy Unknown swelling, Verified 10/20/24 15:27 Antibiotics) ITCHY [SULFA (SULFONAMIDE ANTIBIOTICS)] <Lesli Francisco [facility] - Last Filed: 11/06/24 23:16> Active Medications: Current Medications Acetaminophen (Acetaminophen 325 Mg Tablet) 650 mg PO Q6H PRN PRN Reason: Pain, Mild 1-3,fever,headache Albuterol/Ipratropium (Albuterol/Iprat 2.5/0.5mg 3 Ml Ampul.Neb) 3 ml INHALE Q4H PRN PRN Reason: Shortness of Breath/Wheezing Apixaban (Apixaban 2.5 Mg Tablet) 2.5 mg PO BID [facility] Aspirin (Aspirin 81 Mg Tab.Chew) 81 mg PO DAILY [facility] Benzonatate (Benzonatate 100 Mg Capsule) 100 mg PO TID PRN PRN Reason: Cough Docusate Sodium (Docusate Sodium 100 Mg Capsule) 100 mg PO BID [facility] Furosemide (Furosemide 40 Mg/4 Ml Vial) 40 mg IVPUSH BID@0900,1800 [facility]; Protocol Nafcillin Sodium 2 gm/ Sodium (Chloride) 100 mls @ 200 mls/hr IV Q4H [facility] Lidocaine (Lidocaine 4 % Patch Adh..Patch) 1 patch TRANSDERMA DAILY [facility]; Protocol Melatonin (Melatonin 3 Mg Tablet) 6 mg PO BEDTIME [facility] Methadone HCl (Methadone Hcl 20 Mg/2 Ml Oral.Conc) 10 mg PO DAILY@0800 [facility] Metoprolol Tartrate (Metoprolol Tartrate 25 Mg Tablet) 75 mg PO BID [facility]; Protocol Naloxone HCl (Naloxone Hcl 0.4 Mg/Ml Vial) 0.04 mg IVPUSH Q5M PRN PRN Reason: Respiratory Rate < 10 Ondansetron HCl (Ondansetron Hcl 4 Mg/2 Ml Vial) 4 mg IVPUSH Q8H PRN PRN Reason: Nausea and Vomiting Pantoprazole Sodium (Pantoprazole Sodium 40 Mg/10 Ml Vial) 40 mg IVPUSH DAILY@0630 [facility] Polyethylene Glycol (Polyethylene Glycol 3350 17 Gm Powd.Pack) 17 gm PO DAILY [facility] Pregabalin (Pregabalin 50 Mg Capsule) 50 mg PO BEDTIME [facility] Senna (Sennosides 8.6 Mg Tablet) 17.2 mg PO BEDTIME [facility] <Lesli Francisco, [facility]- - Last Filed: 11/06/24 23:16> Home medications: Home Medications ?Medication ?Instructions ?Recorded ?Confirmed ?Last Taken ?Type acetaminophen 325 mg tablet 650 mg PO Q6H PRN Pain (Scale 11/06/24 11/06/24 Unknown History Score 1-3) apixaban 2.5 mg tablet 2.5 mg PO BID 11/06/24 11/06/24 Unknown History aspirin 81 mg chewable tablet 81 mg PO DAILY 11/06/24 11/06/24 Unknown History docusate sodium 100 mg capsule 100 mg PO BID 11/06/24 11/06/24 Unknown History furosemide 10 mg/mL injection 40 mg IV BID@0900,1700 11/06/24 11/06/24 Unknown History syringe ipratropium 0.5 mg-albuterol 3 mg 3 ml inhalation Q6H PRN Shortness 11/06/24 11/06/24 Unknown History (2.5 mg base)/3 mL nebulization Of Breath soln lidocaine 4 % topical patch 1 patch topical DAILY 11/06/24 11/06/24 Unknown History magnesium oxide 400 mg PO DAILY 11/06/24 11/06/24 Unknown History melatonin 3 mg tablet 6 mg PO BEDTIME 11/06/24 11/06/24 Unknown History methadone 10 mg/mL oral concentrate 10 mg PO Q6H PRN opiate withdrawal 11/06/24 11/06/24 Unknown History or severe pain methadone 10 mg/mL oral concentrate 40 mg PO DAILY 11/06/24 11/06/24 Unknown History metoprolol tartrate 75 mg tablet 75 mg PO BID 11/06/24 11/06/24 Unknown History nafcillin 2 gram solution for 2 g IV Q4H 11/06/24 11/06/24 Unknown History injection naloxone 0.4 mg/mL injection 0.4 mg IM Q5M PRN opioid reversal 11/06/24 11/06/24 Unknown History syringe or resp depression ondansetron HCl (PF) 4 mg/2 mL 4 mg IV Q6H PRN Nausea And Vomiting 11/06/24 11/06/24 Unknown History injection syringe oxycodone 10 mg tablet,oral ONLY 10 mg PO Q4H PRN Pain (Scale Score 11/06/24 11/06/24 Unknown History (not feeding tubes) 7-10) oxycodone 5 mg tablet 5 mg PO Q4H PRN Pain (Scale Score 11/06/24 11/06/24 Unknown History 4-6) pantoprazole 40 mg tablet,delayed 40 mg PO DAILY@0630 11/06/24 11/06/24 Unknown History release polyethylene glycol 3350 17 gram 17 g PO DAILY 11/06/24 11/06/24 Unknown History oral powder packet pregabalin 50 mg capsule 50 mg PO BEDTIME 11/06/24 11/06/24 Unknown History rifabutin 150 mg capsule 300 mg PO DAILY 11/06/24 11/06/24 Unknown History sennosides 8.6 mg tablet (senna) 17.2 mg PO BEDTIME 11/06/24 11/06/24 Unknown History <Lesli Francisco, [facility]- - Last Filed: 11/06/24 23:16> Physical Exam Vital Signs and Narrative: Vital Signs: Last Vital Signs Temp 99.5 F 11/06/24 21:10 Pulse 109 H 11/06/24 21:10 Resp 18 11/06/24 21:10 BP 117/77 11/06/24 21:10 Pulse Ox 100 11/06/24 21:10 O2 Del Method Room Air 11/06/24 21:10 BMI result Body Mass Index 20.5 <[facility] - Last Filed: 11/06/24 23:16> Alert and orientated X3, in NAD Neuro: CN II-X11 intact, no deficits, visual acuity intact EYES: PERRLA, EOM intact ENT: hearing intact, no issues with swallowing, uvula midline, lips moist, nares patent no epistaxis Cardiac: S1 S2 regular, tachy 101, no murmur, no JVD, mild edema in Lower ext, sternotomy incision intact, no evidence of dehisence, drainage or redness Pulmonary: lungs diminshed, no adventitous sounds Abdominal: BS active in all 4 quadrants, no guarding, tenderness, rebounding MSK: strength 5/5 upper and lower extremities, pt can tolerate palpation of spine : no CVA tenderness no bladder distension Extremities: mild edema in lower extremities, PT and DP pulses palpable +2, Left upper arm swollen, pos Psych: mood mildly anxious, judgement and insight fair Skin: multiple poc harley, scarring B arms sternotomy incision healing well, no evidence of dehisence or click on exam <[facility] - Last Filed: 11/06/24 23:16> Results ECG Attestation: I personally reviewed and interpreted this ECG as follows: (Accelerated junctional) <[facility] - Last Filed: 11/06/24 23:16> Prior ECG tracings: available for review <[facility] - Last Filed: 11/06/24 23:16> Imaging Radiologist's Impressions: Postoperative echo Echocardiogram postprocedure notes an EF of 50%. There is flattening of the interventricular septum Number 31 mitral valve bioprosthetic valve present with normal function. No paravalvular leak. Mean gradient 2 mmHG No residual flow by CFT of the atrial septal defect which is currently closed There is no pericardial effusion There is no aortic dissection <[facility] - Last Filed: 11/06/24 23:16> Assessment and Plan (1) Infective endocarditis: Qualifiers: Chronicity: subacute Infective endocarditis organism: bacterial Qualified Code(s): I33.0 - Acute and subacute infective endocarditis <[facility] - Last Filed: 11/06/24 23:16> Status: Acute <[facility] - Last Filed: 11/06/24 23:16> (2) S/P MVR (mitral valve repair): Status: Acute <[facility] - Last Filed: 11/06/24 23:16> (3) S/P patent foramen ovale closure: Status: Acute <[facility] - Last Filed: 11/06/24 23:16> Pt is aq 34 yo female with past, medical history HIV, hepatitis-C, microcytic anemia, protein calorie malnutrition, polysubstance abuse disorder with IV drug history currently on methadone, right arm thrombophlebitis 2020 readmitted at [facility] status post mitral valve repair and ASD closure at [facility] in [facility]. Status post mitral valve replacement with a number 31Mitris Bioprosthetic valve and ASD closure secondary to MSSA endocarditis mitral valve due to IV drug abuse -Unable to obtain labs upon arrival including blood cultures x2 due to poor access. We will attempt in the a.m. -Patient will continue nafcillin 2 g every 4 hours until 11/24/2024 and rifabutin 300 mg daily until 12/15/2024. [facility] does not carry rifabutin and substitution has been requested if possible. In addition patient will need Dalbavacin IV 1500 mg once weekly x2 doses. If this medication is not available patient will need a total of 6 weeks of nafcillin. -Patient does not currently have a central line with the noted left upper extremity DVT postoperatively. -ID consulted for follow-up -Sternotomy incision intact with without evidence of infection, dehiscence or click on exam -incentive spirometry -pain management, Addictions consulted (pt on methadone and oxycodone post operatively) -CM, SW needed. Pt needs [place] [facility] plan for ABX therapy. High risk for AMA. Accelerated junctional rhythm/ acute on chronic diastolic heart failure NYHA class 3 -Patient will continue on metoprolol tartrate 75 mg b.i.d. -Cardiology consulted -Lasix 40 mg IV b.i.d. -Daily weights low-sodium diet, measure I's and O's Left upper arm DVT -Patient was started on Eliquis 2.5 mg b.i.d. postoperatively per Cardiothoracic surgeon. Patient is now over 1 week out from surgery and after review with my attending we will start Eliquis 5 mg b.i.d. -Avoid blood pressures, IVs or lab draws in left upper extremity Chronic untreated hepatitis-C -RNA viral load pending -Consult GI if needed Polysubstance abuse -Patient continues on home methadone dose after review with pharmacist -Addictions consulted as patient has been on oxycodone postoperatively for pain management noting she is already on methadone, appreciate recommendations -High risk for leaving AMA Moderate protein calorie malnutrition -Nutritional consult -Ensure DVT prophylaxis: Eliquis 5 mg b.i.d. Ppi prophylaxis: Protonix daily Med rec completed Patient is a full code <Lesli Petersenentrout, [employer] [facility] - Last Filed: 11/06/24 23:16> Pt is aq 34 yo female with past, medical history HIV, hepatitis-C, microcytic anemia, protein calorie malnutrition, polysubstance abuse disorder with IV drug history currently on methadone, right arm thrombophlebitis 2020 readmitted at [facility] status post mitral v alve repair and ASD closure at [facility] in [facility]. Status post mitral valve replacement with a number 31Mitris Bioprosthetic valve and ASD closure secondary to MSSA endocarditis mitral valve due to IV drug abuse -Unable to obtain labs upon arrival including blood cultures x2 due to poor access. We will attempt in the a.m. -Patient will continue nafcillin 2 g every 4 hours until 11/24/2024 and rifabutin 300 mg daily until 12/15/2024. [facility] does not carry rifabutin and substitution has been requested if possible. In addition patient will need Dalbavacin IV 1500 mg once weekly x2 doses. If this medication is not available patient will need a total of 6 weeks of nafcillin. -Patient does not currently have a central line with the noted left upper extremity DVT postoperatively. -ID consulted for follow-up -Sternotomy incision intact with without evidence of infection, dehiscence or click on exam -incentive spirometry -pain management, Addictions consulted (pt on methadone and oxycodone post operatively) -CM, SW needed. Pt needs long term care administrator plan for ABX therapy. High risk for AMA. Accelerated junctional rhythm/ acute on chronic diastolic heart failure NYHA class 3 -Patient will continue on metoprolol tartrate 75 mg b.i.d. -Cardiology consulted -Lasix 40 mg IV b.i.d. -Daily weights low-sodium diet, measure I's and O's Left upper arm DVT -Patient was started on Eliquis 2.5 mg b.i.d. postoperatively per Cardiothoracic surgeon. Patient is now over 1 week out from surgery and after review with my attending we will start Eliquis 5 mg b.i.d. -Avoid blood pressures, IVs or lab draws in left upper extremity Chronic untreated hepatitis-C -RNA viral load pending -Consult GI if needed Polysubstance abuse -Patient continues on home methadone dose after review with pharmacist -Addictions consulted as patient has been on oxycodone postoperatively for pain management noting she is already on methadone, appreciate recommendations -High risk for leaving AMA Moderate protein calorie malnutrition -Nutritional consult -Ensure Depression, uncontrolled: Psych consult. Pt looking to be back on meds DVT prophylaxis: Eliquis 5 mg b.i.d. Ppi prophylaxis: Protonix daily Med rec completed Patient is a full code Admit as inpatient and will require two night minimum hospital stay for IV an tibiotic (as above), which is not possible in a lesser acute setting. <Cooper Boyer MD - Last Filed: 11/06/24 23:22> Quality Stroke Does the patient have a stroke diagnosis?: No <TEQUILA Peres - Last Filed: 11/06/24 23:16> Reason for No Anti-thrombotic by Day Two: N/A - Med Ordered <TEQUILA Peres - Last Filed: 11/06/24 23:16> VTE Prior VTE?: No [facility] Last Filed: 11/06/24 23:16> VTE Risk Level:: Medical - moderate - high <LISBETH PeresPAnne Marie - Last Filed: 11/06/24 23:16> VTE Device Contraindication: Treatment Not Indicated <[facility] - Last Filed: 11/06/24 23:16> VTE Drug Contraindication: N/A - Med Ordered <Lesli Francisco [facility] - Last Filed: 11/06/24 23:16>
--- NOTE | 2024-11-06 22:10 | PHA.MEDREC ---
Pharmacy Consult ? Medication Reconciliation Pharmacy has completed the medication reconciliation. med list obtained from [facility]. patient transferred. notified med rec complete.
--- NOTE | 2024-11-06 22:35 | HE.PHANOTE ---
Addendum entered by John Paul Barahona, [facility] 11/06/24 22:50: She received it at [facility], 10mg 11/06 @ 0037 & 40mg 11/06 @1039. Original Note: Methadone: Pt has received 50 mg (40mg daily, and 10mg q6h prn) this morning 11/06.
[2024-11-06] MEDS: Lidocaine 4 % Patch ADH..PATCH 1 PATCH TRANSDERMA (22:38)
[2024-11-06] MEDS: Ketorolac Tromethamine 30 MG/ML VIAL IVPUSH (22:39)
[2024-11-06] MEDS: Pregabalin 50 MG CAPSULE PO (22:40)
[2024-11-06] MEDS: Melatonin 3 MG TABLET 6 MG PO (22:40)
[2024-11-06] MEDS: Acetaminophen 325 MG TABLET 650 MG PO (22:41)
[2024-11-06] MEDS: Nafcillin Sodium 2 GM in 0.9 % Sodium Chloride 100 ML IV (22:47)
[2024-11-06 23:00] VITALS: BP 103/44; PULSE 108; RESP 18; TEMP 37.6; O2SAT 98
[2024-11-07] MEDS: hydrOXYzine HCL 50 MG TABLET PO (01:06)
[2024-11-07] MEDS: Nafcillin Sodium 2 GM in 0.9 % Sodium Chloride 100 ML IV ×5 (02:55→21:30)
[2024-11-07] MEDS: Pantoprazole Sodium 40 MG/10 ML VIAL IVPUSH (05:49)
[2024-11-07 05:53] VITALS: BMI 22.6
[2024-11-07 06:01] VITALS: BP 106/73; PULSE 99; RESP 18; TEMP 36.4; O2SAT 99
[2024-11-07 07:39] VITALS: BP 128/85; PULSE 111; RESP 16; TEMP 36.8; O2SAT 96
[2024-11-07 07:54] LABS: Venous Blood Gas Refer to POC result
[2024-11-07 07:55] LABS: VBG Base Excess 3.9 mmol/L; VBG HCO3 29 mmol/L (22-26); VBG pCO2 45 mmHg; VBG pO2 36 mmHg
[2024-11-07 08:20] LABS: Alanine Aminotransferase < 6 U/L (0-31); Albumin Level 2.8 g/dL (3.5-5.0); Alkaline Phosphatase 86 U/L (39-117); Anion Gap 18 (12-20); Aspartate Amino Transferase 37 U/L (5-31); Bilirubin Total 0.9 mg/dL (0.0-1.0); Blood Urea Nitrogen 25 mg/dL (9-16); Calcium 8.7 mg/dL (8.4-10.2); Carbon Dioxide 21 mmol/L (22-29); Chloride 97 mmol/L (96-108); Estimated Glomerular Filt Rate > 60; Glucose Random 92 mg/dL (60-115); Potassium 3.5 mmol/L (3.3-5.1); Sodium 132 mmol/L (135-145); Total Protein 7.5 g/dL (6.5-8.0)
[2024-11-07 08:25] LABS: Lactic Acid 2.8 mmol/L (0.5-2.0)
[2024-11-07] MEDS: Apixaban 5 MG TABLET PO ×2 (09:16→21:21)
[2024-11-07] MEDS: Metoprolol Tartrate 25 MG TABLET 75 MG PO ×2 (09:16→21:22)
[2024-11-07] MEDS: Ketorolac Tromethamine 15 MG/ML VIAL IVPUSH ×2 (09:16→18:13)
[2024-11-07] MEDS: Magnesium Oxide 400 MG TABLET PO (09:16)
[2024-11-07] MEDS: Aspirin 81 MG TAB.CHEW PO (09:16)
[2024-11-07] MEDS: Lidocaine 4 % Patch ADH..PATCH 1 PATCH TRANSDERMA (09:17)
[2024-11-07] MEDS: Furosemide 40 MG/4 ML VIAL IVPUSH ×2 (09:29→18:01)
[2024-11-07 09:48] LABS: Reflex Lactate? Lactic Acid Added
[2024-11-07] MEDS: methADONE HCl 20 MG/2 ML ORAL.CONC 40 MG PO (10:23)
[2024-11-07 11:30] VITALS: BP 111/66; PULSE 110; RESP 17; TEMP 36.8; O2SAT 96
[2024-11-07 14:14] VITALS: BMI 23.3
--- NOTE | 2024-11-07 14:15 | P.CONCA_ITS ---
History of Present Illness History of Present Illness Date of Service: 11/07/24 Requesting physician: Shannon Santiago Chief complaint: Accelerated junctional rhythm Narrative: 34-year-old female who we have been asked to see for accelerated junctional rhythm. She has background of IV drug use and was using IV cocaine and presented with mitral valve regurgitation and was transferred to [place] and underwent mitral valve replacement and PFO closure. She was at [place] after that for the last 7 days and eventually got transferred to us on her request because she wanted to be in [place]. She is waiting for placement at this stage. She is feeling better and eating more. She is saying she is done with using IV drugs. Denying any active symptoms currently. [facility] Past Medical History Medical History (Updated 11/07/24 @ 14:28 by Sulaiman Ruiz MD) Polysubstance (including opioids) dependence with physiological dependence Endocarditis due to methicillin susceptible Staphylococcus aureus (MSSA) Hepatitis C Malnutrition No active medical problems Surgical History Surgical History (Updated 11/07/24 @ 07:25 by Melisa Burns RN) Status post patch closure of ASD S/P MVR (mitral valve replacement) History of back surgery Social History Social History Household Members: Family Housing: Condominium Do you presently have visiting nurse or other home services: No Alcohol intake: current Patient Tobacco Use Status: Current everyday Tobacco user Tobacco use type: Cigarette Cigarettes Per Day: 4 Smoked in Last 30 Days: No Patient Interested in Nicotine Replacement: No Patient Given Instructions on How to Stop Smoking: No Second Hand Smoke Exposure: No Use of substances other than those prescribed or required for medical reasons: Yes Substance Use Type: Crack/Cocaine, Heroin, IV Drugs and Marijuana Last Used Substance: Unknown Currently Displaying Signs/Symptoms of Drug Intoxication Withdrawal: No Any prior treatment program specific to substance use: Yes ([facility]) Have you been hit, kicked, punched, or otherwise hurt by someone within the past year? If so, by whom?: No Do you feel safe in your current relationship?: No Current Relationship Is there a partner from a previous relationship who is making you feel unsafe now?: No Are you made to feel afraid or neglected: No Spiritual Healthcare Practices: no Advance Directives: No Advance Directives Information Provided: Yes Advance Directives on File: No Do you have a plan to hurt others: No Plan Recently lost weight without trying: Yes How much weight loss: 2-13 pounds Eating poorly because of decreased appetite: No Nutrition screen score: 3 Nutrition Risks: No Nutritional Risk Patient : No : No Poor oral hygiene: No Travel History Ebola Risk: Travel/Contact With Anyone From Affected Area/s: No Has Patient Experienced Ebola Symptoms: No Meds Allergies Allergy/AdvReac Type Severity Reaction Status Date / Time Sulfa (Sulfonamide Allergy Unknown swelling, Verified 10/20/24 15:27 Antibiotics) ITCHY [SULFA (SULFONAMIDE ANTIBIOTICS)] Active Medications: Current Medications Acetaminophen (Acetaminophen 325 Mg Tablet) 650 mg PO Q6H PRN PRN Reason: Pain, Mild 1-3,fever,headache Last Admin: 11/06/24 22:41 Dose: 650 mg Albuterol/Ipratropium (Albuterol/Iprat 2.5/0.5mg 3 Ml Ampul.Neb) 3 ml INHALE Q4H PRN PRN Reason: Shortness of Breath/Wheezing Albuterol/Ipratropium (Albuterol/Iprat 2.5/0.5mg 3 Ml Ampul.Neb) 3 ml INHALE Q6H PRN PRN Reason: Shortness Of Breath Apixaban (Apixaban 5 Mg Tablet) 5 mg PO BID [facility] Last Admin: 11/07/24 09:16 Dose: 5 mg Aspirin (Aspirin 81 Mg Tab.Chew) 81 mg PO DAILY [facility] Last Admin: 11/07/24 09:16 Dose: 81 mg Benzonatate (Benzonatate 100 Mg Capsule) 100 mg PO TID PRN PRN Reason: Cough Docusate Sodium (Docusate Sodium 100 Mg Capsule) 100 mg PO BID [facility] Last Admin: 11/07/24 09:29 Dose: Not Given Furosemide (Furosemide 40 Mg/4 Ml Vial) 40 mg IVPUSH BID@0900,1800 [facility]; Protocol Last Admin: 11/07/24 09:29 Dose: 40 mg Nafcillin Sodium 2 gm/ Sodium (Chloride) 100 mls @ 200 mls/hr IV Q4H [facility] Last Infusion: 11/07/24 10:36 Dose: Infused Ketorolac Tromethamine (Ketorolac Tromethamine 15 Mg/Ml Vial) 15 mg IVPUSH Q6H PRN PRN Reason: Pain, Moderate(Pain Scale 4-6) Stop: 11/09/24 03:59 Last Admin: 11/07/24 09:16 Dose: 15 mg Lidocaine (Lidocaine 4 % Patch Adh..Patch) 1 patch TRANSDERMA DAILY [facility]; Protocol Last Admin: 11/07/24 09:17 Dose: 1 patch Magnesium Oxide (Magnesium Oxide 400 Mg Tablet) 400 mg PO DAILY [facility] Last Admin: 11/07/24 09:16 Dose: 400 mg Melatonin (Melatonin 3 Mg Tablet) 6 mg PO BEDTIME [facility] Last Admin: 11/06/24 22:40 Dose: 6 mg Methadone HCl (Methadone Hcl 20 Mg/2 Ml Oral.Conc) 40 mg PO DAILY@0800 [facility] Methadone HCl (Methadone Hcl 20 Mg/2 Ml Oral.Conc) 10 mg PO Q6H PRN PRN Reason: opiate withdrawal or severe pain Metoprolol Tartrate (Metoprolol Tartrate 25 Mg Tablet) 75 mg PO BID [facility]; Protocol Last Admin: 11/07/24 09:16 Dose: 75 mg Naloxone HCl (Naloxone Hcl 0.4 Mg/Ml Vial) 0.04 mg IVPUSH Q5M PRN PRN Reason: Respiratory Rate < 10 Non-Formulary Medication (Rifabutin) 300 mg PO DAILY [facility] Ondansetron HCl (Ondansetron Hcl 4 Mg/2 Ml Vial) 4 mg IVPUSH Q8H PRN PRN Reason: Nausea and Vomiting Oxycodone HCl (Oxycodone Hcl Immed Release 5 Mg Tablet) 10 mg PO Q4H PRN PRN Reason: Pain, Severe (Pain Scale 7-10) Oxycodone HCl (Oxycodone Hcl Immed Release 5 Mg Tablet) 5 mg PO Q4H PRN PRN Reason: Pain (Scale Score 4-6) Pantoprazole Sodium (Pantoprazole Sodium 40 Mg/10 Ml Vial) 40 mg IVPUSH DAILY@0630 [facility] Last Admin: 11/07/24 05:49 Dose: 40 mg Polyethylene Glycol (Polyethylene Glycol 3350 17 Gm Powd.Pack) 17 gm PO DAILY [facility] Last Admin: 11/07/24 09:30 Dose: Not Given Pregabalin (Pregabalin 50 Mg Capsule) 50 mg PO BEDTIME [facility] Last Admin: 11/06/24 22:40 Dose: 50 mg Senna (Sennosides 8.6 Mg Tablet) 17.2 mg PO BEDTIME [facility] Last Admin: 11/06/24 22:37 Dose: Not Given Home Medications ?Medication ?Instructions ?Recorded ?Confirmed ?Last Taken ?Type acetaminophen 325 mg tablet 650 mg PO Q6H PRN Pain (Scale 11/06/24 11/06/24 Unknown History Score 1-3) apixaban 2.5 mg tablet 2.5 mg PO BID 11/06/24 11/06/24 Unknown History aspirin 81 mg chewable tablet 81 mg PO DAILY 11/06/24 11/06/24 Unknown History docusate sodium 100 mg capsule 100 mg PO BID 11/06/24 11/06/24 Unknown History furosemide 10 mg/mL injection 40 mg IV BID@0900,1700 11/06/24 11/06/24 Unknown History syringe ipratropium 0.5 mg-albuterol 3 mg 3 ml inhalation Q6H PRN Shortness 11/06/24 11/06/24 Unknown History (2.5 mg base)/3 mL nebulization Of Breath soln lidocaine 4 % topical patch 1 patch topical DAILY 11/06/24 11/06/24 Unknown History magnesium oxide 400 mg PO DAILY 11/06/24 11/06/24 Unknown History melatonin 3 mg tablet 6 mg PO BEDTIME 11/06/24 11/06/24 Unknown History methadone 10 mg/mL oral concentrate 10 mg PO Q6H PRN opiate withdrawal 11/06/24 11/06/24 Unknown History or severe pain methadone 10 mg/mL oral concentrate 40 mg PO DAILY 11/06/24 11/06/24 Unknown History metoprolol tartrate 75 mg tablet 75 mg PO BID 11/06/24 11/06/24 Unknown History nafcillin 2 gram solution for 2 g IV Q4H 11/06/24 11/06/24 Unknown History injection naloxone 0.4 mg/mL injection 0.4 mg IM Q5M PRN opioid reversal 11/06/24 11/06/24 Unknown History syringe or resp depression ondansetron HCl (PF) 4 mg/2 mL 4 mg IV Q6H PRN Nausea And Vomiting 11/06/24 11/06/24 Unknown History injection syringe oxycodone 10 mg tablet,oral ONLY 10 mg PO Q4H PRN Pain (Scale Score 11/06/24 11/06/24 Unknown History (not feeding tubes) 7-10) oxycodone 5 mg tablet 5 mg PO Q4H PRN Pain (Scale Score 11/06/24 11/06/24 Unknown History 4-6) pantoprazole 40 mg tablet,delayed 40 mg PO DAILY@0630 11/06/24 11/06/24 Unknown History release polyethylene glycol 3350 17 gram 17 g PO DAILY 11/06/24 11/06/24 Unknown History oral powder packet pregabalin 50 mg capsule 50 mg PO BEDTIME 11/06/24 11/06/24 Unknown History rifabutin 150 mg capsule 300 mg PO DAILY 11/06/24 11/06/24 Unknown History sennosides 8.6 mg tablet (senna) 17.2 mg PO BEDTIME 11/06/24 11/06/24 Unknown History Physical Exam 2 Vital Signs: Vital Signs: Last Vital Signs Temp 98.2 F 11/07/24 11:30 Pulse 110 H 11/07/24 11:30 Resp 17 11/07/24 11:30 BP 111/66 11/07/24 11:30 Pulse Ox 96 11/07/24 11:30 O2 Del Method Room Air 11/07/24 11:30 BMI result Body Mass Index 22.6 GENERAL APPEARANCE: in no acute distress, pleasant. NECK: no carotid bruit, no jugular venous distention. SKIN: no suspicious lesions, warm and dry. HEART: no murmurs, regular rate and rhythm. Tachycardic. LUNGS: clear to auscultation bilaterally. ABDOMEN: soft, nontender. EXTREMITIES: no edema. PERIPHERAL PULSES: equal. NEUROLOGIC: No gross deficits, AAO X 3 Objective Labs and Meds 11/07/24 07:45 Lab results: Laboratory Results - last 24 hr 11/07/24 11/07/24 07:45 07:50 VBG pH 7.40 VBG pCO2 45 VBG pO2 36 VBG HCO3 29 H VBG O2 Saturation 52.0 VBG Base Excess 3.9 Sodium 132 L Potassium 3.5 D Chloride 97 Carbon Dioxide 21 L Anion Gap 18 BUN 25 H Creatinine 0.80 Estim Creat Clear Calc 74.0 Estimated GFR > 60 Random Glucose 92 Lactic Acid 2.8 H* Calcium 8.7 D Total Bilirubin 0.9 AST 37 H ALT < 6 Alkaline Phosphatase 86 Total Protein 7.5 Albumin 2.8 L Assessment and Plan (1) Tachycardia: Status: Acute (2) S/P MVR (mitral valve repair): Status: Acute Plan Pleasant 34-year-old female who is status post mitral valve replacement and PFO closure recently at [place]. She was at [facility] and got transferred to us because she wanted to be in [place]. She is waiting for placement at this stage. Clinically stable and has no symptoms. She has some tachycardia and I agree with using metoprolol. Monitor on telemetry. Monitor electrolytes closely. She will wait for placement and does not require any further testing currently. Thank you for allowing me to participate in the care of your patient. Please feel free to contact me if you have any questions. Procedures Date of Service Date of Service: 11/07/24
--- NOTE | 2024-11-07 14:20 | MHC.CLN ---
RE: CONSULT PT QUALIFIES FOR NONSEVERE MALNUTRITION IN THE CONTEXT OF SOCIAL/BEHAVIOR AND ENVIRONMENTAL PT WITH MILDLY DEPLETED SUBCUTANEOUS FAT AND MUSCLE MASS WITH CHRONIC POOR PO INTAKE SECONDARY TO POLYSUBSTANCE ABUSE HT USED FOR ASSESSMENT 5'. PT IS CACHETIC BUT ALSO SMALL FRAME AND PETITE STATURE PT WITHOUT SIGNIFICANT WT CHANGES X6 MONTHS DIET RX: 2GM NA RECOMMEND ADDING MAGIC CUP TID TO INCREASE KCALS SUPP WILL PROVIDE 870KCALS, 27G PROTEIN MONITOR PO INTAKE AND ENCOURAGE SUPPLEMENT SEE ALSO FULL CLINICAL NUTRITION ASSESSMENT
[2024-11-07 15:24] VITALS: BP 110/68; PULSE 104; RESP 18; TEMP 37.6; O2SAT 100
--- NOTE | 2024-11-07 15:37 | MHC.CM.PN ---
IMM 11/07. Pt was a direct transfer from [facility] in [place], [place] (Pt was initially transferred there from [facility] on 10/22). This CM met with pt with pts Uncle at bedside, she states prior to hospitalization she lived at home with her significant other Glenn and a woman named Cristal Mtz who refuses to leave their home. Pt states its been a stressful situation, and they have had police involvement. Pt was receiving Methadone from [facility]. 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 This CM explained to the pt that [facility] is an acute rehab and she likely won't have a qualifying diagnosis to go there, but that we could still place a referral to check. This CM also explained that there are a limited number of facilities that can manage methadone, most of them being in [place] or [place], pt is not in favor of going that far. Education provided on HCP, and a new one was completed, now on file. Pt states she has a new PCP, but doesn't know their name.
--- NOTE | 2024-11-07 15:49 | P.PNIM_ITS ---
Subjective Subjective Date of Service: 11/07/24 Interval History: seen and evaluated feels better overall denies any fever or chills no other events Review of Systems Review of Systems: Yes all other systems are reviewed and are negative Physical Exam 2 Vital Signs: Vital Signs: Last Vital Signs Temp 99.6 F 11/07/24 15:24 Pulse 104 H 11/07/24 15:24 Resp 18 11/07/24 15:24 BP 110/68 11/07/24 15:24 Pulse Ox 100 11/07/24 15:24 O2 Del Method Room Air 11/07/24 15:24 BMI result Body Mass Index 23.3 Const: Other: Constitutional : Awake, interactive, not in distress Neck : Normal inspection, Supple Cardiovascular : RRR, no JVP, no lower extremity edema Respiratory : good bilateral air entry, no crackles, wheezes or rhonchi Gastrointestinal: soft, lax, Normal bowel sounds, Non tender Skin : Warm, Dry, inj lisa Neurological : Alert & oriented x3, No focal deficit Objective Data Active Medications Acetaminophen (Acetaminophen 325 Mg Tablet) 650 mg PO Q6H PRN PRN Reason: Pain, Mild 1-3,fever,headache Last Admin: 11/06/24 22:41 Dose: 650 mg Documented By: BRENNAN Albuterol/Ipratropium (Albuterol/Iprat 2.5/0.5mg 3 Ml Ampul.Neb) 3 ml INHALE Q4H PRN PRN Reason: Shortness of Breath/Wheezing Albuterol/Ipratropium (Albuterol/Iprat 2.5/0.5mg 3 Ml Ampul.Neb) 3 ml INHALE Q6H PRN PRN Reason: Shortness Of Breath Apixaban (Apixaban 5 Mg Tablet) 5 mg PO BID [facility] Last Admin: 11/07/24 09:16 Dose: 5 mg Documented By: MARY Aspirin (Aspirin 81 Mg Tab.Chew) 81 mg PO DAILY [facility] Last Admin: 11/07/24 09:16 Dose: 81 mg Documented By: MARY Benzonatate (Benzonatate 100 Mg Capsule) 100 mg PO TID PRN PRN Reason: Cough Docusate Sodium (Docusate Sodium 100 Mg Capsule) 100 mg PO BID [facility] Last Admin: 11/07/24 09:29 Dose: Not Given Documented By: MARY Non-Admin Reason: Administered by Alternate Route Furosemide (Furosemide 40 Mg/4 Ml Vial) 40 mg IVPUSH BID@0900,1800 [facility]; Protocol Last Admin: 11/07/24 09:29 Dose: 40 mg Documented By: MARY Nafcillin Sodium 2 gm/ Sodium (Chloride) 100 mls @ 200 mls/hr IV Q4H [facility] Last Infusion: 11/07/24 10:36 Dose: Infused Documented By: MARY Ketorolac Tromethamine (Ketorolac Tromethamine 15 Mg/Ml Vial) 15 mg IVPUSH Q6H PRN PRN Reason: Pain, Moderate(Pain Scale 4-6) Stop: 11/09/24 03:59 Last Admin: 11/07/24 09:16 Dose: 15 mg Documented By: MARY Lidocaine (Lidocaine 4 % Patch Adh..Patch) 1 patch TRANSDERMA DAILY [facility]; Protocol Last Admin: 11/07/24 09:17 Dose: 1 patch Documented By: MARY Magnesium Oxide (Magnesium Oxide 400 Mg Tablet) 400 mg PO DAILY [facility] Last Admin: 11/07/24 09:16 Dose: 400 mg Documented By: MARY Melatonin (Melatonin 3 Mg Tablet) 6 mg PO BEDTIME [facility] Last Admin: 11/06/24 22:40 Dose: 6 mg Documented By: BRENNAN Comments: for sleep Methadone HCl (Methadone Hcl 20 Mg/2 Ml Oral.Conc) 40 mg PO DAILY@0800 [facility] Methadone HCl (Methadone Hcl 20 Mg/2 Ml Oral.Conc) 10 mg PO Q6H PRN PRN Reason: opiate withdrawal or severe pain Metoprolol Tartrate (Metoprolol Tartrate 25 Mg Tablet) 75 mg PO BID [facility]; Protocol Last Admin: 11/07/24 09:16 Dose: 75 mg Documented By: MARY Naloxone HCl (Naloxone Hcl 0.4 Mg/Ml Vial) 0.04 mg IVPUSH Q5M PRN PRN Reason: Respiratory Rate < 10 Non-Formulary Medication (Rifabutin) 300 mg PO DAILY [facility] Ondansetron HCl (Ondansetron Hcl 4 Mg/2 Ml Vial) 4 mg IVPUSH Q8H PRN PRN Reason: Nausea and Vomiting Oxycodone HCl (Oxycodone Hcl Immed Release 5 Mg Tablet) 10 mg PO Q4H PRN PRN Reason: Pain, Severe (Pain Scale 7-10) Oxycodone HCl (Oxycodone Hcl Immed Release 5 Mg Tablet) 5 mg PO Q4H PRN PRN Reason: Pain (Scale Score 4-6) Pantoprazole Sodium (Pantoprazole Sodium 40 Mg/10 Ml Vial) 40 mg IVPUSH DAILY@0630 [facility] Last Admin: 11/07/24 05:49 Dose: 40 mg Documented By: BRENNAN Polyethylene Glycol (Polyethylene Glycol 3350 17 Gm Powd.Pack) 17 gm PO DAILY [facility] Last Admin: 11/07/24 09:30 Dose: Not Given Documented By: MARY Non-Admin Reason: loose stools Pregabalin (Pregabalin 50 Mg Capsule) 50 mg PO BEDTIME [facility] Last Admin: 11/06/24 22:40 Dose: 50 mg Documented By: BRENNAN Senna (Sennosides 8.6 Mg Tablet) 17.2 mg PO BEDTIME [facility] Last Admin: 11/06/24 22:37 Dose: Not Given Documented By: BRENNAN Non-Admin Reason: Patient Refused Labs 11/07/24 07:45 Labs: Laboratory Results - last 24 hr 11/07/24 11/07/24 07:45 07:50 VBG pH 7.40 VBG pCO2 45 VBG pO2 36 VBG HCO3 29 H VBG O2 Saturation 52.0 VBG Base Excess 3.9 Anion Gap 18 Estim Creat Clear Calc 74.0 Estimated GFR > 60 Random Glucose 92 Lactic Acid 2.8 H* Calcium 8.7 D Total Bilirubin 0.9 AST 37 H ALT < 6 Alkaline Phosphatase 86 Total Protein 7.5 Albumin 2.8 L Assessment and Plan (1) Tachycardia: Status: Acute (2) S/P patent foramen ovale closure: Status: Acute (3) S/P MVR (mitral valve repair): Status: Acute (4) Septic shock: Status: Acute (5) Infective endocarditis: Status: Acute (6) Opioid use disorder: Status: Acute Plan Pt is aq 34 yo female with past, medical history HIV, hepatitis-C, microcytic anemia, protein calorie malnutrition, polysubstance abuse disorder with IV drug history currently on methadone, right arm thrombophlebitis 2021 readmitted at [facility] status post mitral valve repair and ASD closure at [facility]. 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 Discuss the need of Dalbavacin IV 1500 mg once weekly x2 doses. If this medication is not available patient will need a total of 6 weeks of nafcillin. Pending ID consult Has left upper extremity DVT postoperatively. will try to place a PICC line in right arm incentive spirometry PRN Oxycodone for pain Remove stitch from groin. Accelerated junctional rhythm continue on metoprolol tartrate 75 mg b.i.d. Cardiology consulted acute on chronic diastolic heart failure NYHA class 3 Lasix 40 mg IV b.i.d. Daily weights low-sodium diet, measure I's and O's Left upper arm DVT was started on Eliquis 2.5 mg b.i.d. postoperatively per Cardiothoracic surgeon. will start Eliquis 5 mg b.i.d. Chronic untreated hepatitis-C RNA viral load pending Polysubstance abuse w hx IVDU methadone per recovery team High risk for leaving AMA Moderate protein calorie malnutrition Nutritional consult Ensure Depression, uncontrolled Psych consult. Pt looking to be back on meds DVT prophylaxis: Eliquis Ppi prophylaxis: Protonix daily Patient is a full code Admit as inpatient and will require overnight minimum hospital stay for IV antibiotic (as above), pending ID consult which is not possible in a lesser acute setting. Quality Stroke Does the patient have a stroke diagnosis?: No Reason for No Anti-thrombotic by Day Two: N/A - Med Ordered VTE Prior VTE?: No VTE Risk Level:: Medical - moderate - high VTE Device Contraindication: Treatment Not Indicated VTE Drug Contraindication: N/A - Med Ordered
--- NOTE | 2024-11-07 15:57 | HO.ADDICTCON ---
History of Present Illness Date of Service: 11/07/2024 Chief Complaint: Accelerated junctional rhythm Reason for Consult: OUD Sources of Information: patient interviewed and chart reviewed HPI Narrative: Patient is a 34 year old female who transferred back to [facility] from [facility] following PFO repair and mitral valve replacement. History of ESTELITA with IVDU. Patient seen in room 445, she is awake, alert, pleasant and engaged in interview. She was restarted on methadone while at [facility] Review of records from there shows that she has been getting 40mg QD with 10mg Q6H PRN This order was continued here She reports feeling better now and is tolerating methadone dose. She reports having issues with sleep, but feels it may also be related to the bed she was sleeping in at other hospital. Today, patient has received methadone 40mg AM dose and no PRN doses as of 1629 She would like to resume BID dosing, which is what she was receiving prior to admission mid October Dose verified at [facility] 35mg AM and 48mg evening. Review of Systems Constitutional: Reports as per HPI Musculoskeletal: Reports back pain Diagnostics Vital Signs (24Hr): Vital Signs - 24 hr 11/06/24 21:10 11/06/24 23:00 11/07/24 06:01 Temperature 99.5 F 99.7 F 97.6 F Pulse Rate 109 H 108 H 99 Respiratory Rate 18 18 18 Blood Pressure 117/77 103/44 L 106/73 Pulse Oximetry 100 98 99 Oxygen Delivery Method Room Air Room Air Room Air 11/07/24 07:39 11/07/24 11:30 11/07/24 15:24 Temperature 98.2 F 98.2 F 99.6 F Pulse Rate 111 H 110 H 104 H Respiratory Rate 16 17 18 Blood Pressure 128/85 111/66 110/68 Pulse Oximetry 96 96 100 Oxygen Delivery Method Room Air Room Air Room Air BMI result Body Mass Index 23.3 Labs 11/07/24 07:45 Labs: Laboratory Results - last 48 hr 11/07/24 11/07/24 07:45 07:50 VBG pH 7.40 VBG pCO2 45 VBG pO2 36 VBG HCO3 29 H VBG O2 Saturation 52.0 VBG Base Excess 3.9 Sodium 132 L Potassium 3.5 D Chloride 97 Carbon Dioxide 21 L Anion Gap 18 BUN 25 H Creatinine 0.80 Estim Creat Clear Calc 74.0 Estimated GFR > 60 Random Glucose 92 Lactic Acid 2.8 H* Calcium 8.7 D Total Bilirubin 0.9 AST 37 H ALT < 6 Alkaline Phosphatase 86 Total Protein 7.5 Albumin 2.8 L Mental Status Exam Mental Status Exam Patient Appearance: Appropriate Level of Consciousness: Awake, Appropriate and Alert Patient Behavior: Appropriate and Talkative Affect Description: Calm Speech Pattern: Clear Hallucinations: None Thought Process: Intact Thought Content: positive for Intact Judgement: Good Medications Medications Current Medications Acetaminophen (Acetaminophen 325 Mg Tablet) 650 mg PO Q6H PRN PRN Reason: Pain, Mild 1-3,fever,headache Last Admin: 11/06/24 22:41 Dose: 650 mg Albuterol/Ipratropium (Albuterol/Iprat 2.5/0.5mg 3 Ml Ampul.Neb) 3 ml INHALE Q4H PRN PRN Reason: Shortness of Breath/Wheezing Albuterol/Ipratropium (Albuterol/Iprat 2.5/0.5mg 3 Ml Ampul.Neb) 3 ml INHALE Q6H PRN PRN Reason: Shortness Of Breath Apixaban (Apixaban 5 Mg Tablet) 5 mg PO BID [facility] Last Admin: 11/07/24 09:16 Dose: 5 mg Aspirin (Aspirin 81 Mg Tab.Chew) 81 mg PO DAILY [facility] Last Admin: 11/07/24 09:16 Dose: 81 mg Benzonatate (Benzonatate 100 Mg Capsule) 100 mg PO TID PRN PRN Reason: Cough Docusate Sodium (Docusate Sodium 100 Mg Capsule) 100 mg PO BID [facility] Last Admin: 11/07/24 09:29 Dose: Not Given Furosemide (Furosemide 40 Mg/4 Ml Vial) 40 mg IVPUSH BID@0900,1800 [facility]; Protocol Last Admin: 11/07/24 09:29 Dose: 40 mg Nafcillin Sodium 2 gm/ Sodium (Chloride) 100 mls @ 200 mls/hr IV Q4H [facility] Last Infusion: 11/07/24 10:36 Dose: Infused Ketorolac Tromethamine (Ketorolac Tromethamine 15 Mg/Ml Vial) 15 mg IVPUSH Q6H PRN PRN Reason: Pain, Moderate(Pain Scale 4-6) Stop: 11/09/24 03:59 Last Admin: 11/07/24 09:16 Dose: 15 mg Lidocaine (Lidocaine 4 % Patch Adh..Patch) 1 patch TRANSDERMA DAILY [facility]; Protocol Last Admin: 11/07/24 09:17 Dose: 1 patch Magnesium Oxide (Magnesium Oxide 400 Mg Tablet) 400 mg PO DAILY [facility] Last Admin: 11/07/24 09:16 Dose: 400 mg Melatonin (Melatonin 3 Mg Tablet) 6 mg PO BEDTIME [facility] Last Admin: 11/06/24 22:40 Dose: 6 mg Methadone HCl (Methadone Hcl 20 Mg/2 Ml Oral.Conc) 40 mg PO DAILY@0800 [facility] Methadone HCl (Methadone Hcl 20 Mg/2 Ml Oral.Conc) 10 mg PO Q6H PRN PRN Reason: opiate withdrawal or severe pain Metoprolol Tartrate (Metoprolol Tartrate 25 Mg Tablet) 75 mg PO BID [facility]; Protocol Last Admin: 11/07/24 09:16 Dose: 75 mg Naloxone HCl (Naloxone Hcl 0.4 Mg/Ml Vial) 0.04 mg IVPUSH Q5M PRN PRN Reason: Respiratory Rate < 10 Non-Formulary Medication (Rifabutin) 300 mg PO DAILY [facility] Ondansetron HCl (Ondansetron Hcl 4 Mg/2 Ml Vial) 4 mg IVPUSH Q8H PRN PRN Reason: Nausea and Vomiting Oxycodone HCl (Oxycodone Hcl Immed Release 5 Mg Tablet) 10 mg PO Q4H PRN PRN Reason: Pain, Severe (Pain Scale 7-10) Oxycodone HCl (Oxycodone Hcl Immed Release 5 Mg Tablet) 5 mg PO Q4H PRN PRN Reason: Pain (Scale Score 4-6) Pantoprazole Sodium (Pantoprazole Sodium 40 Mg/10 Ml Vial) 40 mg IVPUSH DAILY@0630 [facility] Last Admin: 11/07/24 05:49 Dose: 40 mg Polyethylene Glycol (Polyethylene Glycol 3350 17 Gm Powd.Pack) 17 gm PO DAILY [facility] Last Admin: 11/07/24 09:30 Dose: Not Given Pregabalin (Pregabalin 50 Mg Capsule) 50 mg PO BEDTIME [facility] Last Admin: 11/06/24 22:40 Dose: 50 mg Senna (Sennosides 8.6 Mg Tablet) 17.2 mg PO BEDTIME [facility] Last Admin: 11/06/24 22:37 Dose: Not Given Allergies Allergies Allergy/AdvReac Type Severity Reaction Status Date / Time Sulfa (Sulfonamide Allergy Unknown swelling, Verified 10/20/24 15:27 Antibiotics) ITCHY [SULFA (SULFONAMIDE ANTIBIOTICS)] Assessment & Plan Assessment & Plan (1) Opioid use disorder: Status: Acute Code(s): F11.90 - Opioid use, unspecified, uncomplicated Assessment and Plan: will continue methadone at current dose and assess need for dose adjustment based on PRN use oil scout to follow up over the weekend Total time managing care of this patient today __35__ minutes. [facility] Past Medical History Medical History (Updated 11/07/24 @ 14:28 by Sulaiman Ruiz MD) Polysubstance (including opioids) dependence with physiological dependence Endocarditis due to methicillin susceptible Staphylococcus aureus (MSSA) Hepatitis C Malnutrition No active medical problems Surgical History Surgical History (Updated 11/07/24 @ 07:25 by Melisa Burns RN) Status post patch closure of ASD S/P MVR (mitral valve replacement) History of back surgery Social History Social History Household Members: Family Housing: Condominium Do you presently have visiting nurse or other home services: No Alcohol intake: current Patient Tobacco Use Status: Current everyday Tobacco user Tobacco use type: Cigarette Cigarettes Per Day: 4 Smoked in Last 30 Days: No Patient Interested in Nicotine Replacement: No Patient Given Instructions on How to Stop Smoking: No Second Hand Smoke Exposure: No Use of substances other than those prescribed or required for medical reasons: Yes Substance Use Type: Crack/Cocaine, Heroin, IV Drugs and Marijuana Last Used Substance: Unknown Currently Displaying Signs/Symptoms of Drug Intoxication Withdrawal: No Any prior treatment program specific to substance use: Yes ([facility]) Have you been hit, kicked, punched, or otherwise hurt by someone within the past year? If so, by whom?: No Do you feel safe in your current relationship?: No Current Relationship Is there a partner from a previous relationship who is making you feel unsafe now?: No Are you made to feel afraid or neglected: No Spiritual Healthcare Practices: no Advance Directives: No Advance Directives Information Provided: Yes Advance Directives on File: No Do you have a plan to hurt others: No Plan Recently lost weight without trying: Yes How much weight loss: 2-13 pounds Eating poorly because of decreased appetite: No Nutrition screen score: 3 Nutrition Risks: No Nutritional Risk Patient : No : No Poor oral hygiene: No service: No
--- NOTE | 2024-11-07 17:04 | HO.PICC ---
PICC Line Insertion NPICC INSERTION Diagnosis: ENDOCARDITIS MSSA BACTEREMIA Indication: HALFWAY ANTIBX Pertinent Labs: REVIEWED Technique: Following informed consent including risks, benefits and alternatives and using sterile technique including cap and mask, sterile gown, glove and drape, the RIGHT arm was prepped and draped in the usual sterile fashion of full barrier technique with CHG. Following completion of [facility]ents Protocol the skin and soft tissues were anesthetized with 1% Lidocaine plain. Using ultrasound guidance, RIGHT BASILIC vein access was obtained. Over an 0.018 wire through peel-away sheath, a 4FR SINGLE LUMEN PASV POWERPICC line was positioned. Catheter length is 38CM internal length, 0CM external length, for a total trimmed length of 38CM. The procedure was performed in RM 272. STAT CXR ORDERED FOR VERIFIED FOR PICC PLACEMENT A formal ultrasound picture and cardiac rhythm strip was recorded. It is currently dressed with a StatLock, Tegaderm, and CHG disc. Verification has been performed for blood return and line patency. RESULTS OF CXR WILL HAVE TO BE READ BEFORE USED OF THE PICC LINE. Arm Circumference: 21.5CM Equipment: BARD POWERPICC CATHETER WITH SHERLOCK 3CG TIP Catheter Type: 4FR SINGLE LUMEN PASV POWERPICC Lot #: [id number]
--- NOTE | 2024-11-07 17:31 | PC.NURSE ---
PICC PLACEMENT-Dr Sultana reviewed the stat cxr and stated the picc line was okay to use.
[2024-11-07 19:47] VITALS: BP 128/66; PULSE 118; RESP 17; TEMP 37.2; O2SAT 97
[2024-11-07] MEDS: Melatonin 3 MG TABLET 6 MG PO (21:21)
[2024-11-07] MEDS: Pregabalin 50 MG CAPSULE PO (21:21)
[2024-11-07 21:22] VITALS: BP 127/73; PULSE 114
[2024-11-07] MEDS: Docusate Sodium 100 MG CAPSULE PO (21:25)
[2024-11-07] MEDS: methADONE HCl 20 MG/2 ML ORAL.CONC 10 MG PO (21:30)
--- NOTE | 2024-11-07 23:46 | P.CNID_ITS ---
History of Present Illness Data of Consult Service Date: 11/07/24 Requesting physician: Shannon Santiago Primary Care Provider: None Physician HPI Reason for consult: concern over recuurent infection She presents from [facility] where she had mitral valve repair for MSSA bactermia and PFO xli Review of Systems 2 Review of Systems: Yes all other systems are reviewed and are negative PMFSH Past Medical History Medical History (Updated 11/07/24 @ 14:28 by Sulaiman Ruiz MD) Polysubstance (including opioids) dependence with physiological dependence Endocarditis due to methicillin susceptible Staphylococcus aureus (MSSA) Hepatitis C Malnutrition No active medical problems Family History Family history: reviewed and not pertinent Surgical History Surgical History Status post patch closure of ASD S/P MVR (mitral valve replacement) History of back surgery Social History Social History Household Members: Family Housing: Condominium Do you presently have visiting nurse or other home services: No Alcohol intake: current Patient Tobacco Use Status: Current everyday Tobacco user Tobacco use type: Cigarette Cigarettes Per Day: 4 Smoked in Last 30 Days: No Patient Interested in Nicotine Replacement: No Patient Given Instructions on How to Stop Smoking: No Second Hand Smoke Exposure: No Use of substances other than those prescribed or required for medical reasons: Yes Substance Use Type: Crack/Cocaine, Heroin, IV Drugs and Marijuana Last Used Substance: Unknown Currently Displaying Signs/Symptoms of Drug Intoxication Withdrawal: No Any prior treatment program specific to substance use: Yes (N) Have you been hit, kicked, punched, or otherwise hurt by someone within the past year? If so, by whom?: No Do you feel safe in your current relationship?: No Current Relationship Is there a partner from a previous relationship who is making you feel unsafe now?: No Are you made to feel afraid or neglected: No Spiritual Healthcare Practices: no Advance Directives: No Advance Directives Information Provided: Yes Advance Directives on File: No Do you have a plan to hurt others: No Plan Recently lost weight without trying: Yes How much weight loss: 2-13 pounds Eating poorly because of decreased appetite: No Nutrition screen score: 3 Nutrition Risks: No Nutritional Risk Patient : No : No Poor oral hygiene: No service: No Travel History Ebola Risk: Travel/Contact With Anyone From Affected Area/s: No Has Patient Experienced Ebola Symptoms: No Meds Allergies Allergy/AdvReac Type Severity Reaction Status Date / Time Sulfa (Sulfonamide Allergy Unknown swelling, Verified 10/20/24 15:27 Antibiotics) ITCHY [SULFA (SULFONAMIDE ANTIBIOTICS)] Active Medications: Current Medications Acetaminophen (Acetaminophen 325 Mg Tablet) 650 mg PO Q6H PRN PRN Reason: Pain, Mild 1-3,fever,headache Last Admin: 11/06/24 22:41 Dose: 650 mg Albuterol/Ipratropium (Albuterol/Iprat 2.5/0.5mg 3 Ml Ampul.Neb) 3 ml INHALE Q4H PRN PRN Reason: Shortness of Breath/Wheezing Albuterol/Ipratropium (Albuterol/Iprat 2.5/0.5mg 3 Ml Ampul.Neb) 3 ml INHALE Q6H PRN PRN Reason: Shortness Of Breath Apixaban (Apixaban 5 Mg Tablet) 5 mg PO BID [facility] Last Admin: 11/07/24 21:21 Dose: 5 mg Aspirin (Aspirin 81 Mg Tab.Chew) 81 mg PO DAILY [facility] Last Admin: 11/07/24 09:16 Dose: 81 mg Benzonatate (Benzonatate 100 Mg Capsule) 100 mg PO TID PRN PRN Reason: Cough Docusate Sodium (Docusate Sodium 100 Mg Capsule) 100 mg PO BID [facility] Last Admin: 11/07/24 21:25 Dose: 100 mg Furosemide (Furosemide 40 Mg/4 Ml Vial) 40 mg IVPUSH BID@0900,1800 [facility]; Protocol Last Admin: 11/07/24 18:01 Dose: 40 mg Nafcillin Sodium 2 gm/ Sodium (Chloride) 100 mls @ 200 mls/hr IV Q4H [facility] Last Infusion: 11/07/24 22:00 Dose: Infused Ketorolac Tromethamine (Ketorolac Tromethamine 15 Mg/Ml Vial) 15 mg IVPUSH Q6H PRN PRN Reason: Pain, Moderate(Pain Scale 4-6) Stop: 11/09/24 03:59 Last Admin: 11/07/24 18:13 Dose: 15 mg Lidocaine (Lidocaine 4 % Patch Adh..Patch) 1 patch TRANSDERMA DAILY [facility]; Protocol Last Admin: 11/07/24 09:17 Dose: 1 patch Magnesium Oxide (Magnesium Oxide 400 Mg Tablet) 400 mg PO DAILY [facility] Last Admin: 11/07/24 09:16 Dose: 400 mg Melatonin (Melatonin 3 Mg Tablet) 6 mg PO BEDTIME [facility] Last Admin: 11/07/24 21:21 Dose: 6 mg Methadone HCl (Methadone Hcl 20 Mg/2 Ml Oral.Conc) 40 mg PO DAILY@0800 [facility] Methadone HCl (Methadone Hcl 20 Mg/2 Ml Oral.Conc) 10 mg PO Q6H PRN PRN Reason: opiate withdrawal or severe pain Last Admin: 11/07/24 21:30 Dose: 10 mg Metoprolol Tartrate (Metoprolol Tartrate 25 Mg Tablet) 75 mg PO BID [facility]; Protocol Last Admin: 11/07/24 21:22 Dose: 75 mg Naloxone HCl (Naloxone Hcl 0.4 Mg/Ml Vial) 0.04 mg IVPUSH Q5M PRN PRN Reason: Respiratory Rate < 10 Ondansetron HCl (Ondansetron Hcl 4 Mg/2 Ml Vial) 4 mg IVPUSH Q8H PRN PRN Reason: Nausea and Vomiting Oxycodone HCl (Oxycodone Hcl Immed Release 5 Mg Tablet) 10 mg PO Q4H PRN PRN Reason: Pain, Severe (Pain Scale 7-10) Oxycodone HCl (Oxycodone Hcl Immed Release 5 Mg Tablet) 5 mg PO Q4H PRN PRN Reason: Pain (Scale Score 4-6) Pantoprazole Sodium (Pantoprazole Sodium 40 Mg/10 Ml Vial) 40 mg IVPUSH DAILY@0630 [facility] Last Admin: 11/07/24 05:49 Dose: 40 mg Polyethylene Glycol (Polyethylene Glycol 3350 17 Gm Powd.Pack) 17 gm PO DAILY [facility] Last Admin: 11/07/24 09:30 Dose: Not Given Pregabalin (Pregabalin 50 Mg Capsule) 50 mg PO BEDTIME [facility] Last Admin: 11/07/24 21:21 Dose: 50 mg Rifabutin (Rifabutin 150 Mg Capsule) 300 mg PO DAILY [facility] Last Admin: 11/07/24 18:02 Dose: 300 mg Senna (Sennosides 8.6 Mg Tablet) 17.2 mg PO BEDTIME [facility] Last Admin: 11/07/24 21:26 Dose: Not Given Home Medications ?Medication ?Instructions ?Recorded ?Confirmed ?Last Taken ?Type acetaminophen 325 mg tablet 650 mg PO Q6H PRN Pain (Scale 11/06/24 11/06/24 Unknown History Score 1-3) apixaban 2.5 mg tablet 2.5 mg PO BID 11/06/24 11/06/24 Unknown History aspirin 81 mg chewable tablet 81 mg PO DAILY 11/06/24 11/06/24 Unknown History docusate sodium 100 mg capsule 100 mg PO BID 11/06/24 11/06/24 Unknown History furosemide 10 mg/mL injection 40 mg IV BID@0900,1700 11/06/24 11/06/24 Unknown History syringe ipratropium 0.5 mg-albuterol 3 mg 3 ml inhalation Q6H PRN Shortness 11/06/24 11/06/24 Unknown History (2.5 mg base)/3 mL nebulization Of Breath soln lidocaine 4 % topical patch 1 patch topical DAILY 11/06/24 11/06/24 Unknown History magnesium oxide 400 mg PO DAILY 11/06/24 11/06/24 Unknown History melatonin 3 mg tablet 6 mg PO BEDTIME 11/06/24 11/06/24 Unknown History methadone 10 mg/mL oral concentrate 10 mg PO Q6H PRN opiate withdrawal 11/06/24 11/06/24 Unknown History or severe pain methadone 10 mg/mL oral concentrate 40 mg PO DAILY 11/06/24 11/06/24 Unknown History metoprolol tartrate 75 mg tablet 75 mg PO BID 11/06/24 11/06/24 Unknown History nafcillin 2 gram solution for 2 g IV Q4H 11/06/24 11/06/24 Unknown History injection naloxone 0.4 mg/mL injection 0.4 mg IM Q5M PRN opioid reversal 11/06/24 11/06/24 Unknown History syringe or resp depression ondansetron HCl (PF) 4 mg/2 mL 4 mg IV Q6H PRN Nausea And Vomiting 11/06/24 11/06/24 Unknown History injection syringe oxycodone 10 mg tablet,oral ONLY 10 mg PO Q4H PRN Pain (Scale Score 11/06/24 11/06/24 Unknown History (not feeding tubes) 7-10) oxycodone 5 mg tablet 5 mg PO Q4H PRN Pain (Scale Score 11/06/24 11/06/24 Unknown History 4-6) pantoprazole 40 mg tablet,delayed 40 mg PO DAILY@0630 11/06/24 11/06/24 Unknown History release polyethylene glycol 3350 17 gram 17 g PO DAILY 11/06/24 11/06/24 Unknown History oral powder packet pregabalin 50 mg capsule 50 mg PO BEDTIME 11/06/24 11/06/24 Unknown History rifabutin 150 mg capsule 300 mg PO DAILY 11/06/24 11/06/24 Unknown History sennosides 8.6 mg tablet (senna) 17.2 mg PO BEDTIME 11/06/24 11/06/24 Unknown History Physical Exam 2 Vital Signs: Vital Signs: Last Vital Signs Temp 99.0 F 11/07/24 19:47 Pulse 114 H 11/07/24 21:22 Resp 17 11/07/24 19:47 BP 127/73 11/07/24 21:22 Pulse Ox 97 11/07/24 19:47 O2 Del Method Room Air 11/07/24 19:47 BMI result Body Mass Index 23.3 Const: General: cooperative HEENT: Head: Yes normal to inspection Face and sinus: Yes normal facial exam Mouth: Normal oral and palatal mucosa present Teeth and gingiva: d entition normal Eyes: General: appearance normal, both eyes and all related structures P upils: Equal, round and reactive pupils present Resp: Effort & Inspection: normal respiratory effort Cardio: Rate: regular rate Rhythm: regular rhythm GI: Palpation (GI): Soft to palpation and nontender : General: Yes no CVA tenderness Back/Spine/Pelvis: Back: no CVA tenderness Skin: General skin exam: no rashes or lesions noted Neuro: General: moves all extremities Cranial nerves: Yes Equal, round and reactive pupils present Extrem: General: Yes normal to inspection Psych: Appearance: grossly normal Results Labs 11/07/24 07:45 Labs: BMP 11/07/24 07:45 Sodium 132 L Potassium 3.5 D Chloride 97 Carbon Dioxide 21 L BUN 25 H Creatinine 0.80 Calcium 8.7 D Liver Function 11/07/24 Range/Units 07:45 Total Bilirubin 0.9 (0.0-1.0) mg/dL AST 37 H (5-31) U/L ALT < 6 (0-31) U/L Alkaline Phosphatase 86 (39-117) U/L Albumin 2.8 L (3.5-5.0) g/dL Assessment and Plan (1) Septic shock: Status: Acute Plan Await final cultures 6 weeks total Daptomycin with po Rifabutin or Rifampin. Stop Nafcillin ,may be causing hematolgic parameters to continue to be low.
[2024-11-08] VITALS (10 sets, daily range): BP systolic 118–144; BP diastolic 68–81; PULSE 94–110; RESP 16–20; TEMP 36.8–39.3; O2SAT 97–100; BMI 25.2
[2024-11-08] MEDS: hydrOXYzine HCL 50 MG TABLET PO ×2 (02:35→21:11)
[2024-11-08] MEDS: Nafcillin Sodium 2 GM in 0.9 % Sodium Chloride 100 ML IV ×6 (02:45→22:06)
[2024-11-08] MEDS: Ketorolac Tromethamine 15 MG/ML VIAL IVPUSH (02:48)
[2024-11-08] MEDS: Pantoprazole Sodium 40 MG/10 ML VIAL IVPUSH (05:47)
[2024-11-08] MEDS: Metoprolol Tartrate 25 MG TABLET 75 MG PO ×2 (09:40→21:11)
[2024-11-08] MEDS: methADONE HCl 20 MG/2 ML ORAL.CONC 40 MG PO (09:40)
[2024-11-08] MEDS: Furosemide 40 MG/4 ML VIAL IVPUSH (09:40)
[2024-11-08] MEDS: polyethylene glycoL 3350 17 GM POWD.PACK PO (09:40)
[2024-11-08] MEDS: Magnesium Oxide 400 MG TABLET PO (09:41)
[2024-11-08] MEDS: Lidocaine 4 % Patch ADH..PATCH 1 PATCH TRANSDERMA (09:41)
[2024-11-08] MEDS: Apixaban 5 MG TABLET PO ×2 (09:41→21:11)
[2024-11-08] MEDS: Docusate Sodium 100 MG CAPSULE PO ×2 (09:41→21:11)
[2024-11-08] MEDS: Aspirin 81 MG TAB.CHEW PO (09:41)
[2024-11-08 11:18] LABS: HCV Log PCR 6.02 Log IU/mL (NOT DETECTED); HepC Viral Load 1040000 IU/mL (NOT DETECTED)
--- NOTE | 2024-11-08 12:16 | HO.PM.IMPN ---
Subjective Subjective Date of Service: 11/08/24 Interval History: seen and evaluated feels better overall PICC line placed denies any fever or chills no other events Review of Systems Review of Systems: Yes all other systems are reviewed and are negative Physical Exam Vital Signs: Vital Signs: Last Vital Signs Temp 98.9 F 11/08/24 11:24 Pulse 94 11/08/24 11:24 Resp 18 11/08/24 11:24 BP 132/79 11/08/24 11:24 Pulse Ox 98 11/08/24 11:24 O2 Del Method Room Air 11/08/24 11:24 BMI result Body Mass Index 25.2 Const: Other: Constitutional : Awake, interactive, not in distress Neck : Normal inspection, Supple Cardiovascular : RRR, no JVP, no lower extremity edema Respiratory : good bilateral air entry, no crackles, wheezes or rhonchi Gastrointestinal: soft, lax, Normal bowel sounds, Non tender Skin : Warm, Dry, inj harley, Picc line in place Neurological : Alert & oriented x3, No focal deficit Objective Data Active Medications Acetaminophen (Acetaminophen 325 Mg Tablet) 650 mg PO Q6H PRN PRN Reason: Pain, Mild 1-3,fever,headache Last Admin: 11/06/24 22:41 Dose: 650 mg Documented By: BRENNAN Albuterol/Ipratropium (Albuterol/Iprat 2.5/0.5mg 3 Ml Ampul.Neb) 3 ml INHALE Q4H PRN PRN Reason: Shortness of Breath/Wheezing Albuterol/Ipratropium (Albuterol/Iprat 2.5/0.5mg 3 Ml Ampul.Neb) 3 ml INHALE Q6H PRN PRN Reason: Shortness Of Breath Apixaban (Apixaban 5 Mg Tablet) 5 mg PO BID [facility] Last Admin: 11/08/24 09:41 Dose: 5 mg Documented By: MINA Aspirin (Aspirin 81 Mg Tab.Chew) 81 mg PO DAILY [facility] Last Admin: 11/08/24 09:41 Dose: 81 mg Documented By: MINA Benzonatate (Benzonatate 100 Mg Capsule) 100 mg PO TID PRN PRN Reason: Cough Docusate Sodium (Docusate Sodium 100 Mg Capsule) 100 mg PO BID [facility] Last Admin: 11/08/24 09:41 Dose: 100 mg Documented By: MINA Furosemide (Furosemide 40 Mg/4 Ml Vial) 40 mg IVPUSH BID@0900,1800 [facility]; Protocol Last Admin: 11/08/24 09:40 Dose: 40 mg Documented By: MINA Hydroxyzine HCl (Hydroxyzine Hcl 50 Mg Tablet) 50 mg PO BEDTIME [facility] Last Admin: 11/08/24 02:35 Dose: 50 mg Documented By: BRENNAN Nafcillin Sodium 2 gm/ Sodium (Chloride) 100 mls @ 200 mls/hr IV Q4H [facility] Last Infusion: 11/08/24 10:20 Dose: Infused Documented By: MINA Ketorolac Tromethamine (Ketorolac Tromethamine 15 Mg/Ml Vial) 15 mg IVPUSH Q6H PRN PRN Reason: Pain, Moderate(Pain Scale 4-6) Stop: 11/09/24 03:59 Last Admin: 11/08/24 02:48 Dose: 15 mg Documented By: BRENNAN Lidocaine (Lidocaine 4 % Patch Adh..Patch) 1 patch TRANSDERMA DAILY [facility]; Protocol Last Admin: 11/08/24 09:41 Dose: 1 patch Documented By: MINA Magnesium Oxide (Magnesium Oxide 400 Mg Tablet) 400 mg PO DAILY [facility] Last Admin: 11/08/24 09:41 Dose: 400 mg Documented By: MINA Melatonin (Melatonin 3 Mg Tablet) 6 mg PO BEDTIME [facility] Last Admin: 11/07/24 21:21 Dose: 6 mg Documented By: BRENNAN Methadone HCl (Methadone Hcl 20 Mg/2 Ml Oral.Conc) 40 mg PO DAILY@0800 [facility] Last Admin: 11/08/24 09:40 Dose: 40 mg Documented By: MINA Co-signed By: MICHAEL Methadone HCl (Methadone Hcl 20 Mg/2 Ml Oral.Conc) 10 mg PO Q6H PRN PRN Reason: opiate withdrawal or severe pain Last Admin: 11/07/24 21:30 Dose: 10 mg Documented By: BRENNAN Co-signed By: DANIEL Metoprolol Tartrate (Metoprolol Tartrate 25 Mg Tablet) 75 mg PO BID [facility]; Protocol Last Admin: 11/08/24 09:40 Dose: 75 mg Documented By: MINA Naloxone HCl (Naloxone Hcl 0.4 Mg/Ml Vial) 0.04 mg IVPUSH Q5M PRN PRN Reason: Respiratory Rate < 10 Ondansetron HCl (Ondansetron Hcl 4 Mg/2 Ml Vial) 4 mg IVPUSH Q8H PRN PRN Reason: Nausea and Vomiting Oxycodone HCl (Oxycodone Hcl Immed Release 5 Mg Tablet) 10 mg PO Q4H PRN PRN Reason: Pain, Severe (Pain Scale 7-10) Oxycodone HCl (Oxycodone Hcl Immed Release 5 Mg Tablet) 5 mg PO Q4H PRN PRN Reason: Pain (Scale Score 4-6) Pantoprazole Sodium (Pantoprazole Sodium 40 Mg/10 Ml Vial) 40 mg IVPUSH DAILY@0630 [facility] Last Admin: 11/08/24 05:47 Dose: 40 mg Documented By: BRENNAN Polyethylene Glycol (Polyethylene Glycol 3350 17 Gm Powd.Pack) 17 gm PO DAILY [facility] Last Admin: 11/08/24 09:40 Dose: 17 gm Documented By: MINA Pregabalin (Pregabalin 50 Mg Capsule) 50 mg PO BEDTIME [facility] Last Admin: 11/07/24 21:21 Dose: 50 mg Documented By: BRENNAN Rifabutin (Rifabutin 150 Mg Capsule) 300 mg PO DAILY [facility] Last Admin: 11/08/24 09:41 Dose: 300 mg Documented By: MINA Senna (Sennosides 8.6 Mg Tablet) 17.2 mg PO BEDTIME [facility] Last Admin: 11/07/24 21:26 Dose: Not Given Documented By: BRENNAN Non-Admin Reason: pt declined Labs 11/07/24 07:45 Labs: Laboratory Results - last 24 hr 11/07/24 07:45 Hep C Viral Load [id number] H Hep C Viral Load Log 6.02 H Assessment and Plan (1) S/P patent foramen ovale closure: Status: Acute (2) S/P mitral valve replacement with bioprosthetic valve: Status: Acute (3) Infective endocarditis: Status: Acute (4) Opioid use disorder: Status: Acute (5) Acute on chronic diastolic (congestive) heart failure: Status: Acute Plan Pt is aq 34 yo female with past, medical history HIV, hepatitis-C, microcytic anemia, protein calorie malnutrition, polysubstance abuse disorder with IV drug history currently on methadone, right arm thrombophlebitis 2020 readmitted at [facility] status post mitral valve repair and ASD closure at [facility] in [facility], a [facility]. MSSA Infective Endocarditis S\P MVR with a number 31Mitris Bioprosthetic valve and ASD closure Negative blood culture since November 01. To finish 6 weeks of IV Abx by 12/13/2024 On nafcillin 2 g every 4 hours and rifabutin 300 mg daily until 12/15/2024. ID consult, 6 weeks total Daptomycin with po Rifabutin or Rifampin. PICC line placed incentive spirometry PRN Oxycodone for pain to remove stitch from groin. Accelerated junctional rhythm continue on metoprolol tartrate 75 mg b.i.d. Cardiology input appreciated acute on chronic diastolic heart failure NYHA class 3 Lasix 40 mg IV decrease to daily Daily weights low-sodium diet, measure I's and O's Left upper arm DVT was started on Eliquis 2.5 mg b.i.d. postoperatively per Cardiothoracic surgeon. will start Eliquis 5 mg b.i.d Chronic untreated hepatitis-C RNA viral load >1 million, for GI outpatient follow up for treatment Polysubstance abuse w hx IVDU methadone per recovery team risk for leaving AMA Moderate protein calorie malnutrition Nutritional consult Ensure Depression, uncontrolled Psych consult. Pt looking to be back on meds DVT prophylaxis: Eliquis Ppi prophylaxis: Protonix daily Patient is a full code Admit as inpatient and will require overnight minimum hospital stay for IV antibiotic (as above), pending outpatient plan for IV antibiotics which is not possible in a lesser acute setting. Quality Stroke Does the patient have a stroke diagnosis?: No Reason for No Anti-thrombotic by Day Two: N/A - Med Ordered VTE Prior VTE?: No VTE Risk Level:: Medical - moderate - high VTE Device Contraindication: Treatment Not Indicated VTE Drug Contraindication: N/A - Med Ordered
[2024-11-08 13:17] LABS: MANUAL DIFF FLAG NO
[2024-11-08 13:27] LABS: Basophils Absolute Auto 0.1 X10*3/uL (0.0-0.2); Basophils Percent Auto 0.6 % (0-2); Eosinophils Absolute Auto 0.2 X10*3/uL (0.0-0.4); Eosinophils Percent Auto 2.1 % (0-4); Hematocrit 21.3 % (37.0-47.0); Imm Gran Abs Auto 0.07 X10*3/uL (0.00-0.03); Imm Gran Pct Auto 0.9 % (0.0-0.4); Lymphocytes Absolute Auto 1.6 X10*3/uL (1.2-4.9); Lymphocytes Percent Auto 19.5 % (20-40); Mean Corpuscular HGB Conc 33.3 g/dl (31.0-35.0); Mean Corpuscular Hemoglobin 29.3 pg (27.0-33.0); Mean Platelet Volume 10.1 fL (9.4-12.3); Monocytes Absolute Auto 0.6 X10*3/uL (0.1-1.2); Neutrophils Absolute Auto 5.6 x10*3/uL (2.0-8.3); Neutrophils Percent Auto 68.9 % (45-73); Platelet Count 166 X10*3/uL (160-400); Red Blood Count 2.42 X10*6/uL (4.20-5.50); Red Cell Distribution Width 21.4 % (11.0-16.0); White Blood Count 8.1 X10*3/uL (4.8-10.8)
[2024-11-08 13:49] LABS: Hemoglobin 7.1 g/dl (12.0-16.0)
[2024-11-08 13:57] LABS: Alanine Aminotransferase 7 U/L (0-31); Albumin Level 2.3 g/dL (3.5-5.0); Alkaline Phosphatase 72 U/L (39-117); Anion Gap 15 (12-20); Aspartate Amino Transferase 39 U/L (5-31); Bilirubin Total 0.5 mg/dL (0.0-1.0); Blood Urea Nitrogen 25 mg/dL (9-16); Calcium 7.9 mg/dL (8.4-10.2); Carbon Dioxide 24 mmol/L (22-29); Chloride 97 mmol/L (96-108); Creatinine Clr Calc Pharmacy 79.5; Estimated Glomerular Filt Rate > 60; Glucose Random 122 mg/dL (60-115); Potassium 2.8 mmol/L (3.3-5.1); Sodium 133 mmol/L (135-145); Total Protein 6.2 g/dL (6.5-8.0)
[2024-11-08] MEDS: Potassium Chloride ER 20 MEQ TAB.ER.PRT 40 MEQ PO (15:30)
[2024-11-08] MEDS: Ferrous Sulfate 324 MG TABLET.DR PO (15:31)
[2024-11-08 15:32] LABS: Iron 37 mcg/dL (30-160); Percent Iron Saturation 24 % (15-50); Total Iron Binding Capacity 152 mcg/dL (228-428); Unsaturated Iron Binding 115 ug/dL
[2024-11-08 15:53] LABS: Glucose, Whole Blood 127 mg/dL (60-115)
[2024-11-08] MEDS: Acetaminophen 325 MG TABLET 650 MG PO (17:09)
[2024-11-08] MEDS: methADONE HCl 20 MG/2 ML ORAL.CONC PO (17:09)
[2024-11-08 19:50] LABS: Lactic Acid 0.9 mmol/L (0.5-2.0)
[2024-11-08] MEDS: Pregabalin 50 MG CAPSULE PO (21:11)
[2024-11-08] MEDS: Melatonin 3 MG TABLET 6 MG PO (21:11)
[2024-11-09] VITALS (15 sets, daily range): BP systolic 120–167; BP diastolic 65–100; PULSE 82–103; RESP 17–19; TEMP 36.3–38.4; O2SAT 97–100; BMI 24.8
[2024-11-09] MEDS: oxyCODONE HCl Immed Release 5 MG TABLET 10 MG PO (00:54)
[2024-11-09] MEDS: Nafcillin Sodium 2 GM in 0.9 % Sodium Chloride 100 ML IV (02:14)
[2024-11-09] MEDS: Acetaminophen 325 MG TABLET 650 MG PO (03:36)
--- NOTE | 2024-11-09 05:02 | PC.NURSE ---
Pt stating doesn't feel well, believes her IV abx are causing her fever/weakness. Educated pt on importance of abx regimen. Pt still doesnt want 6am dose stating I'm tiny its too much, they dont know - theyre doing too much, if this is causing this I should just leave then Educated pt again, still adamant about not getting 6am dose IV abx. Provider aware, will attempt again.
[2024-11-09 07:20] LABS: MANUAL DIFF FLAG NO
[2024-11-09 07:24] LABS: Basophils Absolute Auto 0.1 X10*3/uL (0.0-0.2); Basophils Percent Auto 0.6 % (0-2); Eosinophils Absolute Auto 0.2 X10*3/uL (0.0-0.4); Eosinophils Percent Auto 2.8 % (0-4); Imm Gran Abs Auto 0.07 X10*3/uL (0.00-0.03); Imm Gran Pct Auto 0.8 % (0.0-0.4); Lymphocytes Absolute Auto 1.3 X10*3/uL (1.2-4.9); Lymphocytes Percent Auto 15.2 % (20-40); Mean Corpuscular HGB Conc 33.3 g/dl (31.0-35.0); Mean Corpuscular Hemoglobin 29.2 pg (27.0-33.0); Mean Corpuscular Volume 87.6 fL (80.0-98.0); Mean Platelet Volume 10.9 fL (9.4-12.3); Monocytes Absolute Auto 0.6 X10*3/uL (0.1-1.2); Monocytes Percent Auto 7.6 % (2-11); Neutrophils Absolute Auto 6.2 x10*3/uL (2.0-8.3); Platelet Count 179 X10*3/uL (160-400); Red Blood Count 2.26 X10*6/uL (4.20-5.50); Red Cell Distribution Width 21.6 % (11.0-16.0); White Blood Count 8.5 X10*3/uL (4.8-10.8)
[2024-11-09 07:45] LABS: Hemoglobin 6.6 g/dl (12.0-16.0)
[2024-11-09 07:46] LABS: Hematocrit 19.8 % (37.0-47.0)
[2024-11-09 07:54] LABS: Anion Gap 13 (12-20); Blood Urea Nitrogen 24 mg/dL (9-16); Carbon Dioxide 24 mmol/L (22-29); Chloride 98 mmol/L (96-108); Creatinine Clr Calc Pharmacy 85.3; Estimated Glomerular Filt Rate > 60; Glucose Random 109 mg/dL (60-115); Sodium 132 mmol/L (135-145)
[2024-11-09 08:44] LABS: Adenovirus PCR Not Detected (Not Detect.); Bordetella parapertussis PCR Not Detected (Not Detect.); Bordetella pertussis PCR Not Detected (Not Detect.); Chlamydia pneumoniae PCR Not Detected (Not Detect.); Coronavirus 229E PCR Not Detected (Not Detect.); Coronavirus HKU1 PCR Not Detected (Not Detect.); Coronavirus NL63 PCR Not Detected (Not Detect.); Coronavirus OC43 PCR Not Detected (Not Detect.); Human metapneumovirus PCR Not Detected (Not Detect.); Influenza A PCR Not Detected (Not Detect.); Influenza B PCR Not Detected (Not Detect.); Mycoplasma pneumoniae PCR Not Detected (Not Detect.); Parainfluenza 1 PCR Not Detected (Not Detect.); Parainfluenza 2 PCR Not Detected (Not Detect.); Parainfluenza 3 PCR Not Detected (Not Detect.); Parainfluenza 4 PCR Not Detected (Not Detect.); RSV PCR Not Detected (Not Detect.); Rhino/Enterovirus PCR Not Detected (Not Detect.)
[2024-11-09 09:21] LABS: Influenza A H1 PCR Not Detected (Not Detect.); Influenza A H1-2009 PCR Not Detected (Not Detect.); Influenza A H3 PCR Not Detected (Not Detect.); SARS-CoV-2 PCR Not Detected (Not Detect.)
[2024-11-09] MEDS: Ferrous Sulfate 324 MG TABLET.DR PO (10:04)
[2024-11-09] MEDS: Magnesium Oxide 400 MG TABLET PO (10:04)
[2024-11-09] MEDS: Furosemide 40 MG/4 ML VIAL IVPUSH (10:04)
[2024-11-09] MEDS: Apixaban 5 MG TABLET PO ×2 (10:05→21:21)
[2024-11-09] MEDS: Docusate Sodium 100 MG CAPSULE PO ×2 (10:05→21:21)
[2024-11-09] MEDS: Metoprolol Tartrate 25 MG TABLET 75 MG PO ×2 (10:05→21:21)
[2024-11-09] MEDS: Potassium Chloride ER 20 MEQ TAB.ER.PRT 40 MEQ PO (10:05)
[2024-11-09] MEDS: methADONE HCl 20 MG/2 ML ORAL.CONC 40 MG PO (10:06)
[2024-11-09] MEDS: polyethylene glycoL 3350 17 GM POWD.PACK PO (10:06)
[2024-11-09] MEDS: Lidocaine 4 % Patch ADH..PATCH 1 PATCH TRANSDERMA (10:06)
[2024-11-09] MEDS: Aspirin 81 MG TAB.CHEW PO (10:10)
[2024-11-09] MEDS: DAPTOmycin 575 MG in 0.9 % Sodium Chloride 50 ML 100 MG IV (10:11)
--- NOTE | 2024-11-09 11:03 | MHC.RECOVRN ---
Met with pt in 445 to follow up and provide support.? Pt awake, alert, easily engages in conversation, with visitor present. Pt reports feeling current methadone appropriate but upset about her abx treatment (which provider is addressing). Pt denies other concerns at this time.? T/w available as needed.
--- NOTE | 2024-11-09 12:30 | P.PNIM_ITS ---
Subjective Subjective Date of Service: 11/09/24 Interval History: seen and evaluated had fever last night Hb dropped to 6.6 with reported nasal bleed denies any fever or chills no other events Review of Systems Review of Systems: Yes all other systems are reviewed and are negative Physical Exam 2 Vital Signs: Vital Signs: Last Vital Signs Temp 97.4 F 11/09/24 08:00 Pulse 93 11/09/24 08:00 Resp 18 11/09/24 08:00 BP 147/93 H 11/09/24 08:00 Pulse Ox 100 11/09/24 08:00 O2 Del Method Room Air 11/09/24 08:00 O2 Flow Rate 5 11/09/24 03:47 BMI result Body Mass Index 24.8 Const: Other: Constitutional : Awake, interactive, not in distress Neck : Normal inspection, Supple Cardiovascular : RRR, no JVP, trace lower extremity edema Respiratory : good bilateral air entry, no crackles, wheezes or rhonchi Gastrointestinal: soft, lax, Normal bowel sounds, Non tender Skin : Warm, Dry, inj harley, Picc line in place Neurological : Alert & oriented x3, No focal deficit Objective Data Active Medications Acetaminophen (Acetaminophen 325 Mg Tablet) 650 mg PO Q6H PRN PRN Reason: Pain, Mild 1-3,fever,headache Last Admin: 11/09/24 03:36 Dose: 650 mg Documented By: JON Albuterol/Ipratropium (Albuterol/Iprat 2.5/0.5mg 3 Ml Ampul.Neb) 3 ml INHALE Q4H PRN PRN Reason: Shortness of Breath/Wheezing Albuterol/Ipratropium (Albuterol/Iprat 2.5/0.5mg 3 Ml Ampul.Neb) 3 ml INHALE Q6H PRN PRN Reason: Shortness Of Breath Apixaban (Apixaban 5 Mg Tablet) 5 mg PO BID [facility] Last Admin: 11/09/24 10:05 Dose: 5 mg Documented By: AMY Aspirin (Aspirin 81 Mg Tab.Chew) 81 mg PO DAILY [facility] Last Admin: 11/09/24 10:10 Dose: 81 mg Documented By: AMY Benzonatate (Benzonatate 100 Mg Capsule) 100 mg PO TID PRN PRN Reason: Cough Diphenhydramine HCl (Diphenhydramine Hcl 50 Mg/Ml Vial) 25 mg IVPUSH Q6H PRN PRN Reason: Allergic Reaction Docusate Sodium (Docusate Sodium 100 Mg Capsule) 100 mg PO BID [facility] Last Admin: 11/09/24 10:05 Dose: 100 mg Documented By: AMY Ferrous Sulfate (Ferrous Sulfate 324 Mg Tablet.Dr) 324 mg PO DAILY [facility] Last Admin: 11/09/24 10:04 Dose: 324 mg Documented By: AMY Furosemide (Furosemide 40 Mg/4 Ml Vial) 40 mg IVPUSH DAILY [facility]; Protocol Last Admin: 11/09/24 10:04 Dose: 40 mg Documented By: AMY Hydroxyzine HCl (Hydroxyzine Hcl 50 Mg Tablet) 50 mg PO BEDTIME [facility] Last Admin: 11/08/24 21:11 Dose: 50 mg Documented By: JON Daptomycin 575 mg/ Sodium (Chloride) 61.5 mls @ 100 mls/hr IV Q24H [facility] Last Infusion: 11/09/24 11:31 Dose: Infused Documented By: AMY Lidocaine (Lidocaine 4 % Patch Adh..Patch) 1 patch TRANSDERMA DAILY [facility]; Protocol Last Admin: 11/09/24 10:06 Dose: 1 patch Documented By: AMY Magnesium Oxide (Magnesium Oxide 400 Mg Tablet) 400 mg PO DAILY [facility] Last Admin: 11/09/24 10:04 Dose: 400 mg Documented By: AMY Melatonin (Melatonin 3 Mg Tablet) 6 mg PO BEDTIME [facility] Last Admin: 11/08/24 21:11 Dose: 6 mg Documented By: JON Methadone HCl (Methadone Hcl 20 Mg/2 Ml Oral.Conc) 40 mg PO DAILY@0800 [facility] Last Admin: 11/09/24 10:06 Dose: 40 mg Documented By: AMY Co-signed By: FRANKLIN Methadone HCl (Methadone Hcl 20 Mg/2 Ml Oral.Conc) 10 mg PO Q6H PRN PRN Reason: opiate withdrawal or severe pain Last Admin: 11/07/24 21:30 Dose: 10 mg Documented By: BRENNAN Co-signed By: DANIEL Methadone HCl (Methadone Hcl 20 Mg/2 Ml Oral.Conc) 20 mg PO DAILY@1800 [facility] Last Admin: 11/08/24 17:09 Dose: 20 mg Documented By: MINA Co-signed By: MICHAEL Metoprolol Tartrate (Metoprolol Tartrate 25 Mg Tablet) 75 mg PO BID [facility]; Protocol Last Admin: 11/09/24 10:05 Dose: 75 mg Documented By: AMY Naloxone HCl (Naloxone Hcl 0.4 Mg/Ml Vial) 0.04 mg IVPUSH Q5M PRN PRN Reason: Respiratory Rate < 10 Ondansetron HCl (Ondansetron Hcl 4 Mg/2 Ml Vial) 4 mg IVPUSH Q8H PRN PRN Reason: Nausea and Vomiting Oxycodone HCl (Oxycodone Hcl Immed Release 5 Mg Tablet) 10 mg PO Q4H PRN PRN Reason: Pain, Severe (Pain Scale 7-10) Last Admin: 11/09/24 00:54 Dose: 10 mg Documented By: DANIEL Oxycodone HCl (Oxycodone Hcl Immed Release 5 Mg Tablet) 5 mg PO Q4H PRN PRN Reason: Pain (Scale Score 4-6) Pantoprazole Sodium (Pantoprazole Sodium 40 Mg/10 Ml Vial) 40 mg IVPUSH DAILY@0630 [facility] Last Admin: 11/09/24 05:30 Dose: Not Given Documented By: JON Non-Admin Reason: Patient Refused Polyethylene Glycol (Polyethylene Glycol 3350 17 Gm Powd.Pack) 17 gm PO DAILY [facility] Last Admin: 11/09/24 10:06 Dose: 17 gm Documented By: AMY Pregabalin (Pregabalin 50 Mg Capsule) 50 mg PO BEDTIME [facility] Last Admin: 11/08/24 21:11 Dose: 50 mg Documented By: JON Rifabutin (Rifabutin 150 Mg Capsule) 300 mg PO DAILY [facility] Last Admin: 11/09/24 10:05 Dose: 300 mg Documented By: AMY Senna (Sennosides 8.6 Mg Tablet) 17.2 mg PO BEDTIME [facility] Last Admin: 11/08/24 21:14 Dose: Not Given Documented By: JNO Non-Admin Reason: Patient Refused Labs 11/09/24 06:38 11/09/24 06:38 Labs: Laboratory Results - last 24 hr 05/09/3011/08/24 11/08/24 11:40 13:08 19:00 MCV 88.0 MCH 29.3 MCHC 33.3 RDW 21.4 H Plt Count 166 D MPV 10.1 Immature Gran % (Auto) 0.9 H Neut % (Auto) 68.9 Lymph % (Auto) 19.5 L [place] % (Auto) 8.0 Eos % (Auto) 2.1 Baso % (Auto) 0.6 Lymph # (Auto) 1.6 [place] # (Auto) 0.6 Eos # (Auto) 0.2 Baso # (Auto) 0.1 Abs Immat Gran (auto) 0.07 H Absolute Neuts (auto) 5.6 Absolute Nucleated RBC 0.000 Nucleated RBC % (auto) 0.0 Anion Gap 15 Estim Creat Clear Calc 79.5 Estimated GFR > 60 POC Glucose 127 H Random Glucose 122 H Lactic Acid Calcium 7.9 L D Iron 37 TIBC 152 L % Saturation 24 Unsat Iron Binding 115 Total Bilirubin 0.5 AST 39 H ALT 7 Alkaline Phosphatase 72 Total Protein 6.2 L Albumin 2.3 L Respiratory Panel Carlin See Note Adenovirus (Rapid PCR) Not Detected B.pert (TEM-PCR) Not Detected B.parapertussis DNA PCR Not Detected C. pneumoniae DNA (PCR) Not Detected Coronavirus OC43 (PCR) Not Detected Coronavirus HKU1 (PCR) Not Detected Coronavirus 229E (PCR) Not Detected Coronavirus NL63 (PCR) Not Detected Human Metapneumovir PCR Not Detected Influenza A (RT-PCR) Not Detected Influenza A (H1) PCR Not Detected Influ A (H1/09) PCR Not Detected Influenza A (H3) PCR Not Detected Influenza B (RT-PCR) Not Detected M. pneumoniae (PCR) Not Detected Parainfluenza 1 (PCR) Not Detected Parainfluenza 2 (PCR) Not Detected Parainfluenza 3 (PCR) Not Detected Parainfluenza 4 (PCR) Not Detected RSV (PCR) Not Detected Entero/Rhino (PCR) Not Detected SARS-CoV-2 RNA (RT-PCR) Not Detected Blood Type Antibody Screen Crossmatch 11/08/24 11/09/24 11/09/24 19:21 06:38 08:08 MCV 87.6 MCH 29.2 MCHC 33.3 RDW 21.6 H Plt Count 179 MPV 10.9 Immature Gran % (Auto) 0.8 H Neut % (Auto) 73.0 Lymph % (Auto) 15.2 L [place] % (Auto) 7.6 Eos % (Auto) 2.8 Baso % (Auto) 0.6 Lymph # (Auto) 1.3 [place] # (Auto) 0.6 Eos # (Auto) 0.2 Baso # (Auto) 0.1 Abs Immat Gran (auto) 0.07 H Absolute Neuts (auto) 6.2 Absolute Nucleated RBC 0.000 Nucleated RBC % (auto) 0.0 Anion Gap 13 Estim Creat Clear Calc 85.3 Estimated GFR > 60 POC Glucose Random Glucose 109 Lactic Acid 0.9 Calcium 8.0 L Iron TIBC % Saturation Unsat Iron Binding Total Bilirubin AST ALT Alkaline Phosphatase Total Protein Albumin Respiratory Panel [place] Adenovirus (Rapid PCR) B.pert (TEM-PCR) B.parapertussis DNA PCR C. pneumoniae DNA (PCR) Coronavirus OC43 (PCR) Coronavirus HKU1 (PCR) Coronavirus 229E (PCR) Coronavirus NL63 (PCR) Human Metapneumovir PCR Influenza A (RT-PCR) Influenza A (H1) PCR Influ A (H1/09) PCR Influenza A (H3) PCR Influenza B (RT-PCR) M. pneumoniae (PCR) Parainfluenza 1 (PCR) Parainfluenza 2 (PCR) Parainfluenza 3 (PCR) Parainfluenza 4 (PCR) RSV (PCR) Entero/Rhino (PCR) SARS-CoV-2 RNA (RT-PCR) Blood Type A Positive Antibody Screen NEGATIVE Crossmatch See Detail Microbiology Microbiology Results: Microbiology 11/08/24 17:26 Blood Culture - Final Blood - Venous 11/08/24 17:26 Blood Culture - Final Blood - Venous Assessment and Plan (1) Acute on chronic diastolic (congestive) heart failure: Status: Acute (2) S/P mitral valve replacement with bioprosthetic valve: Status: Acute (3) Tachycardia: Status: Acute (4) S/P patent foramen ovale closure: Status: Acute (5) S/P MVR (mitral valve repair): Status: Acute (6) Infective endocarditis: Status: Acute Plan Pt is aq 34 yo female with past, medical history HIV, hepatitis-C, microcytic anemia, protein calorie malnutrition, polysubstance abuse disorder with IV drug history currently on methadone, right arm thrombophlebitis 2020 readmitted at [facility] status post mitral valve repair and ASD closure at [facility] in [facility] a [facility] of [facility]. 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 To finish 6 weeks of IV Abx by 12/13/2024 Repeat blood cultures pending Tylenol for fever ID consult, 6 weeks total Daptomycin with po Rifabutin or Rifampin at least until 12/13/2024. PICC line placed incentive spirometry PRN Oxycodone for pain Cardiology input appreciated, can hold Aspirin while on Eliquis. Fondaparinux can be an alternative for both as well Acute on chronic anemia likely multifactorial: Bacteremia, blood loss, antibiotic related Hb of 6.6 to transfuse 2 units of blood Hold ASA per cardiology rec Continue Eliquis for DVT and recheck US follow H&H Accelerated junctional rhythm continue on metoprolol tartrate 75 mg b.i.d. acute on chronic diastolic heart failure NYHA class 3 Lasix 40 mg IV decrease to daily Daily weights low-sodium diet, measure I's and O's Left upper arm DVT was started on Eliquis 2.5 mg b.i.d. postoperatively per Cardiothoracic surgeon. switched to Eliquis 5 mg b.i.d To repeat US Chronic untreated hepatitis-C RNA viral load >1 million, for GI outpatient follow up for treatment Polysubstance abuse w hx IVDU methadone per recovery team risk for leaving AMA Moderate protein calorie malnutrition Nutritional consult Ensure Depression, uncontrolled Psych consult. Pt looking to be back on meds DVT prophylaxis: Eliquis Ppi prophylaxis: Protonix daily Patient is a full code Admit as inpatient and will require overnight minimum hospital stay for IV antibiotic (as above), blood transfusion, pending repeat blood cultures and outpatient plan for IV antibiotics which is not possible in a lesser acute setting. Quality Stroke Does the patient have a stroke diagnosis?: No Reason for No Anti-thrombotic by Day Two: N/A - Med Ordered VTE Prior VTE?: No VTE Risk Level:: Medical - moderate - high VTE Device Contraindication: Treatment Not Indicated VTE Drug Contraindication: N/A - Med Ordered
[2024-11-09] MEDS: diphenhydrAMINE HCL 50 MG/ML VIAL 25 MG IVPUSH (12:49)
[2024-11-09 13:13] LABS: Lactate Dehydrogenase 503 U/L (122-220)
[2024-11-09] MEDS: methADONE HCl 20 MG/2 ML ORAL.CONC PO (17:58)
--- NOTE | 2024-11-09 18:45 | PC.NURSE ---
sang paul point of contact per patient [phone]
[2024-11-09] MEDS: Pregabalin 50 MG CAPSULE PO (21:21)
[2024-11-09] MEDS: Melatonin 3 MG TABLET 6 MG PO (21:21)
[2024-11-09] MEDS: Sennosides 8.6 MG TABLET 17.2 MG PO (21:21)
[2024-11-09] MEDS: hydrOXYzine HCL 50 MG TABLET PO (21:21)
[2024-11-09 21:43] LABS: Immature Retic Fraction 19.5 % (3.0-15.9); Retic HGB Equivalent 31.5 pg (30.0-35.0); Reticulocyte Percent 7.4 % (0.5-1.8); Reticulocytes Absolute 0.218 X10*6/uL (0.026-0.095)
[2024-11-10] VITALS (9 sets, daily range): BP systolic 132–171; BP diastolic 69–93; PULSE 85–108; RESP 16–18; TEMP 36.3–38.5; O2SAT 96–100; BMI 24.2
[2024-11-10] MEDS: oxyCODONE HCl Immed Release 5 MG TABLET 10 MG PO (02:54)
[2024-11-10 07:09] LABS: MANUAL DIFF FLAG NO
[2024-11-10 07:29] LABS: Anion Gap 12 (12-20); Blood Urea Nitrogen 18 mg/dL (9-16); Calcium 8.2 mg/dL (8.4-10.2); Carbon Dioxide 23 mmol/L (22-29); Chloride 98 mmol/L (96-108); Creatinine Clr Calc Pharmacy 95.9; Estimated Glomerular Filt Rate > 60; Glucose Random 106 mg/dL (60-115); Potassium 3.6 mmol/L (3.3-5.1); Sodium 129 mmol/L (135-145)
[2024-11-10 07:38] LABS: Basophils Absolute Auto 0.1 X10*3/uL (0.0-0.2); Basophils Percent Auto 0.5 % (0-2); Eosinophils Absolute Auto 0.3 X10*3/uL (0.0-0.4); Eosinophils Percent Auto 2.9 % (0-4); Hematocrit 24.9 % (37.0-47.0); Hemoglobin 8.4 g/dl (12.0-16.0); Imm Gran Abs Auto 0.13 X10*3/uL (0.00-0.03); Imm Gran Pct Auto 1.1 % (0.0-0.4); Lymphocytes Absolute Auto 1.6 X10*3/uL (1.2-4.9); Lymphocytes Percent Auto 14.2 % (20-40); Mean Corpuscular HGB Conc 33.7 g/dl (31.0-35.0); Mean Corpuscular Hemoglobin 29.6 pg (27.0-33.0); Mean Corpuscular Volume 87.7 fL (80.0-98.0); Mean Platelet Volume 10.6 fL (9.4-12.3); Monocytes Absolute Auto 0.8 X10*3/uL (0.1-1.2); Monocytes Percent Auto 7.3 % (2-11); Neutrophils Absolute Auto 8.5 x10*3/uL (2.0-8.3); Platelet Count 212 X10*3/uL (160-400); Red Blood Count 2.84 X10*6/uL (4.20-5.50); Red Cell Distribution Width 19.2 % (11.0-16.0); White Blood Count 11.5 X10*3/uL (4.8-10.8)
[2024-11-10] MEDS: Metoprolol Tartrate 25 MG TABLET 75 MG PO ×2 (08:18→19:35)
[2024-11-10] MEDS: methADONE HCl 20 MG/2 ML ORAL.CONC 40 MG PO (08:19)
[2024-11-10] MEDS: Magnesium Oxide 400 MG TABLET PO (08:19)
[2024-11-10] MEDS: Ferrous Sulfate 324 MG TABLET.DR PO (08:19)
[2024-11-10] MEDS: DAPTOmycin 575 MG in 0.9 % Sodium Chloride 50 ML 100 MG IV (08:19)
[2024-11-10] MEDS: Furosemide 40 MG/4 ML VIAL IVPUSH (08:19)
[2024-11-10] MEDS: Apixaban 5 MG TABLET PO ×2 (08:19→19:35)
[2024-11-10] MEDS: polyethylene glycoL 3350 17 GM POWD.PACK PO (08:19)
[2024-11-10] MEDS: Docusate Sodium 100 MG CAPSULE PO ×2 (08:19→19:35)
[2024-11-10] MEDS: Lidocaine 4 % Patch ADH..PATCH 1 PATCH TRANSDERMA (08:20)
[2024-11-10 09:10] LABS: OBS Int Ctl Valid YES; OBS1 NEGATIVE (NEGATIVE)
--- NOTE | 2024-11-10 12:15 | MHC.CLN ---
F/U PT QUALIFIES FOR NON-SEVERE MALNUTRITION IN THE CONTEXT OF SOCIAL/BEHAVIOR AND ENVIRONMENTAL SEE FULL CLINICAL NUTRITION ASSESSMENT DATED 11/07/24 PO INTAKE 75-100% X 8MEALS NOTED WT UP 56.2 BMI 24.2 WNL DIET RX: 2GM NA-APPROPRIATE RECEIVING MAGIC CUP TID TO INCREASE KCALS SUPP PROVIDES 870KCALS, 27G PROTEIN MD ADDED ENSURE TID PROVIDES 1050KCALS, 60G PROTEIN-OVER EXCEEDS NEEDS WILL REDUCE ENSURE TO BID (700KCALS, 40G PROTEIN) MONITOR PO INTAKE AND ENCOURAGE SUPPLEMENT RD TO FOLLOW WEEKLY
--- NOTE | 2024-11-10 13:33 | MHC.CM.PN ---
Addendum entered by Beth Stockton 11/10/24 15:40: Pt was updated on being denied by [facility]. Other STR options presented to pt, [facility] can offer pt a bed. Pt states she is not going that far, she was just in [place], and there's no way she is leaving to another far place. This CM explained that remaining in the hospital is not an option and going home with IV antibiotics is not an option. Pt states that she will just stay here or leave. Addendum entered by Beth Stockton 11/10/24 14:00: Per [facility] acute rehab she does not meet acute rehab level criteria and has been declined. Original Note: EMR reviewed and per MD rounds, pt is not medically cleared for discharge due to management of endocarditis. Pt will need STR for 6 weeks of IV antibiotics. This CM met with pt to discuss discharge plans, pts significant other Ray present at bedside, pt very groggy having difficulty keeping her eyes open and focused (RN and hospitalist updated). Pt stated my family have been working on getting me into [facility]. This CM explained that she will likely not have a qualifying diagnosis for an acute rehab like [facility], but that we can place a referral there. Referral placed to [facility] awaiting bed offer. This CM explained that it would be more appropriate for us to find a STR for her to receive the 6 weeks of IV antibiotics. Pt stated that she doesn't want to go to [place] or [place], she plans to stay at [facility] to receive the antibiotics if it comes to that.
--- NOTE | 2024-11-10 16:41 | P.PNADD_ITS ---
Subjective Subjective Date of Service: 11/10/24 Reason For Visit: Accelerated junctional rhythm Interim History: Patient seen in follow up for methadone dose adjustment Started methadone 20mg QHS in addition to 40mg QD, over the weekend. Chart reviewed, has not required PRN methadone doses for several days. Patient reporting evening dose of methadone has been helpful Would like to remain at this dose. Review of Systems Constitutional: Reports as per HPI and Reports no additional constitutional complaints Mental Status Exam Mental Status Exam Patient Appearance: Appropriate Level of Consciousness: Awake and Appropriate Patient Behavior: Appropriate Affect Description: Calm Diagnostics Vital Signs (24Hr): Vital Signs - 24 hr 11/09/24 17:51 11/09/24 20:00 11/09/24 23:42 Temperature 99.9 F 99.9 F Pulse Rate 102 H 82 97 Respiratory Rate 18 19 18 Blood Pressure 137/95 H 167/100 H 126/83 Pulse Oximetry 97 97 Oxygen Delivery Method Room Air Room Air 11/10/24 03:17 11/10/24 07:20 11/10/24 11:31 Temperature 99.1 F 97.3 F 97.6 F Pulse Rate 96 96 90 Respiratory Rate 18 17 18 Blood Pressure 132/69 133/84 137/89 Pulse Oximetry 99 100 99 Oxygen Delivery Method Room Air Room Air Room Air 11/10/24 13:10 11/10/24 15:14 Temperature 97.4 F Pulse Rate 85 95 Respiratory Rate 17 Blood Pressure 146/86 H Pulse Oximetry 100 Oxygen Delivery Method Room Air BMI result Body Mass Index 24.2 Labs 11/10/24 07:03 11/10/24 07:03 Labs: Laboratory Results - last 48 hr 11/08/24 11/08/24 11/09/24 19:00 19:21 06:38 WBC 8.5 RBC 2.26 L Hgb 6.6 L* Hct 19.8 L* MCV 87.6 MCH 29.2 MCHC 33.3 RDW 21.6 H Plt Count 179 MPV 10.9 Immature Gran % (Auto) 0.8 H Neut % (Auto) 73.0 Lymph % (Auto) 15.2 L [place] % (Auto) 7.6 Eos % (Auto) 2.8 Baso % (Auto) 0.6 Lymph # (Auto) 1.3 [place] # (Auto) 0.6 Eos # (Auto) 0.2 Baso # (Auto) 0.1 Abs Immat Gran (auto) 0.07 H Absolute Neuts (auto) 6.2 Absolute Nucleated RBC 0.000 Nucleated RBC % (auto) 0.0 Smear Path Review SEE NOTE Absolute Retic Cancelled Percent Retic Cancelled Immature Retic Fraction Cancelled Retic Hgb Equivalent Cancelled Sodium 132 L Potassium 3.0 L Chloride 98 Carbon Dioxide 24 Anion Gap 13 BUN 24 H Creatinine 0.73 Estim Creat Clear Calc 85.3 Estimated GFR > 60 Random Glucose 109 Lactic Acid 0.9 Calcium 8.0 L Lactate Dehydrogenase 503 H Stool Occult Blood Respiratory Panel Carlin See Note Adenovirus (Rapid PCR) Not Detected B.pert (TEM-PCR) Not Detected B.parapertussis DNA PCR Not Detected C. pneumoniae DNA (PCR) Not Detected Coronavirus OC43 (PCR) Not Detected Coronavirus HKU1 (PCR) Not Detected Coronavirus 229E (PCR) Not Detected Coronavirus NL63 (PCR) Not Detected Human Metapneumovir PCR Not Detected Influenza A (RT-PCR) Not Detected Influenza A (H1) PCR Not Detected Influ A (H1/09) PCR Not Detected Influenza A (H3) PCR Not Detected Influenza B (RT-PCR) Not Detected M. pneumoniae (PCR) Not Detected Parainfluenza 1 (PCR) Not Detected Parainfluenza 2 (PCR) Not Detected Parainfluenza 3 (PCR) Not Detected Parainfluenza 4 (PCR) Not Detected RSV (PCR) Not Detected Entero/Rhino (PCR) Not Detected SARS-CoV-2 RNA (RT-PCR) Not Detected Blood Type Antibody Screen Crossmatch 11/09/24 11/09/24 11/10/24 08:08 21:34 07:03 WBC 11.5 H RBC 2.84 L D Hgb 8.4 L D Hct 24.9 L D MCV 87.7 MCH 29.6 MCHC 33.7 RDW 19.2 H Plt Count 212 MPV 10.6 Immature Gran % (Auto) 1.1 H Neut % (Auto) 74.0 H Lymph % (Auto) 14.2 L [place] % (Auto) 7.3 Eos % (Auto) 2.9 Baso % (Auto) 0.5 Lymph # (Auto) 1.6 [place] # (Auto) 0.8 Eos # (Auto) 0.3 Baso # (Auto) 0.1 Abs Immat Gran (auto) 0.13 H Absolute Neuts (auto) 8.5 H Absolute Nucleated RBC 0.000 Nucleated RBC % (auto) 0.0 Smear Path Review Absolute Retic 0.218 H Percent Retic 7.4 H Immature Retic Fraction 19.5 H Retic Hgb Equivalent 31.5 Sodium 129 L Potassium 3.6 Chloride 98 Carbon Dioxide 23 Anion Gap 12 BUN 18 H Creatinine 0.65 Estim Creat Clear Calc 95.9 Estimated GFR > 60 Random Glucose 106 Lactic Acid Calcium 8.2 L Lactate Dehydrogenase Stool Occult Blood Respiratory Panel [place]lin Adenovirus (Rapid PCR) B.pert (TEM-PCR) B.parapertussis DNA PCR C. pneumoniae DNA (PCR) Coronavirus OC43 (PCR) Coronavirus HKU1 (PCR) Coronavirus 229E (PCR) Coronavirus NL63 (PCR) Human Metapneumovir PCR Influenza A (RT-PCR) Influenza A (H1) PCR Influ A () PCR Influenza A (H3) PCR Influenza B (RT-PCR) M. pneumoniae (PCR) Parainfluenza 1 (PCR) Parainfluenza 2 (PCR) Parainfluenza 3 (PCR) Parainfluenza 4 (PCR) RSV (PCR) Entero/Rhino (PCR) SARS-CoV-2 RNA (RT-PCR) Blood Type A Positive Antibody Screen NEGATIVE Crossmatch See Detail 11/10/24 08:55 WBC RBC Hgb Hct MCV MCH MCHC RDW Plt Count MPV Immature Gran % (Auto) Neut % (Auto) Lymph % (Auto) [place] % (Auto) Eos % (Auto) Baso % (Auto) Lymph # (Auto) [place] # (Auto) Eos # (Auto) Baso # (Auto) Abs Immat Gran (auto) Absolute Neuts (auto) Absolute Nucleated RBC Nucleated RBC % (auto) Smear Path Review Absolute Retic Percent Retic Immature Retic Fraction Retic Hgb Equivalent Sodium Potassium Chloride Carbon Dioxide Anion Gap BUN Creatinine Estim Creat Clear Calc Estimated GFR Random Glucose Lactic Acid Calcium Lactate Dehydrogenase Stool Occult Blood NEGATIVE Respiratory Panel [place]lin Adenovirus (Rapid PCR) B.pert (TEM-PCR) B.parapertussis DNA PCR C. pneumoniae DNA (PCR) Coronavirus OC43 (PCR) Coronavirus HKU1 (PCR) Coronavirus 229E (PCR) Coronavirus NL63 (PCR) Human Metapneumovir PCR Influenza A (RT-PCR) Influenza A (H1) PCR Influ A (H1/09) PCR Influenza A (H3) PCR Influenza B (RT-PCR) M. pneumoniae (PCR) Parainfluenza 1 (PCR) Parainfluenza 2 (PCR) Parainfluenza 3 (PCR) Parainfluenza 4 (PCR) RSV (PCR) Entero/Rhino (PCR) SARS-CoV-2 RNA (RT-PCR) Blood Type Antibody Screen Crossmatch Medications Medications Current Medications Acetaminophen (Acetaminophen 325 Mg Tablet) 650 mg PO Q6H PRN PRN Reason: Pain, Mild 1-3,fever,headache Last Admin: 11/09/24 03:36 Dose: 650 mg Albuterol/Ipratropium (Albuterol/Iprat 2.5/0.5mg 3 Ml Ampul.Neb) 3 ml INHALE Q4H PRN PRN Reason: Shortness of Breath/Wheezing Albuterol/Ipratropium (Albuterol/Iprat 2.5/0.5mg 3 Ml Ampul.Neb) 3 ml INHALE Q6H PRN PRN Reason: Shortness Of Breath Apixaban (Apixaban 5 Mg Tablet) 5 mg PO BID [facility] Last Admin: 11/10/24 08:19 Dose: 5 mg Aspirin (Aspirin 81 Mg Tab.Chew) 81 mg PO DAILY [facility] Last Admin: 11/09/24 10:10 Dose: 81 mg Benzonatate (Benzonatate 100 Mg Capsule) 100 mg PO TID PRN PRN Reason: Cough Diphenhydramine HCl (Diphenhydramine Hcl 50 Mg/Ml Vial) 25 mg IVPUSH Q6H PRN PRN Reason: Allergic Reaction Last Admin: 11/09/24 12:49 Dose: 25 mg Docusate Sodium (Docusate Sodium 100 Mg Capsule) 100 mg PO BID [facility] Last Admin: 11/10/24 08:19 Dose: 100 mg Ferrous Sulfate (Ferrous Sulfate 324 Mg Tablet.Dr) 324 mg PO DAILY [facility] Last Admin: 11/10/24 08:19 Dose: 324 mg Furosemide (Furosemide 40 Mg/4 Ml Vial) 40 mg IVPUSH DAILY [facility]; Protocol Last Admin: 11/10/24 08:19 Dose: 40 mg Hydroxyzine HCl (Hydroxyzine Hcl 50 Mg Tablet) 50 mg PO BEDTIME [facility] Last Admin: 11/09/24 21:21 Dose: 50 mg Daptomycin 575 mg/ Sodium (Chloride) 61.5 mls @ 100 mls/hr IV Q24H [facility] Last Infusion: 11/10/24 09:11 Dose: Infused Lidocaine (Lidocaine 4 % Patch Adh..Patch) 1 patch TRANSDERMA DAILY [facility]; Protocol Last Admin: 11/10/24 08:20 Dose: 1 patch Magnesium Oxide (Magnesium Oxide 400 Mg Tablet) 400 mg PO DAILY [facility] Last Admin: 11/10/24 08:19 Dose: 400 mg Melatonin (Melatonin 3 Mg Tablet) 6 mg PO BEDTIME [facility] Last Admin: 11/09/24 21:21 Dose: 6 mg Methadone HCl (Methadone Hcl 20 Mg/2 Ml Oral.Conc) 40 mg PO DAILY@0800 [facility] Last Admin: 11/10/24 08:19 Dose: 40 mg Methadone HCl (Methadone Hcl 20 Mg/2 Ml Oral.Conc) 20 mg PO DAILY@1800 [facility] Last Admin: 11/09/24 17:58 Dose: 20 mg Metoprolol Tartrate (Metoprolol Tartrate 25 Mg Tablet) 75 mg PO BID [facility]; Protocol Last Admin: 11/10/24 08:18 Dose: 75 mg Naloxone HCl (Naloxone Hcl 0.4 Mg/Ml Vial) 0.04 mg IVPUSH Q5M PRN PRN Reason: Respiratory Rate < 10 Ondansetron HCl (Ondansetron Hcl 4 Mg/2 Ml Vial) 4 mg IVPUSH Q8H PRN PRN Reason: Nausea and Vomiting Oxycodone HCl (Oxycodone Hcl Immed Release 5 Mg Tablet) 10 mg PO Q4H PRN PRN Reason: Pain, Severe (Pain Scale 7-10) Last Admin: 11/10/24 02:54 Dose: 10 mg Oxycodone HCl (Oxycodone Hcl Immed Release 5 Mg Tablet) 5 mg PO Q4H PRN PRN Reason: Pain (Scale Score 4-6) Polyethylene Glycol (Polyethylene Glycol 3350 17 Gm Powd.Pack) 17 gm PO DAILY [facility] Last Admin: 11/10/24 08:19 Dose: 17 gm Pregabalin (Pregabalin 50 Mg Capsule) 50 mg PO BEDTIME [facility] Last Admin: 11/09/24 21:21 Dose: 50 mg Rifabutin (Rifabutin 150 Mg Capsule) 300 mg PO DAILY [facility] Last Admin: 11/10/24 08:19 Dose: 300 mg Senna (Sennosides 8.6 Mg Tablet) 17.2 mg PO BEDTIME [facility] Last Admin: 11/09/24 21:21 Dose: 17.2 mg Allergies Allergies Allergy/AdvReac Type Severity Reaction Status Date / Time Sulfa (Sulfonamide Allergy Unknown swelling, Verified 10/20/24 15:27 Antibiotics) ITCHY [SULFA (SULFONAMIDE ANTIBIOTICS)] Assessment & Plan Assessment & Plan (1) Opioid use disorder: Status: Acute Code(s): F11.90 - Opioid use, unspecified, uncomplicated Assessment and Plan: * continue methadone at current dose * d/c PRN methadone doses Total time managing care of this patient today ____ minutes.
--- NOTE | 2024-11-10 16:50 | P.PNIM_ITS ---
Subjective Subjective Date of Service: 11/10/24 Interval History: seen and evaluated had fever last night Hb improved to 8.4 denies any fever or chills no other events Review of Systems Review of Systems: Yes all other systems are reviewed and are negative Physical Exam 2 Vital Signs: Vital Signs: Last Vital Signs Temp 97.4 F 11/10/24 15:14 Pulse 95 11/10/24 15:14 Resp 17 11/10/24 15:14 BP 146/86 H 11/10/24 15:14 Pulse Ox 100 11/10/24 15:14 O2 Del Method Room Air 11/10/24 15:14 O2 Flow Rate 5 11/09/24 03:47 BMI result Body Mass Index 24.2 Const: Other: Constitutional : Awake, interactive, not in distress Neck : Normal inspection, Supple Cardiovascular : RRR, no JVP, trace lower extremity edema Respiratory : good bilateral air entry, no crackles, wheezes or rhonchi Gastrointestinal: soft, lax, Normal bowel sounds, Non tender Skin : Warm, Dry, inj harley, Picc line in place Neurological : Alert & oriented x3, No focal deficit Objective Data Active Medications Acetaminophen (Acetaminophen 325 Mg Tablet) 650 mg PO Q6H PRN PRN Reason: Pain, Mild 1-3,fever,headache Last Admin: 11/09/24 03:36 Dose: 650 mg Documented By: JON Albuterol/Ipratropium (Albuterol/Iprat 2.5/0.5mg 3 Ml Ampul.Neb) 3 ml INHALE Q4H PRN PRN Reason: Shortness of Breath/Wheezing Albuterol/Ipratropium (Albuterol/Iprat 2.5/0.5mg 3 Ml Ampul.Neb) 3 ml INHALE Q6H PRN PRN Reason: Shortness Of Breath Apixaban (Apixaban 5 Mg Tablet) 5 mg PO BID [facility] Last Admin: 11/10/24 08:19 Dose: 5 mg Documented By: MARYA Aspirin (Aspirin 81 Mg Tab.Chew) 81 mg PO DAILY [facility] Last Admin: 11/09/24 10:10 Dose: 81 mg Documented By: AMY Benzonatate (Benzonatate 100 Mg Capsule) 100 mg PO TID PRN PRN Reason: Cough Diphenhydramine HCl (Diphenhydramine Hcl 50 Mg/Ml Vial) 25 mg IVPUSH Q6H PRN PRN Reason: Allergic Reaction Last Admin: 11/09/24 12:49 Dose: 25 mg Documented By: AMY Docusate Sodium (Docusate Sodium 100 Mg Capsule) 100 mg PO BID [facility] Last Admin: 11/10/24 08:19 Dose: 100 mg Documented By: MARYA Ferrous Sulfate (Ferrous Sulfate 324 Mg Tablet.Dr) 324 mg PO DAILY [facility] Last Admin: 11/10/24 08:19 Dose: 324 mg Documented By: MARYA Furosemide (Furosemide 40 Mg/4 Ml Vial) 40 mg IVPUSH DAILY [facility]; Protocol Last Admin: 11/10/24 08:19 Dose: 40 mg Documented By: MARYA Hydroxyzine HCl (Hydroxyzine Hcl 50 Mg Tablet) 50 mg PO BEDTIME [facility] Last Admin: 11/09/24 21:21 Dose: 50 mg Documented By: ROULA Daptomycin 575 mg/ Sodium (Chloride) 61.5 mls @ 100 mls/hr IV Q24H [facility] Last Infusion: 11/10/24 09:11 Dose: Infused Documented By: MARYA Lidocaine (Lidocaine 4 % Patch Adh..Patch) 1 patch TRANSDERMA DAILY [facility]; Protocol Last Admin: 11/10/24 08:20 Dose: 1 patch Documented By: MARYA Magnesium Oxide (Magnesium Oxide 400 Mg Tablet) 400 mg PO DAILY [facility] Last Admin: 11/10/24 08:19 Dose: 400 mg Documented By: MARYA Melatonin (Melatonin 3 Mg Tablet) 6 mg PO BEDTIME [facility] Last Admin: 11/09/24 21:21 Dose: 6 mg Documented By: ROULA Methadone HCl (Methadone Hcl 20 Mg/2 Ml Oral.Conc) 40 mg PO DAILY@0800 [facility] Last Admin: 11/10/24 08:19 Dose: 40 mg Documented By: MARYA Co-signed By: SANA Methadone HCl (Methadone Hcl 20 Mg/2 Ml Oral.Conc) 20 mg PO DAILY@1800 [facility] Last Admin: 11/09/24 17:58 Dose: 20 mg Documented By: AMY Co-signed By: FRANKLIN Metoprolol Tartrate (Metoprolol Tartrate 25 Mg Tablet) 75 mg PO BID [facility]; Protocol Last Admin: 11/10/24 08:18 Dose: 75 mg Documented By: MARYA Naloxone HCl (Naloxone Hcl 0.4 Mg/Ml Vial) 0.04 mg IVPUSH Q5M PRN PRN Reason: Respiratory Rate < 10 Ondansetron HCl (Ondansetron Hcl 4 Mg/2 Ml Vial) 4 mg IVPUSH Q8H PRN PRN Reason: Nausea and Vomiting Oxycodone HCl (Oxycodone Hcl Immed Release 5 Mg Tablet) 10 mg PO Q4H PRN PRN Reason: Pain, Severe (Pain Scale 7-10) Last Admin: 11/10/24 02:54 Dose: 10 mg Documented By: ROULA Oxycodone HCl (Oxycodone Hcl Immed Release 5 Mg Tablet) 5 mg PO Q4H PRN PRN Reason: Pain (Scale Score 4-6) Polyethylene Glycol (Polyethylene Glycol 3350 17 Gm Powd.Pack) 17 gm PO DAILY [facility] Last Admin: 11/10/24 08:19 Dose: 17 gm Documented By: MARYA Pregabalin (Pregabalin 50 Mg Capsule) 50 mg PO BEDTIME [facility] Last Admin: 11/09/24 21:21 Dose: 50 mg Documented By: ROULA Rifabutin (Rifabutin 150 Mg Capsule) 300 mg PO DAILY [facility] Last Admin: 11/10/24 08:19 Dose: 300 mg Documented By: MARYA Senna (Sennosides 8.6 Mg Tablet) 17.2 mg PO BEDTIME [facility] Last Admin: 11/09/24 21:21 Dose: 17.2 mg Documented By: ROULA Labs 11/10/24 07:03 11/10/24 07:03 Labs: Laboratory Results - last 24 hr 11/09/24 11/09/24 11/09/24 06:38 08:08 21:34 MCV MCH MCHC RDW Plt Count MPV Immature Gran % (Auto) Neut % (Auto) Lymph % (Auto) [place] % (Auto) Eos % (Auto) Baso % (Auto) Lymph # (Auto) [place] # (Auto) Eos # (Auto) Baso # (Auto) Abs Immat Gran (auto) Absolute Neuts (auto) Absolute Nucleated RBC Nucleated RBC % (auto) Smear Path Review SEE NOTE Absolute Retic 0.218 H Percent Retic 7.4 H Immature Retic Fraction 19.5 H Retic Hgb Equivalent 31.5 Anion Gap Estim Creat Clear Calc Estimated GFR Random Glucose Calcium Stool Occult Blood Crossmatch See Detail 11/10/24 11/10/24 07:03 08:55 MCV 87.7 MCH 29.6 MCHC 33.7 RDW 19.2 H Plt Count 212 MPV 10.6 Immature Gran % (Auto) 1.1 H Neut % (Auto) 74.0 H Lymph % (Auto) 14.2 L [place] % (Auto) 7.3 Eos % (Auto) 2.9 Baso % (Auto) 0.5 Lymph # (Auto) 1.6 [place] # (Auto) 0.8 Eos # (Auto) 0.3 Baso # (Auto) 0.1 Abs Immat Gran (auto) 0.13 H Absolute Neuts (auto) 8.5 H Absolute Nucleated RBC 0.000 Nucleated RBC % (auto) 0.0 Smear Path Review Absolute Retic Percent Retic Immature Retic Fraction Retic Hgb Equivalent Anion Gap 12 Estim Creat Clear Calc 95.9 Estimated GFR > 60 Random Glucose 106 Calcium 8.2 L Stool Occult Blood NEGATIVE Crossmatch Microbiology Microbiology Results: Microbiology 11/08/24 18:26 Blood Culture - Preliminary Blood - Central Line No growth after 24 hours. 11/08/24 18:25 Blood Culture - Preliminary Blood - Central Line No growth after 24 hours. Assessment and Plan (1) Acute on chronic diastolic (congestive) heart failure: Status: Acute (2) S/P mitral valve replacement with bioprosthetic valve: Status: Acute (3) Tachycardia: Status: Acute (4) Infective endocarditis: Status: Acute Plan Pt is aq 34 yo female with past, medical history HIV, hepatitis-C, microcytic anemia, protein calorie malnutrition, polysubstance abuse disorder with IV drug history currently on methadone, right arm thrombophlebitis 2020 readmitted at [facility] status post mitral valve repair and ASD closure at [facility] in [facility]. 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 To finish 6 weeks of IV Abx by 12/13/2024 Repeat blood cultures pending Likely drug fever related to Nafcillin which has been stopped Tylenol for fever ID consult, 6 weeks total Daptomycin with po Rifabutin or Rifampin at least until 12/13/2024. PICC line placed incentive spirometry PRN Oxycodone for pain Cardiology input appreciated, can hold Aspirin while on Eliquis. Fondaparinux can be an alternative for both as well Acute on chronic anemia likely multifactorial: Bacteremia, blood loss, antibiotic related Hb improved to 8.4 after 2 units PRBCs Hold ASA per cardiology rec Continue Eliquis for DVT US still showing LUE DVT, to finish 3-6 months of Eliquis then restart Aspirin follow H&H Accelerated junctional rhythm continue on metoprolol tartrate 75 mg b.i.d. acute on chronic diastolic heart failure NYHA class 3 Lasix 40 mg IV decrease to daily Daily weights low-sodium diet, measure I's and O's Left upper arm DVT was started on Eliquis 2.5 mg b.i.d. postoperatively per Cardiothoracic surgeon. switched to Eliquis 5 mg b.i.d To repeat US Chronic untreated hepatitis-C RNA viral load >1 million, for GI outpatient follow up for treatment Polysubstance abuse w hx IVDU methadone per recovery team risk for leaving AMA Moderate protein calorie malnutrition Nutritional consult Ensure Depression, uncontrolled Psych consult. Pt looking to be back on meds DVT prophylaxis: Eliquis Ppi prophylaxis: Protonix daily Patient is a full code Admit as inpatient and will require overnight minimum hospital stay for IV antibiotic (as above), blood transfusion, pending repeat blood cultures and outpatient plan for IV antibiotics which is not possible in a lesser acute setting. Quality Stroke Does the patient have a stroke diagnosis?: No Reason for No Anti-thrombotic by Day Two: N/A - Med Ordered VTE Prior VTE?: No VTE Risk Level:: Medical - moderate - high VTE Device Contraindication: Treatment Not Indicated VTE Drug Contraindication: N/A - Med Ordered
[2024-11-10 17:48] LABS: Osmolality Urine 304 mosm/kg (373-1093)
[2024-11-10 17:58] LABS: Amphetamine Screen Urine Not Detected (Not Detect); Barbiturates, Urine Not Detected (Not Detect); Benzodiazepines Screen Urine Not Detected (Not Detect); Buprenorphine Scr Not Detected (Not Detect); Cannabinoid Screen Urine Not Detected (Not Detect); Cocaine Screen Urine Not Detected (Not Detect); Fentanyl, urine Not Detected (Not Detect); Methadone Screen, Urine Not Detected (Not Detect); Opiate Screen Urine Not Detected (Not Detect); Oxycodone Screen Urine Not Detected (Not Detect); Phencyclidine Screen Urine Not Detected (Not Detect)
[2024-11-10] MEDS: hydrOXYzine HCL 50 MG TABLET PO (19:35)
[2024-11-10] MEDS: Sennosides 8.6 MG TABLET 17.2 MG PO (19:35)
[2024-11-10] MEDS: Mirtazapine 15 MG TABLET PO (19:35)
[2024-11-10] MEDS: Melatonin 3 MG TABLET 6 MG PO (19:35)
[2024-11-10] MEDS: Pregabalin 50 MG CAPSULE PO (19:35)
[2024-11-10] MEDS: methADONE HCl 20 MG/2 ML ORAL.CONC PO (19:36)
[2024-11-10] MEDS: Acetaminophen 325 MG TABLET 650 MG PO (21:41)
--- NOTE | 2024-11-10 22:29 | PC.NURSE ---
Pt temporal artery scan shows temperature of 101.3F. PRN tylenol administered and MD Boyer aware. No new orders at this time.
[2024-11-11] VITALS (8 sets, daily range): BP systolic 126–181; BP diastolic 73–95; PULSE 84–99; RESP 16–18; TEMP 36.2–38.8; O2SAT 92–100; BMI 22.3
[2024-11-11 06:28] LABS: Anion Gap 13 (12-20); Blood Urea Nitrogen 20 mg/dL (9-16); Calcium 8.4 mg/dL (8.4-10.2); Carbon Dioxide 22 mmol/L (22-29); Chloride 102 mmol/L (96-108); Creatinine Clr Calc Pharmacy 96.5; Estimated Glomerular Filt Rate > 60; Glucose Random 131 mg/dL (60-115); Sodium 133 mmol/L (135-145)
[2024-11-11] MEDS: methADONE HCl 20 MG/2 ML ORAL.CONC 40 MG PO (07:56)
[2024-11-11] MEDS: Metoprolol Tartrate 25 MG TABLET 75 MG PO ×2 (07:57→19:36)
[2024-11-11] MEDS: DAPTOmycin 575 MG in 0.9 % Sodium Chloride 50 ML 100 MG IV (07:57)
[2024-11-11] MEDS: Furosemide 40 MG/4 ML VIAL IVPUSH (07:57)
[2024-11-11] MEDS: Apixaban 5 MG TABLET PO (07:58)
[2024-11-11] MEDS: Lidocaine 4 % Patch ADH..PATCH 1 PATCH TRANSDERMA (07:58)
[2024-11-11] MEDS: Magnesium Oxide 400 MG TABLET PO (07:58)
[2024-11-11] MEDS: Ferrous Sulfate 324 MG TABLET.DR PO (07:58)
--- NOTE | 2024-11-11 10:33 | MHC.CM.PN ---
Per ROUNDS discussion, Patient is medically cleared for dc to SNF for LT IV ABT; [facility] is the only SNF considering (Methadone); they are trying to carve out the cost of the IV Dapto and Rifabutin with insurance. CM will follow.
--- NOTE | 2024-11-11 11:32 | PC.NURSE ---
Per rounds discussion, it was brought up that the urine sample provided from patient did not detect Methadone. Patient takes methadone BID. MD does not want to escalate and put the patient at risk for leaving AMA at this time.
--- NOTE | 2024-11-11 15:22 | P.PNIM_ITS ---
Subjective Subjective Date of Service: 11/11/24 Interval History: seen and evaluated had fever last night Hb stable denies any fever or chills no other events Review of Systems Review of Systems: Yes all other systems are reviewed and are negative Physical Exam 2 Vital Signs: Vital Signs: Last Vital Signs Temp 99.8 F 11/11/24 15:15 Pulse 95 11/11/24 15:15 Resp 18 11/11/24 15:15 BP 143/95 H 11/11/24 15:15 Pulse Ox 100 11/11/24 15:15 O2 Del Method Room Air 11/11/24 15:15 O2 Flow Rate 5 11/09/24 03:47 BMI result Body Mass Index 22.3 Const: Other: Constitutional : Awake, interactive, not in distress Neck : Normal inspection, Supple Cardiovascular : RRR, no JVP, trace lower extremity edema Respiratory : good bilateral air entry, no crackles, wheezes or rhonchi Gastrointestinal: soft, lax, Normal bowel sounds, Non tender Skin : Warm, Dry, inj harley, Picc line in place Neurological : Alert & oriented x3, No focal deficit Objective Data Active Medications Acetaminophen (Acetaminophen 325 Mg Tablet) 650 mg PO Q6H PRN PRN Reason: Pain, Mild 1-3,fever,headache Last Admin: 11/10/24 21:41 Dose: 650 mg Documented By: ROULA Albuterol/Ipratropium (Albuterol/Iprat 2.5/0.5mg 3 Ml Ampul.Neb) 3 ml INHALE Q4H PRN PRN Reason: Shortness of Breath/Wheezing Albuterol/Ipratropium (Albuterol/Iprat 2.5/0.5mg 3 Ml Ampul.Neb) 3 ml INHALE Q6H PRN PRN Reason: Shortness Of Breath Apixaban (Apixaban 5 Mg Tablet) 5 mg PO BID [facility] Last Admin: 11/11/24 07:58 Dose: 5 mg Documented By: MARYA Aspirin (Aspirin 81 Mg Tab.Chew) 81 mg PO DAILY [facility] Last Admin: 11/09/24 10:10 Dose: 81 mg Documented By: AMY Benzonatate (Benzonatate 100 Mg Capsule) 100 mg PO TID PRN PRN Reason: Cough Diphenhydramine HCl (Diphenhydramine Hcl 50 Mg/Ml Vial) 25 mg IVPUSH Q6H PRN PRN Reason: Allergic Reaction Last Admin: 11/09/24 12:49 Dose: 25 mg Documented By: AMY Docusate Sodium (Docusate Sodium 100 Mg Capsule) 100 mg PO BID [facility] Last Admin: 11/11/24 07:58 Dose: Not Given Documented By: MARYA Non-Admin Reason: stool liquidy Ferrous Sulfate (Ferrous Sulfate 324 Mg Tablet.Dr) 324 mg PO DAILY [facility] Last Admin: 11/11/24 07:58 Dose: 324 mg Documented By: MARYA Furosemide (Furosemide 40 Mg/4 Ml Vial) 40 mg IVPUSH DAILY [facility]; Protocol Last Admin: 11/11/24 07:57 Dose: 40 mg Documented By: MARYA Hydroxyzine HCl (Hydroxyzine Hcl 50 Mg Tablet) 50 mg PO BEDTIME [facility] Last Admin: 11/10/24 19:35 Dose: 50 mg Documented By: ROULA Daptomycin 575 mg/ Sodium (Chloride) 61.5 mls @ 100 mls/hr IV Q24H [facility] Last Infusion: 11/11/24 09:10 Dose: Infused Documented By: MARYA Lidocaine (Lidocaine 4 % Patch Adh..Patch) 1 patch TRANSDERMA DAILY [facility]; Protocol Last Admin: 11/11/24 07:58 Dose: 1 patch Documented By: MARYA Magnesium Oxide (Magnesium Oxide 400 Mg Tablet) 400 mg PO DAILY [facility] Last Admin: 11/11/24 07:58 Dose: 400 mg Documented By: MARYA Melatonin (Melatonin 3 Mg Tablet) 6 mg PO BEDTIME [facility] Last Admin: 11/10/24 19:35 Dose: 6 mg Documented By: ROULA Methadone HCl (Methadone Hcl 20 Mg/2 Ml Oral.Conc) 40 mg PO DAILY@0800 [facility] Last Admin: 11/11/24 07:56 Dose: 40 mg Documented By: MARYA Co-signed By: KIA Methadone HCl (Methadone Hcl 20 Mg/2 Ml Oral.Conc) 20 mg PO DAILY@1800 [facility] Last Admin: 11/10/24 19:36 Dose: 20 mg Documented By: ROULA Co-signed By: FIDE Metoprolol Tartrate (Metoprolol Tartrate 25 Mg Tablet) 75 mg PO BID [facility]; Protocol Last Admin: 11/11/24 07:57 Dose: 75 mg Documented By: MARYA Mirtazapine (Mirtazapine 15 Mg Tablet) 15 mg PO BEDTIME [facility] Last Admin: 11/10/24 19:35 Dose: 15 mg Documented By: ROULA Naloxone HCl (Naloxone Hcl 0.4 Mg/Ml Vial) 0.04 mg IVPUSH Q5M PRN PRN Reason: Respiratory Rate < 10 Ondansetron HCl (Ondansetron Hcl 4 Mg/2 Ml Vial) 4 mg IVPUSH Q8H PRN PRN Reason: Nausea and Vomiting Oxycodone HCl (Oxycodone Hcl Immed Release 5 Mg Tablet) 10 mg PO Q4H PRN PRN Reason: Pain, Severe (Pain Scale 7-10) Last Admin: 11/10/24 02:54 Dose: 10 mg Documented By: ROULA Oxycodone HCl (Oxycodone Hcl Immed Release 5 Mg Tablet) 5 mg PO Q4H PRN PRN Reason: Pain (Scale Score 4-6) Polyethylene Glycol (Polyethylene Glycol 3350 17 Gm Powd.Pack) 17 gm PO DAILY [facility] Last Admin: 11/11/24 07:59 Dose: Not Given Documented By: MARYA Non-Admin Reason: stool liquidy Pregabalin (Pregabalin 50 Mg Capsule) 50 mg PO BEDTIME [facility] Last Admin: 11/10/24 19:35 Dose: 50 mg Documented By: ROULA Rifabutin (Rifabutin 150 Mg Capsule) 300 mg PO DAILY [facility] Last Admin: 11/11/24 07:57 Dose: 300 mg Documented By: MARYA Senna (Sennosides 8.6 Mg Tablet) 17.2 mg PO BEDTIME [facility] Last Admin: 11/10/24 19:35 Dose: 17.2 mg Documented By: ROULA Labs 11/10/24 07:03 11/11/24 05:56 Labs: Laboratory Results - last 24 hr 11/10/24 11/11/24 17:20 05:56 Anion Gap 13 Estim Creat Clear Calc 96.5 Estimated GFR > 60 Random Glucose 131 H Calcium 8.4 Urine Osmolality 304 L Ur Random Sodium 74.0 Urine Opiates Screen Not Detected Ur Buprenorphine Scrn Not Detected Ur Oxycodone Screen Not Detected Urine Methadone Screen Not Detected Urine Fentanyl Screen Not Detected Ur Barbiturates Screen Not Detected Ur Phencyclidine Scrn Not Detected Ur Amphetamines Screen Not Detected U Benzodiazepines Scrn Not Detected Urine Cocaine Screen Not Detected U Marijuana (THC) Screen Not Detected Microbiology Microbiology Results: Microbiology 11/08/24 18:26 Blood Culture - Preliminary Blood - Central Line No growth after 48 hours. 11/08/24 18:25 Blood Culture - Preliminary Blood - Central Line No growth after 48 hours. Assessment and Plan (1) Acute on chronic diastolic (congestive) heart failure: Status: Acute (2) S/P mitral valve replacement with bioprosthetic valve: Status: Acute Plan Pt is aq 34 yo female with past, medical history HIV, hepatitis-C, microcytic anemia, protein calorie malnutrition, polysubstance abuse disorder with IV drug history currently on methadone, right arm thrombophlebitis 2020 readmitted at [facility] status post mitral valve repair and ASD closure at [facility] in [facility]. 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 To finish 6 weeks of IV Abx by 12/13/2024 Repeat blood cultures pending Likely drug fever related to Nafcillin which has been stopped Tylenol for fever ID consult, 6 weeks total Daptomycin with po Rifabutin or Rifampin at least until 12/13/2024. PICC line placed incentive spirometry PRN Oxycodone for pain Cardiology input appreciated, can hold Aspirin while on Eliquis. Fondaparinux can be an alternative for both as well Acute on chronic anemia likely multifactorial: Bacteremia, blood loss, antibiotic related Hb improved to 8.4 after 2 units PRBCs Hold ASA per cardiology rec Continue Eliquis for DVT US still showing LUE DVT, to finish 3-6 months of Eliquis then restart Aspirin follow H&H Accelerated junctional rhythm continue on metoprolol tartrate 75 mg b.i.d. acute on chronic diastolic heart failure NYHA class 3 Lasix 40 mg IV decrease to daily Daily weights low-sodium diet, measure I's and O's Left upper arm DVT was started on Eliquis 2.5 mg b.i.d. postoperatively per Cardiothoracic surgeon. switched to Eliquis 5 mg b.i.d To repeat US Chronic untreated hepatitis-C RNA viral load >1 million, for GI outpatient follow up for treatment Polysubstance abuse w hx IVDU methadone per recovery team risk for leaving AMA, advised to stay and agreed. she does not have a full understanding of her medical condition and risks if she leaves. i doubt her having capacity to decide on her medical care and will not likely let her leave AMA if she asks for it Moderate protein calorie malnutrition Nutritional consult Ensure Depression, uncontrolled Psych consult. Pt looking to be back on meds DVT prophylaxis: Eliquis Ppi prophylaxis: Protonix daily Patient is a full code Admit as inpatient and will require overnight minimum hospital stay for IV antibiotic (as above), blood transfusion, pending repeat blood cultures and outpatient plan for IV antibiotics which is not possible in a lesser acute setting. Quality Stroke Does the patient have a stroke diagnosis?: No Reason for No Anti-thrombotic by Day Two: N/A - Med Ordered VTE Prior VTE?: No VTE Risk Level:: Medical - moderate - high VTE Device Contraindication: Treatment Not Indicated VTE Drug Contraindication: N/A - Med Ordered
[2024-11-11 15:27] LABS: Amphetamine Screen Urine Not Detected (Not Detect); Barbiturates, Urine Not Detected (Not Detect); Benzodiazepines Screen Urine Not Detected (Not Detect); Buprenorphine Scr Not Detected (Not Detect); Cannabinoid Screen Urine Not Detected (Not Detect); Cocaine Screen Urine Not Detected (Not Detect); Fentanyl, urine Not Detected (Not Detect); Methadone Screen, Urine Not Detected (Not Detect); Opiate Screen Urine Not Detected (Not Detect); Oxycodone Screen Urine Not Detected (Not Detect); Phencyclidine Screen Urine Not Detected (Not Detect)
[2024-11-11] MEDS: Acetaminophen 325 MG TABLET 650 MG PO (16:12)
[2024-11-11] MEDS: methADONE HCl 20 MG/2 ML ORAL.CONC PO (18:29)
[2024-11-11] MEDS: oxyCODONE HCl Immed Release 5 MG TABLET 10 MG PO (19:36)
[2024-11-11] MEDS: Melatonin 3 MG TABLET 6 MG PO (19:36)
[2024-11-11] MEDS: hydrOXYzine HCL 50 MG TABLET PO (19:36)
[2024-11-11] MEDS: Pregabalin 50 MG CAPSULE PO (19:37)
[2024-11-11] MEDS: Sennosides 8.6 MG TABLET 17.2 MG PO (19:37)
[2024-11-11] MEDS: Mirtazapine 15 MG TABLET PO (19:38)
[2024-11-12] VITALS (7 sets, daily range): BP systolic 107–168; BP diastolic 52–85; PULSE 88–102; RESP 16–18; TEMP 36.9–37.8; O2SAT 94–100; BMI 22.2
[2024-11-12] MEDS: Metoprolol Tartrate 25 MG TABLET 75 MG PO ×2 (07:57→21:20)
[2024-11-12] MEDS: polyethylene glycoL 3350 17 GM POWD.PACK PO (07:57)
[2024-11-12] MEDS: Apixaban 5 MG TABLET PO ×2 (07:58→21:47)
[2024-11-12] MEDS: Lidocaine 4 % Patch ADH..PATCH 1 PATCH TRANSDERMA (07:58)
[2024-11-12] MEDS: Ferrous Sulfate 324 MG TABLET.DR PO (07:58)
[2024-11-12] MEDS: Docusate Sodium 100 MG CAPSULE PO (07:58)
[2024-11-12] MEDS: Magnesium Oxide 400 MG TABLET PO (07:58)
[2024-11-12] MEDS: Furosemide 40 MG/4 ML VIAL IVPUSH (07:59)
[2024-11-12] MEDS: methADONE HCl 20 MG/2 ML ORAL.CONC 40 MG PO (07:59)
[2024-11-12] MEDS: DAPTOmycin 575 MG in 0.9 % Sodium Chloride 50 ML 100 MG IV (08:23)
--- NOTE | 2024-11-12 10:39 | MHC.CM.PN ---
CM has inquired again with the only accepting SNF/[facility], asking for the status on getting a carve out for Dapto & Rifabutin, which may allow them to make a bed offer. CM will follow.
--- NOTE | 2024-11-12 11:52 | MHC.CLN ---
F/U PT QUALIFIES FOR NON-SEVERE MALNUTRITION IN THE CONTEXT OF SOCIAL/BEHAVIOR AND ENVIRONMENTAL PO INTAKE 50-100% DIET RX: 2GM NA-APPROPRIATE RECEIVING MAGIC CUP TID TO INCREASE KCALS PROVIDES 870KCALS, 27G PROTEIN ENSURE BID PROVIDES 700KCALS, 40G PROTEIN MONITOR PO INTAKE AND ENCOURAGE SUPPLEMENT RD TO CONTINUE TO FOLLOW WEEKLY
--- NOTE | 2024-11-12 13:18 | P.PNIM_ITS ---
Subjective Subjective Date of Service: 11/12/24 Interval History: seen and evaluated Had 1 time fever yesterday , resolved with tylenol denies any fever or chills overnight no other events Review of Systems Review of Systems: Yes all other systems are reviewed and are negative Physical Exam 2 Vital Signs: Vital Signs: Last Vital Signs Temp 98.4 F 11/12/24 12:00 Pulse 88 11/12/24 12:00 Resp 18 11/12/24 12:00 BP 131/67 11/12/24 12:00 Pulse Ox 98 11/12/24 12:00 O2 Del Method Room Air 11/12/24 12:00 O2 Flow Rate 5 11/09/24 03:47 BMI result Body Mass Index 22.2 Const: Other: Constitutional : Awake, interactive, not in distress Neck : Normal inspection, Supple Cardiovascular : RRR, no JVP, trace lower extremity edema Respiratory : good bilateral air entry, no crackles, wheezes or rhonchi Gastrointestinal: soft, lax, Normal bowel sounds, Non tender Skin : Warm, Dry, inj harley, Picc line in place Neurological : Alert & oriented x3, No focal deficit Objective Data Active Medications Acetaminophen (Acetaminophen 325 Mg Tablet) 650 mg PO Q6H PRN PRN Reason: Pain, Mild 1-3,fever,headache Last Admin: 11/11/24 16:12 Dose: 650 mg Documented By: MARYA Albuterol/Ipratropium (Albuterol/Iprat 2.5/0.5mg 3 Ml Ampul.Neb) 3 ml INHALE Q4H PRN PRN Reason: Shortness of Breath/Wheezing Albuterol/Ipratropium (Albuterol/Iprat 2.5/0.5mg 3 Ml Ampul.Neb) 3 ml INHALE Q6H PRN PRN Reason: Shortness Of Breath Apixaban (Apixaban 5 Mg Tablet) 5 mg PO BID [facility] Last Admin: 11/12/24 07:58 Dose: 5 mg Documented By: AMY Aspirin (Aspirin 81 Mg Tab.Chew) 81 mg PO DAILY [facility] Last Admin: 11/09/24 10:10 Dose: 81 mg Documented By: AMY Benzonatate (Benzonatate 100 Mg Capsule) 100 mg PO TID PRN PRN Reason: Cough Diphenhydramine HCl (Diphenhydramine Hcl 50 Mg/Ml Vial) 25 mg IVPUSH Q6H PRN PRN Reason: Allergic Reaction Last Admin: 11/09/24 12:49 Dose: 25 mg Documented By: AMY Docusate Sodium (Docusate Sodium 100 Mg Capsule) 100 mg PO BID [facility] Last Admin: 11/12/24 07:58 Dose: 100 mg Documented By: AMY Ferrous Sulfate (Ferrous Sulfate 324 Mg Tablet.Dr) 324 mg PO DAILY [facility] Last Admin: 11/12/24 07:58 Dose: 324 mg Documented By: AMY Furosemide (Furosemide 40 Mg/4 Ml Vial) 40 mg IVPUSH DAILY [facility]; Protocol Last Admin: 11/12/24 07:59 Dose: 40 mg Documented By: AMY Hydroxyzine HCl (Hydroxyzine Hcl 50 Mg Tablet) 50 mg PO BEDTIME [facility] Last Admin: 11/11/24 19:36 Dose: 50 mg Documented By: MAURA Daptomycin 575 mg/ Sodium (Chloride) 61.5 mls @ 100 mls/hr IV Q24H [facility] Last Infusion: 11/12/24 09:15 Dose: Infused Documented By: AMY Lidocaine (Lidocaine 4 % Patch Adh..Patch) 1 patch TRANSDERMA DAILY [facility]; Protocol Last Admin: 11/12/24 07:58 Dose: 1 patch Documented By: AMY Magnesium Oxide (Magnesium Oxide 400 Mg Tablet) 400 mg PO DAILY [facility] Last Admin: 11/12/24 07:58 Dose: 400 mg Documented By: AMY Melatonin (Melatonin 3 Mg Tablet) 6 mg PO BEDTIME [facility] Last Admin: 11/11/24 19:36 Dose: 6 mg Documented By: MAURA Methadone HCl (Methadone Hcl 20 Mg/2 Ml Oral.Conc) 40 mg PO DAILY@0800 [facility] Last Admin: 11/12/24 07:59 Dose: 40 mg Documented By: AMY Co-signed By: AUDREY Methadone HCl (Methadone Hcl 20 Mg/2 Ml Oral.Conc) 20 mg PO DAILY@1800 [facility] Last Admin: 11/11/24 18:29 Dose: 20 mg Documented By: MARYA Co-signed By: KIA Metoprolol Tartrate (Metoprolol Tartrate 25 Mg Tablet) 75 mg PO BID [facility]; Protocol Last Admin: 11/12/24 07:57 Dose: 75 mg Documented By: AMY Mirtazapine (Mirtazapine 15 Mg Tablet) 15 mg PO BEDTIME [facility] Last Admin: 11/11/24 19:38 Dose: 15 mg Documented By: MUARA Naloxone HCl (Naloxone Hcl 0.4 Mg/Ml Vial) 0.04 mg IVPUSH Q5M PRN PRN Reason: Respiratory Rate < 10 Ondansetron HCl (Ondansetron Hcl 4 Mg/2 Ml Vial) 4 mg IVPUSH Q8H PRN PRN Reason: Nausea and Vomiting Oxycodone HCl (Oxycodone Hcl Immed Release 5 Mg Tablet) 10 mg PO Q4H PRN PRN Reason: Pain, Severe (Pain Scale 7-10) Last Admin: 11/11/24 19:36 Dose: 10 mg Documented By: MAURA Oxycodone HCl (Oxycodone Hcl Immed Release 5 Mg Tablet) 5 mg PO Q4H PRN PRN Reason: Pain (Scale Score 4-6) Polyethylene Glycol (Polyethylene Glycol 3350 17 Gm Powd.Pack) 17 gm PO DAILY [facility] Last Admin: 11/12/24 07:57 Dose: 17 gm Documented By: AMY Pregabalin (Pregabalin 50 Mg Capsule) 50 mg PO BEDTIME [facility] Last Admin: 11/11/24 19:37 Dose: 50 mg Documented By: MAURA Rifabutin (Rifabutin 150 Mg Capsule) 300 mg PO DAILY [facility] Last Admin: 11/12/24 07:57 Dose: 300 mg Documented By: AMY Senna (Sennosides 8.6 Mg Tablet) 17.2 mg PO BEDTIME [facility] Last Admin: 11/11/24 19:37 Dose: 17.2 mg Documented By: MAURA Labs 11/10/24 07:03 11/11/24 05:56 Labs: Laboratory Results - last 24 hr 11/11/24 14:42 Urine Opiates Screen Not Detected Ur Buprenorphine Scrn Not Detected Ur Oxycodone Screen Not Detected Urine Methadone Screen Not Detected Urine Fentanyl Screen Not Detected Ur Barbiturates Screen Not Detected Ur Phencyclidine Scrn Not Detected Ur Amphetamines Screen Not Detected U Benzodiazepines Scrn Not Detected Urine Cocaine Screen Not Detected U Marijuana (THC) Screen Not Detected Assessment and Plan (1) Acute on chronic diastolic (congestive) heart failure: Status: Acute (2) S/P mitral valve replacement with bioprosthetic valve: Status: Acute (3) Tachycardia: Status: Acute (4) S/P patent foramen ovale closure: Status: Acute (5) S/P MVR (mitral valve repair): Status: Acute (6) Infective endocarditis: Status: Acute (7) Opioid use disorder: Status: Acute Plan Pt is aq 34 yo female with past, medical history HIV, hepatitis-C, microcytic anemia, protein calorie malnutrition, polysubstance abuse disorder with IV drug history currently on methadone, right arm thrombophlebitis 2020 readmitted at [facility] status post mitral valve repair and ASD closure at [facility] in [facility], [facility]. Fever the patient has been spiking fever every 1-2 days No evidence of recurrent infeciton as rtepeated blood cultures came back negative Likely drug induced fever responding to Tylenol To mention on discharge summary so she is not brought back to ED if she has a one time fever at 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 To finish 6 weeks of IV Abx by 12/13/2024 Repeat blood cultures pending Likely drug fever related to Nafcillin which has been stopped , Daptomycin can also cause drug fever Tylenol for fever ID consult, 6 weeks total Daptomycin with po Rifabutin or Rifampin at least until 12/13/2024. PICC line placed incentive spirometry PRN Oxycodone for pain Cardiology input appreciated, can hold Aspirin while on Eliquis. Fondaparinux can be an alternative for both as well Acute on chronic anemia likely multifactorial: Bacteremia, blood loss, antibiotic related Hb improved to 8.4 after 2 units PRBCs Hold ASA per cardiology rec Continue Eliquis for DVT US still showing LUE DVT, to finish 3-6 months of Eliquis then restart Aspirin follow H&H Accelerated junctional rhythm continue on metoprolol tartrate 75 mg b.i.d. acute on chronic diastolic heart failure NYHA class 3 Lasix 40 mg IV decrease to daily, switch to PO Daily weights low-sodium diet, measure I's and O's Left upper arm DVT was started on Eliquis 2.5 mg b.i.d. postoperatively per Cardiothoracic surgeon. switched to Eliquis 5 mg b.i.d , Aspirin discontinued for now repeated US still showing LUE DVT Chronic untreated hepatitis-C RNA viral load >1 million, for GI outpatient follow up for treatment Polysubstance abuse w hx IVDU methadone per recovery team risk for leaving AMA, advised to stay and agreed. she does not have a full understanding of her medical condition and risks if she leaves. i doubt her having capacity to decide on her medical care and will not likely let her leave AMA if she asks for it Moderate protein calorie malnutrition Nutritional consult Ensure Depression, uncontrolled Psych consult. Pt looking to be back on meds DVT prophylaxis: Eliquis Ppi prophylaxis: Protonix daily Patient is a full code Admit as inpatient and will require overnight minimum hospital stay for IV antibiotic (as above), blood transfusion, pending repeat blood cultures and outpatient plan for IV antibiotics which is not possible in a lesser acute setting. Quality Stroke Does the patient have a stroke diagnosis?: No Reason for No Anti-thrombotic by Day Two: N/A - Med Ordered VTE Prior VTE?: No VTE Risk Level:: Medical - moderate - high VTE Device Contraindication: Treatment Not Indicated VTE Drug Contraindication: N/A - Med Ordered
--- NOTE | 2024-11-12 13:48 | MHC.CM.PN ---
ANTHONY received a call from [facility] Guest Experience Representative/Mary @ [phone], who indicated that she is assisting [employer] Rowdy with obtaining auth for admission and the 2 carve outs for meds. Choudhary needs to submit for auth to [facility]; Mary will reach out to [employer]mi wit this request, as well. ANTHONY will follow.
--- NOTE | 2024-11-12 13:57 | MHC.CM.PN ---
CM met with Patient at bedside to update her on dc planning; Patient is agreeable to [facility]. CM will continue to follow.
--- NOTE | 2024-11-12 15:09 | MHC.CM.PN ---
In anticipation of [facility] obtaining auth for admission and carve out for 2 meds, CM called [employer] @ [phone] to begin the Methadone Guest Dosing process. On line, [employer] hours are listed as 5:30 AM-5:30 PM, but the recorded message indicates the hours are 7:30 AM-3PM. CM will attempt to call again in the AM. CM will follow.
[2024-11-12] MEDS: methADONE HCl 20 MG/2 ML ORAL.CONC PO (17:30)
[2024-11-12] MEDS: hydrOXYzine HCL 50 MG TABLET PO (21:18)
[2024-11-12] MEDS: Pregabalin 50 MG CAPSULE PO (21:19)
[2024-11-12] MEDS: Mirtazapine 15 MG TABLET PO (21:19)
[2024-11-12] MEDS: Sennosides 8.6 MG TABLET 17.2 MG PO (21:19)
[2024-11-12] MEDS: Acetaminophen 325 MG TABLET 650 MG PO (21:19)
[2024-11-12] MEDS: Melatonin 3 MG TABLET 6 MG PO (21:19)
[2024-11-13] VITALS (7 sets, daily range): BP systolic 122–149; BP diastolic 60–89; PULSE 75–96; RESP 16–18; TEMP 36.3–38.8; O2SAT 95–98; BMI 21.7
[2024-11-13] MEDS: methADONE HCl 20 MG/2 ML ORAL.CONC 40 MG PO (08:24)
[2024-11-13] MEDS: Ferrous Sulfate 324 MG TABLET.DR PO (08:25)
[2024-11-13] MEDS: Metoprolol Tartrate 25 MG TABLET 75 MG PO ×2 (08:25→21:13)
[2024-11-13] MEDS: polyethylene glycoL 3350 17 GM POWD.PACK PO (08:25)
[2024-11-13] MEDS: Furosemide 40 MG TABLET PO (08:25)
[2024-11-13] MEDS: Magnesium Oxide 400 MG TABLET PO (08:25)
[2024-11-13] MEDS: Apixaban 5 MG TABLET PO ×2 (08:25→21:14)
[2024-11-13] MEDS: Docusate Sodium 100 MG CAPSULE PO ×2 (08:25→21:14)
[2024-11-13] MEDS: Lidocaine 4 % Patch ADH..PATCH 1 PATCH TRANSDERMA (08:32)
--- NOTE | 2024-11-13 08:40 | MHC.CM.PN ---
ANTHONY spoke with Mildred @ [employer] at [phone] and faxed to her:BRITTANIE, Methadone dose history, Tox screen, Addiction Medicine PN, and H&P @ fax # [phone]. ANTHONY spoke with Landon from [facility] @ [phone] and faxed a BRITTANIE to him at [phone]. Per Mildred, [employer] will review the information received from ANTHONY and the Guest Dosing paperwork sent by [facility] and let CM know when everything is in order. Mildred and Landon are aware that the goal is to dc Patient to [facility] on 11/14/2024. [facility] is still awaiting insurance auth and carve out for 2 meds. ANTHONY will follow.
[2024-11-13] MEDS: DAPTOmycin 575 MG in 0.9 % Sodium Chloride 50 ML 100 MG IV (08:55)
[2024-11-13 09:21] LABS: MANUAL DIFF FLAG NO
[2024-11-13 09:24] LABS: Basophils Absolute Auto 0.1 X10*3/uL (0.0-0.2); Basophils Percent Auto 0.9 % (0-2); Eosinophils Absolute Auto 0.1 X10*3/uL (0.0-0.4); Eosinophils Percent Auto 1.7 % (0-4); Hematocrit 25.2 % (37.0-47.0); Hemoglobin 8.6 g/dl (12.0-16.0); Imm Gran Abs Auto 0.05 X10*3/uL (0.00-0.03); Imm Gran Pct Auto 0.7 % (0.0-0.4); Lymphocytes Absolute Auto 1.2 X10*3/uL (1.2-4.9); Lymphocytes Percent Auto 16.3 % (20-40); Mean Corpuscular HGB Conc 34.1 g/dl (31.0-35.0); Mean Corpuscular Hemoglobin 29.8 pg (27.0-33.0); Mean Corpuscular Volume 87.2 fL (80.0-98.0); Monocytes Absolute Auto 0.8 X10*3/uL (0.1-1.2); Monocytes Percent Auto 10.1 % (2-11); Neutrophils Absolute Auto 5.4 x10*3/uL (2.0-8.3); Neutrophils Percent Auto 70.3 % (45-73); Platelet Count 221 X10*3/uL (160-400); Red Blood Count 2.89 X10*6/uL (4.20-5.50); Red Cell Distribution Width 18.5 % (11.0-16.0); White Blood Count 7.6 X10*3/uL (4.8-10.8)
[2024-11-13 09:36] LABS: Anion Gap 13 (12-20); Blood Urea Nitrogen 20 mg/dL (9-16); Calcium 8.7 mg/dL (8.4-10.2); Carbon Dioxide 24 mmol/L (22-29); Chloride 98 mmol/L (96-108); Creatinine Clr Calc Pharmacy 93.9; Estimated Glomerular Filt Rate > 60; Glucose Random 117 mg/dL (60-115); Potassium 3.9 mmol/L (3.3-5.1); Sodium 131 mmol/L (135-145)
--- NOTE | 2024-11-13 12:47 | P.PNIM_ITS ---
Subjective Subjective Date of Service: 11/13/24 Interval History: no acute issues overnight. Remains afebrile Review of Systems denies chest pain Denies shortness of breath Denies nausea vomiting diarrhea Denies fever chills Physical Exam 2 Vital Signs: Vital Signs: Last Vital Signs Temp 98.4 F 11/13/24 11:58 Pulse 87 11/13/24 11:58 Resp 18 11/13/24 11:58 BP 132/72 11/13/24 11:58 Pulse Ox 97 11/13/24 11:58 O2 Del Method Room Air 11/13/24 11:58 O2 Flow Rate 5 11/09/24 03:47 BMI result Body Mass Index 21.7 Const: Other: awake alert no acute distress Resp: Other: clear to auscultation bilaterally no rales rhonchi or wheezes Cardio: Other: no S4; positive S1-S2; no S3 murmurs rubs or gallops GI: Other: soft nontender nondistended normoactive bowel sounds Neuro: Other: cranial nerves 2-12 grossly intact as tested. Motor is 5/5 all extremities. Sensation is intact. Cognition appropriate Extrem: Other: no edema bilaterally Objective Data Active Medications Acetaminophen (Acetaminophen 325 Mg Tablet) 650 mg PO Q6H PRN PRN Reason: Pain, Mild 1-3,fever,headache Last Admin: 11/12/24 21:19 Dose: 650 mg Documented By: AUSTEN Albuterol/Ipratropium (Albuterol/Iprat 2.5/0.5mg 3 Ml Ampul.Neb) 3 ml INHALE Q4H PRN PRN Reason: Shortness of Breath/Wheezing Albuterol/Ipratropium (Albuterol/Iprat 2.5/0.5mg 3 Ml Ampul.Neb) 3 ml INHALE Q6H PRN PRN Reason: Shortness Of Breath Apixaban (Apixaban 5 Mg Tablet) 5 mg PO BID [facility] Last Admin: 11/13/24 08:25 Dose: 5 mg Documented By: AMY Aspirin (Aspirin 81 Mg Tab.Chew) 81 mg PO DAILY [facility] Last Admin: 11/09/24 10:10 Dose: 81 mg Documented By: AMY Benzonatate (Benzonatate 100 Mg Capsule) 100 mg PO TID PRN PRN Reason: Cough Diphenhydramine HCl (Diphenhydramine Hcl 50 Mg/Ml Vial) 25 mg IVPUSH Q6H PRN PRN Reason: Allergic Reaction Last Admin: 11/09/24 12:49 Dose: 25 mg Documented By: AMY Docusate Sodium (Docusate Sodium 100 Mg Capsule) 100 mg PO BID [facility] Last Admin: 11/13/24 08:25 Dose: 100 mg Documented By: AMY Ferrous Sulfate (Ferrous Sulfate 324 Mg Tablet.Dr) 324 mg PO DAILY [facility] Last Admin: 11/13/24 08:25 Dose: 324 mg Documented By: AMY Furosemide (Furosemide 40 Mg Tablet) 40 mg PO DAILY [facility]; Protocol Last Admin: 11/13/24 08:25 Dose: 40 mg Documented By: AMY Hydroxyzine HCl (Hydroxyzine Hcl 50 Mg Tablet) 50 mg PO BEDTIME [facility] Last Admin: 11/12/24 21:18 Dose: 50 mg Documented By: AUSTEN Daptomycin 575 mg/ Sodium (Chloride) 61.5 mls @ 100 mls/hr IV Q24H [facility] Last Infusion: 11/13/24 10:00 Dose: Infused Documented By: AMY Lidocaine (Lidocaine 4 % Patch Adh..Patch) 1 patch TRANSDERMA DAILY [facility]; Protocol Last Admin: 11/13/24 08:32 Dose: 1 patch Documented By: AMY Magnesium Oxide (Magnesium Oxide 400 Mg Tablet) 400 mg PO DAILY [facility] Last Admin: 11/13/24 08:25 Dose: 400 mg Documented By: AMY Melatonin (Melatonin 3 Mg Tablet) 6 mg PO BEDTIME [facility] Last Admin: 11/12/24 21:19 Dose: 6 mg Documented By: AUSTEN Methadone HCl (Methadone Hcl 20 Mg/2 Ml Oral.Conc) 40 mg PO DAILY@0800 [facility] Last Admin: 11/13/24 08:24 Dose: 40 mg Documented By: AMY Co-signed By: LISA Methadone HCl (Methadone Hcl 20 Mg/2 Ml Oral.Conc) 20 mg PO DAILY@1800 [facility] Last Admin: 11/12/24 17:30 Dose: 20 mg Documented By: AMY Co-signed By: MARY Metoprolol Tartrate (Metoprolol Tartrate 25 Mg Tablet) 75 mg PO BID [facility]; Protocol Last Admin: 11/13/24 08:25 Dose: 75 mg Documented By: AMY Mirtazapine (Mirtazapine 15 Mg Tablet) 15 mg PO BEDTIME [facility] Last Admin: 11/12/24 21:19 Dose: 15 mg Documented By: AUSTEN Naloxone HCl (Naloxone Hcl 0.4 Mg/Ml Vial) 0.04 mg IVPUSH Q5M PRN PRN Reason: Respiratory Rate < 10 Ondansetron HCl (Ondansetron Hcl 4 Mg/2 Ml Vial) 4 mg IVPUSH Q8H PRN PRN Reason: Nausea and Vomiting Oxycodone HCl (Oxycodone Hcl Immed Release 5 Mg Tablet) 10 mg PO Q4H PRN PRN Reason: Pain, Severe (Pain Scale 7-10) Last Admin: 11/11/24 19:36 Dose: 10 mg Documented By: LEIDYZEOctavio Oxycodone HCl (Oxycodone Hcl Immed Release 5 Mg Tablet) 5 mg PO Q4H PRN PRN Reason: Pain (Scale Score 4-6) Polyethylene Glycol (Polyethylene Glycol 3350 17 Gm Powd.Pack) 17 gm PO DAILY [facility] Last Admin: 11/13/24 08:25 Dose: 17 gm Documented By: AMY Pregabalin (Pregabalin 50 Mg Capsule) 50 mg PO BEDTIME [facility] Last Admin: 11/12/24 21:19 Dose: 50 mg Documented By: AUSTEN Rifabutin (Rifabutin 150 Mg Capsule) 300 mg PO DAILY [facility] Last Admin: 11/13/24 08:25 Dose: 300 mg Documented By: AMY Senna (Sennosides 8.6 Mg Tablet) 17.2 mg PO BEDTIME [facility] Last Admin: 11/12/24 21:19 Dose: 17.2 mg Documented By: AUSTEN Labs 11/13/24 09:09 11/13/24 09:09 Labs: Laboratory Results - last 24 hr 11/13/24 09:09 MCV 87.2 MCH 29.8 MCHC 34.1 RDW 18.5 H Plt Count 221 MPV 10.0 Immature Gran % (Auto) 0.7 H Neut % (Auto) 70.3 Lymph % (Auto) 16.3 L Stone % (Auto) 10.1 Eos % (Auto) 1.7 Baso % (Auto) 0.9 Lymph # (Auto) 1.2 Stone # (Auto) 0.8 Eos # (Auto) 0.1 Baso # (Auto) 0.1 Abs Immat Gran (auto) 0.05 H Absolute Neuts (auto) 5.4 Absolute Nucleated RBC 0.000 Nucleated RBC % (auto) 0.0 Anion Gap 13 Estim Creat Clear Calc 93.9 Estimated GFR > 60 Random Glucose 117 H Calcium 8.7 Assessment and Plan (1) Septic shock: Status: Acute (2) S/P mitral valve replacement with bioprosthetic valve: Status: Acute (3) Infective endocarditis: Status: Acute Plan Pt is aq 34 yo female with past, medical history HIV, hepatitis-C, microcytic anemia, protein calorie malnutrition, polysubstance abuse disorder with IV drug history currently on methadone, right arm thrombophlebitis 2020 readmitted at [facility] status post mitral valve repair and ASD closure at [facility] in [facility]. 1.Fever - afebrile for the last 24 hours -no evidence of recurrent infeciton;repeated blood cultures negative -likely drug induced fever responding to Tylenol; per Infectious Disease no need to send out if isolated fever spikes. Treat with Tylenol and observe 2.MSSA Infective Endocarditis -S\P MVR with a number 31Mitris Bioprosthetic valve and ASD closure -negative blood culture since November 01. To finish 6 weeks of IV Abx by 12/13/2024 -repeat blood cultures(11/08) negative times 48 hours -ID consult, 6 weeks total Daptomycin with po Rifabutin or Rifampin at least until 12/13/2024. -PRN Oxycodone for pain - Eliquis 3.Acute on chronic anemia - hemoglobin stable - follow up periodic CBC is 4.LUE DVT, -3-6 months of Eliquis then restart Aspirin 5.Acute on chronic diastolic heart failure NYHA class 3 - stable and well compensated -Lasix 40 mg daily 6.Chronic untreated hepatitis-C -RNA viral load >1 million, for GI outpatient follow up for treatment 7.Polysubstance abuse w hx IVDU -methadone per recovery team Eliquis Full code Patient is medically acceptable at this time for transfer to a retirement facility to complete IV therapy for MSSA Quality Stroke Does the patient have a stroke diagnosis?: No Reason for No Anti-thrombotic by Day Two: N/A - Med Ordered VTE Prior VTE?: No VTE Risk Level:: Medical - moderate - high VTE Device Contraindication: Treatment Not Indicated VTE Drug Contraindication: N/A - Med Ordered
[2024-11-13] MEDS: methADONE HCl 20 MG/2 ML ORAL.CONC PO (17:52)
[2024-11-13] MEDS: Pregabalin 50 MG CAPSULE PO (21:13)
[2024-11-13] MEDS: Melatonin 3 MG TABLET 6 MG PO (21:13)
[2024-11-13] MEDS: Acetaminophen 325 MG TABLET 650 MG PO (21:14)
[2024-11-13] MEDS: hydrOXYzine HCL 50 MG TABLET PO (21:14)
[2024-11-13] MEDS: Mirtazapine 15 MG TABLET PO (21:14)
[2024-11-13] MEDS: Sennosides 8.6 MG TABLET 17.2 MG PO (21:14)
[2024-11-14] VITALS: BP 117/61; PULSE 84; RESP 16; TEMP 37.1; O2SAT 98
[2024-11-14 03:18] VITALS: BP 130/67; PULSE 82; RESP 16; TEMP 36.8; O2SAT 100
[2024-11-14 06:00] VITALS: BMI 21.3
[2024-11-14 07:51] VITALS: BP 143/72; PULSE 90; RESP 16; TEMP 37.7; O2SAT 99
[2024-11-14] MEDS: DAPTOmycin 575 MG in 0.9 % Sodium Chloride 50 ML 100 MG IV (08:11)
[2024-11-14] MEDS: Lidocaine 4 % Patch ADH..PATCH 1 PATCH TRANSDERMA (08:11)
[2024-11-14] MEDS: polyethylene glycoL 3350 17 GM POWD.PACK PO (08:11)
[2024-11-14] MEDS: Apixaban 5 MG TABLET PO (08:12)
[2024-11-14] MEDS: Metoprolol Tartrate 25 MG TABLET 75 MG PO (08:12)
[2024-11-14] MEDS: Furosemide 40 MG TABLET PO (08:12)
[2024-11-14] MEDS: Magnesium Oxide 400 MG TABLET PO (08:12)
[2024-11-14] MEDS: Acetaminophen 325 MG TABLET 650 MG PO (08:12)
[2024-11-14] MEDS: Docusate Sodium 100 MG CAPSULE PO (08:13)
[2024-11-14] MEDS: methADONE HCl 20 MG/2 ML ORAL.CONC 40 MG PO (08:13)
[2024-11-14] MEDS: Ferrous Sulfate 324 MG TABLET.DR PO (08:13)
--- NOTE | 2024-11-14 08:17 | MHC.CM.PN ---
ANTHONY spoke with Mildred @ [facility] @ [phone], who confirmed that she has received everything that was requested both from CM and [facility]; now, this case will go for Doctor Review. If [facility] can get auth and carveouts today, Guest Dosing CAN start on a Sunday, but NOT a Sunday. CM will follow with a goal of dc to [facility] today. CM will follow.
[2024-11-14 11:33] VITALS: BP 139/90; PULSE 74; RESP 16; TEMP 36.9; O2SAT 93
--- NOTE | 2024-11-14 11:43 | MHC.CM.PN ---
Addendum entered by Hillary Lutz 11/14/24 12:01: CM spoke with [facility] Radha/Landon @ [phone]; he is sending the ABH form with the correct start date of 11/15/2024. CM will follow. Original Note: CM received word that [facility] needs an, updated start date ABF form, and that [facility] is closing soon. CM called [facility] immediately but only was able to leave a detailed message, requesting a return call [facility]. CM will follow.
--- NOTE | 2024-11-14 11:49 | MHC.CLN ---
F/U PO INTAKE 75% X3 MEALS REVIEWED LABS-NOTED SERUM NA REMAINS LOW DIET RX: 2GM NA-APPROPRIATE RECEIVING MAGIC CUP TID TO INCREASE KCALS PROVIDES 870KCALS, 27G PROTEIN ENSURE BID PROVIDES 700KCALS, 40G PROTEIN CONTINUE TO MONITOR PO INTAKE AND ENCOURAGE SUPPLEMENT
--- NOTE | 2024-11-14 12:23 | MHC.CM.PN ---
Per MD, Patient is medically cleared for dc to SNF/STR today. Patient will dc to [facility] today at 4PM, via [facility]. CM met with Patient at bedside and addressed IMM with her, providing Patient with the original and a copy has been placed on the chart. Per Patient, she will inform her family herself as to the dc plan.
--- NOTE | 2024-11-14 13:39 | PC.NURSE ---
pt receiving last dose of methadone early due to transfer to rehab. MD garcias
[2024-11-14] MEDS: methADONE HCl 20 MG/2 ML ORAL.CONC PO (13:46)
--- NOTE | 2024-11-14 14:07 | PM.DS ---
DS: Providers Provider Date of Service: 11/14/24 Date of admission: 11/06/24 20:35 Date of discharge: 11/14/24 Primary care physician: None Physician Consults: 11/06/24 16:51 Consult to Infectious Diseases Routine Consulting Provider: [facility] Reason for consultation: IE for medication advice 11/06/24 22:06 Addiction Medicine Provider Routine Consulting Provider: [facility] Reason for consultation: drug addiction 11/06/24 22:20 Consult to Cardiology Routine Consulting Provider: [facility] Reason for consultation: accelerated junctional rhythm Has provider been notified: No 11/06/24 23:11 Consult to Psychiatry Routine Consulting Provider: [facility] Reason for consultation: depression, pt requesting to get back on meds Has provider been notified: No 11/07/24 15:55 Inpt - Recovery Team Routine Comment: Reason for consultation: ESTELITA eval DS: Diagnosis Discharge Diagnosis (1) Septic shock: Status: Acute (2) S/P mitral valve replacement with bioprosthetic valve: Status: Acute (3) Infective endocarditis: Status: Acute DS: Summary Hospital Course Hospital Course: Pt is aq 34 yo female with past, medical history HIV, hepatitis-C, microcytic anemia, protein calorie malnutrition, polysubstance abuse disorder with IV drug history currently on methadone, right arm thrombophlebitis 2020 is currently a transfer from [facility] in [facility] where patient underwent a mitral valve replacement with a #31 mitris bioprosthetic valve and an ASD closure with bovine pericardial patch after being diagnosed with sepstic shock/endocarditis/vegetation secondary to IV drug abuse. Patient originally admitted to [facility] on 10/20/2024 and was admitted to the ICU secondary to altered mental status with increasing nausea and vomiting. Patient was hypotensive and obtunded. CT of the head was negative. Urine tox screen at the time was positive for opiates, methadone, fentanyl, cocaine and marijuana. test was negative. Patient also underwent a lumbar puncture and started on vanco and Zosyn with fluid resuscitation. Lumbar puncture was completed and viral panel was negative so acyclovir was discontinued. Patient had a low-sodium. Was started on Levophed and CTA was negative for PE and right heart strain. Possible evidence of pneumonia noted. Patient had continued hypotension requiring vasopressors and episodes of SVT. Mentation was slowly improving. Patient was eventually diagnosed with mitral valve infective endocarditis via echocardiogram with elevated right-sided pressures. Transfer accepted by [facility] in [place], [facility] of [facility] system on 10/22/2024. Surgery was completed on 10/30/2024. Sternotomy incision is intact, no obvious drainage noted. Chest tube insertion sites are closed and healing with suture in place. Patient currently only has a peripheral IV in the left wrist. Patient did develop a DVT in the left upper extremity and was started on Eliquis 2.5 mg b.i.d. per Cardiothoracic surgeon. Patient was diagnosed with MSSA infection and currently requires nafcillin 2 g every 4 hours until 11/24/2024 and rifabutin 300 mg orally every day for 6 weeks, stop date is 12/15/2024. Patient also requires Dalbavacin IV 1500 mg once weekly x2 doses after the nafcillin is completed. If the dalbavacin is not available, patient will need a total of 6 weeks of nafcillin. Patient does not have central line at this time. ID consulted for follow-up. Patient currently in an accelerated junctional rhythm. This was noted during her hospital stay at [facility]. Patient is currently on metoprolol tartrate 75 mg b.i.d.. Consulting Cardiology. Patient is having chronic back issues and per discharge summary from [facility], Infectious Disease recommended a thoracic and lumbar MRI at the discretion of [facility]. Based on patient's physical exam this was ordered. Labs were attempted on arrival to include blood cultures x2 and myotomy x2 were unable to obtain labs. Patient refused any further attempts at and asked if they could try again in the morning. Pain has been managed postoperatively with Toradol, oxycodone noting that patient is already on methadone along with Tylenol. Lidocaine patch available to the lower back. Patient is also on Lyrica at bedtime. Patient requesting Ativan on arrival but this medication was not used during her stay at [facility]. Providing melatonin and Vistaril as needed to help with sleep and/or anxiety. Per discharge summary, labs overall have improved with the magnesium greater than 2 and potassium greater than 4. Creatinine is now at baseline, . 0.9 preoperative weight was 45 kg and current weight is 49 kg. Patient is on 40 mg of IV Lasix b.i.d.. . H&H also stable A1c was. 5.9 Patient having some minor issues with constipation and bowel regimen is ordered. Patient is currently on methadone 10 mg daily and follows with [facility]. Addictions consulted as patient was on oxycodone along with the methadone for recovery status post cardiac surgery. Patient admitted to general medical floor and seen in consultation by Infectious Disease. Infectious Disease recommended 6 weeks total of daptomycin with p.o. rifabutin a rifampin. Estimated stop date 12/14/2024. Blood cultures at this facility negative after 5 days PICC line placed without issue. At this point in time she is medically acceptable for discharge. Her methadone dose has been adjusted by addiction Medicine. It is anticipated that her length of stay at this facility we will be less than 30 days Time Attestation Discharge Coordination Time (in mins): 35 Quality: Safe Use of Opioids Does Pt have an Active Cancer Diagnosis on the Problem List?: No Quality: Stroke Does the patient have a stroke diagnosis?: No Physical Exam Vital Signs: Vital Signs: Last Vital Signs Temp 98.5 F 11/14/24 11:33 Pulse 74 11/14/24 11:33 Resp 16 11/14/24 11:33 BP 139/90 H 11/14/24 11:33 Pulse Ox 93 11/14/24 11:33 O2 Del Method Room Air 11/14/24 11:33 O2 Flow Rate 5 11/09/24 03:47 BMI result Body Mass Index 21.3 Const: Other: awake alert no acute distress Resp: Other: clear to auscultation bilaterally no rales rhonchi or wheezes Cardio: Other: no S4; positive S1-S2; no S3 murmurs rubs or gallops GI: Other: soft nontender nondistended normoactive bowel sounds Neuro: Other: cranial nerves 2-12 grossly intact as tested. Motor is 5/5 all extremities. Sensation is intact. Cognition appropriate Extrem: Other: no edema bilaterally DS: Data Data Completed and Pending Completed studies during hospitalization [Text1]: Procedures Drainage of Spinal Canal, Percutaneous Approach, Diagnostic (10/20/24) Insertion of Infusion Device into Superior Vena Cava, Percutaneous Approach (10/20/24) Introduction of Vasopressor into Peripheral Vein, Percutaneous Approach (10/20/24) Ultrasonography of Superior Vena Cava, Guidance (10/20/24) Discharge Plan Discharge Anticipated Discharge Date/Time: 11/14/24 13:55 Patient Disposition: Xfer SNF Discharge Diagnosis: Infective endocarditis Referrals: [facility] [Outside] - 1 Week Physician,None [Primary Care Provider] - 1 Week Discharge Medications: New daptomycin 350 mg Recon Soln 575 mg IV Q24H Qty: 29 0RF Eliquis 5 mg Tablet 5 mg PO BID Qty: 60 0RF ferrous sulfate 324 mg (65 mg iron) Tablet,Delayed Release (Dr/Ec) 324 mg PO DAILY Qty: 30 0RF furosemide 40 mg Tablet 40 mg PO DAILY Qty: 30 0RF Protocol: Hold for SBP< HOLD for SBP < : 90 hydroxyzine HCl 50 mg Tablet 50 mg PO BEDTIME Qty: 30 0RF mirtazapine 15 mg Tablet 15 mg PO BEDTIME Qty: 30 0RF methadone [Methadose] 10 mg/mL Concentrate 40 mg PO DAILY@0800 Qty: 30 0RF Rx Instructions: Partial Fill upon patient request. methadone [Methadose] 10 mg/mL Concentrate 20 mg PO DAILY@1800 Qty: 30 0RF Rx Instructions: Partial Fill upon patient request. pregabalin 50 mg Capsule 50 mg PO BEDTIME Qty: 30 0RF oxycodone 15 mg tablet 15 mg PO Q6H PRN (Reason: pain) Qty: 60 0RF Rx Instructions: Partial Fill upon patient request. Continued sennosides [senna] 8.6 mg Tablet 17.2 mg PO BEDTIME acetaminophen 325 mg Tablet 650 mg PO Q6H PRN (Reason: Pain (Scale Score 1-3)) ipratropium-albuterol 0.5 mg-3 mg(2.5 mg base)/3 mL Solution For Nebulization 3 ml INHALATION Q6H PRN (Reason: Shortness Of Breath) lidocaine 4 % Adhesive Patch,Medicated 1 patch TOPICAL DAILY polyethylene glycol 3350 17 gram Powder In Packet 17 g PO DAILY rifabutin 150 mg Capsule 300 mg PO DAILY melatonin 3 mg Tablet 6 mg PO BEDTIME pantoprazole 40 mg Tablet,Delayed Release (Dr/Ec) 40 mg PO DAILY@0630 docusate sodium 100 mg Capsule 100 mg PO BID aspirin 81 mg Tablet,Chewable 81 mg PO DAILY pregabalin 50 mg Capsule 50 mg PO BEDTIME ondansetron HCl (PF) 4 mg/2 mL Syringe 4 mg IV Q6H PRN (Reason: Nausea And Vomiting) apixaban 2.5 mg Tablet 2.5 mg PO BID metoprolol tartrate 75 mg Tablet 75 mg PO BID magnesium oxide 400 mg magnesium Tablet 400 mg PO DAILY naloxone 0.4 mg/mL Syringe 0.4 mg IM Q5M PRN (Reason: opioid reversal or resp depression) Rx Instructions: NTExceed 10 mg total dose/episode Discontinued nafcillin 2 gram Recon Soln 2 g IV Q4H methadone 10 mg/mL Concentrate 10 mg PO Q6H PRN (Reason: opiate withdrawal or severe pain) methadone 10 mg/mL Concentrate 40 mg PO DAILY oxycodone 5 mg Tablet 5 mg PO Q4H PRN (Reason: Pain (Scale Score 4-6)) furosemide 10 mg/mL Syringe 40 mg IV BID@0900,1700 oxycodone 10 mg Tablet, Oral Only 10 mg PO Q4H PRN (Reason: Pain (Scale Score 7-10)) Discharge Orders: Discharge Order (Routine); Ordered 11/14/24 Ordered By: Ernesto Light Diet: Advance to usual diet Activity on Discharge: As tolerated Stand Alone Forms: Patient Portal Discharge page Print Language: Cypriot Care Plan Goals: Continue all meds as listed on transfer summary Health Concerns: Daptomycin daily last dose 12/13/2024. Methadone as ordered Plan of Treatment: As per receiving facility Assessment: See discharge summary
--- NOTE | 2024-11-14 14:28 | MHC.CM.PN ---
Narcotic script has been faxed to [facility] @ [phone].
[2024-11-14 15:06] VITALS: BP 140/71; PULSE 85; RESP 16; TEMP 36.9; O2SAT 100
== END 2024-11-14 16:43 | disposition skilled nursing facility (03) | DRG 289 ==
PROVIDERS: Nurse Practitioner Family; Student in an Organized Health Care Education/Training Program; Admitting Provider Student in an Organized Health Care Education/Training Program; Visit Provider Hospitalist
DX: I33.0 Acute and subacute infective endocarditis (principal); D62 Acute posthemorrhagic anemia; F11.20 Opioid dependence, uncomplicated; E44.0 Moderate protein-calorie malnutrition; I82.622 Acute embolism and thrombosis of deep veins of left upper extremity; F17.210 Nicotine dependence, cigarettes, uncomplicated; F19.10 Other psychoactive substance abuse, uncomplicated; B18.2 Chronic viral hepatitis C; B95.61 Methicillin susceptible Staphylococcus aureus infection as the cause of diseases classified elsewhere; F32.A Depression, unspecified; R50.2 Drug induced fever; K59.00 Constipation, unspecified; T36.0X5A Adverse effect of penicillins, initial encounter; E86.0 Dehydration; Z20.822 Contact with and (suspected) exposure to COVID-19; Z95.2 Presence of prosthetic heart valve; Z87.74 Personal history of (corrected) congenital malformations of heart and circulatory system; Z68.20 Body mass index [BMI] 20.0-20.9, adult; Z21 Asymptomatic human immunodeficiency virus [HIV] infection status; Z71.6 Tobacco abuse counseling; Z79.01 Long term (current) use of anticoagulants; Z79.82 Long term (current) use of aspirin; Z79.899 Other long term (current) drug therapy
CPT/HCPCS: 36415; 36573; 71045; 80048; 80053; 80307; 82272; 82803; 82947; 83540; 83605; 83615; 83935; 84300; 85025; 85045; 86850; 86900; 86901; 86923; 87040; 87522; 87633; 93005; 93971; 97162; 97166; 97530; 97535; C1751; J0878; J1200; J1885; J1938; J2290; J2470; P9016; S9485

== ENCOUNTER → 2024-11-06 20:35 | Outpatient (BNV) | payer MEDICARE, SELFPAY | PROVIDERS: Admitting Provider Student in an Organized Health Care Education/Training Program; Visit Provider Internal Medicine | DX: A41.9 Sepsis, unspecified organism (principal); R65.21 Severe sepsis with septic shock | CPT/HCPCS: 99222 ==

== ENCOUNTER → 2024-11-06 20:35 | Outpatient (BNV) | payer MEDICARE, SELFPAY | PROVIDERS: Admitting Provider Student in an Organized Health Care Education/Training Program; Visit Provider Internal Medicine Cardiovascular Disease | DX: R00.0 Tachycardia, unspecified (principal); Z98.890 Other specified postprocedural states | CPT/HCPCS: 99222 ==

== ENCOUNTER → 2024-11-06 20:35 | Outpatient (BNV) | payer MEDICARE, SELFPAY | PROVIDERS: Admitting Provider Student in an Organized Health Care Education/Training Program; Visit Provider Nurse Practitioner Psychiatric/Mental Health | DX: F11.90 Opioid use, unspecified, uncomplicated (principal) | CPT/HCPCS: 99222; 99232 ==

== ENCOUNTER → 2024-11-06 20:35 | Outpatient (BNV) | payer MEDICARE, SELFPAY | PROVIDERS: Admitting Provider Student in an Organized Health Care Education/Training Program; Visit Provider Nurse Practitioner Family | DX: A41.9 Sepsis, unspecified organism (principal); R65.21 Severe sepsis with septic shock; Z95.3 Presence of xenogenic heart valve; I33.0 Acute and subacute infective endocarditis | CPT/HCPCS: 99223; 99232; 99233 ==

== ENCOUNTER 2024-12-31 13:35 | Outpatient (AMB) | payer MEDICARE, MEDICAID, SELFPAY ==
[2024-12-31 13:37] VITALS: BP 100/60; PULSE 78; BMI 19.5
--- NOTE | 2024-12-31 13:37 | A.OFFVIS_ITS ---
Vital Signs 12/31/24 13:37 Height 5 ft Weight 100 lb BMI 19.5 BP 100/60 Blood Pressure Location Lt brachial Position Sitting Pulse 78 Pulse Source Pulse Oximeter Intake Visit Reasons: f/up-Endocarditis,s/p valve rep. Allergies Sulfa (Sulfonamide Antibiotics) (SULFA (SULFONAMIDE ANTIBIOTICS)) Allergy (Unknown, Verified 10/20/24 15:27) swelling, ITCHY Medication List - Last Reconciled 12/31/24 by Josh Shukla NP aspirin 81 mg PO DAILY hydroxyzine HCl 50 mg PO BEDTIME methadone (Methadose) 40 mg (4 mL) PO DAILY@0800 methadone (Methadose) 20 mg (2 mL) PO DAILY@1800 pregabalin 50 mg PO ONCE HPI Comments Details: This is a 34-year-old female patient coming in for a hospital discharge follow- up visit. Patient with a history of polysubstance abuse currently on methadone. 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 Apparently patient had also developed a DVT in the left upper extremity at [facility] where she was started on Eliquis therapy. Patient was discharged to a group home facility where patient did not stay longer than a day and half into [facility] as she states that she did not appreciate their service. Since then, patient states that she has not been on any of her medications that were planned for discharge. Dr. Ruiz had seen patient in the hospital for questionable junctional rhythm and was put on metoprolol for tachy episodes. Today patient reports feeling well overall and denies any exertional chest pain, shortness of breath, palpitations, dizziness, orthopnea, PND, leg edema, presyncope, or syncope. Patient states that she has completely stopped using any stimulants or street drugs for which patient was commended. [facility] Medical History Infective endocarditis Opioid use disorder Polysubstance (including opioids) dependence with physiological dependence Endocarditis due to methicillin susceptible Staphylococcus aureus (MSSA) Hepatitis C Malnutrition No active medical problems Surgical History (Updated 12/31/24 @ 14:35 by Josh Shukla NP) S/P patent foramen ovale closure S/P mitral valve replacement with bioprosthetic valve S/P MVR (mitral valve repair) Status post patch closure of ASD S/P MVR (mitral valve replacement) History of back surgery Social History Household Members: Family [facility] Do you presently have visiting nurse or other home services: No Alcohol intake: current Patient Tobacco Use Status: Current everyday Tobacco user Tobacco use type: Cigarette Cigarettes Per Day: 4 Second Hand Smoke Exposure: No Substance Use Type: Crack/Cocaine, Heroin, IV Drugs and Marijuana service: No Review of Systems Const Denies weakness ENT Denies dizziness Card Denies chest pain, Denies chest pain with activity, Denies syncope, Denies rapid heart rate, Denies pedal edema, Denies edema, Denies leg edema, Denies lightheadedness, Denies palpitations, Denies dyspnea, Denies dyspnea on exertion and Denies orthopnea Resp Denies cough, Denies dyspnea and Denies dyspnea on exertion GI Denies hematochezia and Denies change in stool character Musc Denies abnormal gait, Denies muscle cramps, Denies muscle weakness, Denies numbness, Denies radiating pain into limb and Denies tingling Neuro Denies abnormal gait, Denies dizziness, Denies syncope, Denies numbness, Denies tingling and Denies weakness Endo Denies palpitations Physical Exam Vital Signs: Last Vital Signs Pulse 78 12/31/24 13:37 BP 100/60 12/31/24 13:37 BMI result Body Mass Index 19.5 Const General: cooperative, healthy appearing, comfortable and no acute distress Orientation/consciousness: patient oriented x3 HEENT Head: Yes normal to inspection Neck Neck: Yes normal visual inspection, Yes trachea midline and Yes supple Chest Chest palpation & inspection: normal inspection of the chest Resp Effort & Inspection: normal respiratory effort Auscultation: clear to auscultation bilaterally, no crackles, no rales, no rhonchi and no wheezes Cardio Jugular venous distension: no JVD Palpation: normal PMI Rate: regular rate Rhythm: regular rhythm Heart sounds: S1 normal heart sound present, S2 normal heart sound present, no click, no gallops, no murmurs and no rubs Peripheral pulses: Peripheral pulses 2+ throughout GI Inspection: Yes normal to inspection Palpation (GI): Soft to palpation Auscultation: normal bowel sounds Skin General skin exam: no rashes or lesions noted Neuro General: patient oriented x3 Extrem General: Yes normal to inspection, No no pedal edema and No calf tenderness Psych Appearance: grossly normal Mental Status: mental status grossly normal Speech and movement: Normal speech and movement present Assessment & Plan Assessment & Plan (1) S/P mitral valve replacement with bioprosthetic valve: Code(s): Z95.3 - Presence of xenogenic heart valve Category: Surgical (2) S/P patent foramen ovale closure: Code(s): Z87.74 - Personal history of (corrected) congenital malformations of heart and circulatory system Category: Surgical (3) Hospital discharge follow-up: Code(s): Z09 - Encounter for follow-up examination after completed treatment for conditions other than malignant neoplasm Plan History of mitral valve endocarditis related to IV drug use following which patient was transferred to [place]. Patient is now status post PFO closure and mitral valve replacement with bioprosthetic valve. For discharge, patient was supposed to be on long-term aspirin therapy and Eliquis for the DVT patient had developed during hospital stay in [place]. Patient was also to continue taking metoprolol for questionable sinus tachycardia versus SVT. However, after leaving [facility] from the group home facility, patient seems to have not continued with any of her medications. Emphasized on the need for lifelong aspirin therapy. Patient understands and will resume the aspirin therapy. We will also get an echocardiogram to look at the valve to make sure it is functioning appropriately. Incision site is well healed. Emphasized on continuing to completely avoid the use of stimulants and IV drugs. Advised heart healthy diet, exercise, and med compliance. Follow up in 6 months. In the interim, patient will call the office with any concerns or change in symptoms. This note was generated using voice recognition software. While every effort has been made to ensure accuracy and proper component prep operator, there may be occasional errors that could affect the content or meaning of the described symptoms. Orders: Orders CA echo transthoracic complete 2 Months Josh Shukla NP Z95.3 - Presence of xenogenic heart valve Medications: New aspirin 81 mg PO DAILY 90 tabs 0RF Josh Shukla NP Changed From pregabalin 50 mg PO BEDTIME 30 caps 0RF To pregabalin 50 mg PO ONCE Ernesto M Snow, DO Coding Level of Care Code Est Pt Level 4 (14109) Complex EM visit Add On G2211 Diagnoses S/P mitral valve replacement with bioprosthetic valve Z95.3 S/P patent foramen ovale closure Z87.74 Hospital discharge follow-up Z09 Time Spent (min) 34 Comment Time spent in reviewing the chart, test results, assessment, counseling and documentation.
--- OUTSIDE RECORDS SUMMARY | 2024-12-31 16:01 | XMS_ITS | Encounter Summary ---
Author Organization [facility] Address [address] [place] [address] Care Team Providers Care Teachers' Aide Name Role Phone Unknown Primary Care Provider [phone] Encounter Details Date Type Department Care Team ([facility] st Contact Info) Description 12/26/2024 Telephone [facility] Cardiothoracic Surgery [place] [address] [place] [phone] Charo Fletcher, HOG SCRAPER [address] [place] [address] Social History Tobacco Use Types Packs/Day Years Used Date Smoking Tobacco: Never Assessed [facility] Utilities Answer Date Recorded In the past 12 months has [employer] electric, gas, oil, or water company threatened to shut off services in your home? Patient unable to answer 10/24/2024 AUDIT-C Answer Date Recorded Q1: How often do you have a drink containing alc ohol? Monthly or less 10/31/2024 Q2: How many drinks containi ng alcohol do you have on a typical day when you are drinking? 1 or 2 10/31/2024 Q3: How often do you have si x or more drinks on one occasion? Never 10/31/2024 Overall Financial Resource Strain (CARDIA) Answe r Date Recorded How hard is it for you to pa y for the very basics like food, housing, medical care, and heating? Patient unable to answer 10/24/2024 Hunger Vital Sign Answer Date Recorded Within the past 12 months, y ou worried that your food would run out before you got the money to buy more. Patient unable to answer 10/24/2024 Within the past 12 months, t he food you bought just didn't last and you didn't have money to get more. Patient unable to answer 10/24/2024 PRAPARE - Transportation Answer Date Re corded In the past 12 months, has l ack of transportation kept you from medical appointments or from getting medications? Patient unable to answer 10/24/2024 In the past 12 months, has l ack of transportation kept you from meetings, work, or from getting things needed for daily living? Patient unable to answer 10/24/2024 Housing Stability Vital Sign Answer Ari e Recorded In the last 12 months, was t here a time when you were not able to pay the mortgage or rent on time? Patient unable to answer 10/24/2024 In the past 12 months, how m any times have you moved where you were living? 0 10/24/2024 At any time in the past 12 m [facility], were you homeless or living in a penitentiary (including now)? Patient unable to answer 10/24/2024 Comments No Sex and Gender Information Value Date Recorded Sex Assigned at Not on file Legal Sex Female 10:39 AM EDT Gender Identity Not on file Sexual Orientation Not on file documented as of this encounter Plan of Treatment Not on file documented as of this encounter Visit Diagnoses Not on filedocumented in this encounter Care Teams Teachers' Aide Relationship Specialty Start Date End Date Unknown Unknow Provider Address PCP - General 10/22/24 documented as of this encounter
== END 2024-12-31 14:11 | disposition home or self-care (01) ==
DX: Z09 Encounter for follow-up examination after completed treatment for conditions other than malignant neoplasm (principal); Z95.3 Presence of xenogenic heart valve; Z87.74 Personal history of (corrected) congenital malformations of heart and circulatory system
CPT/HCPCS: 99214; G2211

== ENCOUNTER → 2024-12-31 13:35 | Outpatient (BNVA) | payer MEDICARE, SELFPAY | DX: Z09 Encounter for follow-up examination after completed treatment for conditions other than malignant neoplasm (principal); Z95.3 Presence of xenogenic heart valve; Z87.74 Personal history of (corrected) congenital malformations of heart and circulatory system | CPT/HCPCS: 99212 ==

== ENCOUNTER → 2025-01-22 15:08 | Outpatient (REF) | payer MEDICARE, MEDICAID, SELFPAY ==
--- NOTE | 2025-01-22 15:13 | CA_ITS ---
Transthoracic Echocardiogram Patient (Last, First, Middle): Mila Humphrey, Gender: Female Date of : 1990 Age: 34 Procedure Date: 01/22/2025 Procedure Type: Transthoracic Echocardiogram Location: OP Height: 154.94 cm Weight: 42.18 kg BSA: 1.36 m2 Heart Rate: 91 bpm BP: 100 / 60 mmHg Automation Sales Manager: PATRICIA Referring MD: Ken Arora CPA TAX Symptoms: I33.0 ACUTE BACTERIAL ENDOCARDITIS Study Quality: Adequate ECG Rhythm: Sinus Conclusions: - The left ventricular systolic function is mildly decreased. The calculated ejection fraction is 42% by biplane method. - A bioprosthetic mitral valve is present. The prosthetic mitral valve appears to be functioning normally. There is no mitral valve regurgitation. Cannot exclude a small vegetation attached to mitral valve. Findings Left Ventricle Normal left ventricular cavity size. There is normal left ventricular wall thickness. The left ventricular systolic function is mildly decreased. The calculated ejection fraction is 42% by biplane method. There is mild global hypokinesis. Right Ventricle Normal right ventricular cavity size. There is moderately decreased right ventricular systolic function. Atria Both atria are normal in size. Aortic Valve There is a normal trileaflet aortic valve. There is no aortic valve stenosis. There is no aortic valve regurgitation. Mitral Valve A bioprosthetic mitral valve is present. The prosthetic mitral valve appears to be functioning normally. There is no mitral valve regurgitation. Cannot exclude a small vegetation attached to mitral valve. Pulmonic Valve There is trace pulmonic valve regurgitation. Tricuspid Valve There is trace tricuspid valve regurgitation. There is no evidence of pulmonary hypertension. Great Vessels The asc aorta is normal in size. Venous The inferior vena cava is normal in size. Pericardium/Pleural There is no evidence of pericardial effusion. Prior Study Comparison Changes noted compared to prior study dated: 10/21/2024. s/p MVR. Measurements 2D Linear Measurements IVSd: 1.01 0.6-0.9/0.6-1.0 cm LVIDd: 3.58 3.9-5.3/4.2-5.9 cm LVIDd Index: 2.63 2.4-3.2/2.2-3.1 cm/m2 LVIDs: 2.44 2.0-3.6 cm LVPWd: 0.68 0.7-1.1 cm LV Mass: 104.76 67-162/88-224 g LV Mass Index: 77.03 43-95/49-115 g/m2 LVOT Diam: 1.80 3.0+(-)1.3 cm 2D Systolic Function EF 4C: 45.00 >55% EF 2C: 40.20 >55% EF BiP: 42.00 >55% Mitral Valve MV VTI: 0.29 MV Pk Andre: 1.40 MV Mn Adnre: 0.98 MV Pk Grad: 8.00 MV Mn Grad: 4.00 MV Pk E: 1.40 MV PK A: 0.94 MV Decel Time: 170.00 E/A: 1.50 PHT: 50.00 MVA PHT: 4.40 MVA Continuity: 1.68 Decel Barron: 8.22 Aortic Valve AoV Pk Andre: 1.29 AoV Mn Andre: 0.92 AoV VTI: 0.24 AoV Pk Grad: 7.00 Aov Mn Grad: 4.00 LELE Cont.VTI: 2.02 LVOT LVOT Pk Andre: 1.01 LVOT Mn Andre: 0.68 LVOT VTI: 0.19 LVOT Pk Grad: 4.00 LVOT Mn Grad: 2.00 LVOT Diam: 1.80 LVOT Area: 2.54 Diastolic Function MV Pk E: 1.40 MV Pk A: 0.94 E/A: 1.50 Right Ventricle TAPSE (mm): 8.60 TVS' Andre: 5.70 Tricuspid Valve TR Pk Andre: 1.89 TR Pk Grad: 14.00 RA Press: 3.00 RVSP: 17.00 Great Vessels Aorta Sinus of Valsalva: 2.40 2.0-3.5 cm Ao Asc: 2.40 2.1-3.4 cm Pulmonary Valve PV Pk Andre: 0.67 Peak PV Grad: 2.00 Updated in Other Vendor System with Status of Final Aidna Norman MD electronically signed on 01/23/2025 2:38:14 PM with status of Final
--- OUTSIDE RECORDS SUMMARY | 2025-01-22 15:52 | XMS_ITS | Clinical Summary ---
Author Organization [facility] Address [address] [place] [address] Care Team Providers Care Brewing Technician Name Role Phone Unavailable Primary Care Provider [...] Screening: P ap Smear 2010 COVID-19 Vaccine ( - 2023-2 5 season) 2024 Depression Screening 07/09/2024 Influenza Vaccine (#1) 2025 HIB Vaccines Aged Out No longer [...] 5 Years) and At-Risk Patients (6 to 49 Years) Aged Out No longer eligible b ased on patient's age to complete this topic RSV Immunization Patients Un kirby 20 months Aged Out No longer eligible b ased on patient's age to complete this topic Varicella Vaccines Aged Out No longer eligible based on patient's age to complete this topic
--- OUTSIDE RECORDS SUMMARY | 2025-01-22 15:52 | XMS_ITS ---
Author Name [facility] Organization Unknown Results Test Name/Text Value Interpretation Date Range Source ESR Bld Qn Westrgrn 60.0 MM/HR Above high normal 11/06/2024 0 - 20 [facility] CRP SerPl-mCnc 6.7 mg/dL Above high normal 11/06/2024 - 1 [facility] Magnesium SerPl-mCnc 1.5 mg/dL Below low normal 11/06/2024 1 .6 - 2.6 [facility] Globulin Ser Calc-mCnc 3.5 g/dL Normal 11/06/2024 1.5 - 3.9 [facility] Calcium SerPl-mCnc 8.0 mg/dL Below low normal 11/06/2024 8.7 - 10.5 [facility] Anion Gap Bld-sCnc 8.0 Normal 11/06/2024 5 - 15 [facility] Chloride SerPl-sCnc 96.0 mmol/L Below low normal 11/06/2024 98 - 107 [facility]CT CO2 SerPl-sCnc 26.0 mmol/L Normal 11/06/2024 20 - 31 HH CCT AST SerPl-cCnc 25.0 U/L Normal 11/06/2024 - 34 [facility] T Bilirub SerPl-mCnc 0.6 mg/dL Normal 11/06/2024 0.3 - 1.2 [facility] Creat SerPl-mCnc 0.9 mg/dL Normal 11/06/2024 0.6 - 1 HH CCT Albumin/Glob SerPl 0.8 Ratio Below low normal 11/06/2024 1.5 - 2.5 [facility] ALP SerPl-cCnc 74.0 U/L Normal 11/06/2024 32 - 122 [facility] T ALT SerPl-cCnc <7.0 U/L Below low normal 11/06/2024 7 - 35 [facility] GFR/BSA.pred SerPlBld [id number] 85.0 Normal 11/06/2024 59 - HHCCT Prot SerPl-mCnc 6.3 g/dL Normal 11/06/2024 5.7 - 8.[address] Potassium SerPl-sCnc 3.5 mmol/L Normal 11/06/2024 3.4 - 4 .5 [facility]CT BUN SerPl-mCnc 19.0 mg/dL Normal 11/06/2024 9 - [address] BUN/Creat SerPl 21.0 Ratio Normal 11/06/2024 10 - 25 HH CCT Glucose SerPl-mCnc 86.0 mg/dL Normal 11/06/2024 74 - 106 [facility]CT Albumin SerPl-mCnc 2.8 g/dL Below low normal 11/06/2024 3.4 - 4.8 H[facility]CT Sodium SerPl-sCnc 130.0 mmol/L Below low normal 11/06/2024 1 36 - 145 H[facility]CT PMV Bld Auto 10.5 fL Normal 11/06/2024 7.5 - 12.5 HHCCT Hct VFr Bld Auto 25.7 % Below low normal 11/06/2024 35 - 47 H[facility]CT MCHC RBC Auto-mCnc 31.9 g/dL Normal 11/06/2024 30 - 36 [facility]CT WBC num Bld Auto 9.5 Thou/uL Normal 11/06/2024 4 - 11 [facility] Platelet num Bld Auto 148.0 Thou/uL Below low normal 11/06/2024 150 - 450 H[facility]CT MCH RBC Qn Auto 28.4 pg Normal 11/06/2024 26 - [address] RBC num Bld Auto 2.89 Mil/uL Below low normal 11/06/2024 4 - 5.4 H[facility]CT RDW RBC Auto-Rto 20.9 % Above high normal 11/06/2024 11.5 - 14.5 [facility]CT Hgb Bld-mCnc 8.2 g/dL Below low normal 11/06/2024 11.7 - 15 .7 HHCCT MCV RBC Auto 89.0 fL Normal 11/06/2024 80 - 100 [facility]CT Calcium SerPl-mCnc 7.8 mg/dL Below low normal 11/05/2024 8.7 - 10.5 H[facility]CT GFR/BSA.pred SerPlBld [id number] >90.0 Normal 11/05/2024 59 - HHCCT BUN SerPl-mCnc 18.0 mg/dL Normal 11/05/2024 9 - [address] Potassium SerPl-sCnc 3.2 mmol/L Below low normal 11/05/2024 3.4 - 4.5 H[facility]CT Creat SerPl-mCnc 0.8 mg/dL Normal 11/05/2024 0.6 - 1 HH CCT Chloride SerPl-sCnc 98.0 mmol/L Normal 11/05/2024 98 - 10 7 H[facility]CT Glucose SerPl-mCnc 94.0 mg/dL Normal 11/05/2024 74 - 106 H[facility]CT Anion Gap Bld-sCnc 9.0 Normal 11/05/2024 5 - 15 H[facility]CT Sodium SerPl-sCnc 132.0 mmol/L Below low normal 11/05/2024 1 36 - 145 H[facility]CT CO2 SerPl-sCnc 25.0 mmol/L Normal 11/05/2024 20 - 31 HH CCT BUN/Creat SerPl 23.0 Ratio Normal 11/05/2024 10 - 25 HH CCT Phosphate SerPl-mCnc 3.2 mg/dL Normal 11/05/2024 2.4 - 5. 1 H[facility]CT Magnesium SerPl-mCnc 1.6 mg/dL Normal 11/05/2024 1.6 - 2. 6 HHCCT Lymphocytes/leuk NFr Bld Auto 22.5 % Normal 11/05/2024 H[facility]CT MCH RBC Qn Auto 28.1 pg Normal 11/05/2024 26 - [address] Basophils num Bld Auto 0.07 Thou/uL Normal 11/05/2024 0 - 0.2 HHCCT Monocytes num Bld Auto 0.68 Thou/uL Normal 11/05/2024 0.2 - 1.5 HHCCT Basophils/leuk NFr Bld Auto 0.8 % Normal 11/05/2024 [facility]CT RBC num Bld Auto 2.7 Mil/uL Below low normal 11/05/2024 4 - 5.4 HHCCT Lymphocytes num Bld Auto 2.06 Thou/uL Normal 11/05/2024 1.5 - 4.5 HHCCT Imm Granulocytes num Bld Auto 0.09 Thou/uL Normal 11/05/2024 0 - 0.1 HHCCT MCV RBC Auto 87.0 fL Normal 11/05/2024 80 - 100 [facility]CT Monocytes/leuk NFr Bld Auto 7.4 % Normal 11/05/2024 H[facility]CT PMV Bld Auto 10.5 fL Normal 11/05/2024 7.5 - 12.5 HHCCT Neutrophils/leuk NFr Bld Auto 67.2 % Normal 11/05/2024 HHCCT Eosinophil num Bld Auto 0.1 Thou/uL Normal 11/05/2024 0 - 0.7 H[facility]CT Platelet num Bld Auto 123.0 Thou/uL Below low normal 11/05/2024 150 - 450 HHCCT Hct VFr Bld Auto 23.5 % Below low normal 11/05/2024 35 - 47 H[facility]CT Eosinophil/leuk NFr Bld Auto 1.1 % Normal 11/05/2024 HHCCT WBC num Bld Auto 9.2 Thou/uL Normal 11/05/2024 4 - 11 H[facility]CT RDW RBC Auto-Rto 20.2 % Above high normal 11/05/2024 11.5 - 14.5 HHCCT Neutrophils num Bld Auto 6.17 Thou/uL Normal 11/05/2024 2 - 7.5 HHCCT MCHC RBC Auto-mCnc 32.3 g/dL Normal 11/05/2024 30 - 36 H[facility]CT Hgb Bld-mCnc 7.6 g/dL Below low normal 11/05/2024 11.7 - 15 .7 HHCCT Imm Granulocytes/leuk NFr Bld Auto 1.0 % Normal 11/05/2024 [facility]CT Magnesium SerPl-mCnc 1.9 mg/dL Normal 11/04/2024 1.6 - 2. 6 [facility]CT Phosphate SerPl-mCnc 2.8 mg/dL Normal 11/04/2024 2.4 - 5. 1 H[facility]CT WBC num Bld Auto 9.1 Thou/uL Normal 11/04/2024 4 - 11 [facility]CT RDW RBC Auto-Rto 19.8 % Above high normal 11/04/2024 11.5 - 14.5 HHCCT Immature Platelet Fraction 3.5 % Normal 11/04/2024 1.2 - 8.6 HHCCT MCHC RBC Auto-mCnc 32.8 g/dL Normal 11/04/2024 30 - 36 H[facility]CT PMV Bld Auto 10.7 fL Normal 11/04/2024 7.5 - 12.5 HHCCT MCV RBC Auto 87.0 fL Normal 11/04/2024 80 - 100 H[facility]CT Hgb Bld-mCnc 8.0 g/dL Below low normal 11/04/2024 11.7 - 15 .7 H[facility]CT Platelet num Bld Auto 136.0 Thou/uL Below low normal 11/04/2024 150 - 450 H[facility]CT Hct VFr Bld Auto 24.4 % Below low normal 11/04/2024 35 - 47 H[facility]CT MCH RBC Qn Auto 28.4 pg Normal 11/04/2024 26 - [address] RBC num Bld Auto 2.82 Mil/uL Below low normal 11/04/2024 4 - 5.4 H[facility]CT Magnesium SerPl-mCnc 1.5 mg/dL Below low normal 11/04/2024 1 .6 - 2.6 H[facility]CT Phosphate SerPl-mCnc 2.1 mg/dL Below low normal 11/04/2024 2 .4 - 5.1 HHCCT Glucose SerPl-mCnc 116.0 mg/dL Above high normal 11/04/2024 74 - 106 H[facility]CT BUN SerPl-mCnc 18.0 mg/dL Normal 11/04/2024 9 - [address] CO2 SerPl-sCnc 23.0 mmol/L Normal 11/04/2024 20 - 31 HH CCT Sodium SerPl-sCnc 130.0 mmol/L Below low normal 11/04/2024 1 36 - 145 H[facility]CT Potassium SerPl-sCnc 4.2 mmol/L Normal 11/04/2024 3.4 - 4 .5 H[facility]CT Chloride SerPl-sCnc 98.0 mmol/L Normal 11/04/2024 98 - 10 7 HHCCT GFR/BSA.pred SerPlBld [id number] >90.0 Normal 11/04/2024 59 - HHCCT BUN/Creat SerPl 23.0 Ratio Normal 11/04/2024 10 - 25 HH CCT Calcium SerPl-mCnc 7.5 mg/dL Below low normal 11/04/2024 8.7 - 10.5 H[facility]CT Anion Gap Bld-sCnc 9.0 Normal 11/04/2024 5 - 15 H[facility]CT Creat SerPl-mCnc 0.8 mg/dL Normal 11/04/2024 0.6 - 1 HH CCT RDW RBC Auto-Rto 19.8 % Above high normal 11/04/2024 11.5 - 14.5 HHCCT Hgb Bld-mCnc 8.7 g/dL Below low normal 11/04/2024 11.7 - 15 .7 H[facility]CT MCHC RBC Auto-mCnc 33.1 g/dL Normal 11/04/2024 30 - 36 H[facility]CT WBC num Bld Auto 9.9 Thou/uL Normal 11/04/2024 4 - 11 H[facility]CT MCH RBC Qn Auto 28.4 pg Normal 11/04/2024 26 - [address] Platelet num Bld Auto 123.0 Thou/uL Below low normal 11/04/2024 150 - 450 [facility]CT MCV RBC Auto 86.0 fL Normal 11/04/2024 80 - 100 [facility]CT RBC num Bld Auto 3.06 Mil/uL Below low normal 11/04/2024 4 - 5.4 HHCCT PMV Bld Auto 10.5 fL Normal 11/04/2024 7.5 - 12.5 HHCCT Hct VFr Bld Auto 26.3 % Below low normal 11/04/2024 35 - 47 H[facility]CT Potassium SerPl-sCnc 3.4 mmol/L Normal 11/03/2024 3.4 - 4 .5 H[facility]CT Phosphate SerPl-mCnc 2.9 mg/dL Normal 11/03/2024 2.4 - 5. 1 H[facility]CT Magnesium SerPl-mCnc 2.0 mg/dL Normal 11/03/2024 1.6 - 2. 6 [facility]CT Chloride SerPl-sCnc 99.0 mmol/L Normal 11/03/2024 98 - 10 7 HHCCT Creat SerPl-mCnc 0.8 mg/dL Normal 11/03/2024 0.6 - 1 HH CCT Sodium SerPl-sCnc 132.0 mmol/L Below low normal 11/03/2024 1 36 - 145 H[facility]CT Calcium SerPl-mCnc 7.4 mg/dL Below low normal 11/03/2024 8.7 - 10.5 HHCCT CO2 SerPl-sCnc 25.0 mmol/L Normal 11/03/2024 20 - 31 HH CCT Glucose SerPl-mCnc 96.0 mg/dL Normal 11/03/2024 74 - 106 H[facility]CT BUN/Creat SerPl 25.0 Ratio Normal 11/03/2024 10 - 25 HH CCT Potassium SerPl-sCnc 3.3 mmol/L Below low normal 11/03/2024 3.4 - 4.5 H[facility]CT Anion Gap Bld-sCnc 9.0 Normal 11/03/2024 5 - 15 H[facility]CT GFR/BSA.pred SerPlBld [id number] >90.0 Normal 11/03/2024 59 - HHCCT BUN SerPl-mCnc 20.0 mg/dL Normal 11/03/2024 9 - [address] PMV Bld Auto 10.1 fL Normal 11/03/2024 7.5 - 12.5 HHCCT MCH RBC Qn Auto 28.1 pg Normal 11/03/2024 26 - [address] Immature Platelet Fraction 3.6 % Normal 11/03/2024 1.2 - 8.6 HHCCT MCV RBC Auto 85.0 fL Normal 11/03/2024 80 - 100 [facility]CT Platelet num Bld Auto 105.0 Thou/uL Below low normal 11/03/2024 150 - 450 [facility]CT MCHC RBC Auto-mCnc 32.9 g/dL Normal 11/03/2024 30 - 36 HHCCT Hct VFr Bld Auto 22.8 % Below low normal 11/03/2024 35 - 47 H[facility]CT RBC num Bld Auto 2.67 Mil/uL Below low normal 11/03/2024 4 - 5.4 HHCCT RDW RBC Auto-Rto 18.5 % Above high normal 11/03/2024 11.5 - 14.5 H[facility]CT Hgb Bld-mCnc 7.5 g/dL Below low normal 11/03/2024 11.7 - 15 .7 HHCCT WBC num Bld Auto 10.0 Thou/uL Normal 11/03/2024 4 - 11 HHCCT POC Glucose 127.0 mg/dL Above high normal 11/03/2024 65 - 99 HHCCT Magnesium SerPl-mCnc 1.7 mg/dL Normal 11/03/2024 1.6 - 2. 6 HHCCT Phosphate SerPl-mCnc 2.9 mg/dL Normal 11/03/2024 2.4 - 5. 1 HHCCT Potassium SerPl-sCnc 3.3 mmol/L Below low normal 11/03/2024 3.4 - 4.5 HHCCT Chloride SerPl-sCnc 97.0 mmol/L Below low normal 11/03/2024 98 - 107 HHCCT Calcium SerPl-mCnc 7.7 mg/dL Below low normal 11/03/2024 8.7 - 10.5 HHCCT GFR/BSA.pred SerPlBld [id number] 75.0 Normal 11/03/2024 59 - HHCCT BUN/Creat SerPl 22.0 Ratio Normal 11/03/2024 10 - 25 HH CCT Creat SerPl-mCnc 1.0 mg/dL Normal 11/03/2024 0.6 - 1 HH CCT BUN SerPl-mCnc 22.0 mg/dL Normal 11/03/2024 9 - [address] CO2 SerPl-sCnc 24.0 mmol/L Normal 11/03/2024 20 - 31 HH CCT Sodium SerPl-sCnc 132.0 mmol/L Below low normal 11/03/2024 1 36 - 145 HHCCT Anion Gap Bld-sCnc 11.0 Normal 11/03/2024 5 - 15 HHCCT Glucose SerPl-mCnc 120.0 mg/dL Above high normal 11/03/2024 74 - 106 HHCCT POC Glucose 118.0 mg/dL Above high normal 11/02/2024 65 - 99 HHCCT POC Glucose 116.0 mg/dL Above high normal 11/02/2024 65 - 99 HHCCT POC Glucose 90.0 mg/dL Normal 11/02/2024 65 - 99 HHCCT Phosphate SerPl-mCnc 3.7 mg/dL Normal 11/02/2024 2.4 - 5. 1 HHCCT Potassium SerPl-sCnc 3.6 mmol/L Normal 11/02/2024 3.4 - 4 .5 HHCCT BUN/Creat SerPl 24.0 Ratio Normal 11/02/2024 10 - 25 HH CCT Creat SerPl-mCnc 1.1 mg/dL Above high normal 11/02/2024 0.6 - 1 HHCCT Chloride SerPl-sCnc 95.0 mmol/L Below low normal 11/02/2024 98 - 107 HHCCT Anion Gap Bld-sCnc 11.0 Normal 11/02/2024 5 - 15 HHCCT BUN SerPl-mCnc 26.0 mg/dL Above high normal 11/02/2024 9 - 2 3 HHCCT Glucose SerPl-mCnc 109.0 mg/dL Above high normal 11/02/2024 74 - 106 HHCCT Calcium SerPl-mCnc 7.8 mg/dL Below low normal 11/02/2024 8.7 - 10.5 HHCCT CO2 SerPl-sCnc 22.0 mmol/L Normal 11/02/2024 20 - 31 HH CCT GFR/BSA.pred SerPlBld [id number] 67.0 Normal 11/02/2024 59 - HHCCT Sodium SerPl-sCnc 129.0 mmol/L Below low normal 11/02/2024 1 36 - 145 HHCCT Magnesium SerPl-mCnc 1.9 mg/dL Normal 11/02/2024 1.6 - 2. 6 HHCCT Neutrophils/leuk NFr Bld Auto 81.3 % Normal 11/02/2024 HHCCT Lymphocytes/leuk NFr Bld Auto 13.8 % Normal 11/02/2024 HHCCT Monocytes/leuk NFr Bld Auto 3.5 % Normal 11/02/2024 HHCCT Imm Granulocytes num Bld Auto 0.11 Thou/uL Above high normal 11/02/2024 0 - 0.1 HHCCT Neutrophils num Bld Auto 10.47 Thou/uL Above high normal 11/02/2024 2 - 7.5 HHCCT Eosinophil/leuk NFr Bld Auto 0.3 % Normal 11/02/2024 HHCCT Imm Granulocytes/leuk NFr Bld Auto 0.9 % Normal 11/02/2024 HHCCT Basophils/leuk NFr Bld Auto 0.2 % Normal 11/02/2024 HHCCT Basophils num Bld Auto 0.03 Thou/uL Normal 11/02/2024 0 - 0.2 HHCCT Monocytes num Bld Auto 0.45 Thou/uL Normal 11/02/2024 0.2 - 1.5 HHCCT Lymphocytes num Bld Auto 1.78 Thou/uL Normal 11/02/2024 1.5 - 4.5 HHCCT Eosinophil num Bld Auto 0.04 Thou/uL Normal 11/02/2024 0 - 0.7 HHCCT Hct VFr Bld Auto 22.8 % Below low normal 11/02/2024 35 - 47 HHCCT Immature Platelet Fraction 6.1 % Normal 11/02/2024 1.2 - 8.6 HHCCT RDW RBC Auto-Rto 17.7 % Above high normal 11/02/2024 11.5 - 14.5 HHCCT WBC num Bld Auto 12.9 Thou/uL Above high normal 11/02/2024 4 - 11 HHCCT RBC num Bld Auto 2.71 Mil/uL Below low normal 11/02/2024 4 - 5.4 HHCCT MCH RBC Qn Auto 28.0 pg Normal 11/02/2024 26 - [address] Hgb Bld-mCnc 7.6 g/dL Below low normal 11/02/2024 11.7 - 15 .7 HHCCT Platelet num Bld Auto 123.0 Thou/uL Below low normal 11/02/2024 150 - 450 HHCCT MCV RBC Auto 84.0 fL Normal 11/02/2024 80 - 100 HHCCT MCHC RBC Auto-mCnc 33.3 g/dL Normal 11/02/2024 30 - 36 HHCCT PMV Bld Auto 11.7 fL Normal 11/02/2024 7.5 - 12.5 HHCCT POC Glucose 131.0 mg/dL Above high normal 11/02/2024 65 - 99 HHCCT Magnesium SerPl-mCnc 2.0 mg/dL Normal 11/02/2024 1.6 - 2. 6 HHCCT Phosphate SerPl-mCnc 4.6 mg/dL Normal 11/02/2024 2.4 - 5. 1 HHCCT Chloride SerPl-sCnc 96.0 mmol/L Below low normal 11/02/2024 98 - 107 HHCCT Glucose SerPl-mCnc 110.0 mg/dL Above high normal 11/02/2024 74 - 106 HHCCT Potassium SerPl-sCnc 3.3 mmol/L Below low normal 11/02/2024 3.4 - 4.5 HHCCT Anion Gap Bld-sCnc 10.0 Normal 11/02/2024 5 - 15 HHCCT Creat SerPl-mCnc 1.2 mg/dL Above high normal 11/02/2024 0.6 - 1 HHCCT CO2 SerPl-sCnc 23.0 mmol/L Normal 11/02/2024 20 - 31 HH CCT Sodium SerPl-sCnc 129.0 mmol/L Below low normal 11/02/2024 1 36 - 145 HHCCT GFR/BSA.pred SerPlBld [id number] 61.0 Normal 11/02/2024 59 - HHCCT Calcium SerPl-mCnc 7.9 mg/dL Below low normal 11/02/2024 8.7 - 10.5 HHCCT BUN/Creat SerPl 23.0 Ratio Normal 11/02/2024 10 - 25 HH CCT BUN SerPl-mCnc 27.0 mg/dL Above high normal 11/02/2024 9 - 2 3 HHCCT POC Glucose 105.0 mg/dL Above high normal 11/01/2024 65 - 99 HHCCT POC Glucose 72.0 mg/dL Normal 11/01/2024 65 - 99 HHCCT POC Glucose 96.0 mg/dL Normal 11/01/2024 65 - 99 HHCCT pO2 BldV 40.0 mmHG Normal 11/01/2024 HHCCT pCO2 BldV 35.0 mmHG Normal 11/01/2024 HHCCT SaO2 % BldV from pO2 70.0 % Normal 11/01/2024 HHCCT Comment DISTAL SWAN Normal 11/01/2024 HHCCT Base Deficit (-) 3.8 mmol/L Normal 11/01/2024 H HCCT HCO3 21.0 mmol/L Normal 11/01/2024 HHCCT Liter Flow 3.0 Normal 11/01/2024 HHCCT Sample Type, POC VENOUS Normal 11/01/2024 HH CCT pH BldV 7.38 Normal 11/01/2024 HHCCT Lactate, POC 0.9 mmol/L Above high normal 11/01/2024 0.4 - 0 .8 HHCCT COMMENT DISTAL SWAN Normal 11/01/2024 - HHCCT Phosphate SerPl-mCnc 4.5 mg/dL Normal 11/01/2024 2.4 - 5. 1 HHCCT ALP SerPl-cCnc 86.0 U/L Normal 11/01/2024 32 - 122 HHCC T Glucose SerPl-mCnc 88.0 mg/dL Normal 11/01/2024 74 - 106 HHCCT Creat SerPl-mCnc 1.2 mg/dL Above high normal 11/01/2024 0.6 - 1 HHCCT Calcium SerPl-mCnc 7.8 mg/dL Below low normal 11/01/2024 8.7 - 10.5 HHCCT GFR/BSA.pred SerPlBld [id number] 61.0 Normal 11/01/2024 59 - HHCCT Albumin SerPl-mCnc 2.5 g/dL Below low normal 11/01/2024 3.4 - 4.8 HHCCT Bilirub SerPl-mCnc 0.9 mg/dL Normal 11/01/2024 0.3 - 1.2 HHCCT Prot SerPl-mCnc 5.3 g/dL Below low normal 11/01/2024 5.7 - 8.2 HHCCT BUN/Creat SerPl 21.0 Ratio Normal 11/01/2024 10 - 25 HH CCT ALT SerPl-cCnc 10.0 U/L Normal 11/01/2024 7 - 35 [facility] T BUN SerPl-mCnc 25.0 mg/dL Above high normal 11/01/2024 9 - 2 3 HHCCT Albumin/Glob SerPl 0.9 Ratio Below low normal 11/01/2024 1.5 - 2.5 HHCCT Anion Gap Bld-sCnc 10.0 Normal 11/01/2024 5 - 15 HHCCT Sodium SerPl-sCnc 130.0 mmol/L Below low normal 11/01/2024 1 36 - 145 HHCCT Globulin Ser Calc-mCnc 2.8 g/dL Normal 11/01/2024 1.5 - 3.9 HHCCT Potassium SerPl-sCnc 3.7 mmol/L Normal 11/01/2024 3.4 - 4 .5 HHCCT CO2 SerPl-sCnc 23.0 mmol/L Normal 11/01/2024 20 - 31 HH CCT Chloride SerPl-sCnc 97.0 mmol/L Below low normal 11/01/2024 98 - 107 HHCCT AST SerPl-cCnc 74.0 U/L Above high normal 11/01/2024 - 34 HHCCT Magnesium SerPl-mCnc 2.1 mg/dL Normal 11/01/2024 1.6 - 2. 6 HHCCT PMV Bld Auto 12.2 fL Normal 11/01/2024 7.5 - 12.5 HHCCT WBC num Bld Auto 14.4 Thou/uL Above high normal 11/01/2024 4 - 11 HHCCT MCV RBC Auto 83.0 fL Normal 11/01/2024 80 - 100 HHCCT MCH RBC Qn Auto 28.0 pg Normal 11/01/2024 26 - [address] MCHC RBC Auto-mCnc 33.6 g/dL Normal 11/01/2024 30 - 36 HHCCT Hct VFr Bld Auto 23.5 % Below low normal 11/01/2024 35 - 47 HHCCT RBC num Bld Auto 2.82 Mil/uL Below low normal 11/01/2024 4 - 5.4 HHCCT RDW RBC Auto-Rto 17.1 % Above high normal 11/01/2024 11.5 - 14.5 HHCCT Hgb Bld-mCnc 7.9 g/dL Below low normal 11/01/2024 11.7 - 15 .7 HHCCT Platelet num Bld Auto 129.0 Thou/uL Below low normal 11/01/2024 150 - 450 HHCCT POC Glucose 94.0 mg/dL Normal 11/01/2024 65 - 99 HHCCT POC Glucose 147.0 mg/dL Above high normal 11/01/2024 65 - 99 HHCCT Sample Type, POC VENOUS Normal 11/03/2024 HH CCT Base Deficit (-) 2.8 mmol/L Normal 11/03/2024 H HCCT pH BldV 7.38 Normal 11/03/2024 HHCCT pCO2 BldV 37.0 mmHG Normal 11/03/2024 HHCCT HCO3 22.0 mmol/L Normal 11/03/2024 HHCCT SaO2 % BldV from pO2 71.0 % Normal 11/03/2024 HHCCT Liter Flow 3.0 Normal 11/03/2024 HHCCT pO2 BldV 41.0 mmHG Normal 11/03/2024 HHCCT Lactate, POC Incalculable Normal 11/03/2024 0.4 - 0.[address] Magnesium SerPl-mCnc 2.3 mg/dL Normal 11/01/2024 1.6 - 2. 6 HHCCT Phosphate SerPl-mCnc 3.9 mg/dL Normal 11/01/2024 2.4 - 5. 1 HHCCT ESR Bld Qn Westrgrn 10.0 MM/HR Normal 11/01/2024 0 - 20 HHCCT Anion Gap Bld-sCnc 13.0 Normal 10/31/2024 5 - 15 HHCCT Sodium SerPl-sCnc 131.0 mmol/L Below low normal 10/31/2024 1 36 - 145 HHCCT BUN/Creat SerPl 24.0 Ratio Normal 10/31/2024 10 - 25 HH CCT CO2 SerPl-sCnc 22.0 mmol/L Normal 10/31/2024 20 - 31 HH CCT Chloride SerPl-sCnc 97.0 mmol/L Below low normal 10/31/2024 98 - 107 HHCCT Glucose SerPl-mCnc 196.0 mg/dL Above high normal 10/31/2024 74 - 106 HHCCT Calcium SerPl-mCnc 7.2 mg/dL Below low normal 10/31/2024 8.7 - 10.5 HHCCT ALP SerPl-cCnc 61.0 U/L Normal 10/31/2024 32 - 122 HHCC T Potassium SerPl-sCnc 3.5 mmol/L Normal 10/31/2024 3.4 - 4 .5 HHCCT GFR/BSA.pred SerPlBld [id number] 67.0 Normal 10/31/2024 59 - HHCCT Albumin/Glob SerPl 1.0 Ratio Below low normal 10/31/2024 1.5 - 2.5 HHCCT AST SerPl-cCnc 64.0 U/L Above high normal 10/31/2024 - 34 HHCCT Creat SerPl-mCnc 1.1 mg/dL Above high normal 10/31/2024 0.6 - 1 HHCCT Globulin Ser Calc-mCnc 2.8 g/dL Normal 10/31/2024 1.5 - 3.9 HHCCT Bilirub SerPl-mCnc 1.1 mg/dL Normal 10/31/2024 0.3 - 1.2 HHCCT Albumin SerPl-mCnc 2.7 g/dL Below low normal 10/31/2024 3.4 - 4.8 HHCCT Prot SerPl-mCnc 5.5 g/dL Below low normal 10/31/2024 5.7 - 8.2 HHCCT ALT SerPl-cCnc 11.0 U/L Normal 10/31/2024 7 - 35 [facility] T BUN SerPl-mCnc 26.0 mg/dL Above high normal 10/31/2024 9 - 2 3 HHCCT CRP SerPl-mCnc 17.6 mg/dL Above high normal 10/31/2024 - 1 HHCCT RDW RBC Auto-Rto 16.5 % Above high normal 10/31/2024 11.5 - 14.5 HHCCT RBC num Bld Auto 2.82 Mil/uL Below low normal 10/31/2024 4 - 5.4 HHCCT MCHC RBC Auto-mCnc 33.6 g/dL Normal 10/31/2024 30 - 36 HHCCT Platelet num Bld Auto 100.0 Thou/uL Below low normal 10/31/2024 150 - 450 HHCCT Hct VFr Bld Auto 23.5 % Below low normal 10/31/2024 35 - 47 HHCCT WBC num Bld Auto 12.2 Thou/uL Above high normal 10/31/2024 4 - 11 HHCCT PMV Bld Auto 12.5 fL Normal 10/31/2024 7.5 - 12.5 HHCCT Immature Platelet Fraction 12.0 % Above high normal 10/31/2024 1.2 - 8.6 HHCCT Hgb Bld-mCnc 7.9 g/dL Below low normal 10/31/2024 11.7 - 15 .7 HHCCT MCH RBC Qn Auto 28.0 pg Normal 10/31/2024 26 - [address] MCV RBC Auto 83.0 fL Normal 10/31/2024 80 - 100 CCT POC Glucose 298.0 mg/dL Above high normal 10/31/2024 65 - 99 CCT Liter Flow 4.0 Normal 10/31/2024 [facility] SaO2 % BldV from pO2 73.0 % Normal 10/31/2024 [facility] pO2 BldV 41.0 mmHG Normal 10/31/2024 [facility] HCO3 20.0 mmol/L Normal 10/31/2024 CCT Base Deficit (-) 5.2 mmol/L Normal 10/31/2024 [facility] pCO2 BldV 37.0 mmHG Normal 10/31/2024 CCT pH BldV 7.34 Normal 10/31/2024 CCT Sample Type, POC VENOUS Normal 10/31/2024 CCT POC Glucose 275.0 mg/dL Above high normal 10/31/2024 65 - 99 CCT Fibrinogen PPP-mCnc 177.0 mg/dL Normal 10/31/2024 148 - 4 35 [facility] aPTT PPP 33.0 seconds Normal 10/31/2024 26 - 37 [facility] Anticoagulant NO ANTI COAGULANT MEDS Normal 10/31/2024 [facility] INR PPP 2.0 Normal 10/31/2024 [facility] Prothrombin time 22.3 seconds Above high normal 10/31/2024 1 0 - 13.5 [facility]CT Anticoagulant NO ANTI COAGULANT MEDS Normal 10/31/2024 CCT POC Glucose 127.0 mg/dL Above high normal 10/31/2024 65 - 99 CCT pCO2, Arterial 31.0 mmHG Below low normal 10/31/2024 35 - 45 CCT Base Deficit (-) 2.1 mmol/L Normal 10/31/2024 [facility] Blood Gas PEEP 6.0 Normal 10/31/2024 [facility] T pH, Arterial 7.44 Normal 10/31/2024 7.35 - 7.45 [facility] T ISTAT Arterial FIO2 40.0 Normal 10/31/2024 [facility] Blood Gas Pressure Support 6.0 Normal 10/31/2024 [facility] pO2, Arterial 96.0 mmHG Normal 10/31/2024 80 - 100 CCT Sample Type, POC Arterial Normal 10/31/2024 CCT SaO2 % BldA 99.0 % Normal 10/31/2024 95 - 100 [facility] HCO3 21.0 mmol/L Below low normal 10/31/2024 22 - 26 [facility] Lactate, POC 1.3 mmol/L Above high normal 10/31/2024 0.4 - 0 .8 [facility] ISTAT Venous FIO2 40.0 Normal 10/31/2024 [facility] Blood Gas Pressure Support 6.0 Normal 10/31/2024 [facility] HCO3 23.0 mmol/L Normal 10/31/2024 [facility] Sample Type, POC VENOUS Normal 10/31/2024 [facility] SaO2 % BldV from pO2 64.0 % Normal 10/31/2024 [facility] pCO2 BldV 37.0 mmHG Normal 10/31/2024 [facility] pH BldV 7.4 Normal 10/31/2024 [facility] Base Deficit (-) 1.5 mmol/L Normal 10/31/2024 [facility] Blood Gas Mode CPAP Normal 10/31/2024 [facility] T Blood Gas PEEP 6.0 Normal 10/31/2024 [facility] T pO2 BldV 38.0 mmHG Normal 10/31/2024 [facility] BUN SerPl-mCnc 22.0 mg/dL Normal 10/31/2024 9 - [address] Sodium SerPl-sCnc 139.0 mmol/L Normal 10/31/2024 136 - 14 5 [facility] CO2 SerPl-sCnc 24.0 mmol/L Normal 10/31/2024 20 - 31 HH CCT Glucose SerPl-mCnc 130.0 mg/dL Above high normal 10/31/2024 74 - 106 [facility]CT Calcium SerPl-mCnc 7.5 mg/dL Below low normal 10/31/2024 8.7 - 10.5 [facility] Chloride SerPl-sCnc 104.0 mmol/L Normal 10/31/2024 98 - 1 07 [facility] BUN/Creat SerPl 24.0 Ratio Normal 10/31/2024 10 - 25 [facility] CCT Anion Gap Bld-sCnc 11.0 Normal 10/31/2024 5 - 15 H[facility]CT GFR/BSA.pred SerPlBld AKP-SNB-[id number] 85.0 Normal 10/31/2024 59 - HHCCT Creat SerPl-mCnc 0.9 mg/dL Normal 10/31/2024 0.6 - 1 HH CCT Potassium SerPl-sCnc 4.3 mmol/L Normal 10/31/2024 3.4 - 4 .5 [facility] Magnesium SerPl-mCnc 2.8 mg/dL Above high normal 10/31/2024 1.6 - 2.6 [facility] MCH RBC Qn Auto 28.2 pg Normal 10/31/2024 26 - [address] PMV Bld Auto 11.2 fL Normal 10/31/2024 7.5 - 12.5 [facility] Platelet num Bld Auto 72.0 Thou/uL Below low normal 10/31/2024 150 - 450 [facility] RBC num Bld Auto 2.48 Mil/uL Below low normal 10/31/2024 4 - 5.4 [facility]CT Hgb Bld-mCnc 7.0 g/dL Critically low 10/31/2024 11.7 - 15.7 [facility] MCV RBC Auto 82.0 fL Normal 10/31/2024 80 - 100 H[facility]CT MCHC RBC Auto-mCnc 34.3 g/dL Normal 10/31/2024 30 - 36 H[facility]CT WBC num Bld Auto 15.8 Thou/uL Above high normal 10/31/2024 4 - 11 [facility]CT RDW RBC Auto-Rto 16.7 % Above high normal 10/31/2024 11.5 - 14.5 HHCCT Hct VFr Bld Auto 20.4 % Critically low 10/31/2024 35 - 47 H[facility]CT Immature Platelet Fraction 12.8 % Above high normal 10/31/2024 1.2 - 8.6 HHCCT POC Glucose 107.0 mg/dL Above high normal 10/31/2024 65 - 99 HHCCT Lactate SerPl-sCnc 1.5 mmol/L Normal 10/31/2024 0.5 - 1.9 [facility]CT Glucose, POC 84.0 mg/dL Normal 10/31/2024 70 - 108 H[facility]CT Base Deficit (-) 1.6 mmol/L Normal 10/31/2024 H [facility] Blood Gas Mode A/C Normal 10/31/2024 [facility] T Tidal Volume 400.0 Normal 10/31/2024 [facility] pH, Arterial 7.41 Normal 10/31/2024 7.35 - 7.45 [facility] T Sample Type, POC Arterial Normal 10/31/2024 CCT pO2, Arterial 106.0 mmHG Above high normal 10/31/2024 80 - 1 00 [facility] MECH RATE 16.0 Normal 10/31/2024 [facility] HCO3 23.0 mmol/L Normal 10/31/2024 22 - 26 [facility] SaO2 % BldA 98.0 % Normal 10/31/2024 95 - 100 [facility] pCO2, Arterial 36.0 mmHG Normal 10/31/2024 35 - 45 CC T ISTAT Arterial FIO2 70.0 Normal 10/31/2024 [facility] Hemoglobin, POC 8.3 g/dL Below low normal 10/31/2024 11.7 - 16.1 [facility]CT Hematocrit, POC 25.0 % Below low normal 10/31/2024 34 - 4 7 CCT Potassium, POC 4.3 mmol/L Normal 10/31/2024 3.5 - 5.[address] [facility] [address] Sodium, POC 134.0 mmol/L Below low normal 10/31/2024 136 - 1 45 CCT pCO2 BldV 45.0 mmHG Normal 10/31/2024 [facility] Blood Gas Mode A/C Normal 10/31/2024 [facility] T Base Deficit (-) 0.4 mmol/L Normal 10/31/2024 [facility] pO2 BldV 41.0 mmHG Normal 10/31/2024 [facility] ISTAT Venous FIO2 70.0 Normal 10/31/2024 [facility] Tidal Volume 400.0 Normal 10/31/2024 [facility] Sample Type, POC VENOUS Normal 10/31/2024 CCT SaO2 % BldV from pO2 70.0 % Normal 10/31/2024 [facility] pH BldV 7.36 Normal 10/31/2024 [facility] HCO3 25.0 mmol/L Normal 10/31/2024 [facility] MECH RATE 16.0 Normal 10/31/2024 [facility] Blood Gas PEEP 6.0 Normal 10/31/2024 [facility] T Magnesium SerPl-mCnc 2.9 mg/dL Above high normal 10/31/2024 1.6 - 2.6 [facility] GFR/BSA.pred SerPlBld [id number] 85.0 Normal 10/31/2024 59 - [facility]CT Sodium SerPl-sCnc 141.0 mmol/L Normal 10/31/2024 136 - 14 5 [facility] Potassium SerPl-sCnc 4.3 mmol/L Normal 10/31/2024 3.4 - 4 .5 [facility] CO2 SerPl-sCnc 25.0 mmol/L Normal 10/31/2024 20 - 31 HH CCT BUN/Creat SerPl 20.0 Ratio Normal 10/31/2024 10 - 25 HH CCT Anion Gap Bld-sCnc 9.0 Normal 10/31/2024 5 - 15 [facility]CT Creat SerPl-mCnc 0.9 mg/dL Normal 10/31/2024 0.6 - 1 HH CCT Glucose SerPl-mCnc 87.0 mg/dL Normal 10/31/2024 74 - 106 [facility]CT Chloride SerPl-sCnc 107.0 mmol/L Normal 10/31/2024 98 - 1 07 [facility]CT BUN SerPl-mCnc 18.0 mg/dL Normal 10/31/2024 9 - [address] Calcium SerPl-mCnc 8.0 mg/dL Below low normal 10/31/2024 8.7 - 10.5 [facility] Immature Platelet Fraction 9.8 % Above high normal 10/31/2024 1.2 - 8.6 [facility]CT MCV RBC Auto 82.0 fL Normal 10/31/2024 80 - 100 [facility]CT Hgb Bld-mCnc 8.0 g/dL Below low normal 10/31/2024 11.7 - 15 .7 H[facility]CT MCH RBC Qn Auto 28.0 pg Normal 10/31/2024 26 - [address] RBC num Bld Auto 2.86 Mil/uL Below low normal 10/31/2024 4 - 5.4 [facility] Hct VFr Bld Auto 23.5 % Below low normal 10/31/2024 35 - 47 [facility] Platelet num Bld Auto 81.0 Thou/uL Below low normal 10/31/2024 150 - 450 [facility]CT PMV Bld Auto 11.0 fL Normal 10/31/2024 7.5 - 12.5 H[facility]CT WBC num Bld Auto 28.8 Thou/uL Above high normal 10/31/2024 4 - 11 H[facility]CT MCHC RBC Auto-mCnc 34.0 g/dL Normal 10/31/2024 30 - 36 H[facility]CT RDW RBC Auto-Rto 16.5 % Above high normal 10/31/2024 11.5 - 14.5 [facility]CT POC Glucose 90.0 mg/dL Normal 10/31/2024 65 - 99 [facility]CT POC Glucose 117.0 mg/dL Above high normal 10/31/2024 65 - 99 HHCCT Hematocrit, POC 31.0 % Below low normal 10/31/2024 34 - 4 7 H[facility]CT Glucose, POC 123.0 mg/dL Above high normal 10/31/2024 70 - 1 08 H[facility]CT Sodium, POC 132.0 mmol/L Below low normal 10/31/2024 136 - 1 45 HHCCT Lactate, POC 2.5 mmol/L Critically high 10/31/2024 0.4 - 0.8 [facility]CT Ionized Calcium, POC 4.19 mg/dL Below low normal 10/31/2024 4.6 - 5.32 H[facility]CT pO2, Arterial 331.0 mmHG Above high normal 10/31/2024 80 - 1 00 HHCCT pCO2, Arterial 38.0 mmHG Normal 10/31/2024 35 - 45 [facility] T Tidal Volume 400.0 Normal 10/31/2024 [facility] Base Deficit (-) 5.5 mmol/L Normal 10/31/2024 H [facility] pH, Arterial 7.33 Below low normal 10/31/2024 7.35 - 7. 45 [facility] Sample Type, POC Arterial Normal 10/31/2024 CCT MECH RATE 15.0 Normal 10/31/2024 [facility] Blood Gas PEEP 5.0 Normal 10/31/2024 [facility] T ISTAT Arterial FIO2 100.0 Normal 10/31/2024 [facility] Blood Gas Mode A/C Normal 10/31/2024 [facility] T SaO2 % BldA 99.0 % Normal 10/31/2024 95 - 100 CCT HCO3 20.0 mmol/L Below low normal 10/31/2024 22 - 26 [facility]CT Potassium, POC 4.3 mmol/L Normal 10/31/2024 3.5 - 5.1 [facility] [address] Hemoglobin, POC 10.2 g/dL Below low normal 10/31/2024 11.7 - 16.1 [facility]CT POC Glucose 128.0 mg/dL Above high normal 10/30/2024 65 - 99 HHCCT Glucose, POC 124.0 mg/dL Above high normal 10/30/2024 70 - 1 08 H[facility]CT COMMENT DUGLAS Normal 10/30/2024 - CCT pH, Arterial 7.26 Below low normal 10/30/2024 7.35 - 7. 45 HHCCT pO2, Arterial 75.0 mmHG Below low normal 10/30/2024 80 - 100 HHCCT HCO3 20.0 mmol/L Below low normal 10/30/2024 22 - 26 H[facility]CT MECH RATE 15.0 Normal 10/30/2024 [facility] Blood Gas PEEP 6.0 Normal 10/30/2024 [facility] T ISTAT Arterial FIO2 100.0 Normal 10/30/2024 CCT Tidal Volume 3550.0 Normal 10/30/2024 CCT Base Deficit (-) 6.8 mmol/L Normal 10/30/2024 [facility] Gas Mode A/C Normal 10/30/2024 CC T Sample Type, POC Arterial Normal 10/30/2024 HH CCT Comment, Blood Gas DUGLAS Normal 10/30/2024 H[facility]CT pCO2, Arterial 45.0 mmHG Normal 10/30/2024 35 - 45 [facility] T SaO2 % BldA 95.0 % Normal 10/30/2024 95 - 100 H[facility]CT Anion Gap Bld-sCnc 10.0 Normal 10/30/2024 5 - 15 H[facility]CT Sodium SerPl-sCnc 140.0 mmol/L Normal 10/30/2024 136 - 14 5 H[facility]CT Calcium SerPl-mCnc 7.2 mg/dL Below low normal 10/30/2024 8.7 - 10.5 H[facility]CT CO2 SerPl-sCnc 23.0 mmol/L Normal 10/30/2024 20 - 31 HH CCT GFR/BSA.pred SerPlBld [id number] >90.0 Normal 10/30/2024 59 - HHCCT Potassium SerPl-sCnc 4.8 mmol/L Above high normal 10/30/2024 3.4 - 4.5 [facility]CT Creat SerPl-mCnc 0.8 mg/dL Normal 10/30/2024 0.6 - 1 HH CCT Chloride SerPl-sCnc 107.0 mmol/L Normal 10/30/2024 98 - 1 07 H[facility]CT Glucose SerPl-mCnc 130.0 mg/dL Above high normal 10/30/2024 74 - 106 H[facility]CT BUN/Creat SerPl 18.0 Ratio Normal 10/30/2024 10 - 25 HH CCT BUN SerPl-mCnc 14.0 mg/dL Normal 10/30/2024 9 - [address] PMV Bld Auto 10.5 fL Normal 10/30/2024 7.5 - 12.5 HHCCT MCH RBC Qn Auto 28.3 pg Normal 10/30/2024 26 - [address] Hct VFr Bld Auto 30.9 % Below low normal 10/30/2024 35 - 47 H[facility]CT Platelet num Bld Auto 112.0 Thou/uL Below low normal 10/30/2024 150 - 450 H[facility]CT Hgb Bld-mCnc 10.4 g/dL Below low normal 10/30/2024 11.7 - 15 .7 HHCCT RDW RBC Auto-Rto 17.1 % Above high normal 10/30/2024 11.5 - 14.5 HHCCT WBC num Bld Auto 40.0 Thou/uL Above high normal 10/30/2024 4 - 11 HHCCT MCHC RBC Auto-mCnc 33.7 g/dL Normal 10/30/2024 30 - 36 HHCCT MCV RBC Auto 84.0 fL Normal 10/30/2024 80 - 100 H[facility]CT Immature Platelet Fraction 6.3 % Normal 10/30/2024 1.2 - 8.6 H[facility]CT RBC num Bld Auto 3.68 Mil/uL Below low normal 10/30/2024 4 - 5.4 HHCCT POC Glucose 133.0 mg/dL Above high normal 10/30/2024 65 - 99 HHCCT Potassium, POC 4.9 mmol/L Normal 10/30/2024 3.5 - 5.[address] COMMENT DUGLAS Normal 10/30/2024 - HHCCT Hematocrit, POC 33.0 % Below low normal 10/30/2024 34 - 4 7 HHCCT Comment DUGLAS Normal 10/30/2024 H[facility]CT Hemoglobin, POC 10.9 g/dL Below low normal 10/30/2024 11.7 - 16.1 HHCCT Comment DUGLAS Normal 10/30/2024 [facility] Comment, Blood Gas DUGLAS Normal 10/30/2024 [facility] Blood Gas Mode A/C Normal 10/30/2024 [facility] T Base Deficit (-) 6.2 mmol/L Normal 10/30/2024 H [facility]CT ISTAT Arterial FIO2 100.0 Normal 10/30/2024 [facility] HCO3 21.0 mmol/L Below low normal 10/30/2024 22 - 26 [facility] pCO2, Arterial 48.0 mmHG Above high normal 10/30/2024 35 - 4 5 [facility] Tidal Volume 350.0 Normal 10/30/2024 [facility] MECH RATE 15.0 Normal 10/30/2024 [facility] Blood Gas PEEP 6.0 Normal 10/30/2024 [facility] Sample Type, POC Arterial Normal 10/30/2024 CCT pO2, Arterial 82.0 mmHG Normal 10/30/2024 80 - 100 CCT pH, Arterial 7.25 Below low normal 10/30/2024 7.35 - 7. 45 CCT SaO2 % BldA 97.0 % Normal 10/30/2024 95 - 100 CCT Hematocrit, POC 26.0 % Below low normal 10/30/2024 34 - 4 7 HHCCT Potassium, POC 4.9 mmol/L Normal 10/30/2024 3.5 - 5.1 [facility] [address] Hemoglobin, POC 8.8 g/dL Below low normal 10/30/2024 11.7 - 16.1 HHCCT Lactate, POC 3.7 mmol/L Critically high 10/30/2024 0.4 - 0.8 [facility]CT Ionized Calcium, POC 4.24 mg/dL Below low normal 10/30/2024 4.6 - 5.32 H[facility]CT Glucose, POC 109.0 mg/dL Above high normal 10/30/2024 70 - 1 08 HHCCT SaO2 % BldA 98.0 % Normal 10/30/2024 95 - 100 HHCCT HCO3 21.0 mmol/L Below low normal 10/30/2024 22 - 26 [facility] Base Deficit (-) 5.6 mmol/L Normal 10/30/2024 H [facility]CT pO2, Arterial 92.0 mmHG Normal 10/30/2024 80 - 100 HHCCT pCO2, Arterial 46.0 mmHG Above high normal 10/30/2024 35 - 4 5 HHCCT Sample Type, POC Arterial Normal 10/30/2024 HH CCT pH, Arterial 7.27 Below low normal 10/30/2024 7.35 - 7. 45 HHCCT Sodium, POC 132.0 mmol/L Below low normal 10/30/2024 136 - 1 45 HHCCT Hematocrit, POC 25.0 % Below low normal 10/30/2024 34 - 4 7 HHCCT Sodium, POC 132.0 mmol/L Below low normal 10/30/2024 136 - 1 45 HHCCT Ionized Calcium, POC 4.68 mg/dL Normal 10/30/2024 4.6 - 5 .32 HHCCT Lactate, POC 4.2 mmol/L Critically high 10/30/2024 0.4 - 0.8 HHCCT Glucose, POC 108.0 mg/dL Normal 10/30/2024 70 - 108 [facility] T pO2, Arterial 354.0 mmHG Above high normal 10/30/2024 80 - 1 00 HHCCT pCO2, Arterial 42.0 mmHG Normal 10/30/2024 35 - 45 [facility] T HCO3 21.0 mmol/L Below low normal 10/30/2024 22 - 26 HHCCT Sample Type, POC Arterial Normal 10/30/2024 HH CCT pH, Arterial 7.3 Below low normal 10/30/2024 7.35 - 7. 45 HHCCT SaO2 % BldA 100.0 % Normal 10/30/2024 95 - 100 H[facility]CT Base Deficit (-) 5.4 mmol/L Normal 10/30/2024 H HCCT Hemoglobin, POC 8.4 g/dL Below low normal 10/30/2024 11.7 - 16.1 HHCCT Potassium, POC 5.2 mmol/L Above high normal 10/30/2024 3.5 - 5.1 HHCCT Lactate, POC 3.8 mmol/L Critically high 10/30/2024 0.4 - 0.8 HHCCT Glucose, POC 110.0 mg/dL Above high normal 10/30/2024 70 - 1 08 HHCCT Hematocrit, POC 26.0 % Below low normal 10/30/2024 34 - 4 7 HHCCT Potassium, POC 5.7 mmol/L Above high normal 10/30/2024 3.5 - 5.1 HHCCT Sodium, POC 131.0 mmol/L Below low normal 10/30/2024 136 - 1 45 HHCCT Ionized Calcium, POC 3.61 mg/dL Below low normal 10/30/2024 4.6 - 5.32 H[facility]CT Hemoglobin, POC 8.7 g/dL Below low normal 10/30/2024 11.7 - 16.1 HHCCT pO2, Arterial 410.0 mmHG Above high normal 10/30/2024 80 - 1 00 HHCCT pCO2, Arterial 39.0 mmHG Normal 10/30/2024 35 - 45 [facility] T pH, Arterial 7.38 Normal 10/30/2024 7.35 - 7.45 [facility] T HCO3 23.0 mmol/L Normal 10/30/2024 22 - 26 HHCCT Base Deficit (-) 1.8 mmol/L Normal 10/30/2024 H [facility] Sample Type, POC Arterial Normal 10/30/2024 HH CCT SaO2 % BldA 100.0 % Normal 10/30/2024 95 - 100 H[facility]CT Platelet num Bld Auto 78.0 Thou/uL Below low normal 10/30/2024 150 - 450 HHCCT Immature Platelet Fraction 6.4 % Normal 10/30/2024 1.2 - 8.6 HHCCT Potassium, POC 4.8 mmol/L Normal 10/30/2024 3.5 - 5.[address] Hematocrit, POC 24.0 % Below low normal 10/30/2024 34 - 4 7 HHCCT Glucose, POC 117.0 mg/dL Above high normal 10/30/2024 70 - 1 08 HHCCT Sodium, POC 132.0 mmol/L Below low normal 10/30/2024 136 - 1 45 HHCCT Hemoglobin, POC 7.9 g/dL Below low normal 10/30/2024 11.7 - 16.1 HHCCT HCO3 23.0 mmol/L Normal 10/30/2024 HHCCT pH BldV 7.31 Normal 10/30/2024 HHCCT pCO2 BldV 45.0 mmHG Normal 10/30/2024 H[facility]CT Sample Type, POC VENOUS Normal 10/30/2024 HH CCT SaO2 % BldV from pO2 81.0 % Normal 10/30/2024 [facility] Base Deficit (-) 3.4 mmol/L Normal 10/30/2024 [facility] pO2 BldV 44.0 mmHG Normal 10/30/2024 CCT Sodium, POC 131.0 mmol/L Below low normal 10/30/2024 136 - 1 45 HHCCT Hemoglobin, POC 7.9 g/dL Below low normal 10/30/2024 11.7 - 16.1 HHCCT Glucose, POC 118.0 mg/dL Above high normal 10/30/2024 70 - 1 08 CCT Sample Type, POC Arterial Normal 10/30/2024 CCT pO2, Arterial 540.0 mmHG Above high normal 10/30/2024 80 - 1 00 CCT SaO2 % BldA 100.0 % Normal 10/30/2024 95 - 100 HHCCT pCO2, Arterial 40.0 mmHG Normal 10/30/2024 35 - 45 CC T HCO3 21.0 mmol/L Below low normal 10/30/2024 22 - 26 HHCCT pH, Arterial 7.33 Below low normal 10/30/2024 7.35 - 7. 45 H[facility]CT Base Deficit (-) 4.5 mmol/L Normal 10/30/2024 [facility] Lactate, POC 3.4 mmol/L Critically high 10/30/2024 0.4 - 0.8 HHCCT Ionized Calcium, POC 3.74 mg/dL Below low normal 10/30/2024 4.6 - 5.32 CCT Potassium, POC 5.1 mmol/L Normal 10/30/2024 3.5 - 5.1 [facility] [address] Hematocrit, POC 24.0 % Below low normal 10/30/2024 34 - 4 7 HHCCT pCO2 BldV 50.0 mmHG Normal 10/30/2024 CCT Sample Type, POC VENOUS Normal 10/30/2024 CCT Base Deficit (-) 3.1 mmol/L Normal 10/30/2024 H HCCT SaO2 % BldV from pO2 71.0 % Normal 10/30/2024 CCT HCO3 24.0 mmol/L Normal 10/30/2024 HHCCT pO2 BldV 37.0 mmHG Normal 10/30/2024 HHCCT pH BldV 7.28 Normal 10/30/2024 HHCCT Potassium, POC 5.6 mmol/L Above high normal 10/30/2024 3.5 - 5.1 HHCCT Sodium, POC 132.0 mmol/L Below low normal 10/30/2024 136 - 1 45 HHCCT Glucose, POC 129.0 mg/dL Above high normal 10/30/2024 70 - 1 08 HHCCT Hematocrit, POC 21.0 % Critically low 10/30/2024 34 - 47 HHCCT Hemoglobin, POC 7.0 g/dL Below low normal 10/30/2024 11.7 - 16.1 HHCCT Lactate, POC 3.6 mmol/L Critically high 10/30/2024 0.4 - 0.8 HHCCT Sodium, POC 131.0 mmol/L Below low normal 10/30/2024 136 - 1 45 HHCCT Glucose, POC 110.0 mg/dL Above high normal 10/30/2024 70 - 1 08 HHCCT Sample Type, POC Arterial Normal 10/30/2024 HH CCT pO2, Arterial 451.0 mmHG Above high normal 10/30/2024 80 - 1 00 HHCCT HCO3 24.0 mmol/L Normal 10/30/2024 22 - 26 HHCCT SaO2 % BldA 100.0 % Normal 10/30/2024 95 - 100 HHCCT pH, Arterial 7.4 Normal 10/30/2024 7.35 - 7.45 [facility] T pCO2, Arterial 38.0 mmHG Normal 10/30/2024 35 - 45 [facility] T Base Deficit (-) 1.2 mmol/L Normal 10/30/2024 H HCCT Ionized Calcium, POC 3.57 mg/dL Below low normal 10/30/2024 4.6 - 5.32 HHCCT Hematocrit, POC 18.0 % Critically low 10/30/2024 34 - 47 HHCCT Potassium, POC 5.6 mmol/L Above high normal 10/30/2024 3.5 - 5.1 HHCCT Hemoglobin, POC 5.9 g/dL Critically low 10/30/2024 11.7 - 1 6.1 HHCCT Potassium, POC 5.9 mmol/L Above high normal 10/30/2024 3.5 - 5.1 HHCCT Ionized Calcium, POC 3.58 mg/dL Below low normal 10/30/2024 4.6 - 5.32 HHCCT Glucose, POC 126.0 mg/dL Above high normal 10/30/2024 70 - 1 08 HHCCT Sodium, POC 130.0 mmol/L Below low normal 10/30/2024 136 - 1 45 HHCCT Hemoglobin, POC 6.1 g/dL Critically low 10/30/2024 11.7 - 1 6.1 HHCCT Lactate, POC 3.0 mmol/L Critically high 10/30/2024 0.4 - 0.8 HHCCT pO2, Arterial 409.0 mmHG Above high normal 10/30/2024 80 - 1 00 HHCCT pH, Arterial 7.36 Normal 10/30/2024 7.35 - 7.45 [facility] T HCO3 22.0 mmol/L Normal 10/30/2024 22 - 26 HHCCT SaO2 % BldA 100.0 % Normal 10/30/2024 95 - 100 HHCCT Sample Type, POC Arterial Normal 10/30/2024 HH CCT pCO2, Arterial 38.0 mmHG Normal 10/30/2024 35 - 45 [facility] T Base Deficit (-) 3.6 mmol/L Normal 10/30/2024 H HCCT Hematocrit, POC 18.0 % Critically low 10/30/2024 34 - 47 HHCCT Sodium, POC 127.0 mmol/L Below low normal 10/30/2024 136 - 1 45 HHCCT Hemoglobin, POC 10.0 g/dL Below low normal 10/30/2024 11.7 - 16.1 HHCCT Potassium, POC 4.8 mmol/L Normal 10/30/2024 3.5 - 5.[address] Hematocrit, POC 30.0 % Below low normal 10/30/2024 34 - 4 7 HHCCT Glucose, POC 140.0 mg/dL Above high normal 10/30/2024 70 - 1 08 HHCCT Ionized Calcium, POC 4.41 mg/dL Below low normal 10/30/2024 4.6 - 5.32 HHCCT Lactate, POC 2.5 mmol/L Critically high 10/30/2024 0.4 - 0.8 HHCCT pCO2, Arterial 40.0 mmHG Normal 10/30/2024 35 - 45 [facility] T SaO2 % BldA 100.0 % Normal 10/30/2024 95 - 100 HHCCT Base Deficit (-) 9.1 mmol/L Normal 10/30/2024 H HCCT pO2, Arterial 85.0 mmHG Normal 10/30/2024 80 - 100 HHCCT Sample Type, POC Arterial Normal 10/30/2024 HH CCT HCO3 18.0 mmol/L Below low normal 10/30/2024 22 - 26 HHCCT pH, Arterial 7.25 Below low normal 10/30/2024 7.35 - 7. 45 H[facility]CT Sample Type, POC Arterial Normal 10/30/2024 HH CCT Base Deficit (-) 4.5 mmol/L Normal 10/30/2024 H HCCT SaO2 % BldA 99.0 % Normal 10/30/2024 95 - 100 HHCCT HCO3 20.0 mmol/L Below low normal 10/30/2024 22 - 26 HHCCT pCO2, Arterial 35.0 mmHG Normal 10/30/2024 35 - 45 [facility] T pO2, Arterial 212.0 mmHG Above high normal 10/30/2024 80 - 1 00 HHCCT pH, Arterial 7.37 Normal 10/30/2024 7.35 - 7.45 [facility] T Ionized Calcium, POC 4.39 mg/dL Below low normal 10/30/2024 4.6 - 5.32 HHCCT Hematocrit, POC 31.0 % Below low normal 10/30/2024 34 - 4 7 HHCCT Sodium, POC 128.0 mmol/L Below low normal 10/30/2024 136 - 1 45 HHCCT Hemoglobin, POC 10.2 g/dL Below low normal 10/30/2024 11.7 - 16.1 HHCCT Lactate, POC 0.8 mmol/L Normal 10/30/2024 0.4 - 0.8 HHCCT Glucose, POC 104.0 mg/dL Normal 10/30/2024 70 - 108 [facility] T Potassium, POC 4.2 mmol/L Normal 10/30/2024 3.5 - 5.[address] POC Glucose 98.0 mg/dL Normal 10/30/2024 65 - 99 HHCCT Osmolality SerPl 267.0 mOsm/Kg Normal 10/30/2024 257 - 29 7 HHCCT Magnesium SerPl-mCnc 1.8 mg/dL Normal 10/30/2024 1.6 - 2. 6 HHCCT BUN SerPl-mCnc 11.0 mg/dL Normal 10/30/2024 9 - [address] Potassium SerPl-sCnc 3.3 mmol/L Below low normal 10/30/2024 3.4 - 4.5 HHCCT ALT SerPl-cCnc 26.0 U/L Normal 10/30/2024 7 - 35 [facility] T Creat SerPl-mCnc 0.7 mg/dL Normal 10/30/2024 0.6 - 1 HH CCT Globulin Ser Calc-mCnc 3.8 g/dL Normal 10/30/2024 1.5 - 3.9 HHCCT GFR/BSA.pred SerPlBld [id number] >90.0 Normal 10/30/2024 59 - HHCCT CO2 SerPl-sCnc 21.0 mmol/L Normal 10/30/2024 20 - 31 HH CCT BUN/Creat SerPl 16.0 Ratio Normal 10/30/2024 10 - 25 HH CCT Glucose SerPl-mCnc 116.0 mg/dL Above high normal 10/30/2024 74 - 106 HHCCT Calcium SerPl-mCnc 7.8 mg/dL Below low normal 10/30/2024 8.7 - 10.5 HHCCT AST SerPl-cCnc 25.0 U/L Normal 10/30/2024 - 34 [facility] T Albumin SerPl-mCnc 2.9 g/dL Below low normal 10/30/2024 3.4 - 4.8 HHCCT ALP SerPl-cCnc 74.0 U/L Normal 10/30/2024 32 - 122 [facility] T Bilirub SerPl-mCnc 1.1 mg/dL Normal 10/30/2024 0.3 - 1.2 HHCCT Sodium SerPl-sCnc 128.0 mmol/L Below low normal 10/30/2024 1 36 - 145 HHCCT Albumin/Glob SerPl 0.8 Ratio Below low normal 10/30/2024 1.5 - 2.5 HHCCT Chloride SerPl-sCnc 98.0 mmol/L Normal 10/30/2024 98 - 10 7 HHCCT Anion Gap Bld-sCnc 9.0 Normal 10/30/2024 5 - 15 HHCCT Prot SerPl-mCnc 6.7 g/dL Normal 10/30/2024 5.7 - 8.[address] Lymphocytes num Bld Auto 1.57 Thou/uL Normal 10/30/2024 1.5 - 4.5 HHCCT Eosinophil/leuk NFr Bld Auto 0.1 % Normal 10/30/2024 HHCCT Basophils num Bld Auto 0.04 Thou/uL Normal 10/30/2024 0 - 0.2 HHCCT Imm Granulocytes num Bld Auto 0.15 Thou/uL Above high normal 10/30/2024 0 - 0.1 HHCCT Neutrophils num Bld Auto 13.9 Thou/uL Above high normal 10/30/2024 2 - 7.5 HHCCT Monocytes num Bld Auto 0.57 Thou/uL Normal 10/30/2024 0.2 - 1.5 HHCCT Monocytes/leuk NFr Bld Auto 3.5 % Normal 10/30/2024 HHCCT PMV Bld Auto 10.6 fL Normal 10/30/2024 7.5 - 12.5 HHCCT Imm Granulocytes/leuk NFr Bld Auto 0.9 % Normal 10/30/2024 HHCCT Basophils/leuk NFr Bld Auto 0.2 % Normal 10/30/2024 HHCCT Hgb Bld-mCnc 10.0 g/dL Below low normal 10/30/2024 11.7 - 15 .7 HHCCT WBC num Bld Auto 16.3 Thou/uL Above high normal 10/30/2024 4 - 11 HHCCT Platelet num Bld Auto 125.0 Thou/uL Below low normal 10/30/2024 150 - 450 HHCCT RDW RBC Auto-Rto 17.1 % Above high normal 10/30/2024 11.5 - 14.5 HHCCT Lymphocytes/leuk NFr Bld Auto 9.7 % Normal 10/30/2024 HHCCT MCH RBC Qn Auto 27.4 pg Normal 10/30/2024 26 - [address] Eosinophil num Bld Auto 0.02 Thou/uL Normal 10/30/2024 0 - 0.7 HHCCT Hct VFr Bld Auto 29.5 % Below low normal 10/30/2024 35 - 47 HHCCT MCHC RBC Auto-mCnc 33.9 g/dL Normal 10/30/2024 30 - 36 HHCCT Neutrophils/leuk NFr Bld Auto 85.6 % Normal 10/30/2024 HHCCT RBC num Bld Auto 3.65 Mil/uL Below low normal 10/30/2024 4 - 5.4 HHCCT MCV RBC Auto 81.0 fL Normal 10/30/2024 80 - 100 HHCCT Hgb Bld-mCnc 8.0 g/dL Below low normal 10/29/2024 11.7 - 15 .7 HHCCT Hct VFr Bld Auto 24.2 % Below low normal 10/29/2024 35 - 47 HHCCT Anion Gap Bld-sCnc 12.0 Normal 10/29/2024 5 - 15 HHCCT BUN/Creat SerPl 20.0 Ratio Normal 10/29/2024 10 - 25 HH CCT Potassium SerPl-sCnc 3.1 mmol/L Below low normal 10/29/2024 3.4 - 4.5 HHCCT Calcium SerPl-mCnc 7.4 mg/dL Below low normal 10/29/2024 8.7 - 10.5 HHCCT BUN SerPl-mCnc 12.0 mg/dL Normal 10/29/2024 9 - [address] Glucose SerPl-mCnc 111.0 mg/dL Above high normal 10/29/2024 74 - 106 HHCCT Sodium SerPl-sCnc 132.0 mmol/L Below low normal 10/29/2024 1 36 - 145 HHCCT GFR/BSA.pred SerPlBld [id number] >90.0 Normal 10/29/2024 59 - HHCCT Creat SerPl-mCnc 0.6 mg/dL Normal 10/29/2024 0.6 - 1 HH CCT CO2 SerPl-sCnc 18.0 mmol/L Below low normal 10/29/2024 20 - 31 HHCCT Chloride SerPl-sCnc 102.0 mmol/L Normal 10/29/2024 98 - 1 07 HHCCT Magnesium SerPl-mCnc 1.5 mg/dL Below low normal 10/29/2024 1 .6 - 2.6 HHCCT Eosinophil num Bld Auto 0.03 Thou/uL Normal 10/29/2024 0 - 0.7 HHCCT Imm Granulocytes num Bld Auto 0.2 Thou/uL Above high normal 10/29/2024 0 - 0.1 HHCCT Lymphocytes/leuk NFr Bld Auto 9.8 % Normal 10/29/2024 HHCCT Monocytes/leuk NFr Bld Auto 3.3 % Normal 10/29/2024 HHCCT Monocytes num Bld Auto 0.51 Thou/uL Normal 10/29/2024 0.2 - 1.5 HHCCT Neutrophils/leuk NFr Bld Auto 85.2 % Normal 10/29/2024 HHCCT Neutrophils num Bld Auto 13.05 Thou/uL Above high normal 10/29/2024 2 - 7.5 HHCCT Imm Granulocytes/leuk NFr Bld Auto 1.3 % Normal 10/29/2024 [facility] Lymphocytes num Bld Auto 1.5 Thou/uL Normal 10/29/2024 1.5 - 4.5 H[facility]CT Basophils/leuk NFr Bld Auto 0.2 % Normal 10/29/2024 [facility] Eosinophil/leuk NFr Bld Auto 0.2 % Normal 10/29/2024 [facility] Basophils num Bld Auto 0.03 Thou/uL Normal 10/29/2024 0 - 0.2 H[facility]CT MCHC RBC Auto-mCnc 33.5 g/dL Normal 10/29/2024 30 - 36 H[facility]CT MCV RBC Auto 81.0 fL Normal 10/29/2024 80 - 100 [facility] Platelet num Bld Auto 98.0 Thou/uL Below low normal 10/29/2024 150 - 450 H[facility]CT RDW RBC Auto-Rto 17.2 % Above high normal 10/29/2024 11.5 - 14.5 H[facility]CT RBC num Bld Auto 2.83 Mil/uL Below low normal 10/29/2024 4 - 5.4 H[facility]CT Immature Platelet Fraction 6.5 % Normal 10/29/2024 1.2 - 8.6 HHCCT Hgb Bld-mCnc 7.7 g/dL Below low normal 10/29/2024 11.7 - 15 .7 HHCCT PMV Bld Auto 11.1 fL Normal 10/29/2024 7.5 - 12.5 HHCCT Hct VFr Bld Auto 23.0 % Below low normal 10/29/2024 35 - 47 HHCCT MCH RBC Qn Auto 27.2 pg Normal 10/29/2024 26 - [address] WBC num Bld Auto 15.3 Thou/uL Above high normal 10/29/2024 4 - 11 H[facility]CT Delta NO PREVIOUS RESULT Normal 10/27/2024 HHCCT Troponin I SerPl DL<=0.01 ng/mL-mCnc 1333.0 ng/L Above high normal 10/27/2024 - [address] Phosphate SerPl-mCnc 2.3 mg/dL Below low normal 10/27/2024 2 .4 - 5.1 H[facility]CT Chloride SerPl-sCnc 106.0 mmol/L Normal 10/27/2024 98 - 1 07 HHCCT CO2 SerPl-sCnc 22.0 mmol/L Normal 10/27/2024 20 - 31 HH CCT Albumin/Glob SerPl 0.8 Ratio Below low normal 10/27/2024 1.5 - 2.5 H[facility]CT Calcium SerPl-mCnc 7.3 mg/dL Below low normal 10/27/2024 8.7 - 10.5 H[facility]CT Globulin Ser Calc-mCnc 3.4 g/dL Normal 10/27/2024 1.5 - 3.9 HHCCT ALT SerPl-cCnc 63.0 U/L Above high normal 10/27/2024 7 - 35 HHCCT AST SerPl-cCnc 63.0 U/L Above high normal 10/27/2024 - 34 HHCCT Bilirub SerPl-mCnc 0.9 mg/dL Normal 10/27/2024 0.3 - 1.2 HHCCT ALP SerPl-cCnc 94.0 U/L Normal 10/27/2024 32 - 122 HHCC T Prot SerPl-mCnc 6.3 g/dL Normal 10/27/2024 5.7 - 8.[address] Glucose SerPl-mCnc 102.0 mg/dL Normal 10/27/2024 74 - 106 H[facility]CT BUN/Creat SerPl 20.0 Ratio Normal 10/27/2024 10 - 25 HH CCT BUN SerPl-mCnc 14.0 mg/dL Normal 10/27/2024 9 - [address] Albumin SerPl-mCnc 2.9 g/dL Below low normal 10/27/2024 3.4 - 4.8 HHCCT Creat SerPl-mCnc 0.7 mg/dL Normal 10/27/2024 0.6 - 1 HH CCT Potassium SerPl-sCnc 3.6 mmol/L Normal 10/27/2024 3.4 - 4 .5 HHCCT GFR/BSA.pred SerPlBld ZNT-[id number]-HlRTnj >90.0 Normal 10/27/2024 59 - HHCCT Sodium SerPl-sCnc 135.0 mmol/L Below low normal 10/27/2024 1 36 - 145 H[facility]CT Anion Gap Bld-sCnc 7.0 Normal 10/27/2024 5 - 15 H[facility]CT Magnesium SerPl-mCnc 1.8 mg/dL Normal 10/27/2024 1.6 - 2. 6 HHCCT Prothrombin time 13.6 seconds Above high normal 10/27/2024 1 0 - 13.5 HHCCT INR PPP 1.2 Normal 10/27/2024 HHCCT Anticoagulant NO ANTI COAGULANT MEDS Normal 10/27/2024 H[facility]CT aPTT PPP 33.0 seconds Normal 10/27/2024 26 - 37 H[facility]CT Anticoagulant NO ANTI COAGULANT MEDS Normal 10/27/2024 H[facility]CT Fibrinogen PPP-mCnc 296.0 mg/dL Normal 10/27/2024 148 - 4 35 HHCCT nRBC num Bld Auto 0.05 Thou/uL Above high normal 10/27/2024 0 - 0.02 HHCCT Immature Platelet Fraction 4.5 % Normal 10/27/2024 1.2 - 8.6 HHCCT Hgb Bld-mCnc 8.8 g/dL Below low normal 10/27/2024 11.7 - 15 .7 HHCCT RDW RBC Auto-Rto 15.4 % Above high normal 10/27/2024 11.5 - 14.5 HHCCT MCHC RBC Auto-mCnc 33.3 g/dL Normal 10/27/2024 30 - 36 HHCCT nRBC/100 WBC Bld Auto-Rto 0.3 /100 WBC Above high normal 10/27/2024 0 - 0.1 HHCCT PMV Bld Auto 11.1 fL Normal 10/27/2024 7.5 - 12.5 HHCCT RBC num Bld Auto 3.25 Mil/uL Below low normal 10/27/2024 4 - 5.4 HHCCT Hct VFr Bld Auto 26.4 % Below low normal 10/27/2024 35 - 47 HHCCT WBC num Bld Auto 17.2 Thou/uL Above high normal 10/27/2024 4 - 11 HHCCT MCH RBC Qn Auto 27.1 pg Normal 10/27/2024 26 - [address] MCV RBC Auto 81.0 fL Normal 10/27/2024 80 - 100 H[facility]CT Platelet num Bld Auto 114.0 Thou/uL Below low normal 10/27/2024 150 - 450 H[facility]CT GFR/BSA.pred SerPlBld LCD-[id number]-[id number] >90.0 Normal 10/27/2024 59 - HHCCT BUN/Creat SerPl 23.0 Ratio Normal 10/27/2024 10 - 25 HH CCT BUN SerPl-mCnc 16.0 mg/dL Normal 10/27/2024 9 - [address] Glucose SerPl-mCnc 118.0 mg/dL Above high normal 10/27/2024 74 - 106 HHCCT Sodium SerPl-sCnc 135.0 mmol/L Below low normal 10/27/2024 1 36 - 145 HHCCT Anion Gap Bld-sCnc 8.0 Normal 10/27/2024 5 - 15 HHCCT Calcium SerPl-mCnc 7.5 mg/dL Below low normal 10/27/2024 8.7 - 10.5 HHCCT Chloride SerPl-sCnc 106.0 mmol/L Normal 10/27/2024 98 - 1 07 HHCCT Creat SerPl-mCnc 0.7 mg/dL Normal 10/27/2024 0.6 - 1 HH CCT Potassium SerPl-sCnc 3.5 mmol/L Normal 10/27/2024 3.4 - 4 .5 HHCCT CO2 SerPl-sCnc 21.0 mmol/L Normal 10/27/2024 20 - 31 HH CCT Potassium SerPl-sCnc 3.8 mmol/L Normal 10/26/2024 3.4 - 4 .5 HHCCT Calcium SerPl-mCnc 7.2 mg/dL Below low normal 10/26/2024 8.7 - 10.5 HHCCT CO2 SerPl-sCnc 22.0 mmol/L Normal 10/26/2024 20 - 31 [facility] CCT Glucose SerPl-mCnc 114.0 mg/dL Above high normal 10/26/2024 74 - 106 [facility]CT Creat SerPl-mCnc 0.8 mg/dL Normal 10/26/2024 0.6 - 1 HH CCT Sodium SerPl-sCnc 132.0 mmol/L Below low normal 10/26/2024 1 36 - 145 HHCCT GFR/BSA.pred SerPlBld [id number] >90.0 Normal 10/26/2024 59 - HHCCT BUN SerPl-mCnc 20.0 mg/dL Normal 10/26/2024 9 - [address] Anion Gap Bld-sCnc 7.0 Normal 10/26/2024 5 - 15 H[facility]CT Chloride SerPl-sCnc 103.0 mmol/L Normal 10/26/2024 98 - 1 07 HHCCT BUN/Creat SerPl 25.0 Ratio Normal 10/26/2024 10 - 25 HH CCT POC Glucose 136.0 mg/dL Above high normal 10/26/2024 65 - 99 HHCCT CO2 SerPl-sCnc 22.0 mmol/L Normal 10/26/2024 20 - 31 HH CCT Creat SerPl-mCnc 0.8 mg/dL Normal 10/26/2024 0.6 - 1 HH CCT Anion Gap Bld-sCnc 8.0 Normal 10/26/2024 5 - 15 [facility]CT BUN SerPl-mCnc 23.0 mg/dL Normal 10/26/2024 9 - [address] GFR/BSA.pred SerPlBld [id number]-[id number] >90.0 Normal 10/26/2024 59 - HHCCT Calcium SerPl-mCnc 7.0 mg/dL Below low normal 10/26/2024 8.7 - 10.5 HHCCT Sodium SerPl-sCnc 131.0 mmol/L Below low normal 10/26/2024 1 36 - 145 HHCCT Glucose SerPl-mCnc 99.0 mg/dL Normal 10/26/2024 74 - 106 H[facility]CT Chloride SerPl-sCnc 101.0 mmol/L Normal 10/26/2024 98 - 1 07 HHCCT BUN/Creat SerPl 29.0 Ratio Above high normal 10/26/2024 10 - 25 HHCCT Potassium SerPl-sCnc 3.2 mmol/L Below low normal 10/26/2024 3.4 - 4.5 HHCCT POC Glucose 124.0 mg/dL Above high normal 10/26/2024 65 - 99 HHCCT Osmolality Ur 269.0 mOsm/Kg Normal 10/26/2024 50 - 1200 H HCCT Sodium Ur-sCnc 20.0 mmol/L Normal 10/26/2024 HH CCT Osmolality SerPl 275.0 mOsm/Kg Normal 10/26/2024 257 - 29 7 HHCCT Calcium SerPl-mCnc 6.8 mg/dL Below low normal 10/26/2024 8.7 - 10.5 HHCCT Chloride SerPl-sCnc 99.0 mmol/L Normal 10/26/2024 98 - 10 7 HHCCT Creat SerPl-mCnc 0.9 mg/dL Normal 10/26/2024 0.6 - 1 HH CCT Anion Gap Bld-sCnc 10.0 Normal 10/26/2024 5 - 15 H[facility]CT BUN SerPl-mCnc 24.0 mg/dL Above high normal 10/26/2024 9 - 2 3 HHCCT Sodium SerPl-sCnc 130.0 mmol/L Below low normal 10/26/2024 1 36 - 145 HHCCT Potassium SerPl-sCnc 3.5 mmol/L Normal 10/26/2024 3.4 - 4 .5 HHCCT GFR/BSA.pred SerPlBld [id number]-[id number] 85.0 Normal 10/26/2024 59 - HHCCT CO2 SerPl-sCnc 21.0 mmol/L Normal 10/26/2024 20 - 31 HH CCT Glucose SerPl-mCnc 102.0 mg/dL Normal 10/26/2024 74 - 106 H[facility]CT BUN/Creat SerPl 27.0 Ratio Above high normal 10/26/2024 10 - 25 HHCCT POC Glucose 87.0 mg/dL Normal 10/26/2024 65 - 99 HHCCT Magnesium SerPl-mCnc 1.8 mg/dL Normal 10/26/2024 1.6 - 2. 6 HHCCT Albumin SerPl-mCnc 2.8 g/dL Below low normal 10/26/2024 3.4 - 4.8 HHCCT Anion Gap Bld-sCnc 10.0 Normal 10/26/2024 5 - 15 HHCCT Sodium SerPl-sCnc 133.0 mmol/L Below low normal 10/26/2024 1 36 - 145 HHCCT Potassium SerPl-sCnc 3.1 mmol/L Below low normal 10/26/2024 3.4 - 4.5 HHCCT Chloride SerPl-sCnc 102.0 mmol/L Normal 10/26/2024 98 - 1 07 HHCCT CO2 SerPl-sCnc 21.0 mmol/L Normal 10/26/2024 20 - 31 HH CCT Creat SerPl-mCnc 1.0 mg/dL Normal 10/26/2024 0.6 - 1 HH CCT BUN SerPl-mCnc 29.0 mg/dL Above high normal 10/26/2024 9 - 2 3 HHCCT Glucose SerPl-mCnc 98.0 mg/dL Normal 10/26/2024 74 - 106 HHCCT Calcium SerPl-mCnc 6.5 mg/dL Below low normal 10/26/2024 8.7 - 10.5 HHCCT BUN/Creat SerPl 29.0 Ratio Above high normal 10/26/2024 10 - 25 HHCCT GFR/BSA.pred SerPlBld PJV-VJL-[id number] 75.0 Normal 10/26/2024 59 - HHCCT MCH RBC Qn Auto 26.7 pg Normal 10/26/2024 26 - [address] nRBC/100 WBC Bld Auto-Rto 0.8 /100 WBC Above high normal 10/26/2024 0 - 0.1 HHCCT nRBC num Bld Auto 0.17 Thou/uL Above high normal 10/26/2024 0 - 0.02 HHCCT RDW RBC Auto-Rto 15.8 % Above high normal 10/26/2024 11.5 - 14.5 HHCCT PMV Bld Auto 11.1 fL Normal 10/26/2024 7.5 - 12.5 HHCCT MCHC RBC Auto-mCnc 33.3 g/dL Normal 10/26/2024 30 - 36 HHCCT WBC num Bld Auto 22.2 Thou/uL Above high normal 10/26/2024 4 - 11 HHCCT RBC num Bld Auto 3.89 Mil/uL Below low normal 10/26/2024 4 - 5.4 HHCCT MCV RBC Auto 80.0 fL Normal 10/26/2024 80 - 100 HHCCT Hct VFr Bld Auto 31.2 % Below low normal 10/26/2024 35 - 47 HHCCT Platelet num Bld Auto 136.0 Thou/uL Below low normal 10/26/2024 150 - 450 HHCCT Hgb Bld-mCnc 10.4 g/dL Below low normal 10/26/2024 11.7 - 15 .7 HHCCT POC Glucose 91.0 mg/dL Normal 10/26/2024 65 - 99 HHCCT POC Glucose 75.0 mg/dL Normal 10/26/2024 65 - 99 HHCCT POC Glucose 100.0 mg/dL Above high normal 10/25/2024 65 - 99 HHCCT POC Glucose 117.0 mg/dL Above high normal 10/25/2024 65 - 99 HHCCT POC Glucose 131.0 mg/dL Above high normal 10/25/2024 65 - 99 HHCCT Haptoglob SerPl-mCnc 116.0 mg/dL Normal 10/25/2024 30 - 2 00 HHCCT AST SerPl-cCnc 262.0 U/L Above high normal 10/25/2024 - 34 HHCCT ALT SerPl-cCnc 122.0 U/L Above high normal 10/25/2024 7 - 35 HHCCT Prot SerPl-mCnc 6.9 g/dL Normal 10/25/2024 5.7 - 8.[address] Glucose SerPl-mCnc 129.0 mg/dL Above high normal 10/25/2024 74 - 106 HHCCT Sodium SerPl-sCnc 147.0 mmol/L Above high normal 10/25/2024 136 - 145 HHCCT ALP SerPl-cCnc 117.0 U/L Normal 10/25/2024 32 - 122 HHCC T Bilirub SerPl-mCnc 2.1 mg/dL Above high normal 10/25/2024 0. 3 - 1.2 HHCCT BUN/Creat SerPl 35.0 Ratio Above high normal 10/25/2024 10 - 25 HHCCT Albumin/Glob SerPl 0.8 Ratio Below low normal 10/25/2024 1.5 - 2.5 HHCCT GFR/BSA.pred SerPlBld [id number] 55.0 Below low normal 10/25/2024 59 - HHCCT Potassium SerPl-sCnc 3.9 mmol/L Normal 10/25/2024 3.4 - 4 .5 HHCCT Globulin Ser Calc-mCnc 3.8 g/dL Normal 10/25/2024 1.5 - 3.9 HHCCT BUN SerPl-mCnc 45.0 mg/dL Above high normal 10/25/2024 9 - 2 3 HHCCT Calcium SerPl-mCnc 7.6 mg/dL Below low normal 10/25/2024 8.7 - 10.5 HHCCT CO2 SerPl-sCnc 23.0 mmol/L Normal 10/25/2024 20 - 31 HH CCT Albumin SerPl-mCnc 3.1 g/dL Below low normal 10/25/2024 3.4 - 4.8 HHCCT Creat SerPl-mCnc 1.3 mg/dL Above high normal 10/25/2024 0.6 - 1 HHCCT Anion Gap Bld-sCnc 11.0 Normal 10/25/2024 5 - 15 HHCCT Chloride SerPl-sCnc 113.0 mmol/L Above high normal 98 - 107 HHCCT LDH SerPl L to P-cCnc 657.0 U/L Above high normal 10/25/2024 120 - 246 HHCCT Magnesium SerPl-mCnc 2.3 mg/dL Normal 10/25/2024 1.6 - 2. 6 HHCCT Phosphate SerPl-mCnc 4.6 mg/dL Normal 10/25/2024 2.4 - 5. 1 HHCCT Monocytes num Bld Auto 0.88 Thou/uL Normal 10/25/2024 0.2 - 1.5 HHCCT Imm Granulocytes num Bld Auto 1.07 Thou/uL Above high normal 10/25/2024 0 - 0.1 HHCCT Lymphocytes/leuk NFr Bld Auto 10.6 % Normal 10/25/2024 HHCCT Imm Granulocytes/leuk NFr Bld Auto 5.6 % Normal 10/25/2024 HHCCT Eosinophil/leuk NFr Bld Auto 0.2 % Normal 10/25/2024 HHCCT Basophils num Bld Auto 0.05 Thou/uL Normal 10/25/2024 0 - 0.2 HHCCT Lymphocytes num Bld Auto 2.02 Thou/uL Normal 10/25/2024 1.5 - 4.5 HHCCT Eosinophil num Bld Auto 0.03 Thou/uL Normal 10/25/2024 0 - 0.7 HHCCT Neutrophils/leuk NFr Bld Auto 78.7 % Normal 10/25/2024 HHCCT Basophils/leuk NFr Bld Auto 0.3 % Normal 10/25/2024 HHCCT Monocytes/leuk NFr Bld Auto 4.6 % Normal 10/25/2024 HHCCT Neutrophils num Bld Auto 14.98 Thou/uL Above high normal 10/25/2024 2 - 7.5 HHCCT PMV Bld Auto 10.5 fL Normal 10/25/2024 7.5 - 12.5 HHCCT Platelet num Bld Auto 124.0 Thou/uL Below low normal 10/25/2024 150 - 450 HHCCT nRBC num Bld Auto 0.12 Thou/uL Above high normal 10/25/2024 0 - 0.02 HHCCT RBC num Bld Auto 3.61 Mil/uL Below low normal 10/25/2024 4 - 5.4 HHCCT MCH RBC Qn Auto 26.6 pg Normal 10/25/2024 26 - [address] MCHC RBC Auto-mCnc 33.1 g/dL Normal 10/25/2024 30 - 36 HHCCT RDW RBC Auto-Rto 15.5 % Above high normal 10/25/2024 11.5 - 14.5 HHCCT MCV RBC Auto 80.0 fL Normal 10/25/2024 80 - 100 HHCCT Hgb Bld-mCnc 9.6 g/dL Below low normal 10/25/2024 11.7 - 15 .7 HHCCT Hct VFr Bld Auto 29.0 % Below low normal 10/25/2024 35 - 47 HHCCT WBC num Bld Auto 19.0 Thou/uL Above high normal 10/25/2024 4 - 11 HHCCT nRBC/100 WBC Bld Auto-Rto 0.6 /100 WBC Above high normal 10/25/2024 0 - 0.1 HHCCT POC Glucose 119.0 mg/dL Above high normal 10/25/2024 65 - 99 HHCCT POC Glucose 141.0 mg/dL Above high normal 10/25/2024 65 - 99 HHCCT POC Glucose 131.0 mg/dL Above high normal 10/24/2024 65 - 99 HHCCT BUN SerPl-mCnc 41.0 mg/dL Above high normal 10/24/2024 9 - 2 3 HHCCT Glucose SerPl-mCnc 141.0 mg/dL Above high normal 10/24/2024 74 - 106 HHCCT Sodium SerPl-sCnc 150.0 mmol/L Above high normal 10/24/2024 136 - 145 HHCCT Potassium SerPl-sCnc 4.3 mmol/L Normal 10/24/2024 3.4 - 4 .5 HHCCT BUN/Creat SerPl 32.0 Ratio Above high normal 10/24/2024 10 - 25 HHCCT Creat SerPl-mCnc 1.3 mg/dL Above high normal 10/24/2024 0.6 - 1 HHCCT Calcium SerPl-mCnc 7.8 mg/dL Below low normal 10/24/2024 8.7 - 10.5 HHCCT Chloride SerPl-sCnc 114.0 mmol/L Above high normal 5 98 - 107 HHCCT GFR/BSA.pred SerPlBld [id number]-[id number] 55.0 Below low normal 10/24/2024 59 - HHCCT CO2 SerPl-sCnc 21.0 mmol/L Normal 10/24/2024 20 - 31 HH CCT Anion Gap Bld-sCnc 15.0 Normal 10/24/2024 5 - 15 HHCCT Magnesium SerPl-mCnc 2.4 mg/dL Normal 10/24/2024 1.6 - 2. 6 HHCCT Phosphate SerPl-mCnc 4.0 mg/dL Normal 10/24/2024 2.4 - 5. 1 HHCCT Troponin I SerPl DL<=0.01 ng/mL-mCnc 2511.0 ng/L Above high normal 10/24/2024 - [address] Delta NO PREVIOUS RESULT Normal 10/24/2024 HHCCT POC Glucose 141.0 mg/dL Above high normal 10/24/2024 65 - 99 HHCCT POC Glucose 137.0 mg/dL Above high normal 10/24/2024 65 - 99 HHCCT POC Glucose 119.0 mg/dL Above high normal 10/24/2024 65 - 99 HHCCT Bilirub Direct SerPl-mCnc 1.3 mg/dL Above high normal 10/24/2024 - 0.3 HHCCT HDLc SerPl Below lower limit of detection - unable to calculate timed result. Normal 10/24/2024 0 - 5 HHCCT LDLc SerPl Calc-mCnc Below lower limit of detection - unable to calculate timed result. Normal 10/24/2024 - 130 HHCCT HDLc SerPl-mCnc <5.0 mg/dL Below low normal 10/24/2024 60 - HHCCT Cholest SerPl-mCnc 66.0 mg/dL Normal 10/24/2024 - 200 HHCCT Trigl SerPl-mCnc 192.0 mg/dL Above high normal 10/24/2024 - 150 HHCCT ALT SerPl-cCnc 64.0 U/L Above high normal 10/24/2024 7 - 35 HHCCT ALP SerPl-cCnc 115.0 U/L Normal 10/24/2024 32 - 122 [facility] T Prot SerPl-mCnc 6.7 g/dL Normal 10/24/2024 5.7 - 8.[address] Glucose SerPl-mCnc 133.0 mg/dL Above high normal 10/24/2024 74 - 106 HHCCT BUN SerPl-mCnc 38.0 mg/dL Above high normal 10/24/2024 9 - 2 3 HHCCT Potassium SerPl-sCnc 4.5 mmol/L Normal 10/24/2024 3.4 - 4 .5 HHCCT Bilirub SerPl-mCnc 2.2 mg/dL Above high normal 10/24/2024 0. 3 - 1.2 HHCCT Albumin SerPl-mCnc 3.1 g/dL Below low normal 10/24/2024 3.4 - 4.8 HHCCT Calcium SerPl-mCnc 7.8 mg/dL Below low normal 10/24/2024 8.7 - 10.5 HHCCT Sodium SerPl-sCnc 146.0 mmol/L Above high normal 10/24/2024 136 - 145 HHCCT GFR/BSA.pred SerPlBld VKM-[id number]-GeJQdu 67.0 Normal 10/24/2024 59 - HHCCT CO2 SerPl-sCnc 18.0 mmol/L Below low normal 10/24/2024 20 - 31 HHCCT AST SerPl-cCnc 150.0 U/L Above high normal 10/24/2024 - 34 HHCCT Chloride SerPl-sCnc 117.0 mmol/L Above high normal 98 - 107 HHCCT Globulin Ser Calc-mCnc 3.6 g/dL Normal 10/24/2024 1.5 - 3.9 HHCCT BUN/Creat SerPl 35.0 Ratio Above high normal 10/24/2024 10 - 25 HHCCT Albumin/Glob SerPl 0.9 Ratio Below low normal 10/24/2024 1.5 - 2.5 HHCCT Anion Gap Bld-sCnc 11.0 Normal 10/24/2024 5 - 15 HHCCT Creat SerPl-mCnc 1.1 mg/dL Above high normal 10/24/2024 0.6 - 1 HHCCT Phosphate SerPl-mCnc 3.5 mg/dL Normal 10/24/2024 2.4 - 5. 1 HHCCT Magnesium SerPl-mCnc 2.4 mg/dL Normal 10/24/2024 1.6 - 2. 6 HHCCT MCH RBC Qn Auto 26.6 pg Normal 10/24/2024 26 - [address] WBC num Bld Auto 18.8 Thou/uL Above high normal 10/24/2024 4 - 11 HHCCT PMV Bld Auto 10.7 fL Normal 10/24/2024 7.5 - 12.5 HHCCT RDW RBC Auto-Rto 15.4 % Above high normal 10/24/2024 11.5 - 14.5 HHCCT RBC num Bld Auto 3.31 Mil/uL Below low normal 10/24/2024 4 - 5.4 HHCCT Hgb Bld-mCnc 8.8 g/dL Below low normal 10/24/2024 11.7 - 15 .7 HHCCT Hct VFr Bld Auto 25.8 % Below low normal 10/24/2024 35 - 47 HHCCT Platelet num Bld Auto 108.0 Thou/uL Below low normal 10/24/2024 150 - 450 HHCCT MCV RBC Auto 78.0 fL Below low normal 10/24/2024 80 - 100 HHCCT MCHC RBC Auto-mCnc 34.1 g/dL Normal 10/24/2024 30 - 36 HHCCT POC Glucose 136.0 mg/dL Above high normal 10/24/2024 65 - 99 HHCCT POC Glucose 127.0 mg/dL Above high normal 10/24/2024 65 - 99 HHCCT POC Glucose 114.0 mg/dL Above high normal 10/24/2024 65 - 99 HHCCT POC Glucose 106.0 mg/dL Above high normal 10/23/2024 65 - 99 HHCCT POC Glucose 93.0 mg/dL Normal 10/23/2024 65 - 99 HHCCT HCV Ab s/co SerPl EIA Reactive Abnormal 10/23/2024 - [facility] HAV IgM Ser Ql Nonreactive Normal 10/23/2024 - CCT HBV surface Ag Ser Ql Nonreactive Normal 10/23/2024 - [facility] HBV core IgM Ser Ql Nonreactive Normal 10/23/2024 - CCT HIV 1+2 Ab+HIV1 p24 Ag SerPl Ql IA Nonreactive Normal 10/23/2024 - [facility] Delta 45.0 Normal 10/23/2024 CCT Troponin I SerPl DL<=0.01 ng/mL-mCnc 2537.0 ng/L Above high normal 10/23/2024 - [address] Lactate SerPl-sCnc 1.0 mmol/L Normal 10/23/2024 0.5 - 1.9 HHCCT B-HCG Preg SerPl Ql Negative Normal 10/23/2024 - [facility] Fibrinogen PPP-mCnc 181.0 mg/dL Normal 10/23/2024 148 - 4 35 HHCCT Prothrombin time 18.4 seconds Above high normal 10/23/2024 1 0 - 13.5 CCT INR PPP 1.7 Normal 10/23/2024 [facility] Anticoagulant OTHER AGENT OR UNKNOWN Normal 10/23/2024 [facility] MCV RBC Auto 77.0 fL Below low normal 10/23/2024 80 - 100 HHCCT RBC num Bld Auto 3.45 Mil/uL Below low normal 10/23/2024 4 - 5.4 HHCCT MCH RBC Qn Auto 26.7 pg Normal 10/23/2024 26 - [address] [facility] [address] Platelet num Bld Auto 92.0 Thou/uL Below low normal 10/23/2024 150 - 450 HHCCT Hct VFr Bld Auto 26.5 % Below low normal 10/23/2024 35 - 47 HHCCT Immature Platelet Fraction 4.7 % Normal 10/23/2024 1.2 - 8.6 HHCCT PMV Bld Auto 10.7 fL Normal 10/23/2024 7.5 - 12.5 HHCCT Hgb Bld-mCnc 9.2 g/dL Below low normal 10/23/2024 11.7 - 15 .7 CCT RDW RBC Auto-Rto 15.1 % Above high normal 10/23/2024 11.5 - 14.5 HHCCT WBC num Bld Auto 14.9 Thou/uL Above high normal 10/23/2024 4 - 11 HHCCT MCHC RBC Auto-mCnc 34.7 g/dL Normal 10/23/2024 30 - 36 CCT Platelet Function [id number] 235.0 PRU Normal 10/23/2024 180 - 335 [facility] Anticoagulant Information not given Normal 10/23/2024 [facility] BNP SerPl-nc 1804.0 pg/mL Above high normal 10/23/2024 0 - 99 [facility] Troponin I SerPl DL<=0.01 ng/mL-mCnc 2513.0 ng/L Above high normal 10/23/2024 - [address] [facility] [address] Delta 21.0 Normal 10/23/2024 [facility] Barbiturates Ur Ql Scn>200 ng/mL Negative Normal 10/23/2024 - [facility] Methadone Ur Ql Scn>300 ng/mL Positive Abnormal 10/23/2024 - [facility] Fentanyl Ur Ql Scn Positive Abnormal 10/23/2024 - [facility] PCP Ur Ql Scn>25 ng/mL Negative Normal 10/23/2024 - [facility] Creat Ur-mCnc 47.0 mg/dL Normal 10/23/2024 [facility] T Amphetamines Ur Ql Negative Normal 10/23/2024 - [facility] Benzodiaz Ur Ql Scn>200 ng/mL Positive Abnormal 10/23/2024 - [facility] 6MAM Ur Ql Scn Negative Normal 10/23/2024 - [facility] T Opiates Ur Ql Scn>300 ng/mL Negative Normal 10/23/2024 - [facility] Oxycodone Ur Ql Scn Negative Normal 10/23/2024 - [facility] Cannabinoids Ur Ql Scn>50 ng/mL Positive Abnormal 10/23/2024 - [facility] BZE Ur Ql Negative Normal 10/23/2024 - [facility] POC Glucose 95.0 mg/dL Normal 10/23/2024 65 - 99 [facility] POC Glucose 92.0 mg/dL Normal 10/23/2024 65 - 99 [facility] Hgb A1c MFr Bld 5.9 % Above high normal 10/23/2024 - 5.7 [facility] Est. average glucose Bld gHb Est-mCnc 123.0 mg/dL Normal 10/23/2024 [facility] Bilirub Direct SerPl-mCnc 0.7 mg/dL Above high normal 10/23/2024 - 0.3 [facility] Troponin I SerPl DL<=0.01 ng/mL-mCnc 2492.0 ng/L Above high normal 10/23/2024 - [address] [facility] [address] Delta NO PREVIOUS RESULT Normal 10/23/2024 [facility] BUN/Creat SerPl 47.0 Ratio Above high normal 10/23/2024 10 - 25 CCT Chloride SerPl-sCnc 113.0 mmol/L Above high normal 98 - 107 CCT Calcium SerPl-mCnc 7.6 mg/dL Below low normal 10/23/2024 8.7 - 10.5 HHCCT CO2 SerPl-sCnc 18.0 mmol/L Below low normal 10/23/2024 20 - 31 CCT Glucose SerPl-mCnc 98.0 mg/dL Normal 10/23/2024 74 - 106 CCT Creat SerPl-mCnc 1.0 mg/dL Normal 10/23/2024 0.6 - 1 HH CCT BUN SerPl-mCnc 47.0 mg/dL Above high normal 10/23/2024 9 - 2 3 HHCCT GFR/BSA.pred SerPlBld [id number]-IYA-CoGLrl 75.0 Normal 10/23/2024 59 - HHCCT Anion Gap Bld-sCnc 12.0 Normal 10/23/2024 5 - 15 HHCCT Sodium SerPl-sCnc 143.0 mmol/L Normal 10/23/2024 136 - 14 5 HHCCT Potassium SerPl-sCnc 3.5 mmol/L Normal 10/23/2024 3.4 - 4 .5 HHCCT Phosphate SerPl-mCnc 2.8 mg/dL Normal 10/23/2024 2.4 - 5. 1 HHCCT Magnesium SerPl-mCnc 2.6 mg/dL Normal 10/23/2024 1.6 - 2. 6 HHCCT Vancomycin SerPl-mCnc 22.0 mg/L Normal 10/23/2024 HHCCT Time of last dose Information not given Normal 10/23/2024 HHCCT Immature Platelet Fraction 6.1 % Normal 10/23/2024 1.2 - 8.6 HHCCT RDW RBC Auto-Rto 14.8 % Above high normal 10/23/2024 11.5 - 14.5 HHCCT MCV RBC Auto 77.0 fL Below low normal 10/23/2024 80 - 100 HHCCT PMV Bld Auto 10.9 fL Normal 10/23/2024 7.5 - 12.5 HHCCT Hct VFr Bld Auto 26.0 % Below low normal 10/23/2024 35 - 47 HHCCT Hgb Bld-mCnc 8.9 g/dL Below low normal 10/23/2024 11.7 - 15 .7 HHCCT Platelet num Bld Auto 81.0 Thou/uL Below low normal 10/23/2024 150 - 450 HHCCT MCHC RBC Auto-mCnc 34.2 g/dL Normal 10/23/2024 30 - 36 HHCCT RBC num Bld Auto 3.37 Mil/uL Below low normal 10/23/2024 4 - 5.4 HHCCT WBC num Bld Auto 13.7 Thou/uL Above high normal 10/23/2024 4 - 11 HHCCT MCH RBC Qn Auto 26.4 pg Normal 10/23/2024 26 - [address] POC Glucose 119.0 mg/dL Above high normal 10/23/2024 65 - 99 HHCCT Base Deficit (-) 7.6 mmol/L Normal 10/23/2024 H HCCT pCO2, Arterial 21.0 mmHG Critically low 10/23/2024 35 - 45 HHCCT Sample Type, POC Arterial Normal 10/23/2024 HH CCT Comment REPORTED TO IDALIA Collins RN Normal 10/23/2024 HHCCT SaO2 % BldA 99.0 % Normal 10/23/2024 95 - 100 HHCCT ISTAT Arterial FIO2 21.0 Normal 10/23/2024 HHCCT HCO3 14.0 mmol/L Below low normal 10/23/2024 22 - 26 HHCCT pO2, Arterial 93.0 mmHG Normal 10/23/2024 80 - 100 HHCCT Comment, Blood Gas RIGHT RADIAL POSITIVE COLLATERAL Normal 10/23/2024 HHCCT pH, Arterial 7.44 Normal 10/23/2024 7.35 - 7.45 HHCC T Prothrombin time 30.1 seconds Above high normal 10/23/2024 1 0 - 13.5 HHCCT INR PPP 2.7 Normal 10/23/2024 HHCCT Anticoagulant NO ANTI COAGULANT MEDS Normal 10/23/2024 HHCCT Fibrinogen PPP-mCnc 165.0 mg/dL Normal 10/23/2024 148 - 4 35 HHCCT aPTT PPP 37.0 seconds Normal 10/23/2024 26 - 37 HHCCT Anticoagulant NO ANTI COAGULANT MEDS Normal 10/23/2024 HHCCT Lactate SerPl-sCnc 2.6 mmol/L Critically high 10/23/2024 0.5 - 1.9 HHCCT BNP SerPl-mCnc 1492.0 pg/mL Above high normal 10/23/2024 0 - 99 HHCCT POC Glucose 120.0 mg/dL Above high normal 10/23/2024 65 - 99 HHCCT Monocytes/leuk NFr Bld Auto 4.0 % Normal 10/23/2024 HHCCT Neuts Band num Bld Manual 4.0 % Normal 10/23/2024 HHCCT Spherocytes Bld Ql Smear Present Normal 10/23/2024 HHCCT Monocyte, Absolute 0.7 Thou/uL Normal 10/23/2024 0.2 - 1. 5 HHCCT Myelocytes/leuk NFr Bld Manual 2.0 % Normal 10/23/2024 HHCCT Lymphocytes/leuk NFr Bld Auto 14.0 % Normal 10/23/2024 HHCCT Neutrophils num Bld Auto 14.5 Thou/uL Above high normal 10/23/2024 2 - 7.5 HHCCT Segmented Neutrophil 76.0 % Normal 10/23/2024 HHCCT Myelocytes num Bld Manual 0.4 Thou/uL Above high normal 10/23/2024 - HHCCT Lymphocytes num Bld Auto 2.5 Thou/uL Normal 10/23/2024 1.5 - 4.5 HHCCT Platelet num Bld Auto 79.0 Thou/uL Below low normal 10/23/2024 150 - 450 HHCCT MCV RBC Auto 77.0 fL Below low normal 10/23/2024 80 - 100 HHCCT RBC num Bld Auto 3.66 Mil/uL Below low normal 10/23/2024 4 - 5.4 HHCCT WBC num Bld Auto 18.1 Thou/uL Above high normal 10/23/2024 4 - 11 HHCCT Immature Platelet Fraction 7.7 % Normal 10/23/2024 1.2 - 8.6 HHCCT MCH RBC Qn Auto 27.0 pg Normal 10/23/2024 26 - [address] RDW RBC Auto-Rto 14.8 % Above high normal 10/23/2024 11.5 - 14.5 HHCCT Hgb Bld-mCnc 9.9 g/dL Below low normal 10/23/2024 11.7 - 15 .7 HHCCT PMV Bld Auto 11.9 fL Normal 10/23/2024 7.5 - 12.5 [facility] MCHC RBC Auto-mCnc 35.0 g/dL Normal 10/23/2024 30 - 36 [facility] Hct VFr Bld Auto 28.3 % Below low normal 10/23/2024 35 - 47 [facility] Magnesium SerPl-mCnc 2.5 mg/dL Normal 10/23/2024 1.6 - 2. 6 [facility] Anion Gap Bld-sCnc 13.0 Normal 10/23/2024 5 - 15 [facility] Albumin/Glob SerPl 1.2 Ratio Below low normal 10/23/2024 1.5 - 2.5 [facility] Prot SerPl-mCnc 6.0 g/dL Normal 10/23/2024 5.7 - 8.[address] Sodium SerPl-sCnc 140.0 mmol/L Normal 10/23/2024 136 - 14 5 [facility] Bilirub SerPl-mCnc 1.5 mg/dL Above high normal 10/23/2024 0. 3 - 1.2 [facility] BUN/Creat SerPl 35.0 Ratio Above high normal 10/23/2024 10 - 25 [facility] Glucose SerPl-mCnc 114.0 mg/dL Above high normal 10/23/2024 74 - 106 [facility] ALT SerPl-cCnc 24.0 U/L Normal 10/23/2024 7 - 35 [facility] T Calcium SerPl-mCnc 7.8 mg/dL Below low normal 10/23/2024 8.7 - 10.5 [facility] Chloride SerPl-sCnc 110.0 mmol/L Above high normal 98 - 107 [facility] Albumin SerPl-mCnc 3.2 g/dL Below low normal 10/23/2024 3.4 - 4.8 [facility] Potassium SerPl-sCnc 4.3 mmol/L Normal 10/23/2024 3.4 - 4 .5 [facility] AST SerPl-cCnc 91.0 U/L Above high normal 10/23/2024 - 34 [facility] ALP SerPl-cCnc 111.0 U/L Normal 10/23/2024 32 - 122 [facility] T Creat SerPl-mCnc 1.2 mg/dL Above high normal 10/23/2024 0.6 - 1 [facility] GFR/BSA.pred SerPlBld [id number] 61.0 Normal 10/23/2024 59 - [facility] CO2 SerPl-sCnc 17.0 mmol/L Below low normal 10/23/2024 20 - 31 [facility] BUN SerPl-mCnc 42.0 mg/dL Above high normal 10/23/2024 9 - 2 3 [facility] Globulin Ser Calc-mCnc 2.8 g/dL Normal 10/23/2024 1.5 - 3.9 [facility] Phosphate SerPl-mCnc 3.3 mg/dL Normal 10/23/2024 2.4 - 5. 1 [facility] History of Medication Use Medication Directions Dispensed Refills Start Date End Date [facility] apixaban (ELIQUIS) 2.5 MG tablet Take 1 tablet (2.5 mg total) by mouth every 12 (twelve) hours around the clock. 11/07/2024 active aspirin 81 MG chewable tablet Chew 1 tablet (81 mg total) daily. 11/07/2024 active furosemide (LASIX) 10 mg/mL injection Infuse 4 mL (40 mg total) into a venous catheter 2 (two) times a day in the morning and the early evening.. 11/07/2024 active lidocaine (PROZENA) 4 % patch Place 1 patch on the skin daily. 11/07/2024 active magnesium oxide 400 (240 Mg) MG Tab tablet Take 1 tablet (400 mg total) by mouth daily. Take 2 hours apart from other medications; take with food 11/07/2024 active methadone (DOLOPHINE) 10 MG tablet Take 4 tablets by mouth daily for 1 dose, 11/07/2024 active metoPROLOL TARTRATE (LOPRESSOR) 75 MG tablet Take 1 tablet (75 mg total) by mouth every 12 (twelve) hours around the clock. 11/07/2024 active PANTOprazole (PROTONIX) 40 MG EC tablet Take 1 tablet (40 mg total) by mouth daily. 11/07/2024 active polyethylene glycol (miraLAx) 17 g packet Take 1 packet (17 g total) by mouth daily. 11/07/2024 active rifABUTin (MYCOBUTIN) 150 MG capsule Take 2 capsules (300 mg total) by mouth every 24 hours around the clock. 11/07/2024 active acetaminophen (TYLENOL) 325 MG tablet Take 2 tablets (650 mg total) by mouth 4 times daily (every 6 hours) as needed for mild pain or moderate pain. 11/06/2024 active docusate sodium (COLACE) 100 MG capsule Take 1 capsule (100 mg total) by mouth 2 (two) times a day. 11/06/2024 active ipratropium-albuterol (DUONEB) 0.5-2.5 mg/3 mL nebulizer solution Take 3 mL by nebulization 4 times daily (every 6 hours) as needed for shortness of breath. 11/06/2024 active melatonin 3 MG Tab tablet Take 2 tablets (6 mg total) by mouth nightly. 11/06/2024 active methadone (DOLOPHINE) 10 MG tablet Take 1 tablet by mouth 4 times daily (every 6 hours) as needed for up to 1 day (opiate withdrawal or severe pain not relieved with Oxycodone), 11/06/2024 active nafcillin 2 g in sodium chloride-MBP 0.9% 100 mL IVPB Infuse 2 g into a venous catheter every 4 (four) hours. 11/06/2024 active naloxone (NARCAN) 0.4 mg/mL injection Infuse 1 mL (0.4 mg total) into a venous catheter every 5 (five) minutes as needed for opioid reversal or respiratory depression. 11/06/2024 active ondansetron (ZOFRAN) 4 MG/2ML injection Infuse 2 mL (4 mg total) into a venous catheter 4 times daily (every 6 hours) as needed for nausea or vomiting. 11/06/2024 active oxyCODONE (ROXICODONE) 10 mg immediate release tablet Take 1 tablet (10 mg total) by mouth every 4 (four) hours as needed for severe pain. Max Daily Amount: 60 mg 11/06/2024 active oxyCODONE (ROXICODONE) 5 MG immediate release tablet Take 1 tablet (5 mg total) by mouth every 4 (four) hours as needed for moderate pain. Max Daily Amount: 30 mg 11/06/2024 active potassium chloride (KLOR-CON M20) 20 MEQ tablet Take 1 tablet (20 mEq total) by mouth every 2 hours. Swallow whole, do not crush. Take with food 11/06/2024 active pregabalin (LYRICA) 50 MG capsule Take 1 capsule (50 mg total) by mouth nightly. 11/06/2024 active senna (SENOKOT) 8.6 MG Tab tablet Take 2 tablets by mouth nightly. 11/06/2024 active Allergies Allergen Reaction Severity Comment Documented Date Source Statu s SULFAMETHIZOLE HIVES 10/28/2024 [facility] active Problems Problem Status Onset Date Problem Type Date of Resoluti on Source Elevated troponin active 2024-10-23 ProblemAct [facility] Microcytic anemia active 2024-10-23 ProblemAct [facility] Moderate protein-calorie malnutrition active 2024-11-03 ProblemAct [facility] Atrial septal defect active 2024-10-22 ProblemAct [facility] Severe mitral regurgitation active 2024-10-23 ProblemAct [facility] Cocaine use active 2024-10-23 ProblemAct [facility] Endocarditis active 2024-10-22 ProblemAct [facility] Endocarditis due to methicillin susceptible Staphylococcus aureus (MSSA) active 2024-10-27 ProblemAct [facility] Hyponatremia active 2024-10-27 ProblemAct [facility] Thrombocytopenia active 2024-10-23 ProblemAct [facility] Encounters Encounter Type Encounter Reason Primary Diagnosis Location Date [facility] 10[facility]25/2024 Inpatient Acute and subacute infective endocarditis Acute and subacute infective endocarditis [facility] 10/22/2024 Care Team Organization Name Specialty Phone Email Start Date End Da te [facility] 11/19/2024 [facility] 10/25/2024 11/23/2024 [facility] 10/22/2024
--- OUTSIDE RECORDS SUMMARY | 2025-01-22 15:52 | XMS_ITS | Encounter Summary ---
Author Organization [facility] Address [address] [place] [address] Phone Care Team Providers Care Controller Instructor Name Role Phone Unavailable Primary Care Provider Unavailabl e Encounter Details Date Type Department Care Team (Late st Contact Info) Description 10/25/2024 Scanned Document [facility] [address] [place], [place] [id number] Pita Ferrell MD [address] [place] [address] Social History Tobacco Use Types Packs/Day Years Used Date Smoking Tobacco: Never Assessed Comments Unknown Sex and Gender Information Value Date Recorded Sex Assigned at Not on file Legal Sex Female 4:46 PM EDT Gender Identity Not on file Sexual Orientation Not on file documented as of this encounter Plan of Treatment Not on file documented as of this encounter Visit Diagnoses Not on filedocumented in this encounter
--- OUTSIDE RECORDS SUMMARY | 2025-01-22 15:52 | XMS_ITS | Encounter Summary ---
Author Organization [facility] Address [address] [place] [address] Care Team Providers Care Pastry Mixer Name Role Phone Unknown Primary Care Provider [phone] Encounter Details Date Type Department Care Team ([facility] st Contact Info) Description 12/26/2024 Telephone [facility] Cardiothoracic Surgery [place] [address] [place] [phone] Charo Fletcher, CHECKER AND PACKER [address] [place] [address] Social History Tobacco Use Types Packs/Day Years Used Date Smoking Tobacco: Never Assessed [facility] Utilities Answer Date Recorded In the past 12 months has [employer] electric, gas, oil, or water company threatened [...] any time in the past 12 m [facility], were you homeless or living in a jail (including now)? Patient unable to answer 10/24/2024 [...] on filedocumented in this encounter Care Teams Pastry Mixer Relationship Specialty Start Date End Date Unknown Unknow Provider Address PCP - General 10/22/24 documented as of this encounter
--- OUTSIDE RECORDS SUMMARY | 2025-01-22 15:52 | XMS_ITS | Encounter Summary ---
Author Organization [employer] Address [address] [facility] 7 [place] [address] Care Team Providers Care Veneer Supervisor Name Role Phone Ken Arora CNP Primary Care Provider [phone] Reason for Visit * Reason Onset Date Comments Med Refill 12/24/2024 Encounter Details Date Type Department Care Team (Late st Contact Info) Description 12/24/2024 Refill [facility] [address] [place], [place] [phone] Ken Arora CNP [address] [place], [place] [phone] Social History Tobacco Use Types Packs/Day Years Used Date Smoking Tobacco: Never Assessed Depression Answer Date Recorded Patient Health Questionnaire-9 Score 15 12/03/2024 Patient Health Questionnaire-9 Score 15 12/03/2024 Last PHQ-9: Questionnaire Data Not on file 0 12/03/2024 Housing Stability Answer Date Recorded What is your housing situation today? I have naomi bryan 12/03/[address] you li ve. Do you have problems with any of the following? None of the above 12/03/2024 Food Insecurity Answer Date Recorded Within the past 12 months, y ou worried that your food would run out before you got money to buy more: Often true 12/03/2024 Within the past 12 months,th e food you bought just didn't last and you didn't have enough money to get more: Often true Transportation Answer Date Recorded In the past 12 months, has l ack of transportation kept you from medical appts, meetings, work or from getting things needed for daily living? No 12/03/2024 Utilities Answer Date Recorded In the past 12 months, has t he electric, gas, oil or water company threatened to shut off services in your home? No 12/03/2024 Depression Answer Date Recorded Patient Health Questionnaire-2 Score 2 12/03/2024 Internet Access Answer Date Recorded Internet Access Q1 No 12/03/2024 Internet Access Q2 My internet/Wi-Fi ac cess is not consistent or reliable 12/03/2024 Comments Unknown Sex and Gender Information Value Date Recorded Sex Assigned at Female 11/24/2024 9:50 AM EDT Legal Sex Female 3:15 PM EDT Gender Identity Female 11/24/2024 9:50 AM EDT Sexual Orientation Don't know 11/28/2024 10 :49 AM EDT documented as of this encounter Plan of Treatment Upcoming Encounters Date Type Department Care Team (Late st Contact Info) Description 02/04/2025 11:15 AM EDT Office Visit [facility] [address] [place] [address] Ken Arora CNP [address] [place] [address] documented as of this encounter Visit Diagnoses Not on filedocumented in this encounter Additional Health Concerns Assessment Noted Time PHQ-9 Depression Total Score: 15 025 3:07 PM EDT documented as of this encounter Care Teams Veneer Supervisor Relationship Specialty Start Date End Date Ken Arora CNP [address] [place] [address] PCP - General Family Medicine 12/03/24 documented as of this encounter
== END ==
LOC: HO.CARD 15:08
DX: I33.0 Acute and subacute infective endocarditis (principal)
CPT/HCPCS: 87040; 93306

== ENCOUNTER → 2025-01-22 15:13 | Outpatient (BNV) | payer MEDICARE, MEDICAID, SELFPAY | PROVIDERS: Visit Provider Internal Medicine | DX: I33.0 Acute and subacute infective endocarditis (principal); Z95.3 Presence of xenogenic heart valve; I51.89 Other ill-defined heart diseases | CPT/HCPCS: 93306 ==

== ENCOUNTER 2025-06-25 13:37 | Outpatient (AMB) | payer MEDICARE, MEDICAID, SELFPAY ==
[2025-06-25 13:38] VITALS: BP 120/74; PULSE 98; BMI 16.9
--- NOTE | 2025-06-25 13:38 | A.OFFVIS_ITS ---
Vital Signs 06/25/25 13:38 Height 5 ft Weight 86 lb 6.739 oz BMI 16.9 BP 120/74 Blood Pressure Location Lt brachial Pulse 98 Pulse Source Pulse Oximeter Intake Visit Reasons: 6m follow up Loan Inspector Required: No Accompanied by: Father Allergies Sulfa (Sulfonamide Antibiotics) (SULFA (SULFONAMIDE ANTIBIOTICS)) Allergy (Unknown, Verified 06/25/25 13:41) swelling, ITCHY Medication List - Last Reconciled 06/25/25 by Josh Shukla NP aspirin 81 mg PO DAILY hydroxyzine HCl 50 mg PO BEDTIME methadone (Methadose) 40 mg (4 mL) PO DAILY@0800 methadone (Methadose) 30 mg PO DAILY@1800 pregabalin 50 mg PO ONCE HPI Comments Details: This is a 35-year-old female patient coming in for a follow-up visit, accompanied by her . 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 During the hospital stay patient had developed a DVT in the left upper extremity due to IV infiltration and was on Eliquis therapy but has finished a course and is no longer on it. At her last visit, patient was not on her aspirin but is now reporting compliance with this. Patient unfortunately is still using IV cocaine 3 times a week and is following regularly with methadone clinic. Patient had previously completed an echo with PCP showing reduced EF between 40-45%. Patient states that most recently she had COVID and otherwise is denying any cardiac symptoms of exertional chest pain, shortness of breath, palpitations, dizziness, orthopnea, PND, leg edema, presyncope or syncope. Patient has lost a lot of weight since her last visit which she thinks is due to her substance abuse. Patient is otherwise asking if she still needs to be on Eliquis. [facility] Medical History Infective endocarditis Opioid use disorder Polysubstance (including opioids) dependence with physiological dependence Endocarditis due to methicillin susceptible Staphylococcus aureus (MSSA) Hepatitis C Malnutrition No active medical problems Surgical History S/P patent foramen ovale closure S/P mitral valve replacement with bioprosthetic valve S/P MVR (mitral valve repair) Status post patch closure of ASD S/P MVR (mitral valve replacement) History of back surgery Social History Household Members: Family Housing: Condominium Do you presently have visiting nurse or other home services: No Alcohol intake: current Patient Tobacco Use Status: Current everyday Tobacco user Tobacco use type: Cigarette Cigarettes Per Day: 4 Second Hand Smoke Exposure: No Substance Use Type: Crack/Cocaine, Heroin, IV Drugs and Marijuana service: No Review of Systems Const Denies daytime sleepiness, Denies difficulty sleeping, Denies snoring, Denies stops breathing during sleep and Denies weakness Card Denies chest pain, Denies rapid heart rate, Denies irregular heart rhythm, Denies claudication, Denies leg edema, Denies lightheadedness, Denies palpitations, Denies dyspnea, Denies dyspnea on exertion, Denies orthopnea, Denies paroxysmal nocturnal dyspnea and Denies slow heart rate Resp Denies cough, Denies dyspnea, Denies dyspnea on exertion and Denies snoring GI Reports no additional complaints, Denies hematochezia, Denies change in stool character and Denies dyspepsia Musc Denies abnormal gait, Denies muscle weakness and Denies numbness Neuro Denies abnormal gait, Denies numbness and Denies weakness Endo Denies palpitations Physical Exam Vital Signs: Last Vital Signs Pulse 98 06/25/25 13:38 BP 120/74 06/25/25 13:38 BMI result Body Mass Index 16.9 Const General: cooperative, comfortable and no acute distress Nutritional Appearance: underweight Orientation/consciousness: patient oriented x3 HEENT Head: Yes normal to inspection Neck Neck: Yes normal visual inspection, Yes trachea midline and Yes supple Chest Chest palpation & inspection: normal inspection of the chest Resp Effort & Inspection: normal respiratory effort Auscultation: clear to auscultation bilaterally, no crackles, no rales, no rhonchi and no wheezes Cardio Jugular venous distension: no JVD Palpation: normal PMI Rate: regular rate Rhythm: regular rhythm Heart sounds: S1 normal heart sound present, S2 normal heart sound present, no click, no gallops, no murmurs and no rubs Peripheral pulses: Peripheral pulses 2+ throughout GI Inspection: Yes normal to inspection Palpation (GI): Soft to palpation Auscultation: normal bowel sounds Skin General skin exam: no rashes or lesions noted Neuro General: patient oriented x3 Extrem General: Yes normal to inspection, No no pedal edema and No calf tenderness Psych Appearance: grossly normal Mental Status: mental status grossly normal Speech and movement: Normal speech and movement present Assessment & Plan Assessment & Plan (1) Cardiomyopathy: Code(s): I42.9 - Cardiomyopathy, unspecified Category: Medical (2) S/P mitral valve replacement with bioprosthetic valve: Code(s): Z95.3 - Presence of xenogenic heart valve Category: Surgical (3) S/P patent foramen ovale closure: Code(s): Z87.74 - Personal history of (corrected) congenital malformations of heart and circulatory system Category: Surgical Plan History of mitral valve endocarditis related to IV drug use following which patient was transferred to [facility]. Patient is now status post PFO closure and mitral valve replacement with bioprosthetic valve. During hospital stay patient had developed a DVT in the left upper arm from an IV infiltration and was on Eliquis. Patient states that she completed this a month ago and is asking if she still needs to be on this. On exam patient with no swelling redness or warmth in her extremities. Discussed with Dr. Ruiz and currently no need for continuing this. We will plan for a D-dimer. Continue aspirin therapy. Most recently patient had repeated an echocardiogram showing a reduced LV systolic function with an ejection fraction at 42%. It also stated a small vegetation to mitral valve could not be excluded. However the normal functioning of the prosthetic mitral valve was noted. We will plan for a repeat echocardiogram. We will also do blood cultures to check for infective disease. The cardiomyopathy could most likely be from substance abuse however we will get a Holter to check for potential arrhythmias as during the hospital stay that was also questions about SVT versus sinus tachycardia. Patient was previously on metoprolol for this however no longer on this right now. Emphasized strongly on the need to completely stop using IV cocaine as well as any other stimulants as patient is at a high risk for infective endocarditis. Patient verbalizes understanding. Advised on working on a better diet to gain weight, adequate hydration, med compliance, and complete avoidance of stimulants. Follow up in 4 months. In the interim, patient will call the office with any concerns or change in symptoms. Discussed case in detail with Dr. Ruiz. This note was generated using voice recognition software. While every effort has been made to ensure accuracy and proper global cmo, there may be occasional errors that could affect the content or meaning of the described symptoms. Orders: Orders Blood Culture X1 Today Josh Shukla NP I38 - Endocarditis, valve unspecified ECG 3 day holter monitor Today Josh Shukla NP I42.9 - Cardiomyopathy, unspecified CA echo transthoracic complete Today Josh Shukla NP I42.9 - Cardiomyopathy, unspecified D Dimer High Sensitivity Today Josh Shukla NP I82.409 - Acute embolism and thrombosis of unspecified deep veins of unspecified lower extremity Medications: Changed From methadone (Methadose) Partial Fill upon patient request. 20 mg (2 mL) PO DAILY@1800 30 mL 0RF To methadone (Methadose) Partial Fill upon patient request. 30 mg PO DAILY@1800 Ernesto Light DO Coding Level of Care Code Est Pt Level 4 (79678) Add On Problem Visit Only Diagnoses Cardiomyopathy I42.9 S/P mitral valve replacement with bioprosthetic valve Z95.3 S/P patent foramen ovale closure Z87.74 Time Spent (min) 33 Comment Time spent in reviewing the chart, test results, assessment, counseling and documentation.
--- OUTSIDE RECORDS SUMMARY | 2025-06-25 17:51 | XMS_ITS | Encounter Summary ---
Author Organization [facility] Address [address] [place] [address] Care Team Providers Care Mixer Whipped Topping Name Role Phone Unknown Primary Care Provider [phone] Encounter Details Date Type Department Care Team (Late st Contact Info) Description 02/09/2025 Scanned Document [facility] Cardiothoracic Surgery [place] [address] [place] [phone] Cardiology, Scan Social History Tobacco Use Types Packs/Day Years Used Date Smoking Tobacco: Never Assessed [facility] Utilities Answer Date Recorded In the past 12 months has [employer], gas, oil, or water [employer] threatened to shut off services in your [...] any time in the past 12 m [facility], were you homeless or living in a detention (including now)? Patient unable to answer 10/24/2024 [...] on filedocumented in this encounter Care Teams Mixer Whipped Topping Relationship Specialty Start Date End Date Unknown Unknow Provider Address PCP - General 10/22/24 documented as of this encounter
--- OUTSIDE RECORDS SUMMARY | 2025-06-25 17:51 | XMS_ITS | Clinical Summary ---
Author Organization [employer] Address [address] [place] [address] Care Team Providers Care Boat Engines Installer Name Role Phone Ken Arora CNP Primary Care Provider [phone] Allergies Active Allergy Reactions Criticality Noted Date Comments Sulfa Antibiotics Hives Medium 10/28/2024 Medications Eliquis 5 MG tablet Take 1 tablet by mouth 2 times daily. 5 Active aspirin 81 MG chewable tablet Chew 81 mg Once per day. 5 Active hydrOXYzine HCl (Atarax) 50 MG tablet Take 1 tablet by mouth at bedtime. 5 Active methadone (Dolophine) 10 MG/ML solution Take 30 mg by mouth 2 times daily. 5 Active sennosides (Senokot) 8.6 MG tablet Take 1 tablet by mouth if needed at bedtime for constipation. 5 Active ferrous sulfate 325 (65 Fe) MG tablet Take 1 tablet by mouth Once per day. Active naloxone (Narcan) 4 mg/0.1 mL nasal sprayIndication s:Substance use disorder Administer 1 spray (4 mg) into affected nostril(s) if needed for opioid reversal. May repeat every 2-3 minutes if needed, alternating nostrils, until medical assistance becomes available. 2 each 5 12/05/19 26 Active pregabalin (Lyrica) 50 MG capsuleIndicati ons:Neuropathy Take 1 capsule (50 mg) by mouth Once per day for 14 days. 14 capsule 5 Active Active Problems Problem Noted Date Diagnosed Date Bacteremia due to methicilli n susceptible Staphylococcus aureus (MSSA) 12/04/2024 Acute deep vein thrombosis (DVT) of upper extrem ity 11/14/2024 Psychoactive substance abuse 11/14/2024 Moderate protein-calorie malnutrition 11/03/2024 Endocarditis due to methicil jazmine susceptible Staphylococcus aureus (MSSA) 10/27/2024 Hyponatremia 10/27/2024 Cocaine use 10/23/2024 Elevated troponin 10/23/2024 Microcytic anemia 10/23/2024 Severe mitral regurgitation 10/23/2024 Thrombocytopenia 10/23/2024 Atrial septal defect 10/22/2024 Endocarditis 10/22/2024 Infective endocarditis of mitral valve Immunizations Immunization Administration Dates Next Due [employer] SARS-CoV-2 Vaccination 12/23/2020 Social History Tobacco Use Types Packs/Day Years Used Date Smoking Tobacco: Some Days Cigarettes Tobacco Cessation:Ready to Q uit: Not Asked; Counseling Given: Not Answered Depression Answer Date Recorded Patient Health Questionnaire-9 [...] Don't know 11/28/2024 10 :49 AM EDT Last Filed Vital Signs Vital Sign Reading Time Taken Comments Blood Pressure 102/74 01/21/2025 3:29 PM EDT Pulse 117 01/21/2025 3:29 PM EDT Temperature 36.6 C (97.9 F) 01/21/2025 3:29 PM EDT Respiratory Rate 14 01/21/2025 3:29 PM EDT Oxygen Saturation 97% 01/21/2025 3:29 PM EDT Inhaled Oxygen Concentration - - Weight 42.3 kg (93 lb 3.2 oz) 01/21/2025 3:29 PM EDT Height 154.9 cm (5' 1 ) 01/21/2025 3:29 PM EDT Body Mass Index 17.61 01/21/2025 3:29 PM EDT Plan of Treatment Health Maintenance Due Date Last Done Comments HIV Screening 1989 Lipid Panel 1989 Family Planning (PISQ) 2004 HPV Vaccines (1 - 3-dose series) 2004 Hepatitis C Screening 2007 DTaP/Tdap/Td Vaccines (1 - Tdap) 2008 Hepatitis B Vaccines (1 of 3 - 19+ 3-dose series) 2008 Pneumococcal Vaccine: Pediatrics (0 to 5 Years) and At-Risk Patients (6 to 49) Years (1 of 2 - PCV) 2008 Pap Smear 2010 Cervical Cancer Screening 2019 HPV/Cotest 2019 COVID-19 Vaccine (2 - 2024-2 6 season) 2025 12/23/2020 Influenza Vaccine (#1) 2025 Depression Monitoring 06/05/2025 12/03/2024 , 12/03/2024 Alcohol/Substance Use Screening 12/03/2025 12/03/2024 Disability Screening 12/03/2025 12/03/2024 SDOH Screening 12/03/2025 12/03/2024 Tobacco Screening 01/21/2026 01/21/2025 Zoster Vaccines (1 of 2) 2039 RSV Patients and Patients Aged 60 years or older (1 - 1-dose 75+ series) 2064 HIB Vaccines Aged Out No longer eligi [...] patient's age to complete this topic Meningococcal Vaccine Aged Out No adelita elise eligible based on patient's age to complete this topic RSV under 20 months Aged Out No longe r eligible based on patient's age to complete this topic Rotavirus Vaccines Aged Out No longer eligible based on patient's age to complete this topic Insurance [facility] MEDICARE ADVANTAGE Care Teams Boat Engines Installer Relationship Specialty Start Date End Date Ken Arora CNP PCP - General Family Medicine 12/03/24
--- OUTSIDE RECORDS SUMMARY | 2025-06-25 17:51 | XMS_ITS | Encounter Summary ---
Author Organization [employer] Address [address] [place] [address] Care Team Providers Care Glassworker Name Role Phone Ken Arora CNP Primary Care Provider [phone] Reason for Visit * Reason Onset Date Comments Med Refill 12/24/2024 Encounter Details Date Type Department Care Team (Late st Contact Info) Description 12/24/2024 Refill [facility] [address] [place] [address] Ken Arora CNP [address] [place], [place] [phone] Social History Tobacco Use Types Packs/Day Years [...] documented as of this encounter Care Teams Glassworker Relationship Specialty Start Date End Date Ken Arora CNP PCP - General Family Medicine 12/03/24 documented as of this encounter
--- OUTSIDE RECORDS SUMMARY | 2025-06-25 17:52 | XMS_ITS | Clinical Summary ---
Author Organization [facility] it Address [address] [place] [address] Care Team Providers Care Transition Advisor Name Role Phone Unavailable Primary Care Provider [...] Cervical Cancer Screening: P ap Smear 2010 HPV Vaccines (1 - 3-dose SCD M series) 2016 Depression Screening 07/09/2024 COVID-19 Vaccine ( - 2024-2 6 season) 2025 Influenza Vaccine (#1) 2025 RSV Immunization Adult Patie nts (1 - 1-dose 75+ series) 2064 HIB [...]
--- OUTSIDE RECORDS SUMMARY | 2025-06-25 17:52 | XMS_ITS | Clinical Summary ---
Author Organization [facility] [address] Address [address], [address] [place] [address] Care Team Providers Care Plant Utilities Engineer Name Role Phone Unavailable Primary Care Provider [...] Maintenance Due Date Last Done Comments HIV screening 2002 Hepatitis C screening 2007 Tetanus adult (Td q 10,TDAP once) 2009 Cervical cancer screening 2010 Influenza vaccine 02/06/2025 Covid-19 vaccine series (2024- season) 2025 RSV Immunization (1 - 1-dose 75+ series) 2064 Meningococcal B Vaccine Aged Out No l onger eligible based on patient's age to complete this topic Meningococcal Vaccine Aged Out No adelita elise eligible based on patient's age to complete this topic Pneumococcal Vaccine (2 - 49 years) Aged Out No longer eligible based on patient's age to complete this topic Insurance [facility]
--- OUTSIDE RECORDS SUMMARY | 2025-06-25 17:52 | XMS_ITS | Encounter Summary ---
Author Organization [facility] Address [address] [place] [address] Phone Care Team Providers Care Immigration Case Manager Name Role Phone Unavailable Primary Care Provider Unavailabl e Encounter Details Date Type Department Care Team (Late st Contact Info) Description 10/25/2024 Scanned Document [facility] [address] [place], [place] [id number] Pita Ferrell MD [address] [place] [address] Social History Tobacco Use Types [...]
--- OUTSIDE RECORDS SUMMARY | 2025-06-25 17:52 | XMS_ITS | Clinical Summary ---
Author Organization [facility] Address [facility] [place] [address] [address] Phone Care Team Providers Care Deck Steward Name Role Phone Bazan Chaya Kristine Primary Care Provider Social History Tobacco Use Types Packs/Day Years Used Date Smoking Tobacco: Never Assessed Education Answer Date Recorded Are you interested in more education? Not on pankaj e 11/03/2022 Are you concerned about learning? Not on file 11/03/2022 No 11/03/2022 No 11/03/2022 Digital Access Answer Date Recorded No 12/02/2022 No 12/02/2022 No 12/02/2022 Reliable internet access at home? Not on file 12/02/2022 Device with a working camera? Not on file Comments Unknown Sex and Gender Information Value Date Recorded Sex Assigned at Female 07/22/2019 9:59 AM EST Legal Sex Female 10:26 PM EDT Gender Identity Female 07/22/2019 9:59 AM EST Sexual Orientation Bisexual 07/22/2019 9: 59 AM EST Plan of Treatment Health Maintenance Due Date Last Done Comments Adult Td,Tdap Booster 1989 DEPRESSION SCREENING 2001 SMOKING Hx and SMOKELESS TOB ACCO SCREENING 2002 HEPATITIS C SCREENING 2007 HIV ONE-TIME SCREENING (18-6 5 YEARS) 2007 PAP SMEAR 2010 INFLUENZA VACCINE (#1) 2025 COVID-19 VACCINE (2024-2 6 season) 2025 12/23/2020 HEPATITIS A VACCINES Aged Out No long er eligible based on patient's age to complete this topic HIB VACCINES Aged Out No longer eligi ble based on patient's age to complete this topic MENINGOCOCCAL VACCINES (ACWY) Aged Out No longer eligible based on patient's age to complete this topic MENINGOCOCCAL VACCINES (B) Aged Out N o longer eligible based on patient's age to complete this topic PNEUMOCOCCAL VACCINES (0-49 years) Aged Out No longer eligible based on patient's age to complete this topic Medical Devices Not on file Insurance [facility] Care Teams Deck Steward Relationship Specialty Start Date End Date Chaya Bazan DO [address] [address] [email or web address] PCP - General Family Medicine 07/22/19 Additional Source Comments The information contained in this document represents components of the legal health record. It is not the complete legal health record.[facility]
--- OUTSIDE RECORDS SUMMARY | 2025-06-25 17:52 | XMS_ITS | Clinical Summary ---
Author Organization [facility] Address [address] [place] [address] Care Team Providers Care Alumni Secretary Name Role Phone Unknown Primary Care Provider [phone] Allergies Active Allergy Reactions Criticality Noted Date Comments Sulfamethizole Hives Medium 10/28/2024 Medications methadone (DOLOPHINE) 10 MG tabletIndication s:Infective endocarditis of mitral valve Take 1 tablet by mouth 4 times daily (every 6 hours) as needed for up to 1 day (opiate withdrawal or severe pain not relieved with Oxycodone), 5 Active methadone (DOLOPHINE) 10 MG tabletIndication s:Infective endocarditis of mitral valve Take 4 tablets by mouth daily for 1 dose, 5 Active acetaminophen (TYLENOL) 325 MG tabletIndication s:Infective endocarditis of mitral valve Take 2 tablets (650 mg total) by mouth 4 times daily (every 6 hours) as needed for mild pain or moderate pain. 5 Active apixaban (ELIQUIS) 2.5 MG tabletIndication s:Infective endocarditis of mitral valve Take 1 tablet (2.5 mg total) by mouth every 12 (twelve) hours around the clock. 5 Active aspirin 81 MG chewable tabletIndication s:Infective endocarditis of mitral valve Chew 1 tablet (81 mg total) daily. 5 Active docusate sodium (COLACE) 100 MG capsuleIndicatio ns:Infective endocarditis of mitral valve Take 1 capsule (100 mg total) by mouth 2 (two) times a day. 5 Active furosemide (LASIX) 10 mg/mL injectionIndicat ions:Infective endocarditis of mitral valve Infuse 4 mL (40 mg total) into a venous catheter 2 (two) times a day in the morning and the early evening.. 5 Active ipratropium-albu terol (DUONEB) 0.5-2.5 mg/3 mL nebulizer solutionIndicati ons:Infective endocarditis of mitral valve Take 3 mL by nebulization 4 times daily (every 6 hours) as needed for shortness of breath. 5 Active lidocaine (PROZENA) 4 % patchIndications :Infective endocarditis of mitral valve Place 1 patch on the skin daily. 5 Active magnesium oxide 400 (240 Mg) MG Tab tabletIndication s:Infective endocarditis of mitral valve Take 1 tablet (400 mg total) by mouth daily. Take 2 hours apart from other medications; take with food 5 Active melatonin 3 MG Tab tabletIndication s:Infective endocarditis of mitral valve Take 2 tablets (6 mg total) by mouth nightly. 5 Active metoPROLOL TARTRATE (LOPRESSOR) 75 MG tabletIndication s:Infective endocarditis of mitral valve Take 1 tablet (75 mg total) by mouth every 12 (twelve) hours around the clock. 5 Active naloxone (NARCAN) 0.4 mg/mL injectionIndicat ions:Infective endocarditis of mitral valve Infuse 1 mL (0.4 mg total) into a venous catheter every 5 (five) minutes as needed for opioid reversal or respiratory depression. 5 Active ondansetron (ZOFRAN) 4 MG/2ML injectionIndicat ions:Infective endocarditis of mitral valve Infuse 2 mL (4 mg total) into a venous catheter 4 times daily (every 6 hours) as needed for nausea or vomiting. 5 Active oxyCODONE (ROXICODONE) 10 mg immediate release tabletIndication s:Infective endocarditis of mitral valve Take 1 tablet (10 mg total) by mouth every 4 (four) hours as needed for severe pain. Max Daily Amount: 60 mg 5 Active oxyCODONE (ROXICODONE) 5 MG immediate release tabletIndication s:Infective endocarditis of mitral valve Take 1 tablet (5 mg total) by mouth every 4 (four) hours as needed for moderate pain. Max Daily Amount: 30 mg 5 Active PANTOprazole (PROTONIX) 40 MG EC tabletIndication s:Infective endocarditis of mitral valve Take 1 tablet (40 mg total) by mouth daily. 5 Active polyethylene glycol (miraLAx) 17 g packetIndication s:Infective endocarditis of mitral valve Take 1 packet (17 g total) by mouth daily. 5 Active potassium chloride (KLOR-CON M20) 20 MEQ tabletIndication s:Infective endocarditis of mitral valve Take 1 tablet (20 mEq total) by mouth every 2 hours. Swallow whole, do not crush. Take with food 5 Active pregabalin (LYRICA) 50 MG capsuleIndicatio ns:Infective endocarditis of mitral valve Take 1 capsule (50 mg total) by mouth nightly. 5 Active senna (SENOKOT) 8.6 MG Tab tabletIndication s:Infective endocarditis of mitral valve Take 2 tablets by mouth nightly. 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 Patient unable to answer 10/24/2024 Comments No Sex and Gender Information Value Date Recorded Sex Assigned at Not on file Legal Sex Female 10:39 AM EDT Gender Identity Not on file Sexual Orientation Not on file Last Filed Vital Signs Vital Sign Reading Time Taken Comments Blood Pressure 131/79 11/06/2024 4:48 PM EDT Pulse 122 11/06/2024 4:49 PM EDT Temperature 37.7 C (99.8 F) 11/06/2024 3:55 PM EDT Respiratory Rate 18 11/06/2024 3:55 PM EDT Oxygen Saturation 98% 11/06/2024 3:55 PM EDT Inhaled Oxygen Concentration - - Weight 49.1 kg (108 lb 3.9 oz) 11/06/2024 5:17 A M EDT Height 154.9 cm (5' 1 ) 10/22/2024 9:00 PM EDT Body Mass Index 20.45 10/22/2024 9:00 PM EDT Plan of Treatment Health Maintenance Due Date Last Done Comments DTaP/Tdap/Td Vaccines (1 - Tdap) 2008 Hepatitis B Vaccines (1 of 3 - 19+ 3-dose series) 2008 Pneumococcal Vaccine: Pediat tere (0-5 Years) and At-Risk Patients (6 to 49 Years) (1 of 2 - PCV) 2008 Pap Smear (Ages 21-65) 2010 Influenza Vaccine 02/06/2025 COVID-19 Vaccine (2 - 2024- season) 2025 HIV Screening Completed 10/23/2024 Hepatitis C Virus Screening Completed 10/23/2024, 0 10/23/2024 HPV Vaccines (No Doses Required) Completed Medical Devices Implanted Type Area Assistant Art Director Device Identifier Shelf Expiration Date Model / Serial / Lot [id number] Patch Cv 14x8cm Sp Prgrd Bvn Pericard Glutaraldehyde 2 Cx - [id number] Implanted:Qty: 1 on 10/30/2024 by Marin Rodriguez MD at [facility] Tissue N/A: Heart [employer] 07/22/2026 [id number] / / [id number] Valve Mitral 31mm Resilia - [id number] Implanted:Qty: 1 on 10/30/2024 by Marin Rodriguez MD at [facility] Valve N/A: Heart [employer] [id number] 01/23/2029 [id number] / [id number] / Procedures Procedure Name Priority Date/Time Associated Diagnosis Comments HIV ANTIBODY ANTIGEN COMBO SCREEN ([facility]) Routine 10/23/2024 11:02 AM EDT HEPATITIS PANEL, ACUTE Routine 10/23/2024 11:02 AM EDT from Last 3 Months or Most Recently Relevant to Health Maintenance Results * HIV Antibody, Antigen, Combo Screen (10/23/2024 11:02 AM EDT) HIV AB, AG Combo Screen Nonreactive Nonreactive 10/23/2024 12:59 PM EDT [facility] Comment: This assays detection of p24 antigen and/or antibodies to HIV-1 and/or HIV-2 may not detect all infected individuals. A negative test result does not exclude the possibility of exposure to or infection with HIV. HIV antibodies and/or p24 antigen may be undetectable in some stages of the infection and in some clinical conditions. The performance of the [employer] IM CHV assay has not been established with cord blood, specimens, cadaver specimens, heat-inactivated specimens, or body fluids other than serum and plasma, such as saliva, urine, amniotic fluid or pleural fluid. Blood Blood specimen / Unknown 10/23/2024 11:02 AM EDT 10/23/2024 11:17 AM EDT us Erin Reilly MD LAB BLOOD ORDERABLES Final Res ult Performing Organization Address [facility]/[place] [address], * (ABNORMAL) Hepatitis Panel, Acute (10/23/2024 11:02 AM EDT) Hepatitis A Antibody IgM Nonreactive Nonreactive 10/23/2024 12:59 PM EDT [facility] Hepatitis B Core Antibody IgM Nonreactive Nonreactive 10/23/2024 12:59 PM EDT [facility] Hepatitis B Surface Ag Screen Nonreactive Nonreactive 10/23/2024 12:59 PM EDT [facility] Hepatitis C Antibody Reactive(A) Nonreactive 10/23/2024 12:59 PM EDT [facility] Blood Blood specimen / Unknown 10/23/2024 11:02 AM EDT 10/23/2024 11:17 AM EDT Comment:Serum~Plasma us Erin Reilly MD LAB BLOOD ORDERABLES Final Res ult Performing Organization Address [facility]/ZIP Co de Phone Number [address] from Last 3 Months or Most Recently Relevant to Health Maintenance Insurance [facility] MEDICARE [facility] MEDIC[facility] Advance Directives * Full Code (Latest Code Status on File) Date Activated Date Inactivated Comments 10/30/2024 5:50 PM * Full Code Date Activated Date Inactivated Comments 10/22/2024 6:54 PM 10/30/2024 5:50 PM Care Teams Alumni Secretary Relationship Specialty Start Date End Date Unknown Unknow Provider Address PCP - General 10/22/24
--- OUTSIDE RECORDS SUMMARY | 2025-06-25 17:52 | XMS_ITS | Encounter Summary ---
Author Organization [facility] Address [address] [place] [address] Care Team Providers Care Optical Laboratory Mechanic Name Role Phone Unknown Primary Care Provider [phone] Encounter Details Date Type Department Care Team (Late st Contact Info) Description 01/02/2025 Scanned Document [facility] Cardiothoracic Surgery [place] [address] [place] [phone] Cardiology, Scan Social History Tobacco Use Types Packs/Day Years Used Date Smoking Tobacco: Never Assessed [facility] Utilities Answer Date Recorded In the past 12 months has [employer], gas, oil, or water [employer] threatened to shut off services in your [...] any time in the past 12 m [facility], were you homeless or living in [...] on filedocumented in this encounter Care Teams Optical Laboratory Mechanic Relationship Specialty Start Date End Date Unknown Unknow Provider Address PCP - General 10/22/24 documented as of this encounter
== END 2025-06-25 14:08 | disposition home or self-care (01) ==
LOC: HO.HCS 13:38
DX: I42.9 Cardiomyopathy, unspecified (principal); Z95.3 Presence of xenogenic heart valve; Z87.74 Personal history of (corrected) congenital malformations of heart and circulatory system
CPT/HCPCS: 99214; G2211

== ENCOUNTER → 2025-06-25 13:37 | Outpatient (BNVA) | payer MEDICARE, MEDICAID, SELFPAY | DX: I42.9 Cardiomyopathy, unspecified (principal); Z95.3 Presence of xenogenic heart valve; Z87.74 Personal history of (corrected) congenital malformations of heart and circulatory system; Z79.82 Long term (current) use of aspirin | CPT/HCPCS: 99212 ==